=== PATIENT | female | born 1945 | race Caucasian/White ===

== ENCOUNTER 2017-10-08 10:59 | Inpatient (IN) | payer MEDICARE ==
[2017-10-08] MEDS ORDERED: D50W 25 GM/50 ML SYRINGE IV ONE (11:09)
[2017-10-08] MEDS ORDERED: DEXTROSE 10%-WATER 500 ML IV SCH (11:30)
--- NOTE | 2017-10-08 11:49 | RAD REPORT ---
EXAM DESCRIPTION: CT - Head Brain Wo Cont - 10/08/2017 11:42 am CLINICAL HISTORY: Transient alteration of awareness COMPARISON: CT head May 2016 TECHNIQUE: Axial 5 mm thick images of the head were obtained without IV contrast. All CT scans are performed using dose optimization technique as appropriate and may include automated exposure control or mA/KV adjustment according to patient size. FINDINGS: No intracranial hemorrhage, mass, edema or shift of mid-line structures. No acute cortical based infarction. No significant atrophy or chronic ischemic changes noted. No abnormal extra-axial fluid collections. Ventricles are normal. Arterial and physiologic calcifications are present. Mastoid air cells and visualized portions of the paranasal sinuses are clear. No acute bony findings. IMPRESSION: Negative non-contrast CT head examination for acute finding. No significant change from May 2016.
--- NOTE | 2017-10-08 11:50 | RAD REPORT ---
EXAM DESCRIPTION: Bhakti Single View10/08/2017 11:35 am CLINICAL HISTORY: Chest pain COMPARISON: 2016 FINDINGS: The lungs appear clear of acute infiltrate. The heart is normal size IMPRESSION: No acute abnormalities displayed
[2017-10-08 11:58] LABS: Absolute Lymphocytes (CBC) 1.7 K/uL (0.7-4.9); Absolute Monocytes 0.5 K/uL (0.1-1.3); Absolute Neutrophil 3.5 K/uL (1.8-8.0); Basophils % 0.4 % (0-1.3); Hematocrit 35.3 % (36.0-45.0); Lymphocytes % 29.5 % (15.3-44.8); MCH 28.1 pg (27.0-35.0); MPV 8.9 fL (7.6-11.3); Monocytes % 9.2 % (3.3-12.3); RBC Red Blood Cell Count 4.05 M/uL (3.86-4.86)
[2017-10-08 12:15] LABS: Albumin 3.6 g/dL (3.2-5.5); Bilirubin Direct 0.1 mg/dL (0-0.2); Bilirubin Total 0.5 mg/dL (0.3-1.2); Magnesium 1.8 mg/dL (1.8-2.5)
[2017-10-08 12:46] LABS: Arterial Blood Carboxyhemoglob 0.8 % (0-1.5); Blood Gas Oxyhemoglobin 95.1 % (94-97); Blood O2 Saturation 96.9 % (92-98.5)
[2017-10-08 13:15] LABS: Protime INR 1.05
--- NOTE | 2017-10-08 13:28 | EKG ---
Test Date: 2017-10-08 Test Time: 11:09:32 Apprentice Painter Neckties: OLENA MEASUREMENT RESULTS: Intervals: Rate: 65 NM: 278 QRSD: 112 QT: 452 QTc: 470 Leland: P: 61 NM: 278 QRS: 14 T: 56 INTERPRETIVE STATEMENTS: Sinus rhythm with 1st degree AV block Otherwise normal ECG Compared to ECG 05/06/2016 13:27:30 Sinus bradycardia no longer present Electronically Signed On 10-08-17 13:27:20 CDT by Elmer Lora
[2017-10-08 13:36] LABS: Urine Bacteria NONE SEEN /HPF (<20); Urine Culture Reflex Order NOT NEEDED; Urine RBC <5 /HPF (NONE SEEN)
[2017-10-08] MEDS ORDERED: ONDANSETRON 4 MG/2 ML VIAL ONE (14:03)
[2017-10-08] MEDS ORDERED: D5W 1,000 ML IV ONE (14:09)
[2017-10-08] MEDS ORDERED: POTASSIUM 25 MEQ EFFERV TAB ONE (14:09)
[2017-10-08 14:26] LABS: Urine Blood NEGATIVE (NEG); Urine Glucose NEGATIVE (NEG); Urine Protein NEGATIVE (NEG); Urine Specific Gravity 1.015 (1.005-1.030)
--- NOTE | 2017-10-08 14:32 | ER ---
Nurse's Notes [facility] Name: Amy Connor Age: 71 yrs Sex: Female : 1945 Arrival Date: 10/08/2017 Time: 11:02 Bed 3 Private MD: Diagnosis: Hypoglycemia, unspecified;Weakness Presentation: 10/08 11:02 Presenting complaint: EMS states: called for sudden confusion that began at hb 0930. BGL 34, improved to 86 after 1 amp D50. reports she took her insulin and blood sugar pill but did not eat breakfast. Transition of care: patient was not received from another setting of care. Onset of symptoms was October 08, 2017 at 09:30. Initial Sepsis Screen: Does the patient meet any 2 criteria? No. Patient's initial sepsis screen is negative. Does the patient have a suspected source of infection? No. Patient's initial sepsis screen is negative. Care prior to arrival: Medication(s) given: D50, 1 amp, IV initiated. 20 GA, in the right forearm, 18g Left AC. 11:02 Method Of Arrival: EMS: [facility] hb 11:02 Acuity: SIGIFREDO 2 hb Historical: - Allergies: 11:13 ACETAMINOPHEN; hb 11:13 Cefuroxime; hb 11:13 Clindamycin; hb 11:13 Codeine; hb 11:13 Demerol; hb 11:13 hydrocodone bitartrate; hb 11:13 hydrocodone bitartrate (bulk); hb 11:13 Iodine; hb 11:13 Keflex; hb 11:13 Levaquin; hb 11:13 meperidine HCl; hb 11:13 axetil; hb 11:13 naprosen; hb 11:13 Naproxen; hb 11:13 nitro; hb 11:13 Nitrofuran Analogues; hb 11:13 PENICILLINS; hb 11:13 pentazocine lactate; hb 11:13 promethazine HCl; hb 11:13 Sulfa (Sulfonamide Antibiotics); hb 11:13 Talwin; hb 11:13 Vicodin; hb - PMHx: 11:13 Diabetes - IDDM; hb - PSHx: 11:46 Hernia repair; Cholecystectomy; Appendectomy; Back; Knee Replacement - bilateral; hb - Immunization history:: Adult Immunizations up to date. - Social history:: Smoking status: . Screenin:14 Abuse screen: Denies threats or abuse. Denies injuries from another. Nutritional hb screening: No deficits noted. Tuberculosis screening: No symptoms or risk factors identified. Fall Risk Total Flores Fall Scale indicates High Risk Score (45 or more points). Fall prevention measures have been instituted. Side Rails Up X 2 Frequent Obs/Assessments Occuring Family Present and informed to notify staff if the need to leave the bedside As available patient and family educated on Fall Prevention Program and Strategies. Assessment: 11:10 Reassessment: BGL 35, Dr. Frias notified, 1 amp D50 administered as ordered. Dr. Frias hb at bedside. 11:15 General: Appears ill, Behavior is calm, cooperative. Pain: Denies pain. Neuro: Level of hb Consciousness is obeys commands, lethargic, Oriented to person, place, time, situation. Cardiovascular: Heart tones S1 S2 present Capillary refill < 3 seconds Patient's skin is warm and dry. Respiratory: Airway is patent Trachea midline Respiratory effort is even, unlabored, Respiratory pattern is regular, symmetrical, Breath sounds are clear bilaterally. GI: No signs and/or symptoms were reported involving the gastrointestinal system. : No signs and/or symptoms were reported regarding the genitourinary system. EENT: No signs and/or symptoms were reported regarding the EENT system. Derm: No signs and/or symptoms reported regarding the dermatologic system. Skin is pink, warm \T\ dry. Musculoskeletal: No signs and/or symptoms reported regarding the musculoskeletal system. 12:00 Reassessment: Patient appears in no apparent distress at this time. Patient and/or hb family updated on plan of care and expected duration. Pain level reassessed. Patient is alert, oriented x 3, equal unlabored respirations, skin warm/dry/pink. Family at bedside. 13:00 Reassessment: Patient appears in no apparent distress at this time. No changes from hb previously documented assessment. Patient and/or family updated on plan of care and expected duration. Pain level reassessed. Patient is alert, oriented x 3, equal unlabored respirations, skin warm/dry/pink. Family at bedside. 14:00 Reassessment: Patient appears in no apparent distress at this time. No changes from hb previously documented assessment. Patient and/or family updated on plan of care and expected duration. Pain level reassessed. Patient is alert, oriented x 3, equal unlabored respirations, skin warm/dry/pink. Family at bedside. 15:00 Reassessment: Patient appears in no apparent distress at this time. Patient and/or hb family updated on plan of care and expected duration. Pain level reassessed. Patient is alert, oriented x 3, equal unlabored respirations, skin warm/dry/pink. Admission ordered, awaiting room assignment at this time. Family remains at bedside. Vital Signs: 11:05 BP 154 / 71; Pulse 67; Resp 16; Temp 98; Pulse Ox 100% on R/A; hb 12:25 BP 171 / 88; Pulse 67; Resp 18; Pulse Ox 100% on R/A; tw2 14:15 BP 130 / 110; Pulse 96; Resp 17; Pulse Ox 98% on R/A; tw2 NIH Stroke Scale Scores: 15:41 NIHSS Score: 0 gs ED Course: 11:02 Patient arrived in ED. hb 11:02 Side rails up X2. Adult w/ patient. logistics operations director on. Pulse ox on. NIBP on. Warm tw2 blanket given. 11:05 Triage completed. hb 11:07 Marcos Frias MD is Attending Physician. gs 11:11 Maintain EMS IV. Dressing intact. Good blood return noted. Site clean \T\ dry. Gauge \T\ hb site: 20G RIGHT FA. 11:12 Maintain EMS IV. Dressing intact. Good blood return noted. Site clean \T\ dry. Gauge \T\ hb site: 18g LEFT AC. 11:15 Karen Alejo, RN is Primary Nurse. hb 11:30 X-ray completed. Portable x-ray completed in exam room. Patient tolerated procedure jb2 well. 11:33 XRAY Chest (1 view) In Process Unspecified. EDMS 11:42 CT Head Brain wo Cont In Process Unspecified. EDMS 12:26 Arm band placed on. tw2 14:31 Kathryn Henry MD is Hospitalizing Provider. gs 14:31 Gentry Em DO is Hospitalizing Provider. gs 15:45 No provider procedures requiring assistance completed. Patient admitted, IV remains in hb place. Administered Medications: 11:11 Drug: D50W 50 ml Route: IVP; Site: left antecubital; hb 11:35 Follow up: Response: No adverse reaction; Blood sugar is elevated tw2 14:07 Drug: Zofran 4 mg Route: IVP; Site: left antecubital; tw2 14:47 Follow up: Response: No adverse reaction; Nausea is decreased tw2 14:25 Drug: D5-NS 1000 ml Route: IV; Rate: 125 ml/hr; Site: left antecubital; tw2 15:45 Follow up: Response: No adverse reaction; IV Status: Infusion continued upon admission hb 14:47 Drug: Potassium Effervescent Tablet 50 mEq Route: PO; tw2 15:15 Follow up: Response: No adverse reaction hb Point of Care Testing: Blood Glucose: 11:09 Blood Glucose: 35 mg/dL; hb 11:34 Blood Glucose: 155 mg/dL; tw2 13:13 Blood Glucose: 97 mg/dL; tw2 14:18 Blood Glucose: 116 mg/dL; tw2 Ranges: Outcome: 14:32 Decision to Hospitalize by Provider. gs 15:45 Admitted to Med/surg accompanied by tech, family with patient, via stretcher, with hb oxygen, with chart. 15:45 Condition: stable 15:45 Instructed on the need for admit, Demonstrated understanding of instructions. 15:53 Patient left the ED. tw2 NIH Stroke Scale - NIH Stroke Score Date: 10/08/2017 Time: 15:41 Total Score = 0 1a. Level of Consciousness (LOC) - 0(Alert) 1b. Level of Consciousness (LOC) (Year \T\ Age) - 0(Both) 1c. LOC Commands (Open \T\ Closes Eyes/Millroom Supervisor) - 0(Both) 2. Best Gaze (Lateral Gaze Paresis) - 0(Normal) 3. Visual Field Loss - 0(No visual loss) 4. Facial Palsy - 0(Normal) 5a. Left Arm: Motor (10-second hold) - 0(No drift) 5b. Right Arm: Motor (10-second hold) - 0(No drift) 6a. Left Leg: Motor (5-second hold - always test supine) - 0(No drift) 6b. Right Leg: Motor (5-second hold - always test supine) - 0(No drift) 7. Limb Ataxia (finger/nose \T\ heel/lombardi - test with eyes open) - 0(Absent) 8. Sensory Loss (pinprick arms/legs/face) - 0(Normal) 9. Best Language: Aphasia (description/naming/reading) - 0(No aphasia) 10. Dysarthria (speech clarity - read or repeat words) - 0(Normal) 11. Extinction and Inattention (visual/tactile/auditory/spatial/personal) - 0(No abnormality) Initials: gs Signatures: Dispatcher [employer] Avery Solares Heather, RN RN Elena Singh RN RN tw2 Marcos Frias MD MD gs
--- NOTE | 2017-10-08 14:33 | EDPHYS ---
Physician Documentation [facility] Name: Amy Connor Age: 71 yrs Sex: Female : 1945 Arrival Date: 10/08/2017 Time: 11:02 Bed 3 Private MD: ED Physician Marcos Frias HPI: 10/08 15:41 This 71 yrs old Female presents to ER via EMS with complaints of Low Blood gs Sugar. 15:41 The patient or guardian reports hypoglycemia, that was potentially precipitated by gs po intake. Onset: The symptoms/episode began/occurred just prior to arrival. Associated signs and symptoms: Pertinent negatives: constipation, decreased urine output. Current symptoms: In the emergency department the patient's symptoms have improved, moderately. The patient has experienced similar episodes in the past, a few times. Historical: - Allergies: 11:13 ACETAMINOPHEN; hb 11:13 Cefuroxime; hb 11:13 Clindamycin; hb 11:13 Codeine; hb 11:13 Demerol; hb 11:13 hydrocodone bitartrate; hb 11:13 hydrocodone bitartrate (bulk); hb 11:13 Iodine; hb 11:13 Keflex; hb 11:13 Levaquin; hb 11:13 meperidine HCl; hb 11:13 axetil; hb 11:13 naprosen; hb 11:13 Naproxen; hb 11:13 nitro; hb 11:13 Nitrofuran Analogues; hb 11:13 PENICILLINS; hb 11:13 pentazocine lactate; hb 11:13 promethazine HCl; hb 11:13 Sulfa (Sulfonamide Antibiotics); hb 11:13 Talwin; hb 11:13 Vicodin; hb - PMHx: 11:13 Diabetes - IDDM; hb - PSHx: 11:46 Hernia repair; Cholecystectomy; Appendectomy; Back; Knee Replacement - bilateral; hb - Immunization history:: Adult Immunizations up to date. - Social history:: Smoking status: . ROS: 15:41 All other systems are negative. gs Exam: 15:38 ECG was reviewed by the Attending Physician. gs 15:41 Head/Face: Normocephalic, atraumatic. Eyes: Pupils equal round and reactive to light, gs extra-ocular motions intact. Lids and lashes normal. Conjunctiva and sclera are non-icteric and not injected. Cornea within normal limits. Periorbital areas with no swelling, redness, or edema. ENT: Nares patent. No nasal discharge, no septal abnormalities noted. Tympanic membranes are normal and external auditory canals are clear. Oropharynx with no redness, swelling, or masses, exudates, or evidence of obstruction, uvula midline. Mucous membranes moist. Neck: Trachea midline, no thyromegaly or masses palpated, and no cervical lymphadenopathy. Supple, full range of motion without nuchal rigidity, or vertebral point tenderness. No Meningismus. Chest/axilla: Normal chest wall appearance and motion. Nontender with no deformity. No lesions are appreciated. 15:41 Respiratory: Lungs have equal breath sounds bilaterally, clear to auscultation and percussion. No rales, rhonchi or wheezes noted. No increased work of breathing, no retractions or nasal flaring. Abdomen/GI: Soft, non-tender, with normal bowel sounds. No distension or tympany. No guarding or rebound. No evidence of tenderness throughout. Back: No spinal tenderness. No costovertebral tenderness. Full range of motion. Skin: Warm, dry with normal turgor. Normal color with no rashes, no lesions, and no evidence of cellulitis. MS/ Extremity: Pulses equal, no cyanosis. Neurovascular intact. Full, normal range of motion. 15:41 Constitutional: The patient appears alert, awake, uncomfortable. 15:41 Cardiovascular: Rate: normal, Rhythm: regular, Pulses: no pulse deficits are appreciated. 15:41 Neuro: Orientation: to person, place \T\ time. Mentation: slow to respond, Cranial nerves: CN II- XII are normal as tested, Cerebellar function: normal finger to nose testing, Motor: moves all fours, strength is normal, Sensation: no obvious gross deficits. Vital Signs: 11:05 BP 154 / 71; Pulse 67; Resp 16; Temp 98; Pulse Ox 100% on R/A; hb 12:25 BP 171 / 88; Pulse 67; Resp 18; Pulse Ox 100% on R/A; tw2 14:15 BP 130 / 110; Pulse 96; Resp 17; Pulse Ox 98% on R/A; tw2 NIH Stroke Scale Scores: 15:41 NIHSS Score: 0 gs MDM: 11:13 Patient medically screened. gs 15:41 Differential diagnosis: hypoglycemic episode, general weakness, sepsis, renal gs insufficiency. Data reviewed: vital signs, nurses notes. Response to treatment: the patient's symptoms have markedly improved after treatment, and as a result, I will admit patient. 10/08 11:09 Order name: Glucose, Ancillary Testing; Complete Time: 11:13 EDMS 10/08 11:17 Order name: Basic Metabolic Panel; Complete Time: 12: 10/08 11:17 Order name: CPK; Complete Time: 12: 10/08 11:17 Order name: LFT's; Complete Time: 12: 10/08 11:17 Order name: Magnesium; Complete Time: 12: 10/08 11:17 Order name: PT-INR; Complete Time: 14:00 10/08 11:17 Order name: Troponin (emerg Dept Use Only); Complete Time: 12: 10/08 11:17 Order name: ABG; Complete Time: 14:00 10/08 11:17 Order name: AMMONIA; Complete Time: 12: 10/08 11:26 Order name: CBC with Diff; Complete Time: 12:17 10/08 11:35 Order name: Glucose, Ancillary Testing; Complete Time: 12:17 EDMS 10/08 11:59 Order name: Glucose, Ancillary Testing; Complete Time: 12:17 EDNM 10/08 12:44 Order name: Urine Microscopic Only; Complete Time: 14:00 la1 10/08 13:14 Order name: Glucose, Ancillary Testing; Complete Time: 14:00 EDMS 10/08 11:17 Order name: XRAY Chest (1 view); Complete Time: 12: 10/08 11:17 Order name: EKG; Complete Time: 10/08 11:17 Order name: Cardiac monitoring; Complete Time: 10/08 11:17 Order name: EKG - Nurse/Tech; Complete Time: 10/08 11:17 Order name: IV Saline Lock; Complete Time: : 10/08 11:17 Order name: Labs collected and sent; Complete Time: 11:35 10/08 11:17 Order name: O2 Per Protocol; Complete Time: : 10/08 11:17 Order name: O2 Sat Monitoring; Complete Time: 11:17 10/08 11:17 Order name: CT Head Brain wo Cont; Complete Time: 12:17 gs 10/08 11:21 Order name: Diet Ada 1800 Prem; Complete Time: 11:21 bd 10/08 13:33 Order name: Urine Dipstick--Ancillary (enter results); Complete Time: 14:27 bd 10/08 14:16 Order name: Glucose, Ancillary Testing; Complete Time: 14:27 EDMS 10/08 11:17 Order name: Urine Dipstick-Ancillary (obtain specimen); Complete Time: 13:09 10/08 11:18 Order name: Accucheck; Complete Time: 11:35 10/08 11:53 Order name: Labs - recollect needed; Complete Time: 13:09 bd EC:38 Rate is 65 beats/min. Rhythm is regular. [place] interval is prolonged. QRS interval is gs prolonged. T waves are Flattened. Clinical impression: NSR w/ Non-specific ST/T Changes and Abnormal EKG without significant change. Interpreted by me. Administered Medications: 11:11 Drug: D50W 50 ml Route: IVP; Site: left antecubital; hb 11:35 Follow up: Response: No adverse reaction; Blood sugar is elevated tw2 14:07 Drug: Zofran 4 mg Route: IVP; Site: left antecubital; tw2 14:47 Follow up: Response: No adverse reaction; Nausea is decreased tw2 14:25 Drug: D5-NS 1000 ml Route: IV; Rate: 125 ml/hr; Site: left antecubital; tw2 15:45 Follow up: Response: No adverse reaction; IV Status: Infusion continued upon admission hb 14:47 Drug: Potassium Effervescent Tablet 50 mEq Route: PO; tw2 15:15 Follow up: Response: No adverse reaction hb Point of Care Testing: Blood Glucose: 11:09 Blood Glucose: 35 mg/dL; hb 11:34 Blood Glucose: 155 mg/dL; tw2 13:13 Blood Glucose: 97 mg/dL; tw2 14:18 Blood Glucose: 116 mg/dL; tw2 Ranges: Critical Glucose Levels:Adult <50 mg/dl or >400 mg/dl <40 mg/dl or >180 mg/dl Disposition: 10/08/17 14:32 Hospitalization ordered by Gentry Em for Inpatient Admission. Preliminary diagnosis are Hypoglycemia, unspecified, Weakness. - Bed requested for Telemetry/MedSurg (Inpatient). - Status is Inpatient Admission. tw2 - Condition is Stable. - Problem is new. - Symptoms have improved. UTI on Admission? No NIH Stroke Scale - NIH Stroke Score Date: 10/08/2017 Time: 15:41 Total Score = 0 1a. Level of Consciousness (LOC) - 0(Alert) 1b. Level of Consciousness (LOC) (Year \T\ Age) - 0(Both) 1c. LOC Commands (Open \T\ Closes Eyes/Tracer Bullet Section Supervisor) - 0(Both) 2. Best Gaze (Lateral Gaze Paresis) - 0(Normal) 3. Visual Field Loss - 0(No visual loss) 4. Facial Palsy - 0(Normal) 5a. Left Arm: Motor (10-second hold) - 0(No drift) 5b. Right Arm: Motor (10-second hold) - 0(No drift) 6a. Left Leg: Motor (5-second hold - always test supine) - 0(No drift) 6b. Right Leg: Motor (5-second hold - always test supine) - 0(No drift) 7. Limb Ataxia (finger/nose \T\ heel/lombardi - test with eyes open) - 0(Absent) 8. Sensory Loss (pinprick arms/legs/face) - 0(Normal) 9. Best Language: Aphasia (description/naming/reading) - 0(No aphasia) 10. Dysarthria (speech clarity - read or repeat words) - 0(Normal) 11. Extinction and Inattention (visual/tactile/auditory/spatial/personal) - 0(No abnormality) Initials: Signatures: Dispatcher [employer] EDMS Seda Landon Heather, RN RN Elena Singh RN RN tw2 Marcos Frias MD MD Corrections: (The following items were deleted from the chart) 15:30 14:32 Hospitalization Ordered by Gentry Em DO for Inpatient Admission. Preliminary diagnosis is Hypoglycemia, unspecified; Weakness. Bed requested for Telemetry/MedSurg (Inpatient). Status is Inpatient Admission. Condition is Stable. Problem is new. Symptoms have improved. UTI on Admission? No. gs 15:53 15:30 10/08/2017 14:32 Hospitalization Ordered by Gentry Prezas DO for tw2 Inpatient Admission. Preliminary diagnosis is Hypoglycemia, unspecified; Weakness. Bed requested for Telemetry/MedSurg (Inpatient). Status is Inpatient Admission. Condition is Stable. Problem is new. Symptoms have improved. UTI on Admission? No. bd
[2017-10-08] MEDS ORDERED: D5 0.9 NS 1,000 ML IV SCH (16:07)
[2017-10-08] MEDS ORDERED: ONDANSETRON 4 MG/2 ML VIAL IV PRN (16:07)
[2017-10-08] MEDS: INSULIN -REGULAR HUMAN 50 UNIT/0.5 ML ML SQ SCH ×2 (16:14→20:22)
[2017-10-08 17:10] LABS: A1c Component 0.59 mg/dL; Hemoglobin A1c 6.4 % (4-6.0)
--- NOTE | 2017-10-08 17:15 | P.HP ---
Certification for Inpatient Patient admitted to: Observation With expected LOS: <2 Midnights Patient will require the following post-hospital care: None Practitioner: I am a practitioner with admitting privileges, knowledge of patient current condition, hospital course, and medical plan of care. Services: Services provided to patient in accordance with Admission requirements found in Title 42 Section 412.3 of the Code of Federal Regulations Patient History Date of Service: 10/08/17 Primary Care Provider: Dr. Reynoso Reason for admission: Fatigue History of Present Illness: 71-year-old female presented urgency room with fatigue. Patient was noted in having hypoglycemia. She had checked her blood sugar. It was in the 30s. Patient did get D50 with EMS. Blood sugar still decrease. Patient was placed on D 5. Patient reports recent change in her diet. She is on a low carb diet. She takes insulin for diabetes. Patient also reports a history of chronic headaches, hypertension, hyperlipidemia, GERD with hiatal hernia. Patient with history of gastric surgery for weight loss. In the ER the patient was evaluated. Blood sugars improved but still fluctuating. Recent lab shows white count within normal range. Sodium 140, potassium 3.0, BUN of 55, blood sugar 165. Troponin within normal range. Urinalysis unremarkable. Chest x-ray unremarkable. CT of the head was also unremarkable. Due to nature the findings the patient was admitted for observation. When I saw the patient in the ER, she appeared comfortable. Family was at bedside. She still reported some mild fatigue. Patient with history of diabetes, hypertension. She does take basal insulin. As mentioned above. Diet has changed with a low carb diet. Patient with history of gastric surgery for weight loss. Allergies acetaminophen [From Vicodin] Allergy (Mild, Verified 01/15/17 23:25) Hives/Rash clindamycin Allergy (Mild, Verified 01/15/17 23:25) Hives/Rash codeine [Codeine] Allergy (Mild, Verified 01/15/17 23:25) Hives/Rash hydrocodone bitartrate [From Vicodin] Allergy (Mild, Verified 01/15/17 23:25) Hives/Rash iodine Allergy (Mild, Verified 01/15/17 23:25) Hives meperidine HCl [From Demerol] Allergy (Mild, Verified 01/15/17 23:25) Hives/Rash naproxen Allergy (Mild, Verified 01/15/17 23:25) Hives/Rash Penicillins Allergy (Mild, Verified 01/15/17 23:25) Hives/Rash pentazocine lactate [From Talwin] Allergy (Mild, Verified 01/15/17 23:25) Hives/Rash promethazine HCl [From Phenergan] Allergy (Mild, Verified 01/15/17 23:25) Hives/Rash Sulfa (Sulfonamide Antibiotics) [Sulfa(Sulfonamide Antibiotics)] Allergy (Mild, Verified 01/15/17 23:25) Hives/Rash cefuroxime Allergy (Verified 01/15/17 23:25) Hives/Rash cephalexin Allergy (Verified 01/15/17 23:25) Itching/Hives/Rash hydrocodone [From Vicodin] Allergy (Verified 01/15/17 23:25) Unknown levofloxacin [From Levaquin] Allergy (Verified 01/15/17 23:25) Hives/Rash meperidine [From Demerol] Allergy (Verified 01/15/17 23:25) Unknown Nitrofuran Analogues Allergy (Verified 01/15/17 23:25) Unknown nitrofurantoin Allergy (Verified 01/15/17 23:25) Hives/Rash pentazocine [From Talwin] Allergy (Verified 01/15/17 23:25) Unknown axetil Allergy (Uncoded 01/15/17 23:25) Unknown Cefuroxim Allergy (Uncoded 01/15/17 23:25) Unknown hydroc Allergy (Uncoded 01/15/17 23:25) Unknown hydrocodo Allergy (Uncoded 01/15/17 23:25) Unknown mep Allergy (Uncoded 01/15/17 23:25) Unknown naprosen Allergy (Uncoded 01/15/17 23:25) Unknown penta Allergy (Uncoded 01/15/17 23:25) Unknown promethazi Allergy (Uncoded 01/15/17 23:25) Unknown Home medications list reviewed: Yes Home Medications: Acetaminophen 650 mg PO 5XD PRN 01/15/17 Ascorbate Calcium [Vitamin C] 500 mg PO DAILY 01/15/17 Aspirin [Aspir-Low] 81 mg PO DAILY 01/15/17 Atorvastatin Calcium 20 mg PO DAILY 01/15/17 Calcitrol [Rocaltrol*] 0.25 mcg PO DAILY 01/15/17 Cholecalciferol (Vitamin D3) [Vitamin D3] 1,000 unit PO DAILY 01/15/17 Divalproex Sodium 500 mg PO BEDTIME 01/15/17 Hydralazine [Apresoline*] 25 mg PO DAILY 01/15/17 Insulin Glargine,Hum.rec.anlog [Lizz Smith] 34 unit SQ DAILY 01/15/17 Levothyroxine Sodium 75 mcg PO DAILY 01/15/17 Magnesium Oxide [Magnesium] 250 mg PO DAILY 01/15/17 Melatonin 5 mg PO BEDTIME 01/15/17 Multivitamin [Multiple Vitamins] 1 tab PO DAILY 01/15/17 - Past Medical/Surgical History Diabetic: Yes -: Chronic kidney disease -: Diabetes mellitus type 2 -: Hypothyroidism -: Hypertension -: GERD with hiatal hernia -: History gastric surgery -: Hyperlipidemia -: Appendectomy -: Cholecystectomy -: Hysterectomy -: Hernia repair -: Back surgery -: Bilateral knee replacements -: Gastric surgery for weight loss Psychosocial/ Personal History: The patient is . She has 2 children. She does not work. - Family History Father -: Heart disease, Hypertension, Diabetes, Cancer (Squamous cell cancer) Mother -: Heart disease, Hypertension, Diabetes, Cancer (Pancreatic cancer) - Social History Smoking Status: Never smoker Alcohol use: Yes CD- Drugs: No Caffeine use: Yes Place of Residence: Home Review of Systems General: Weakness, Malaise, As per HPI Eyes: Unremarkable ENT: Unremarkable Respiratory: Unremarkable Cardiovascular: Unremarkable Gastrointestinal: Unremarkable Genitourinary: Unremarkable Musculoskeletal: As per HPI Integumentary: As per HPI Neurological: As per HPI Lymphatics: Unremarkable Physical Examination - Vital Signs Temperature: 98 F Blood Pressure: 130/110 Pulse: 96 Respirations: 17 - Physical Exam General: Alert, In no apparent distress, Oriented x3, Cooperative HEENT: Atraumatic, Normocephalic, PERRLA, Other (Dry mucous membranes) Neck: Supple, No Thyromegaly Respiratory: Clear to auscultation bilaterally, Normal air movement Cardiovascular: Normal pulses, Regular rate/rhythm Gastrointestinal: Normal bowel sounds, Soft and benign, Non-distended, No tenderness, No masses, No rebound, No guarding Musculoskeletal: No erythema, No tenderness, No warmth Integumentary: No tenderness/swelling, No erythema, No warmth, No cyanosis Neurological: Normal speech, Normal strength at 5/5 x4 extr, Normal tone, Normal affect Lymphatics: No axilla or inguinal lymphadenopathy - Studies Laboratory Data (last 24 hrs) 10/08/17 12:46: PT 12.4, INR 1.05 10/08/17 11:20: WBC 5.8, Hgb 11.4 L, Hct 35.3 L, Plt Count 155 10/08/17 11:20: Sodium 140, Potassium 3.0 L, BUN 18, Creatinine 0.99, Glucose 165 H, Magnesium 1.8, Total Bilirubin 0.5, AST 25, ALT 15, Alkaline Phosphatase 60 Assessment and Plan - Problems (Diagnosis) (1) Hiatal hernia with GERD Current Visit: Yes Status: Chronic Plan: Will continue with PPI. Recommendation on no further use of nonsteroidal anti- inflammatories. Patient with history of gastric surgery for weight loss. Will teach on nutrition. (2) History of gastric bypass Current Visit: Yes Status: Chronic Plan: Continue as above. (3) Obesity Current Visit: Yes Status: Chronic Plan: Will calculate BMI and address lifestyle modification education. (4) Hypokalemia Current Visit: Yes Status: Acute Plan: Will monitor and replace appropriately. Replacement protocol in place. Will need to consider discontinuing hydrochlorothiazide. (5) Chronic pain Current Visit: Yes Status: Chronic Plan: Will address and continue her pain medication Qualifiers: Chronic pain type: chronic pain syndrome Qualified Code(s): G89.4 - Chronic pain syndrome (6) Diabetes mellitus Onset Date: 01/16/17 Current Visit: No Status: Chronic Plan: Patient with hypoglycemia likely related to recent low carb diet with insulin. Will check A1c. Patient will likely no longer need basal insulin. Will continue with IV fluids to maintain adequate blood sugar level. Will discontinue her basal insulin. Will continue to reassess and monitor. 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 Qualifiers: Hyperlipidemia type: unspecified (8) Hypertension Current Visit: No Status: Chronic Plan: Continue with medication. Will monitor. Will need to consider discontinuing HCTZ. Qualifiers: Hypertension type: essential hypertension (9) Hypothyroidism Current Visit: No Status: Chronic Plan: Will check TSH. Will obtain medication. Qualifiers: Discharge Plan: Home Plan to discharge in: 24 Hours - Advance Directives Does patient have a Living Will: No Does patient have a Durable POA for Healthcare: No - Code Status/Comfort Care Code Status Assessed: Yes Time Spent Managing Pts Care (In Minutes): 55
[2017-10-08 17:55] VITALS: BMI 37.6
[2017-10-08] MEDS: NA CHLORIDE 0.9% 1,000 ML IV SCH (18:06)
[2017-10-08 18:14] LABS: Thyroid Stimulating Hormone 5.15 uIU/mL (0.34-5.60)
[2017-10-09] MEDS: NA CHLORIDE 0.9% 1,000 ML IV SCH (03:55)
[2017-10-09 05:12] LABS: Absolute Lymphocytes (CBC) 2.3 K/uL (0.7-4.9); Absolute Monocytes 0.7 K/uL (0.1-1.3); Absolute Neutrophil 2.9 K/uL (1.8-8.0); Basophils % 0.6 % (0-1.3); Eosinophils % 1.5 % (0-4.4); Hematocrit 31.6 % (36.0-45.0); Lymphocytes % 38.5 % (15.3-44.8); MCH 28.7 pg (27.0-35.0); MCV 85.5 fL (80-100); MPV 8.6 fL (7.6-11.3); Monocytes % 11.4 % (3.3-12.3); RBC Red Blood Cell Count 3.69 M/uL (3.86-4.86)
[2017-10-09 05:18] LABS: Magnesium 1.7 mg/dL (1.8-2.5); Potassium 3.9 mEq/L (3.6-5.0)
[2017-10-09] MEDS ORDERED: PANTOPRAZOLE 40MG TABLET PO SCH (06:30)
[2017-10-09] MEDS: INSULIN -REGULAR HUMAN 50 UNIT/0.5 ML ML SQ SCH ×2 (07:30→11:30)
[2017-10-09] MEDS ORDERED: ENOXAPARIN 40 MG/0.4 ML SQ SCH (09:00)
[2017-10-09] MEDS ORDERED: AMLODIPINE 5 MG TAB PO SCH (09:00)
[2017-10-09] MEDS ORDERED: ACETAMINOPHEN 500 MG TAB PO PRN (09:32)
[2017-10-09 12:11] VITALS: BP 166/76; TEMP 98.3
--- NOTE | 2017-10-09 12:15 | P.DS ---
Admission Date: 10/08/17 Discharge Date: 10/09/17 Primary Care Provider: Dr. Reynoso Disposition: ROUTINE DISCHARGE Discharge Condition: GOOD Reason for Admission: Fatigue - Problems (1) Hiatal hernia with GERD Onset Date: 10/09/17 Current Visit: Yes Status: Chronic (2) History of gastric bypass Current Visit: Yes Status: Chronic (3) Obesity Onset Date: 10/09/17 Current Visit: Yes Status: Chronic Qualifiers: Obesity type: due to excess calories Obesity classification: adult class 2 (BMI 35 - 39.9) Serious obesity comorbidity presence: with serious comorbidity Body mass index: BMI 37.0-37.9 Qualified Code(s): E66.01 - Morbid (severe) obesity due to excess calories; Z68.37 - Body mass index (BMI) 37.0-37.9, adult (4) Hypokalemia Onset Date: 10/09/17 Current Visit: Yes Status: Acute (5) Chronic pain Onset Date: 10/09/17 Current Visit: Yes Status: Chronic Qualifiers: Chronic pain type: chronic pain syndrome Qualified Code(s): G89.4 - Chronic pain syndrome (6) Diabetes mellitus Onset Date: 01/16/17 Current Visit: No Status: Chronic Qualifiers: Diabetes mellitus type: type 2 Diabetes mellitus fpc insulin use: with fpc use Diabetes mellitus complication status: with hypoglycemia Diabetes mellitus complication detail: without coma Qualified Code(s): E11.649 - Type 2 diabetes mellitus with hypoglycemia without coma; Z79.4 - long term (current) use of insulin (7) Hyperlipidemia Onset Date: 10/09/17 Current Visit: Yes Status: Chronic Qualifiers: Hyperlipidemia type: unspecified (8) Hypertension Onset Date: 10/09/17 Current Visit: Yes Status: Chronic Qualifiers: Hypertension type: essential hypertension (9) Hypothyroidism Onset Date: 10/09/17 Current Visit: Yes Status: Chronic Qualifiers: (10) Chronic renal disease Current Visit: Yes Status: Chronic Qualifiers: Chronic kidney disease stage: stage 2 (mild) Qualified Code(s): N18.2 - Chronic kidney disease, stage 2 (mild) Brief History of Present Illness: 71-year-old female presented urgency room with fatigue. Patient was noted in having hypoglycemia. She had checked her blood sugar. It was in the 30s. Patient did get D50 with EMS. Blood sugar still decrease. Patient was placed on D 5. Patient reports recent change in her diet. She is on a low carb diet. She takes insulin for diabetes. Patient also reports a history of chronic headaches, hypertension, hyperlipidemia, GERD with hiatal hernia. Patient with history of gastric surgery for weight loss. In the ER the patient was evaluated. Blood sugars improved but still fluctuating. Recent lab shows white count within normal range. Sodium 140, potassium 3.0, BUN of 55, blood sugar 165. Troponin within normal range. Urinalysis unremarkable. Chest x-ray unremarkable. CT of the head was also unremarkable. Due to nature the findings the patient was admitted for observation. When I saw the patient in the ER, she appeared comfortable. Family was at bedside. She still reported some mild fatigue. Patient with history of diabetes, hypertension. She does take basal insulin. As mentioned above. Diet has changed with a low carb diet. Patient with history of gastric surgery for weight loss. Hospital Course: Patient presented with fatigue and hypoglycemia. Patient was found to be hypoglycemic. Patient had been using insulin therapy at home. Hypoglycemia likely related to [id number], she had been using 34 units subcu daily. During her stay. This was discontinued. She was monitored closely off medication. She was found to have a hemoglobin A1c of 6.4. Patient also with history of gastric surgery for weight loss. At discharge, Recommendation is to discontinue insulin therapy at this time. Patient may be able to control blood sugars with diet alone. Recommendation is to monitor blood sugars at least twice daily. Recommendation is to maintain blood sugars less 140 fasting and less than 200 after meals. If blood sugars remain above 200 consistently she is to contact her PCP for further recommendation. If the patient is restarted on insulin therapy this may need to be adjusted very slowly. Hypoglycemia education will be provided. Patient has hypertension. This remained stable during her stay. She will continue with her medication hydralazine 25 mg 1 pill twice daily. Recommendation is to maintain blood pressures less 150/80. Further adjustment can be done by her PCP. Patient has hyperlipidemia. She will continue with Lipitor 20 mg 1 pill once daily. Patient has hypothyroidism. She will continue with Levoxyl 50 mcg 1 pill daily. Patient with history of chronic renal disease. This remained stable during her stay. She will continue with her medication. Recommendation is to recheck BMP in 2-4 weeks to monitor progress. Further adjustment can be done by nephrology. Recommendation on no further use of nonsteroidal anti- inflammatories. Patient has GERD. Patient will continue with Protonix 40 mg 1 pill once daily. Patient with history of gastric surgery for weight loss. Recommendation on no further use of nonsteroidal anti-inflammatories. Vital Signs/Physical Exam: Temp Pulse Resp BP Pulse Ox 98.3 F 66 18 166/76 H 96 10/09/17 12:00 10/09/17 12:00 10/09/17 12:00 10/09/17 12:00 10/09/17 12:00 General: Alert, In no apparent distress, Oriented x3, Cooperative HEENT: Atraumatic, Mucous membr. moist/pink Neck: Supple Respiratory: Clear to auscultation bilaterally, Normal air movement Cardiovascular: Normal pulses, Regular rate/rhythm Gastrointestinal: Normal bowel sounds, Soft and benign, Non-distended, No tenderness, No masses, No rebound, No guarding Musculoskeletal: No erythema, No tenderness, No warmth Integumentary: No tenderness/swelling, No erythema, No warmth, No cyanosis Neurological: Normal speech, Normal strength at 5/5 x4 extr, Normal tone, Normal affect Laboratory Data at Discharge: WBC 6.0 K/uL (4.3-10.9) 10/09/17 04:24 Hgb 10.6 g/dL (12.0-15.0) L 10/09/17 04:24 Hct 31.6 % (36.0-45.0) L 10/09/17 04:24 Plt Count 165 K/uL (152-406) 10/09/17 04:24 PT 12.4 SECONDS (9.5-12.5) 10/08/17 12:46 INR 1.05 10/08/17 12:46 Sodium 141 mEq/L (135-145) 10/09/17 04:24 Potassium 3.9 mEq/L (3.6-5.0) 10/09/17 04:24 BUN 13 mg/dL (6-20) 10/09/17 04:24 Creatinine 0.83 mg/dL (0.44-1.00) 10/09/17 04:24 Glucose 49 mg/dL (65-120) L* 10/09/17 04:24 Magnesium 1.7 mg/dL (1.8-2.5) L 10/09/17 04:24 Total Bilirubin 0.5 mg/dL (0.3-1.2) 10/08/17 11:20 AST 25 IU/L (10-42) 10/08/17 11:20 ALT 15 IU/L (10-60) 10/08/17 11:20 Alkaline Phosphatase 60 IU/L (42-121) 10/08/17 11:20 Home Medications: RX: Acetaminophen 1,300 mg PO BIDP PRN 01/15/17 RX: Ascorbate Calcium [Vitamin C] 500 mg PO DAILY 01/15/17 RX: Aspirin [Aspir-Low] 81 mg PO DAILY 01/15/17 RX: Atorvastatin Calcium 20 mg PO DAILY 01/15/17 RX: Calcitrol [Rocaltrol*] 0.25 mcg PO SEECOM 01/15/17 RX: Cholecalciferol (Vitamin D3) [Vitamin D3] 1,000 unit PO DAILY 01/15/17 RX: Hydralazine [Apresoline*] 25 mg PO BID 01/15/17 RX: Levothyroxine Sodium 50 mcg PO DAILY 01/15/17 RX: Melatonin 5 mg PO BEDTIME 01/15/17 RX: Multivitamin [Multiple Vitamins] 1 tab PO DAILY 01/15/17 Pantoprazole [Protonix Tab] 40 mg PO DAILY #30 tab 10/09/17 New Medications: Pantoprazole [Protonix Tab] 40 mg PO DAILY #30 tab Patient Discharge Instructions: 1. Patient will need a follow up with her PCP in 1 week to follow up this hospitalization. 2. Patient presented with fatigue and hypoglycemia. This is likely related to [id number]-[id number]. Patient has started a new diabetic diet regimen. Patient also with history of gastric surgery for weight loss. Recommendation is to discontinue insulin therapy at this time. Hemoglobin A1c 6.4. Patient may be able to control blood sugars with diet. Recommendation is to monitor blood sugars at least twice daily. Recommendation is to maintain blood sugars less 140 fasting and less than 200 after meals. If blood sugars remain above 200 consistently she is to contact her PCP for further recommendation. If the patient is restarted on insulin therapy this may need to be adjusted very slowly. Hypoglycemia education will be provided. 3. Patient has hypertension. She will continue with her medication hydralazine 25 mg 1 pill twice daily. Recommendation is to maintain blood pressures less 150/80. Further adjustment can be done by her PCP. 4. Patient has hyperlipidemia. She will continue with Lipitor 20 mg 1 pill once daily. 5. Patient has hypothyroidism. She will continue with Levoxyl 50 mcg 1 pill daily. 6. Patient with history of chronic renal disease. She will continue with her medication. Recommendation is to recheck BMP in 2-4 weeks to monitor progress. Further adjustment can be done by nephrology. Recommendation on no further use of nonsteroidal anti- inflammatories. 7. Patient has GERD. Patient will continue with Protonix 40 mg 1 pill once daily. Patient with history of gastric surgery for weight loss. Recommendation on no further use of nonsteroidal anti-inflammatories. Diet: ADA Activity: Fall precautions Time spent managing pt's care (in minutes): 55
[2017-10-09 14:24] VITALS: O2SAT 94
[2017-10-09] MEDS ORDERED: D50W 25 GM/50 ML SYRINGE IV PRN (15:07)
[2017-10-09] MEDS ORDERED: GLUCAGON 1 MG/VIAL IM PRN (15:07)
== END 2017-10-09 15:37 | disposition home or self-care (01) | DRG 639 ==
LOC: ER 10:59 → ERHOLD 14:44 → 2ND 15:43
PROVIDERS: ADMIT Family Medicine; ATTEND Family Medicine
DX: E11.649 Type 2 diabetes mellitus with hypoglycemia without coma (principal); T38.3X5A Adverse effect of insulin and oral hypoglycemic [antidiabetic] drugs, initial encounter; Z79.4 Long term (current) use of insulin; E66.9 Obesity, unspecified; Z68.37 Body mass index [BMI] 37.0-37.9, adult; E87.6 Hypokalemia; Z98.84 Bariatric surgery status; K21.9 Gastro-esophageal reflux disease without esophagitis; K44.9 Diaphragmatic hernia without obstruction or gangrene; G89.4 Chronic pain syndrome; E78.5 Hyperlipidemia, unspecified; E03.9 Hypothyroidism, unspecified; I12.9 Hypertensive chronic kidney disease with stage 1 through stage 4 chronic kidney disease, or unspecified chronic kidney disease; E11.22 Type 2 diabetes mellitus with diabetic chronic kidney disease; N18.2 Chronic kidney disease, stage 2 (mild)
CPT/HCPCS: 36415; 70450; 71045; 80048; 80076; 81003; 81015; 82140; 82550; 82805; 82962; 83036; 83735; 84439; 84443; 84484; 85025; 85610; 93005; 96365; 96375; 99285; J1650; J2405; J7030

== ENCOUNTER 2018-01-14 09:36 | Day surgery (SDC) | payer MEDICARE ==
[2018-01-14 10:16] VITALS: O2SAT 100
[2018-01-14] MEDS ORDERED: LIDOCAINE 2% MPF 5 ML VIAL ONE (10:35)
[2018-01-14] MEDS ORDERED: BUPIVACAINE 0.25% PF 10 ML VIAL ONE (10:36)
[2018-01-14] MEDS ORDERED: NA CHLORIDE 0.9% 500 ML ONE (10:36)
[2018-01-14] MEDS ORDERED: LIDOCAINE HCL/PF 3.5% OPTH GEL ONE (10:36)
[2018-01-14] MEDS ORDERED: TETRACAINE HCL 0.5% 2ML OPTH ONE (10:36)
[2018-01-14] MEDS: PHENYLEPHRINE 10% OPTH 5ML ONE ×3 (10:50→11:00)
[2018-01-14] MEDS: CYCLOPENTOLATE 1% OPTH 2 ML ONE ×3 (10:50→11:00)
[2018-01-14] MEDS ORDERED: NS 0.9% VIAL 10 ML ONE (11:17)
[2018-01-14] MEDS ORDERED: MOXIFLOXACIN HCL 10 DROPS/ML **OR USE OPTH ONE (11:19)
[2018-01-14] MEDS ORDERED: MIDAZOLAM HCL 2 MG/2 ML INJ ONE (12:12)
[2018-01-14] MEDS ORDERED: FENTANYL CITR 100 MCG/2 ML ONE (12:12)
[2018-01-14] MEDS: EPINEPHRINE/PF 1 MG/ML AMP ONE ×2 (12:25→12:28)
[2018-01-14] MEDS: BALANCED SALT IRRIG PLAIN 500 ML BTL IRR ONE ×2 (12:25→12:28)
[2018-01-14] MEDS: LIDOCAINE 1% MPF 2 ML AMPULE ONE ×2 (12:26→12:28)
[2018-01-14] MEDS: DUOVISC 1 KIT OPTH ONE ×2 (12:27→12:28)
--- NOTE | 2018-01-14 12:51 | P.BOP ---
Preoperative diagnosis: Nuclear sclerotic cataract OD Postoperative diagnosis: Same Primary procedure: Phacoemulsification with IOL OD Estimated blood loss: None Anesthesia: Local (Topical with anesthesia for cataract surgery) Complications: None Implants: ZCB00 +29.0 Transferred to: Other (Day surgery) Condition: Good
[2018-01-14 13:44] VITALS: BP 150/80; TEMP 97.5
--- NOTE | 2018-01-14 23:33 | OP ---
Date of Procedure: 01/14/2018 Surgeon: Carrie Heart MD Anesthesiologist: Fatuma Albert CRNA and Luis White M.D. Preoperative Diagnosis: Nuclear sclerotic cataract right eye. Operation Performed: Phacoemulsification with intraocular lens implant, right eye. Anesthesia: Per cataract surgery. Complications: None. Description Of Procedure: In the operating room, the patient was prepped and draped in the usual sterile fashion for ophthalmic surgery. A lid speculum was placed in the right eye. Two paracentesis sites were made superiorly and inferiorly in the limbal cornea. Viscoat was placed in the anterior chamber and a crescent blade was used to make a corneal groove and tunnel, and a keratome was used to enter the anterior chamber. Provisc was placed in the anterior chamber and a 360 degree capsulotomy was performed with a cystitome. The lens was hydrodissected with BSS and rotated freely. The lens was removed with a stop and chop technique. 4.49 phaco CDE was used to remove the lens. Residual cortex was removed with the irrigation and aspiration. Provisc was placed in the capsular bag. A ZCB00 + 29.0 diopter lens was placed in the capsular bag without complications. Irrigation and aspiration was used to remove residual viscoelastic. The paracentesis sites were hydrated with BSS. The wound and paracentesis sites were inspected and found to be watertight. Vigamox 0.07 cc was placed intracamerally at the end of the procedure. The eye was irrigated with balanced salt solution. The eye was patched with a soft cotton patch and Ceballos metal shield. The patient was returned to day surgery in good condition. Comments: Akten was placed in the eye in day surgery and irrigated out of the eye with BSS in the OR. Preservative free 1% lidocaine was placed in the anterior chamber prior to Viscoat. No Betadine at all was used for the prep but that lead to a prep with alcohol. Discharge Instructions: Ms. Connor is discharged to home in good condition and is to follow up with Dr. Heart in the morning. RIGOBERTO/ADITYA Voice ID: [id number] Report ID: [id number] [facility]ENTERAlma
== END 2018-01-14 13:34 | disposition home or self-care (01) ==
LOC: OR 09:36
PROVIDERS: ATTEND Ophthalmology Retina Specialist
PROC: 08RJ3JZ Replacement of Right Lens with Synthetic Substitute, Percutaneous Approach (ICD-10-PCS; principal; 2018-01-14 11:00)
DX: H25.11 Age-related nuclear cataract, right eye (principal); Z88.5 Allergy status to narcotic agent; Z88.2 Allergy status to sulfonamides; Z88.8 Allergy status to other drugs, medicaments and biological substances; Z91.048 Other nonmedicinal substance allergy status; I12.9 Hypertensive chronic kidney disease with stage 1 through stage 4 chronic kidney disease, or unspecified chronic kidney disease; E11.22 Type 2 diabetes mellitus with diabetic chronic kidney disease; N18.9 Chronic kidney disease, unspecified; Z96.653 Presence of artificial knee joint, bilateral; Z87.891 Personal history of nicotine dependence
CPT/HCPCS: 36415; 66984; 82962; 84132; J0171; J2001; J2250; J3010

== ENCOUNTER 2018-02-18 07:26 | Day surgery (SDC) | payer MEDICARE ==
[2018-02-18] MEDS ORDERED: EPINEPHRINE/PF 1 MG/ML AMP ONE ×2 (08:14→09:13)
[2018-02-18] MEDS ORDERED: BALANCED SALT IRRIG PLAIN 500 ML BTL IRR ONE (08:14)
[2018-02-18] MEDS ORDERED: DUOVISC 1 KIT OPTH ONE (08:14)
[2018-02-18] MEDS ORDERED: NS 0.9% VIAL 10 ML ONE (08:14)
[2018-02-18] MEDS ORDERED: LIDOCAINE 1% MPF 2 ML AMPULE ONE (08:15)
[2018-02-18] MEDS ORDERED: BSS OPTHALMIC SOL 15 ML BOT OPTH ONE (08:15)
[2018-02-18] MEDS ORDERED: MOXIFLOXACIN HCL 10 DROPS/ML **OR USE OPTH ONE (08:15)
[2018-02-18] MEDS ORDERED: NA CHLORIDE 0.9% 500 ML ONE (09:05)
[2018-02-18] MEDS ORDERED: LIDOCAINE 2% MPF 5 ML VIAL ONE (09:06)
[2018-02-18] MEDS ORDERED: PHENYLEPHRINE 10% OPTH 5ML ONE (09:06)
[2018-02-18] MEDS ORDERED: TETRACAINE HCL 0.5% 2ML OPTH ONE (09:06)
[2018-02-18] MEDS ORDERED: CYCLOPENTOLATE 1% OPTH 2 ML ONE (09:06)
[2018-02-18] MEDS ORDERED: BUPIVACAINE 0.25% PF 10 ML VIAL ONE (09:06)
[2018-02-18] MEDS ORDERED: CYCLOPENTOLATE 1% OPTH 2 ML OPTH ONE ×2 (09:35→09:40)
[2018-02-18] MEDS ORDERED: PHENYLEPHRINE 10% OPTH 5ML OPTH ONE ×2 (09:35→09:40)
[2018-02-18] MEDS ORDERED: LIDOCAINE HCL/PF 3.5% OPTH GEL ONE (09:45)
[2018-02-18] MEDS ORDERED: MIDAZOLAM HCL 2 MG/2 ML INJ ONE (10:04)
--- NOTE | 2018-02-18 10:37 | P.BOP ---
Preoperative diagnosis: Nuclear sclerotic cataract OS Postoperative diagnosis: Same Primary procedure: Phacoemulsification with IOL OS Estimated blood loss: None Anesthesia: Local (Topical with anesthesia for cataract surgery) Complications: None Implants: ZCB00 +29.5 Transferred to: Other (Day surgery) Condition: Good
[2018-02-18 10:46] VITALS: BP 158/64; TEMP 97.8; O2SAT 98
--- NOTE | 2018-02-18 22:07 | OP ---
Date of Procedure: 02/18/2018 Surgeon: Carrie Heart MD Anesthesiologist: 1. Trever Amin CRNA. 2. Gordon Dillard M.D. Preoperative Diagnosis: Nuclear sclerotic cataract, OS (left eye). Operation Performed: Phacoemulsification with intraocular lens implant, left eye. Anesthesia: Per cataract surgery. Complications: None. Description Of Procedure: In the operating room the patient was prepped and draped in the usual sterile fashion for ophthalmic surgery. A lid speculum was placed in the left eye. Two paracentesis sites were made superiorly and inferiorly in the limbal cornea. Viscoat was placed in the anterior chamber and a crescent blade was used to make a corneal groove and tunnel, and a keratome was used to enter the anterior chamber. Provisc was placed in the anterior chamber and a 360 degree capsulotomy was performed with a cystitome. The lens was hydrodelineated with BSS and rotated freely. The lens was removed with a stop and chop technique. A 5.94 Phaco CDE was used to remove the lens. Residual cortex was removed with the irrigation and aspiration. Provisc was placed in the capsular bag. A ZCB00 +29.5 diopter lens was placed in the capsular bag without complications. Irrigation and aspiration was used to remove residual viscoelastic. The paracentesis sites were hydrated with BSS. The wound and paracentesis sites were inspected and found to be watertight. Vigamox 0.07 cc was placed intracamerally at the end of the procedure. The eye was irrigated with balanced salt solution. The eye was patched with a soft cotton patch and Ceballos metal shield. The patient was returned to day surgery in good condition. Comments: Akten was placed in the eye in Day Surgery and irrigated out of the eye with BSS in the OR. Preservative-free 1% lidocaine was placed in the anterior chamber prior to Viscoat. No Betadine was used. Discharge Instructions: Ms. Connor is discharged to home in good condition, and she is to follow up with Dr. Heart in the morning. RIGOBERTO/ADITYA Voice ID: [id number] Report ID: [id number] [facility]
== END 2018-02-18 11:03 | disposition home or self-care (01) ==
LOC: PRE 07:26 → OR 11:03
PROVIDERS: ATTEND Ophthalmology Retina Specialist
PROC: 08RK3JZ Replacement of Left Lens with Synthetic Substitute, Percutaneous Approach (ICD-10-PCS; principal; 2018-02-18 09:30)
DX: H25.12 Age-related nuclear cataract, left eye (principal); I10 Essential (primary) hypertension; E11.9 Type 2 diabetes mellitus without complications; E07.9 Disorder of thyroid, unspecified; E66.9 Obesity, unspecified; Z79.82 Long term (current) use of aspirin; Z88.0 Allergy status to penicillin; Z88.2 Allergy status to sulfonamides; Z88.3 Allergy status to other anti-infective agents; Z88.6 Allergy status to analgesic agent; Z88.8 Allergy status to other drugs, medicaments and biological substances; Z86.73 Personal history of transient ischemic attack (TIA), and cerebral infarction without residual deficits; Z87.891 Personal history of nicotine dependence; Z82.49 Family history of ischemic heart disease and other diseases of the circulatory system; Z80.9 Family history of malignant neoplasm, unspecified
CPT/HCPCS: 36415 ×2; 66984; 82947; 82962; 84132; J0171 ×2; J2001; J2250

== ENCOUNTER 2018-04-04 14:54 | Inpatient (IN) | payer MEDICARE ==
[2018-04-04 16:01] LABS: Absolute Lymphocytes (CBC) 1.7 K/uL (0.7-4.9); Absolute Monocytes 0.8 K/uL (0.1-1.3); Basophils % 0.5 % (0-1.3); Eosinophils % 1.7 % (0-4.4); Hematocrit 40.8 % (36.0-45.0); Lymphocytes % 22.3 % (15.3-44.8); MCH 29.8 pg (27.0-35.0); MCV 89.5 fL (80-100); Monocytes % 10.3 % (3.3-12.3); RBC Red Blood Cell Count 4.56 M/uL (3.86-4.86)
[2018-04-04] MEDS ORDERED: PANTOPRAZOLE 40 MG INJ ONE (16:01)
[2018-04-04] MEDS ORDERED: ONDANSETRON 4 MG/2 ML VIAL ONE (16:01)
--- NOTE | 2018-04-04 16:03 | RAD REPORT ---
EXAM DESCRIPTION: CT - Abdomen Pelvis Wo Contrast - 04/04/2018 3:52 pm CLINICAL HISTORY: Abdominal pain, nausea, vomiting and diarrhea, weight loss, prior hernia repair, c holecystectomy and appendectomy. . COMPARISON: CT study January 2017 TECHNIQUE: Axial [address] imaging of the abdomen and pelvis was performed without IV contrast. No IV contrast was given because of allergy, abnormal renal function, patient refusal or physician re quest. No oral contrast given. All CT scans are performed using dose optimization technique as appropriate and may include automated exposure control or mA/KV adjustment according to patient size. FINDINGS: No acute lung base finding. No pericardial thickening or effusion. Small hiatal hernia is present. The liver, spleen and pancreas show no suspicious findings on non-contrast imaging. Gallbladder is ab sent. No biliary tree dilatation. No hydronephrosis or suspicious mass limitations horseshoe kidney a 10 millimeter calyx calcification is present lower pole left kidney not acutely significant. Urinary bladder is fully contracted. No b ladder calculus seen. No significant adrenal finding. Isodense renal masses and pyelonephritis canno t be excluded in the absence of IV contrast. No gastric dilatation or wall thickening. No dilated large or small bowel loops. Hyperdense medicatio n seen at the tip of the cecum. Patient has a few small mesenteric lymph nodes in the central abdomen similar to the comparison. No free air, free fluid or inflammatory stranding. No bulky lymphadenopat hy. No omental thickening. Uterus is absent. In the left adnexa there is a homogeneous fluid attenuat ion mass 6.2 x 4.9 cm in diameter. Overall size is not substantially different. Shape a slightly diff erent from prior imaging. This is probably a chronic benign cystic mass cruciate is altered due to ex trinsic compression. No calcification, soft tissue component or thickened septation. No suspicion for an active process. No suspicious bony findings. IMPRESSION: No obstruction, free air or surgically emergent finding. Nonacute findings are detailed in the body of the report. The 6 centimeter cystic mass in the left adnexa is probably a chronic ovarian or paraovarian cyst. Be nign etiology is strongly favored. This size has not clearly changed. Measurements may very slightly from year to year due 2 pliability of the mass. Full assessment is limited is the absence of IV contrast.
[2018-04-04 16:25] LABS: Albumin 4.4 g/dL (3.4-5.0); Bilirubin Direct 0.2 mg/dL (0-0.2); Bilirubin Total 0.5 mg/dL (0.2-1.0); Potassium 3.6 mmol/L (3.5-5.1); Protein, Total 8.3 g/dL (6.4-8.2)
[2018-04-04] MEDS ORDERED: NA CHLORIDE 0.9% 500 ML ONE (16:25)
[2018-04-04] MEDS ORDERED: NA CHLORIDE 0.9% 250 ML ONE (17:43)
[2018-04-04] MEDS ORDERED: HYDRALAZINE HCL 20 MG/ML VIAL IV PRN (17:44)
[2018-04-04] MEDS ORDERED: ACETAMINOPHEN 650MG/RECT SUPP PR PRN (17:44)
[2018-04-04] MEDS ORDERED: ONDANSETRON 4 MG/2 ML VIAL IV PRN (17:44)
[2018-04-04] MEDS: PANTOPRAZOLE INJ 80 MG in NA CHLORIDE 0.9% 250 ML IV SCH (18:00)
[2018-04-04] MEDS ORDERED: PANTOPRAZOLE INJ 80 MG in NA CHLORIDE 0.9% 250 ML IV SCH (18:00)
[2018-04-04] MEDS: INSULIN -REGULAR HUMAN 50 UNIT/0.5 ML ML SQ SCH (18:00)
[2018-04-04] MEDS ORDERED: NA CHLORIDE 0.9% 1,000 ML IV SCH (18:00)
--- NOTE | 2018-04-04 18:01 | P.HP ---
Certification for Inpatient Patient admitted to: Inpatient With expected LOS: >2 Midnights Patient will require the following post-hospital care: None Practitioner: I am a practitioner with admitting privileges, knowledge of patient current condition, hospital course, and medical plan of care. Services: Services provided to patient in accordance with Admission requirements found in Title 42 Section 412.3 of the Code of Federal Regulations Patient History Date of Service: 04/04/18 Primary Care Provider: Dr. Reynoso; Cardiology-Dr. Rosario; Nephology-Dr. Soni Reason for admission: Coffee-ground emesis History of Present Illness: 72-year-old female presented emergency room with coffee-ground emesis. Patient reported coffee-ground emesis this morning. She had some epigastric pain as well. She reports having nausea and vomiting over the past week. She has had poor oral intake. She does report some melena this morning. Patient reports a history of GERD with hiatal hernia, lap band surgery in the past, hypertension, chronic renal disease, horseshoe kidney, and diabetes. Patient denied any fever, chills, chest pain or shortness of breath. Patient came to the ER for further evaluation. In the ER patient evaluated. Patient slightly hypertensive. Vital signs otherwise stable. Hemoglobin 13.6, hematocrit 40. BUN of 39, creatinine 1.8 with a GFR of 28. Glucose 168. Gastric occult was positive. CT scan shows a small hiatal hernia. There was also a 6 cm cystic left adnexal structure. Patient was stabilize in the emergency room. Her emesis improved. Patient admitted for further evaluation. When I saw the patient the ER, patient was stable. Family at bedside. Nausea improved. Epigastric pain improved. Patient denies taking ibuprofen or Motrin. She does report some difficulty eating since having her lap band procedure. This is done many years ago. She recalls having any EGD and colonoscopy many years ago. The patient is taking aspirin. Allergies clindamycin Allergy (Mild, Verified 02/15/18 10:08) Hives/Rash codeine [Codeine] Allergy (Mild, Verified 02/15/18 10:08) Hives/Rash hydrocodone bitartrate [From Vicodin] Allergy (Mild, Verified 02/15/18 10:08) Hives/Rash iodine Allergy (Mild, Verified 02/15/18 10:08) Hives meperidine HCl [From Demerol] Allergy (Mild, Verified 02/15/18 10:08) Hives/Rash naproxen Allergy (Mild, Verified 02/15/18 10:08) Hives/Rash Penicillins Allergy (Mild, Verified 02/15/18 10:08) Hives/Rash pentazocine lactate [From Talwin] Allergy (Mild, Verified 02/15/18 10:08) Hives/Rash promethazine HCl [From Phenergan] Allergy (Mild, Verified 02/15/18 10:08) Hives/Rash Sulfa (Sulfonamide Antibiotics) [Sulfa(Sulfonamide Antibiotics)] Allergy (Mild, Verified 02/15/18 10:08) Hives/Rash cefuroxime Allergy (Verified 02/15/18 10:08) Hives/Rash cephalexin Allergy (Verified 02/15/18 10:08) Itching/Hives/Rash hydrocodone [From Vicodin] Allergy (Verified 02/15/18 10:08) Unknown levofloxacin [From Levaquin] Allergy (Verified 02/15/18 10:08) Hives/Rash meperidine [From Demerol] Allergy (Verified 02/15/18 10:08) Unknown Nitrofuran Analogues Allergy (Verified 02/15/18 10:08) Unknown nitrofurantoin Allergy (Verified 02/15/18 10:08) Hives/Rash pentazocine [From Talwin] Allergy (Verified 02/15/18 10:08) Unknown axetil Allergy (Uncoded 02/15/18 10:08) Unknown Home medications list reviewed: Yes Home Medications: Acetaminophen 1,300 mg PO BIDP PRN 01/15/17 Ascorbate Calcium [Vitamin C] 500 mg PO DAILY 01/15/17 Aspirin [Aspir-Low] 81 mg PO DAILY 01/15/17 Calcitrol [Rocaltrol*] 0.25 mcg PO SEECOM 01/15/17 Cholecalciferol (Vitamin D3) [Vitamin D3] 5,000 unit PO DAILY 01/15/17 Hydralazine [Apresoline*] 25 mg PO BID 01/15/17 Levothyroxine Sodium 75 mcg PO DAILY 01/15/17 Melatonin 6 mg PO BEDTIME 01/15/17 Multivitamin [Multiple Vitamins] 1 tab PO DAILY 01/15/17 Pantoprazole [Protonix Tab*] 40 mg PO DAILY #30 tab 10/09/17 Furosemide [Lasix*] 40 mg PO DAILY 01/11/18 Insulin Glargine,Hum.rec.anlog [Touchan Max Solostar] 0 unit SQ DAILY 01/11/18 Ubidecarenone/Vit E Acetate [Co Q-10 100 mg Softgel] 2 each PO DAILY 01/11/18 Lisinopril 20 mg PO [id number] 01/14/18 Diphenhydramine HCl [Benadryl Allergy] 50 mg PO BEDTIME 02/15/18 Divalproex Sodium 500 mg PO BEDTIME 02/15/18 Vit A/Vit C/Vit E/Zinc/Copper [Icaps Areds Softgel] 1 each PO BID 02/15/18 Amlodipine [Norvasc*] 10 mg PO DAILY 02/18/18 Metoprolol Succinate [Toprol Xl] 100 mg PO DAILY 02/18/18 - Past Medical/Surgical History Diabetic: Yes -: Chronic kidney disease, stage 3/4, Horseshoe Kidney -: Diabetes mellitus type 2, insulin-dependent -: Hypothyroidism -: Hypertension -: GERD with hiatal hernia -: History gastric surgery -: Hyperlipidemia -: Appendectomy -: Cholecystectomy -: Hysterectomy -: Hernia repair -: Back surgery -: Bilateral knee replacements -: Gastric surgery for weight loss Psychosocial/ Personal History: The patient is . She has 2 children. She does not work. - Family History Father -: Heart disease, Hypertension, Cancer Mother -: Heart disease, Hypertension, Diabetes, Cancer - Social History Smoking Status: Former smoker Alcohol use: Yes CD- Drugs: No Caffeine use: Yes Place of Residence: Home Review of Systems General: As per HPI Eyes: Unremarkable ENT: Unremarkable Respiratory: Unremarkable Cardiovascular: Unremarkable Gastrointestinal: Nausea, Vomiting, Abdominal Pain, Melena, As per HPI Genitourinary: Unremarkable Musculoskeletal: Unremarkable Integumentary: Unremarkable Neurological: Unremarkable Lymphatics: Unremarkable Physical Examination - Physical Exam General: Alert, In no apparent distress, Oriented x3, Cooperative HEENT: Atraumatic, Normocephalic, PERRLA, Mucous membr. moist/pink Neck: Supple, No Thyromegaly Respiratory: Clear to auscultation bilaterally, Normal air movement Cardiovascular: Normal pulses, Regular rate/rhythm Gastrointestinal: Normal bowel sounds, Soft and benign, Non-distended, No masses , No rebound, No guarding, Tenderness (Mild pain to the epigastric region) Musculoskeletal: No erythema, No tenderness, No warmth Integumentary: No tenderness/swelling, No erythema, No warmth, No cyanosis Neurological: Normal speech, Normal strength at 5/5 x4 extr, Normal tone, Normal affect Lymphatics: No axilla or inguinal lymphadenopathy - Studies Laboratory Data (last 24 hrs) 04/04/18 15:30: Creatinine 1.90 H 04/04/18 15:30: WBC 7.6, Hgb 13.6, Hct 40.8, Plt Count 201 04/04/18 15:30: Sodium 143, Potassium 3.6, BUN 39 H, Creatinine 1.80 H, Glucose 168 H, Total Bilirubin 0.5, AST 28, ALT 27, Alkaline Phosphatase 86, Lipase 227 Microbiology Data (last 24 hrs): 04/04/18 15:50 Gastric Aspirate Gastric Occult Blood - Final Assessment and Plan - Plan Impression: Coffee-ground emesis with melena/epigastric abdominal pain suspect related to upper GI bleed with history of GERD and hiatal hernia along with distant gastric surgery for weight loss Anemia, mild 6 cm left cystic adnexal structure likely chronic ovarian cyst Acute on chronic stage IV renal disease with horseshoe kidney Hypertension Diabetes mellitus type 2, insulin dependent Hypothyroidism Hyperlipidemia Plan: Coffee-ground emesis with melena/epigastric abdominal pain suspect upper GI bleed with history of GERD and hiatal hernia along with distant gastric surgery for weight loss: Will monitor the patient closely. Will monitor serial hemoglobin/hematocrit. Patient may require blood transfusion if hemoglobin less than 8.0. Will continue with Protonix IV drip. Will keep the patient NPO. Will consult surgery to assess her condition. Patient will likely require EGD to further evaluate. Patient has distant history of EGD/ colonoscopy and gastric surgery. Will cover with antibiotic therapy. Anemia, mild: Will monitor hemoglobin. Patient may require transfusion if hemoglobin drops significantly. 6 cm left cystic adnexal structure likely chronic ovarian cyst: This will need be further evaluated as an outpatient by gynecology. Acute on chronic stage IV renal disease with horseshoe kidney: Will start IV fluids. Will monitor renal function closely. Will consult Nephrology to further evaluate and assess Hypertension: Will need to obtain home medication. Will provide medication IV as needed. Diabetes mellitus type 2, insulin dependent: Will continue with a sliding scale. Patient takes insulin at home. Hypothyroidism: Will need to obtain and restart home medication Hyperlipidemia: Will need to obtain and restart home medication. Discharge Plan: Home Plan to discharge in: 72 Hours - Advance Directives Does patient have a Living Will: No Does patient have a Durable POA for Healthcare: No - Code Status/Comfort Care Code Status Assessed: Yes (Patient is full code) Time Spent Managing Pts Care (In Minutes): 55
--- NOTE | 2018-04-04 18:02 | EDPHYS ---
Physician Documentation [facility] Emergency Department Name: Amy Connor Age: 72 yrs Sex: Female : 1945 Arrival Date: 04/04/2018 Time: 14:55 Bed 23 Private MD: Theodore Reynoso ED Physician Geovani Rock HPI: 04/04 17:56 This 72 yrs old Female presents to ER via Wheelchair with complaints of rn Dehydration. 17:56 The patient presents to the emergency department with nausea, vomiting, diarrhea. rn Onset: The symptoms/episode began/occurred 2 week(s) ago. The symptoms are aggravated by nothing. The symptoms are alleviated by nothing. Severity of symptoms: At their worst the symptoms were moderate in the emergency department the symptoms are unchanged. The patient has experienced a previous episode. Reports feels dehydrated, weak, nausea/vomiting/diarrhea, reports today started with dark vomit, thinks may be blood. . Historical: - Allergies: 15:22 ACETAMINOPHEN; sv 15:22 axetil; sv 15:22 Cefuroxime; sv 15:22 Clindamycin; sv 15:22 Codeine; sv 15:22 Demerol; sv 15:22 hydrocodone bitartrate; sv 15:22 hydrocodone bitartrate (bulk); sv 15:22 Iodine; sv 15:22 Keflex; sv 15:22 Levaquin; sv 15:22 meperidine HCl; sv 15:22 naprosen; sv 15:22 Naproxen; sv 15:22 nitro; sv 15:22 Nitrofuran Analogues; sv 15:22 PENICILLINS; sv 15:22 pentazocine lactate; sv 15:22 promethazine HCl; sv 15:22 Sulfa (Sulfonamide Antibiotics); sv 15:22 Talwin; sv 15:22 Vicodin; sv - PMHx: 15:22 Diabetes - IDDM; sv - PSHx: 15:22 Hernia repair; Cholecystectomy; Appendectomy; Back; Knee Replacement - bilateral; sv - Immunization history:: Flu vaccine is not up to date. - Social history:: Smoking status: Patient/guardian denies using tobacco. - Ebola Screening: : No symptoms or risks identified at this time. - Family history:: not pertinent. - Hospitalizations: : No recent hospitalization is reported. ROS: 17:56 Constitutional: Negative for fever, chills, and weight loss, Eyes: Negative for injury, rn pain, redness, and discharge, Cardiovascular: Negative for chest pain, palpitations, and edema, Respiratory: Negative for shortness of breath, cough, wheezing, and pleuritic chest pain, Abdomen/GI: + nausea/vomiting/diarrhea, + dark hematemesis MS/Extremity: Negative for injury and deformity, Skin: Negative for injury, rash, and discoloration, Neuro: Negative for headache, numbness, tingling, and seizure. Exam: 17:56 Constitutional: This is a well developed, well nourished patient who is awake, alert, rn and in no acute distress. Head/Face: Normocephalic, atraumatic. ENT: dry MM Cardiovascular: Regular rate and rhythm with a normal S1 and S2. No gallops, murmurs, or rubs. Normal PMI, no JVD. No pulse deficits. Respiratory: Lungs have equal breath sounds bilaterally, clear to auscultation and percussion. No rales, rhonchi or wheezes noted. No increased work of breathing, no retractions or nasal flaring. Abdomen/GI: Soft, non-tender, with normal bowel sounds. No distension or tympany. No guarding or rebound. No evidence of tenderness throughout. Skin: Warm, dry with normal turgor. Normal color with no rashes, no lesions, and no evidence of cellulitis. MS/ Extremity: Pulses equal, no cyanosis. Neurovascular intact. Full, normal range of motion. Equal circumference. Neuro: Awake and alert, GCS 15, oriented to person, place, time, and situation. Cranial nerves II-XII grossly intact. Motor strength 5/5 in all extremities. Sensory grossly intact. Cerebellar exam normal. Vital Signs: 15:22 BP 146 / 96; Pulse 73; Resp 16; Temp 97; Pulse Ox 99% ; Weight 85.28 kg; Height 5 ft. 0 sv in. (152.40 cm); Pain 0/10; 16:26 BP 138 / 76; Pulse 66; Pulse Ox 97% ; rv 17:48 BP 162 / 93; Pulse 69; Resp 17; Pulse Ox 97% on R/A; Pain 0/10; rv 18:43 BP 136 / 72; Pulse 57; Pulse Ox 99% ; Pain 0/10; rv 15:22 Body Mass Index 36.72 (85.28 kg, 152.40 cm) sv MDM: 15:32 Patient medically screened. rn 17:59 Differential diagnosis: Nonspecific abd pain, gastritis, pancreatitis, viral rn gastroenteritis, gastroenteritis. Data reviewed: vital signs, nurses notes, lab test result(s), radiologic studies, CT scan, and as a result, I will discharge patient. Counseling: I had a detailed discussion with the patient and/or guardian regarding: the historical points, exam findings, and any diagnostic results supporting the discharge/admit diagnosis, lab results, radiology results, the need for further work-up and treatment in the hospital. Special discussion: I discussed with the patient/guardian in detail that at this point there is no indication for admission to the hospital. It is understood, however, that if the symptoms persist or worsen the patient needs to return immediately for re-evaluation. 04/04 15:34 Order name: Basic Metabolic Panel; Complete Time: 16:41 04/04 15:34 Order name: CBC with Diff; Complete Time: 16:12 04/04 15:34 Order name: Creatinine for Radiology; Complete Time: 16:41 04/04 15:34 Order name: Hepatic Function; Complete Time: 16:41 04/04 15:34 Order name: Lipase; Complete Time: 16:41 04/04 15:34 Order name: Type And Screen; Complete Time: 16:57 04/04 15:46 Order name: Occult Blood aa5 04/04 16:09 Order name: Gastric Occult Blood; Complete Time: 17:14 [facility] 04/04 16:54 Order name: ABO/RH no charge; Complete Time: 16:57 [facility] 04/04 17:51 Order name: Urinalysis [facility] 04/04 17:51 Order name: Basic Metabolic Panel [facility] 04/04 17:51 Order name: Basic Metabolic Panel [facility] 04/04 17:51 Order name: Basic Metabolic Panel [facility] 04/04 15:34 Order name: CT Abd/Pelvis - Without Cont; Complete Time: 16:12 04/04 17:51 Order name: Basic Metabolic Panel [facility] 04/04 17:51 Order name: CBC with Automated Diff [facility] 04/04 17:52 Order name: CBC with Automated Diff [facility] 04/04 17:52 Order name: CBC with Automated Diff [facility] 04/04 17:52 Order name: CBC with Automated Diff [facility] 04/04 17:52 Order name: Magnesium [facility] 04/04 17:52 Order name: Magnesium [facility] 04/04 17:52 Order name: Magnesium [facility] 04/04 17:52 Order name: Magnesium [facility] 04/04 17:52 Order name: Hematocrit [facility] 04/04 17:52 Order name: Hemoglobin [facility] 04/04 15:34 Order name: IV Saline Lock; Complete Time: 15:37 rn 04/04 15:34 Order name: Labs collected and sent; Complete Time: 15:37 rn 04/04 17:51 Order name: CONS Physician Consult [facility] 04/04 17:51 Order name: CONS Physician Consult [facility] 04/04 17:51 Order name: NPO [facility] 04/04 17:52 Order name: Patient Safety Orders [facility] Administered Medications: 16:16 Drug: ProTONIX 40 mg Route: IVP; Site: right antecubital; rv 17:58 Follow up: Response: No adverse reaction rv 16:16 Drug: Zofran 4 mg Route: IVP; Site: right antecubital; rv 17:58 Follow up: Response: No adverse reaction rv 16:21 Drug: NS 0.9% 500 ml Route: IV; Rate: bolus; Site: right antecubital; rv 17:47 Follow up: IV Status: Completed infusion rv 18:05 Drug: ProTONIX 8 mg/hr Route: IV; Rate: 25 ml/hr; Site: right antecubital; rv 18:44 Follow up: IV Status: Infusion continued upon admission rv Disposition: 04/04/18 18:01 Hospitalization ordered by Gentry mE for Inpatient Admission. Preliminary diagnosis are Dehydration, Upper GI Bleed, Hematemesis. - Bed requested for Telemetry/MedSurg (Inpatient). - Status is Inpatient Admission. rv - Condition is Stable. - Problem is new. - Symptoms have improved. UTI on Admission? No Signatures: Dispatcher [employer] [facility] Chani Baron RN RN sv Nieto, Roman, MD MD rn Fitzgerald, Diane, RN RN df Vicente, Ronaldo, RN RN rv Corrections: (The following items were deleted from the chart) 15:46 15:45 Gastrocult ordered. rn aa5 16:04 15:59 Occult Blood ordered. [facility] 18:53 18:01 Hospitalization Ordered by Gentry Em DO for Inpatient Admission. Preliminary df diagnosis is Dehydration; Upper GI Bleed; Hematemesis. Bed requested for Telemetry/MedSurg (Inpatient). Status is Inpatient Admission. Condition is Stable. Problem is new. Symptoms have improved. UTI on Admission? No. rn 20:07 18:53 04/04/2018 18:01 Hospitalization Ordered by Gentry Em DO for Inpatient rv Admission. Preliminary diagnosis is Dehydration; Upper GI Bleed; Hematemesis. Bed requested for Telemetry/MedSurg (Inpatient). Status is Inpatient Admission. Condition is Stable. Problem is new. Symptoms have improved. UTI on Admission? No. df
--- NOTE | 2018-04-04 18:02 | ER ---
Nurse's Notes [facility] Name: Amy Connor Age: 72 yrs Sex: Female : 1945 Arrival Date: 04/04/2018 Time: 14:55 Bed 23 Private MD: Theodore Reynoso Diagnosis: Dehydration;Upper GI Bleed;Hematemesis Presentation: 04/04 15:20 Presenting complaint: Patient states: n/v/d for 6 days and started vomiting "black sv stuff" last night. Weight loss of 12 pounds. Transition of care: patient was not received from another setting of care. Onset of symptoms was March 29, 2018. Care prior to arrival: None. 15:20 Method Of Arrival: Wheelchair sv 15:20 Acuity: SIGIFREDO 3 sv 15:51 Risk Assessment: Do you want to hurt yourself or someone else? Patient reports no rv desire to harm self or others. Initial Sepsis Screen: Does the patient meet any 2 criteria? No. Patient's initial sepsis screen is negative. Does the patient have a suspected source of infection? No. Patient's initial sepsis screen is negative. Historical: - Allergies: 15:22 ACETAMINOPHEN; sv 15:22 axetil; sv 15:22 Cefuroxime; sv 15:22 Clindamycin; sv 15:22 Codeine; sv 15:22 Demerol; sv 15:22 hydrocodone bitartrate; sv 15:22 hydrocodone bitartrate (bulk); sv 15:22 Iodine; sv 15:22 Keflex; sv 15:22 Levaquin; sv 15:22 meperidine HCl; sv 15:22 naprosen; sv 15:22 Naproxen; sv 15:22 nitro; sv 15:22 Nitrofuran Analogues; sv 15:22 PENICILLINS; sv 15:22 pentazocine lactate; sv 15:22 promethazine HCl; sv 15:22 Sulfa (Sulfonamide Antibiotics); sv 15:22 Talwin; sv 15:22 Vicodin; sv - PMHx: 15:22 Diabetes - IDDM; sv - PSHx: 15:22 Hernia repair; Cholecystectomy; Appendectomy; Back; Knee Replacement - bilateral; sv - Immunization history:: Flu vaccine is not up to date. - Social history:: Smoking status: Patient/guardian denies using tobacco. - Ebola Screening: : No symptoms or risks identified at this time. - Family history:: not pertinent. - Hospitalizations: : No recent hospitalization is reported. Screenin:50 Abuse screen: Denies threats or abuse. Denies injuries from another. Nutritional rv screening: No deficits noted. Tuberculosis screening: No symptoms or risk factors identified. Fall Risk None identified. Assessment: 05:15 General: Appears in no apparent distress. comfortable, Behavior is calm, cooperative. rv 05:15 Pain: Complains of pain in abdomen. Neuro: Level of Consciousness is awake, alert, rv obeys commands, Oriented to person, place, time, situation. Cardiovascular: Capillary refill < 3 seconds. Respiratory: Airway is patent. GI: Abdomen is round. : No signs and/or symptoms were reported regarding the genitourinary system. EENT: No signs and/or symptoms were reported regarding the EENT system. Derm: Skin is intact. 16:26 Reassessment: No changes from previously documented assessment. rv 17:48 Reassessment: Patient appears in no apparent distress at this time. Patient and/or rv family updated on plan of care and expected duration. Pain level reassessed. Patient is alert, oriented x 3, equal unlabored respirations, skin warm/dry/pink. 18:43 Reassessment: Patient appears in no apparent distress at this time. Patient and/or rv family updated on plan of care and expected duration. Pain level reassessed. Patient is alert, oriented x 3, equal unlabored respirations, skin warm/dry/pink. awaiting bed assignment. Vital Signs: 15:22 BP 146 / 96; Pulse 73; Resp 16; Temp 97; Pulse Ox 99% ; Weight 85.28 kg; Height 5 ft. 0 sv in. (152.40 cm); Pain 0/10; 16:26 BP 138 / 76; Pulse 66; Pulse Ox 97% ; rv 17:48 BP 162 / 93; Pulse 69; Resp 17; Pulse Ox 97% on R/A; Pain 0/10; rv 18:43 BP 136 / 72; Pulse 57; Pulse Ox 99% ; Pain 0/10; rv 15:22 Body Mass Index 36.72 (85.28 kg, 152.40 cm) sv ED Course: 14:55 Patient arrived in ED. mr 14:56 Theodore Reynoso DO is Private Physician. mr 15:21 Triage completed. sv 15:22 Arm band placed on. sv 15:30 Inserted saline lock: 20 gauge in right Blood collected. rv 15:30 Initial lab(s) drawn, by me, sent to lab. rv 15:32 Geovani Rock MD is Attending Physician. rn 15:51 CT Abd/Pelvis - Without Cont In Process Unspecified. EDMS 15:51 Patient has correct armband on for positive identification. Bed in low position. Call rv light in reach. Side rails up X 1. Adult w/ patient. Pulse ox on. NIBP on. 16:26 Awaiting lab results, Awaiting radiology results. rv 18:01 Gentry Em DO is Hospitalizing Provider. rn 20:07 No provider procedures requiring assistance completed. Patient admitted, IV remains in rv place. intact. Administered Medications: 16:16 Drug: ProTONIX 40 mg Route: IVP; Site: right antecubital; rv 17:58 Follow up: Response: No adverse reaction rv 16:16 Drug: Zofran 4 mg Route: IVP; Site: right antecubital; rv 17:58 Follow up: Response: No adverse reaction rv 16:21 Drug: NS 0.9% 500 ml Route: IV; Rate: bolus; Site: right antecubital; rv 17:47 Follow up: IV Status: Completed infusion rv 18:05 Drug: ProTONIX 8 mg/hr Route: IV; Rate: 25 ml/hr; Site: right antecubital; rv 18:44 Follow up: IV Status: Infusion continued upon admission rv Outcome: 18:01 Decision to Hospitalize by Provider. rn 20:07 Discharged to home ambulatory. rv 20:07 Condition: good 20:07 Instructed on the need for admit. 20:07 Patient left the ED. rv Signatures: Dispatcher [employer] EDMS Chani Baron RN RN sv RiveraJulieta mr Geovani Rock MD MD rn Vicente, Ronaldo, RN RN rv
[2018-04-04] MEDS: ACETAMINOPHEN 500 MG TAB PO PRN (23:04)
[2018-04-04 23:06] LABS: Hematocrit 34.6 % (36.0-45.0)
[2018-04-04] MEDS: METRONIDAZOLE 500mg IVPB 500 MG/100 ML BAG IV SCH (23:19)
[2018-04-04 23:22] VITALS: BMI 36.6
[2018-04-05] MEDS: METRONIDAZOLE 500mg IVPB 500 MG/100 ML BAG IV SCH ×3 (00:44→16:51)
[2018-04-05] MEDS: INSULIN -REGULAR HUMAN 50 UNIT/0.5 ML ML SQ SCH ×4 (06:00→17:54)
[2018-04-05 06:20] LABS: Magnesium 2.3 mg/dL (1.8-2.4); Potassium 3.7 mmol/L (3.5-5.1)
[2018-04-05 06:31] LABS: Absolute Lymphocytes (CBC) 1.7 K/uL (0.7-4.9); Absolute Monocytes 0.6 K/uL (0.1-1.3); Absolute Neutrophil 2.5 K/uL (1.8-8.0); Basophils % 0.5 % (0-1.3); Eosinophils % 3.2 % (0-4.4); Lymphocytes % 34.4 % (15.3-44.8); MCH 29.9 pg (27.0-35.0); MCV 88.9 fL (80-100); MPV 8.6 fL (7.6-11.3); Monocytes % 11.2 % (3.3-12.3); RBC Red Blood Cell Count 3.72 M/uL (3.86-4.86)
[2018-04-05] MEDS: PANTOPRAZOLE INJ 80 MG in NA CHLORIDE 0.9% 250 ML IV SCH ×2 (06:45→15:42)
[2018-04-05] MEDS: LEVOTHYROXINE SOD 0.075 MG TAB PO SCH (08:00)
[2018-04-05] MEDS: NACHLORIDE 0.45% 1,000 ML IV SCH (08:42)
[2018-04-05] MEDS: CALCITROL 0.25 MCG CAP PO SCH (09:00)
[2018-04-05] MEDS ORDERED: NA CHLORIDE 0.9% 500 ML ONE (09:21)
[2018-04-05 10:40] LABS: Urine Appearance CLOUDY; Urine Blood NEGATIVE (NEG); Urine Color YELLOW; Urine Glucose NEGATIVE (NEG); Urine Protein TRACE (NEG); Urine Specific Gravity 1.025 (1.005-1.030); Urine Urobilinogen 0.2 mg/dL (0.2-1.0); Urine pH 5.5 (5.0-7.0)
[2018-04-05 10:52] LABS: Urine Protein/Creatinine Ratio 0.11 ratio (<0.15)
[2018-04-05] MEDS ORDERED: LIDOCAINE 1% MPF 5 ML VIAL ONE (11:25)
[2018-04-05] MEDS ORDERED: PROPOFOL 200 MG/20 ML VIAL IV ONE (11:25)
[2018-04-05 11:37] LABS: Urine Microscopic Reflex ORDER UMIC
[2018-04-05] MEDS ORDERED: GLYCOPYRROLATE 0.2 MG/ML SYR ONE (11:44)
[2018-04-05 12:11] LABS: Urine Amorphous Sediment 2+ /HPF (NONE SEEN); Urine Bacteria 20-50 /HPF (<20); Urine Culture Reflex Order NOT NEEDED; Urine Mucus 2+ /HPF (NONE SEEN); Urine RBC <5 /HPF (NONE SEEN)
--- NOTE | 2018-04-05 12:12 | P.PN ---
Subjective Date of Service: 04/05/18 Primary Care Provider: Dr. Reynoso; Cardiology-Dr. Rosario; Nephology-Dr. Soni Chief Complaint: Coffee-ground emesis Subjective: Other (Patient doing better. Less nausea today. No significant coffee-ground emesis. Patient NPO for EGD.) Physical Examination - Vital Signs Temperature: 96.9 F Blood Pressure: 125/60 Pulse: 80 Respirations: 18 Pulse Ox (%): 99 - Physical Exam General: Alert, In no apparent distress, Oriented x3, Cooperative HEENT: Atraumatic Neck: Supple Respiratory: Clear to auscultation bilaterally, Normal air movement Cardiovascular: Normal pulses, Regular rate/rhythm Gastrointestinal: Normal bowel sounds, Soft and benign, Non-distended, No masses , No rebound, No guarding, Tenderness (Less pain to the epigastric region) Musculoskeletal: No erythema, No tenderness, No warmth Integumentary: No tenderness/swelling, No erythema, No warmth, No cyanosis Neurological: Normal speech, Normal strength at 5/5 x4 extr, Normal tone, Normal affect - Studies Laboratory Data (last 24 hrs) 04/04/18 15:30: Creatinine 1.90 H 04/04/18 15:30: WBC 7.6, Hgb 13.6, Hct 40.8, Plt Count 201 04/04/18 15:30: Sodium 143, Potassium 3.6, BUN 39 H, Creatinine 1.80 H, Glucose 168 H, Total Bilirubin 0.5, AST 28, ALT 27, Alkaline Phosphatase 86, Lipase 227 Microbiology Data (last 24 hrs): 04/04/18 15:50 Gastric Aspirate Gastric Occult Blood - Final Medications List Reviewed: Yes Assessment & Plan Discharge Plan: Home Plan to discharge in: 24 Hours (to 48 hours) Physician Review Additional Text: Impression: Coffee-ground emesis with melena/epigastric abdominal pain related to upper GI bleed due to gastritis and a bezoar status post EGD with history of GERD and hiatal hernia along with distant gastric surgery for weight loss Anemia, mild, secondary to above 6 cm left cystic adnexal structure likely chronic ovarian cyst 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 No need for transfusion at this time. Case discussed at length with surgery who performed EGD. Gastritis noted with bezoar. This could not be entirely removed. Patient will start clear liquid diet tonight. Will advance to full liquid. Patient will likely not be able to tolerate anything heavier. Will continue with Protonix IV drip. This can be transition to oral medication daily tomorrow. Will monitor and reassess again tomorrow. Possible discharge in the next 1-2 days. Surgery recommends that the patient will likely need to have lap band removed in the future at a higher level care center. Anemia, mild: Will continue to monitor hemoglobin. No need for transfusion at this time. Patient may require transfusion if hemoglobin drops significantly. 6 cm left cystic adnexal structure likely chronic ovarian cyst: This will need be further evaluated as an outpatient by gynecology. 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 IV fluids adjusted. Renal function improved. Will monitor renal function closely. Await further recommendation from nephrology. Hypertension: Will continue with IV medication as needed. Once the patient is able to tolerate oral intake then will transition to oral medication. Diabetes mellitus type 2, insulin dependent: Will continue with a sliding scale. Patient takes insulin at home. Hypothyroidism: Will continue with medication Hyperlipidemia: Will continue with medication Time Spent Managing Pts Care (In Minutes): 55
--- NOTE | 2018-04-05 13:07 | ENDO RPT ---
[address], [address] EGD PROCEDURE REPORT EXAM DATE: 04/05/2018 PATIENT NAME: Amy Connor MR#: [id number] BIRTHDATE: 1945 ATTENDING: Tom Kennedy DR STATUS: inpatient - 7 ALL SOURCE INTELLIGENCE ANALYST: Robinson Wynn [place] Tech INDICATIONS: The patient is a 72 yr old Female here for an EGD due to upper G.I. bleeding PROCEDURE PERFORMED: EGD with biopsy for H. pylori MEDICATIONS: Per Anesthesia. TOPICAL ANESTHETIC: none CONSENT: The patient understands the risks and benefits of the procedure and understands that these risks include, but are not limited to: sedation, allergic reaction, infection, perforation and/or bleeding. Alternative means of evaluation and treatment include, among others: physical exam, x-rays, and/or surgical intervention. The patient elects to proceed with this endoscopic procedure. DESCRIPTION OF PROCEDURE: During intra-op preparation period all mechanical medical equipment was checked for proper function. Hand hygiene and appropriate measures for infection prevention was taken. Procedure, possible complications, and alternatives including but not limited to the possibility of bleeding, perforation, tear, infection, sepsis, need for surgery, need for blood transfusion, and anesthesia related complications were explained to the patient. After the risks, benefits and alternatives of the procedure were thoroughly explained, Informed consent was verified, confirmed and timeout was successfully executed by the treatment team. The patient was placed in the left lateral position. The patient was anesthetized with topical anesthesia. Through the anesthetized oropharyngeal area, the scope was passed without any difficulty. The EG-[id number] ([id number]) endoscope was introduced through the mouth and advanced to the second portion of the duodenum. gastric band causing upper mid stomach stenosis. The gastroscope was then slowly withdrawn and removed. Bile reflux was found in the body and the antrum of the stomach. A biopsy for H. pylori was taken. Moderate gastritis was found in the total stomach. Moderate gastritis was noted most significantly in the stomach proximal to the gastric band, beyond there was bile reflux, small erosions, and diffuse gastitis. There was no active bleeding, adherant clots or visible vessel. A biopsy for H. pylori was taken. Retained food was present in the fundus. Food bezoar located in the proximal stomach ADVERSE EVENTS: There were no complications. IMPRESSIONS: 1. Bile reflux was found in the body and the antrum of the stomach 2. Moderate gastritis was found in the total stomach 3. Retained food was present in the fundus RECOMMENDATIONS: 1. acid suppression therapy 2. anti-reflux regimen 3. await biopsy results 4. avoid NSAIDS 5. follow-up: office 2 week(s) 6. hematocrit 7. follow-up of helicobacter pylori status, treat if indicated REPEAT EXAM: Tom Kennedy DR eSigned: Tom Kennedy DR 04/05/2018 11:39 AM cc: CPT CODES: ICD9 CODES: PATIENT NAME: Amy Connor MR#: [id number]
[2018-04-05 13:12] LABS: Urine Bilirubin POS (NEG)
--- NOTE | 2018-04-05 13:39 | CON ---
Date of Consultation: 04/05/2018 Brief History Of Present Illness: The patient is a 72-year-old female, who presents to the emergency room with coffee-grounds emesis. She states that her nausea, vomiting, and coffee-grounds emesis-type symptoms began approximately 1 week ago, however, they got significantly worse over the course of the day. She had some poor oral intake. She had some melena as well. She had not had a p revious episodes of this. She does have a history of GERD with hiatal hernia. She had a lap band parmar rgery in the past, although she does not remember when, she states that it was in the 1970s, although I am not aware that lap band surgery was even invented at this point, and as such she had somewhat p oor historian regarding her history. She is unable to tell me specifics about the operation only miriam t she has a lap band that cannot be removed. She has no lightheadedness, no dizziness, no shortness of breath, no chest pain, no palpitations on admission. She was just concerned about the amount of b lood in her emesis. I was told that the emergency room had a positive gastroccult test as well. She has had an EGD and colonoscopy. She cannot recall the results of which and she cannot recall the da te of the last endoscopy, simply stating it was several years ago. Past Medical History: Significant for chronic kidney disease, stage 3/4, she has horseshoe kidney; d iabetes type 2; hypothyroidism; hypertension; GERD; hiatal hernia; hyperlipidemia. Past Surgical History: Includes questionable lap band, appendectomy, cholecystectomy, hysterectomy, hernia repair, back surgery, bilateral knee replacements. Social History: She is , has 2 children. Denies smoking or recreational drug use. She quit smoking in the past. She only uses alcohol recreationally. Home Medications: Include acetaminophen, vitamin C, aspirin, Rocaltrol, cholecalciferol, Apresoline, levothyroxine, melatonin, multivitamin, Protonix, Lasix, insulin, CoQ10, lisinopril, Benadryl, dival proex, ICAPS AREDS Softgel, amlodipine, and metoprolol. Allergies: CLINDAMYCIN, CODEINE, VICODIN, IODINE, MEPERIDINE, NAPROSYN, PENICILLIN, TALWIN, PHENERGA N, SULFA, CEFUROXIME, CEPHALEXIN, LEVAQUIN, DEMEROL, NITROFURANTOIN, AXETIL. Review of Systems: A 10-point review of systems other than HPI, she currently denies. Physical Examination: Vital Signs: At the time of my examination, her BMI is approximately 36.7. General: She is awake, alert, and oriented, although she has poor history into her specific medical past, although she answers questions appropriately and does have some insight into her medical histor y just with respect to her gastric surgery or weight loss and her endoscopy. She has poor insight. She can recall the name of the physician though, but simply has no temporal specifics. HEENT: Otherwise, she is normocephalic. Sclerae are icteric. Mucous members are moist. Oropharynx , clear. Neck: Supple. No JVD. Chest: Normal expansion, excursion. Cardiovascular: Regular rate and rhythm. Pulmonary: Clear to auscultation bilaterally. Abdomen: Soft, nontender, nondistended. Obese generally. Extremities: No clubbing, cyanosis, or edema. Skin: Warm and dry. Laboratory Data: White blood count 5.0, hemoglobin is 11.1 down from 13 on admission, hematocrit 33. 0, platelet count is 162. Her sodium 147, potassium 3.7, chloride 113, carbon dioxide 26, BUN 37, cr eatinine 1.1, glucose is 148, calcium 8.4, magnesium 2.3. UA is currently pending. She had a CT abdomen and pelvis performed on 04/04, which was officially read as no obstruction free or surgically emergent finding. Nonacute findings are detailed by the report. A 6 cm cystic mass in the left adnexa is probably chronic ovarian cyst or paraovarian cyst, benign etiology is strongly fa vored. Size are not clearly changed. Measurements may vary slightly from year to year due to the pl iability of the mass. No gastric dilatation or wall thickening. No dilated large or small bowel loo ps. Hypertensive medication seen at the tip of the cecum. The patient has a few small mesenteric ly mph nodes in the central abdomen similar to comparison. Gallbladder is absent. She has a horseshoe kidney with a calyx. Assessment And Plan: This is a 72-year-old female, who comes with signs and symptoms of possible upp er gastrointestinal bleed. 1.IV fluid hydration. 2.PPI drip. 3.I have explained the risks, benefits, and alternatives of upper endoscopy and control of bleeding if necessary including clips versus injection versus thermal coagulation including but not limited to bleeding, infection, damage to surrounding tissues, need of further operation or procedures. The pat ient agrees to proceed as indicated. TRACEE/ADITYA Voice ID: [id number] Report ID: [id number]
--- NOTE | 2018-04-05 16:48 | P.CNS ---
Date of Consult: 04/05/18 Reason for Consult: MICHELLE Primary Care Provider: Dr. Reynoso; Cardiology-Dr. Rosario; Nephology-Dr. Soni Chief Complaint: Coffee-ground emesis Allergies clindamycin Allergy (Mild, Verified 02/15/18 10:08) Hives/Rash codeine [Codeine] Allergy (Mild, Verified 02/15/18 10:08) Hives/Rash hydrocodone bitartrate [From Vicodin] Allergy (Mild, Verified 02/15/18 10:08) Hives/Rash iodine Allergy (Mild, Verified 02/15/18 10:08) Hives meperidine HCl [From Demerol] Allergy (Mild, Verified 02/15/18 10:08) Hives/Rash naproxen Allergy (Mild, Verified 02/15/18 10:08) Hives/Rash Penicillins Allergy (Mild, Verified 02/15/18 10:08) Hives/Rash pentazocine lactate [From Talwin] Allergy (Mild, Verified 02/15/18 10:08) Hives/Rash promethazine HCl [From Phenergan] Allergy (Mild, Verified 02/15/18 10:08) Hives/Rash Sulfa (Sulfonamide Antibiotics) [Sulfa(Sulfonamide Antibiotics)] Allergy (Mild, Verified 02/15/18 10:08) Hives/Rash cefuroxime Allergy (Verified 02/15/18 10:08) Hives/Rash cephalexin Allergy (Verified 02/15/18 10:08) Itching/Hives/Rash hydrocodone [From Vicodin] Allergy (Verified 02/15/18 10:08) Unknown levofloxacin [From Levaquin] Allergy (Verified 02/15/18 10:08) Hives/Rash meperidine [From Demerol] Allergy (Verified 02/15/18 10:08) Unknown Nitrofuran Analogues Allergy (Verified 02/15/18 10:08) Unknown nitrofurantoin Allergy (Verified 02/15/18 10:08) Hives/Rash pentazocine [From Talwin] Allergy (Verified 02/15/18 10:08) Unknown axetil Allergy (Uncoded 02/15/18 10:08) Unknown naprson Allergy (Uncoded 04/04/18 23:58) Itching/Hives/Rash Home Medications: Aspirin [Aspir-Low] 81 mg PO DAILY 01/15/17 Calcitrol [Rocaltrol*] 0.25 mcg PO DAILY 01/15/17 Hydralazine [Apresoline*] 25 mg PO BID 01/15/17 Levothyroxine Sodium 75 mcg PO DAILY 01/15/17 Melatonin 5 mg PO BEDTIME 01/15/17 Furosemide [Lasix*] 40 mg PO DAILY 01/11/18 Insulin Glargine,Hum.rec.anlog [Toujeo Max Solostar] 0 unit SQ DAILY 01/11/18 Ubidecarenone/Vit E Acetate [Co Q-10 100 mg Softgel] 2 each PO DAILY 01/11/18 Lisinopril 20 mg PO [id number] 01/14/18 Diphenhydramine HCl [Benadryl Allergy] 50 mg PO BEDTIME 02/15/18 Divalproex Sodium 500 mg PO BEDTIME 02/15/18 Vit A/Vit C/Vit E/Zinc/Copper [Icaps Areds Softgel] 1 each PO BID 02/15/18 Amlodipine [Norvasc*] 10 mg PO BID 02/18/18 Metoprolol Succinate [Toprol Xl] 100 mg PO DAILY 02/18/18 Acetaminophen [Acetaminophen ER] 2 tab PO BID 04/05/18 Atorvastatin Calcium [Lipitor] 20 mg PO BEDTIME 04/05/18 Magnesium Oxide [Magnesium] 500 mg PO DAILY 04/05/18 - Past Medical/Surgical History Diabetic: Yes -: Chronic kidney disease, stage 3/4, Horseshoe Kidney -: Diabetes mellitus type 2, insulin-dependent -: Hypothyroidism -: Hypertension -: GERD with hiatal hernia -: History gastric surgery -: Hyperlipidemia -: Appendectomy -: Cholecystectomy -: Hysterectomy -: Hernia repair -: Back surgery -: Bilateral knee replacements -: Gastric surgery for weight loss Psychosocial/ Personal History: The patient is . She has 2 children. She does not work. - Family History Father Medical History: Heart disease, Hypertension, Cancer Mother Medical History: Heart disease, Hypertension, Diabetes, Cancer Notes: pancreatic cancer - Social History Smoking Status: Never smoker Alcohol use: Yes CD- Drugs: No Caffeine use: Yes Place of Residence: Home Physical Examination Temp Pulse Resp BP Pulse Ox 96.8 F 73 18 135/62 98 04/05/18 12:40 04/05/18 12:40 04/05/18 12:40 04/05/18 12:40 04/05/18 12:40 General: Oriented x3 HEENT: Atraumatic Neck: Supple Respiratory: Clear to auscultation bilaterally Cardiovascular: No edema - Problems (1) Anemia Onset Date: 04/05/18 Current Visit: Yes Status: Acute (2) Coffee ground emesis Onset Date: 04/05/18 Current Visit: Yes Status: Acute (3) Acute on chronic renal failure Onset Date: 01/16/17 Current Visit: No Status: Acute Qualifiers: Acute renal failure type: unspecified Chronic kidney disease stage: stage 3 (moderate) Qualified Code(s): N17.9 - Acute kidney failure, unspecified; N18.3 - Chronic kidney disease, stage 3 (moderate) (4) Diabetes mellitus Onset Date: 01/16/17 Current Visit: No Status: Chronic Qualifiers: Diabetes mellitus type: type 2 Diabetes mellitus terminal gauger insulin use: with prison use Diabetes mellitus complication status: with hypoglycemia Diabetes mellitus complication detail: without coma Qualified Code(s): E11.649 - Type 2 diabetes mellitus with hypoglycemia without coma; Z79.4 - 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 Littlejohn, hypertension, recurrent UTI. , DM ,HTN and hypothyrodism Pt presented with vomiting for 5 days duration, yesterday became week and noticed coffe ground emesis Assessment and plan CDK Cr 1.9 on dicharged that improved to 1.2 on IVF Abd ctL: no hydro UPC 0.1 Coffee ground emesis S/P EGD today PPI ACute anemia Hb from 13 to 11 likely due to Gi bleeding Dm BS control urine with multiple bacteria but culture was -ve
[2018-04-05] MEDS: DIVALPROEX DR 500MG TAB PO SCH (21:05)
[2018-04-05] MEDS: ACETAMINOPHEN 500 MG TAB PO PRN (21:09)
[2018-04-06] MEDS: NACHLORIDE 0.45% 1,000 ML IV SCH ×2 (00:23→12:22)
[2018-04-06] MEDS: METRONIDAZOLE 500mg IVPB 500 MG/100 ML BAG IV SCH ×3 (00:23→18:42)
[2018-04-06] MEDS: PANTOPRAZOLE INJ 80 MG in NA CHLORIDE 0.9% 250 ML IV SCH ×2 (00:24→10:03)
[2018-04-06 05:02] LABS: Absolute Lymphocytes (CBC) 1.8 K/uL (0.7-4.9); Absolute Monocytes 0.5 K/uL (0.1-1.3); Absolute Neutrophil 2.5 K/uL (1.8-8.0); Basophils % 0.5 % (0-1.3); Eosinophils % 3.4 % (0-4.4); Lymphocytes % 35.6 % (15.3-44.8); MCH 29.8 pg (27.0-35.0); MCV 89.4 fL (80-100); MPV 8.2 fL (7.6-11.3); Monocytes % 10.2 % (3.3-12.3); RBC Red Blood Cell Count 3.57 M/uL (3.86-4.86)
[2018-04-06 05:18] LABS: Magnesium 1.8 mg/dL (1.8-2.4); Potassium 4.3 mmol/L (3.5-5.1)
[2018-04-06] MEDS ORDERED: MAGNESIUM SULFATE 1 gm IVPB 1 GM/100 ML BAG IV ONE (05:38)
[2018-04-06] MEDS: LEVOTHYROXINE SOD 0.075 MG TAB PO SCH (06:10)
[2018-04-06] MEDS: INSULIN -REGULAR HUMAN 50 UNIT/0.5 ML ML SQ SCH ×5 (07:30→21:00)
[2018-04-06] MEDS: CALCITROL 0.25 MCG CAP PO SCH (10:08)
[2018-04-06] MEDS ORDERED: SODIUM CHLORIDE 0.9% 10ML INJ IV PRN (10:09)
--- NOTE | 2018-04-06 10:09 | P.PN ---
Subjective Date of Service: 04/06/18 Primary Care Provider: Dr. Reynoso; Cardiology-Dr. Rosario; Nephology-Dr. Soni Chief Complaint: Coffee-ground emesis Subjective: Improving (Patient tolerating clear liquid diet.) Physical Examination - Vital Signs Temperature: 97.6 F Blood Pressure: 148/66 Pulse: 56 Respirations: 18 Pulse Ox (%): 96 - Physical Exam General: Alert, In no apparent distress, Oriented x3, Cooperative HEENT: Atraumatic Neck: Supple Respiratory: Clear to auscultation bilaterally, Normal air movement Cardiovascular: Normal pulses, Regular rate/rhythm Gastrointestinal: Normal bowel sounds, Soft and benign, Non-distended, No masses , No rebound, No guarding, Tenderness (Less pain to the epigastric region) Musculoskeletal: No erythema, No tenderness, No warmth Integumentary: No tenderness/swelling, No erythema, No warmth, No cyanosis Neurological: Normal speech, Normal strength at 5/5 x4 extr, Normal tone, Normal affect - Studies Medications List Reviewed: Yes Assessment & Plan Discharge Plan: Home Plan to discharge in: 24 Hours Physician Review Additional Text: Impression: Coffee-ground emesis with melena/epigastric abdominal pain related to upper GI bleed due to moderate gastritis and retained food in fundus status post EGD with history of GERD and hiatal hernia along with distant gastric surgery for weight loss Anemia, mild, secondary to above 6 cm left cystic adnexal structure likely chronic ovarian cyst Acute on 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 Will advance diet to full liquid diet then to GI soft. Will change Protonix to b.i.d.. Encourage ambulation. Case discussed at length with surgery. Anticipate discharge tomorrow if tolerating her diet. Surgery recommends that in the future patient will need to have lap band removed. This will need to be done at a higher level center. Hemoglobin stable. Will monitor closely. Anemia, mild: Will continue to monitor hemoglobin. No need for transfusion at this time. Patient may require transfusion if hemoglobin drops significantly. 6 cm left cystic adnexal structure likely chronic ovarian cyst: This will need be further evaluated as an outpatient by gynecology. 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 Will continue with IV fluids. Discussed with Nephrology. Hypertension: Will restart home medication. Will monitor and adjust appropriately. Diabetes mellitus type 2, insulin dependent: Will continue with a sliding scale. Patient takes insulin at home. Will consider restarting home insulin. Hypothyroidism: Will continue with medication Hyperlipidemia: Will continue with medication Time Spent Managing Pts Care (In Minutes): 55
[2018-04-06] MEDS ORDERED: GLUCAGON 1 MG/VIAL IM PRN (10:11)
[2018-04-06] MEDS ORDERED: D50W 25 GM/50 ML SYRINGE IV PRN (10:11)
[2018-04-06] MEDS: ACETAMINOPHEN 500 MG TAB PO PRN ×2 (10:14→15:33)
--- NOTE | 2018-04-06 12:30 | P.PN ---
Subjective Date of Service: 04/06/18 Primary Care Provider: Dr. Reynoso; Cardiology-Dr. Rosario; Nephology-Dr. Soni Chief Complaint: Coffee-ground emesis Subjective: Improving (Patient feels well, no nausea or emesis by her report did have some dark coloration to her stool, but improved from last BM) Physical Examination - Vital Signs Temperature: 97.6 F Blood Pressure: 148/66 Pulse: 56 Respirations: 18 Pulse Ox (%): 96 - Physical Exam General: Alert, In no apparent distress, Cooperative Gastrointestinal: Soft and benign, Non-distended, No ascites, No tenderness, No masses, No rebound, No guarding - Studies Medications List Reviewed: Yes Assessment And Plan - Current Problems (Diagnosis) (1) Anemia Onset Date: 04/05/18 Current Visit: Yes Status: Acute Plan: - Patient has diffuse gastritis with no defined bleeding focus. - continue PPI - may advance diet - serial H+H - will need colonoscopy as outpatient - follow up in my clinic in 1 week Physician Review Additional Text: Impression: Coffee-ground emesis with melena/epigastric abdominal pain related to upper GI bleed due to moderate gastritis and retained food in fundus status post EGD with history of GERD and hiatal hernia along with distant gastric surgery for weight loss Anemia, mild, secondary to above 6 cm left cystic adnexal structure likely chronic ovarian cyst Acute on 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 Will advance diet to full liquid diet then to GI soft. Will change Protonix to b.i.d.. Encourage ambulation. Case discussed at length with surgery. Anticipate discharge tomorrow if tolerating her diet. Surgery recommends that in the future patient will need to have lap band removed. This will need to be done at a higher level center. Hemoglobin stable. Will monitor closely. Anemia, mild: Will continue to monitor hemoglobin. No need for transfusion at this time. Patient may require transfusion if hemoglobin drops significantly. 6 cm left cystic adnexal structure likely chronic ovarian cyst: This will need be further evaluated as an outpatient by gynecology. 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 Will continue with IV fluids. Discussed with Nephrology. Hypertension: Will restart home medication. Will monitor and adjust appropriately. Diabetes mellitus type 2, insulin dependent: Will continue with a sliding scale. Patient takes insulin at home. Will consider restarting home insulin. Hypothyroidism: Will continue with medication Hyperlipidemia: Will continue with medication
--- NOTE | 2018-04-06 17:52 | PN ---
Date of Progress Note: 04/06/2018 History: The patient was admitted with acute kidney injury secondary to prerenal dehydration. The p atient on hydration, recovered very well. Kidney function normalized. Physical Examination: Vital Signs: When I saw the patient blood pressure of 162/79, pulse of 88. Afebrile. Chest: Clear to auscultation. Heart: S1, S2. Regular. Abdomen: Soft, nontender. Extremities: Varicose vein, bilateral trace edema. Neuro: Alert and oriented x3. Nonfocal. Laboratory Data: WBC 4.9, H and H 10.6/32.0, platelets 146. Sodium 142, potassium 4.3, bicarb 27, B UN 22, creatinine 0.9 calcium 8.3, magnesium 1.8. Current Medications: The patient on its include: 1.Tylenol. 2.Calcitriol. 3.Hydralazine 25 t.i.d. 4.Metronidazole. 5.Levothyroxine. 6.Pantoprazole. Assessment And Plan: 1.Acute kidney injury secondary to prerenal secondary to gastrointestinal loss, recovered, resolved. 2.Hypertension, uncontrolled. We will discontinue IV fluid. We will follow up blood pressure off I V fluids. Continue hydralazine. 3.Hypomagnesemia. We will supplement. 4.Gastroenteritis. Continue current antibiotic. We will follow up with the primary. CLAUDIA Voice ID: [id number] Report ID: [id number]
[2018-04-06] MEDS ORDERED: INSULIN GLARGINE 100 UNITS/ML SQ SCH (21:00)
[2018-04-06] MEDS ORDERED: ATORVASTATIN 20 MG TAB PO SCH (21:00)
[2018-04-06] MEDS: HYDRALAZINE HCL 25 MG TABLET PO SCH (21:08)
[2018-04-06] MEDS: DIVALPROEX DR 500MG TAB PO SCH (21:09)
[2018-04-06] MEDS: PANTOPRAZOLE 40 MG INJ IVP SCH (21:10)
[2018-04-07] MEDS: METRONIDAZOLE 500mg IVPB 500 MG/100 ML BAG IV SCH ×2 (00:09→10:26)
[2018-04-07 04:32] LABS: Absolute Lymphocytes (CBC) 1.7 K/uL (0.7-4.9); Absolute Monocytes 0.5 K/uL (0.1-1.3); Absolute Neutrophil 2.2 K/uL (1.8-8.0); Basophils % 0.7 % (0-1.3); Eosinophils % 3.3 % (0-4.4); Hematocrit 31.5 % (36.0-45.0); Lymphocytes % 36.3 % (15.3-44.8); MCH 29.4 pg (27.0-35.0); MCV 87.9 fL (80-100); MPV 8.4 fL (7.6-11.3); Monocytes % 10.7 % (3.3-12.3); RBC Red Blood Cell Count 3.58 M/uL (3.86-4.86)
[2018-04-07 04:45] LABS: Magnesium 1.8 mg/dL (1.8-2.4); Potassium 3.6 mmol/L (3.5-5.1)
[2018-04-07] MEDS ORDERED: MAGNESIUM SULFATE 1 gm IVPB 1 GM/100 ML BAG IV ONE (04:48)
[2018-04-07] MEDS: ACETAMINOPHEN 500 MG TAB PO PRN ×2 (05:39→15:03)
[2018-04-07] MEDS: LEVOTHYROXINE SOD 0.075 MG TAB PO SCH (05:40)
[2018-04-07] MEDS: INSULIN -REGULAR HUMAN 50 UNIT/0.5 ML ML SQ SCH ×2 (07:30→11:30)
[2018-04-07] MEDS ORDERED: METOPROLOL XL 100 MG TAB PO SCH (09:00)
[2018-04-07] MEDS ORDERED: AMLODIPINE 10 MG TAB PO SCH (09:00)
--- NOTE | 2018-04-07 10:13 | P.PN ---
Subjective Date of Service: 04/07/18 Primary Care Provider: Dr. Reynoso; Cardiology-Dr. Rosario; Nephology-Dr. Soni Chief Complaint: Coffee-ground emesis Subjective: Improving (Patient tolerating diet. No significant abdominal pain or nausea. Patient reported no dysuria.) Physical Examination - Vital Signs Temperature: 98.1 F Blood Pressure: 177/77 Pulse: 66 Respirations: 18 Pulse Ox (%): 99 - Physical Exam General: Alert, In no apparent distress, Oriented x3, Cooperative HEENT: Atraumatic Neck: Supple Respiratory: Clear to auscultation bilaterally, Normal air movement Cardiovascular: Normal pulses, Regular rate/rhythm Gastrointestinal: Normal bowel sounds, Soft and benign, Non-distended, No tenderness, No masses, No rebound, No guarding Musculoskeletal: No erythema, No tenderness, No warmth Integumentary: No erythema, No warmth, No cyanosis Neurological: Normal speech, Normal strength at 5/5 x4 extr, Normal tone, Normal affect - Studies Medications List Reviewed: Yes Assessment & Plan Discharge Plan: Home Plan to discharge in: 24 Hours Physician Review Additional Text: Impression: Coffee-ground emesis with melena/epigastric abdominal pain related to upper GI bleed due to moderate gastritis and retained food in fundus status post EGD with history of GERD and hiatal hernia along with distant gastric surgery for weight loss Anemia, mild, secondary to above 6 cm left cystic adnexal structure likely chronic ovarian cyst Acute on chronic stage IV renal disease with horseshoe kidney Hypertension Diabetes mellitus type 2, insulin dependent Hypothyroidism Hyperlipidemia Asymptomatic bacteriuria Acute on chronic renal disease, stage 2 Plan: Coffee-ground emesis with melena/epigastric abdominal pain related to upper GI bleed due to moderate gastritis and retained food in fundus status post EGD with history of GERD and hiatal hernia along with distant gastric surgery for weight loss: Patient continues to improve. Will advance diet to GI soft. Case discussed with surgery. If the patient tolerates her diet today will consider discharge. Patient will need to continue with Protonix b.i.d. Surgery recommends that in the future patient will need to have lap band removed. This will need to be done at a higher level center. Hemoglobin stable. Will monitor closely. Anemia, mild: Will continue to monitor hemoglobin. No need for transfusion at this time. Patient may require transfusion if hemoglobin drops significantly. 6 cm left cystic adnexal structure likely chronic ovarian cyst: This will need be further evaluated as an outpatient by gynecology. 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 Will continue with IV fluids. Discussed with Nephrology. Hypertension: Will continue to adjust blood pressure medication. Will restart lisinopril. Will monitor and adjust appropriately. Diabetes mellitus type 2, insulin dependent: Will continue with a sliding scale. Patient takes insulin at home. Will consider restarting home insulin. Hypothyroidism: Will continue with medication Hyperlipidemia: Will continue with medication Asymptomatic bacteriuria: Urine culture positive for Streptococcus. Patient has multiple allergies. Patient asymptomatic. Will discuss with urology. White count within normal range. Will recheck urinalysis. Doubt patient needs to be treated at this time. This can be monitored closely as an outpatient. Acute on chronic renal disease, stage II: Renal function now within normal range. Nephrology consulted. Will discuss case further with nephrology. Possible discharge later today. Time Spent Managing Pts Care (In Minutes): 55
[2018-04-07] MEDS ORDERED: LISINOPRIL 20 MG TAB PO SCH (10:14)
[2018-04-07] MEDS: PANTOPRAZOLE 40 MG INJ IVP SCH (10:23)
[2018-04-07] MEDS: CALCITROL 0.25 MCG CAP PO SCH (10:24)
[2018-04-07] MEDS: HYDRALAZINE HCL 25 MG TABLET PO SCH (10:24)
[2018-04-07 10:51] VITALS: O2SAT 99
[2018-04-07 12:22] VITALS: BP 142/79; TEMP 98
[2018-04-07 14:15] LABS: Urine Appearance CLEAR; Urine Bilirubin NEGATIVE (NEG); Urine Blood NEGATIVE (NEG); Urine Color YELLOW; Urine Glucose TRACE (NEG); Urine Protein NEGATIVE (NEG); Urine Specific Gravity <=1.005 (1.005-1.030); Urine Urobilinogen 0.2 mg/dL (0.2-1.0); Urine pH 6.5 (5.0-7.0)
[2018-04-07 14:40] LABS: Urine Bacteria NONE SEEN /HPF (<20); Urine RBC NONE SEEN /HPF (NONE SEEN)
[2018-04-07 14:42] LABS: Urine Culture Reflex Order NOT NEEDED
--- NOTE | 2018-04-07 14:55 | P.DS ---
Admission Date: 04/04/18 Discharge Date: 04/07/18 Primary Care Provider: Dr. Reynoso; Cardiology-Dr. Rosario; Nephology-Dr. Soni Disposition: ROUTINE DISCHARGE Discharge Condition: GOOD Reason for Admission: Coffee-ground emesis Consultations: Surgery-Dr. Kennedy Nephrology-Dr. Vogt Procedures: EGD: Bile reflux identified, gastritis, retained food in the fundus. CT scan: COMPARISON: CT study January 2017 TECHNIQUE: Axial [address] imaging of the abdomen and pelvis was performed without IV contrast. No IV contrast was given because of allergy, abnormal renal function, patient refusal or physician request. No oral contrast given. All CT scans are performed using dose optimization technique as appropriate and may include automated exposure control or mA/KV adjustment according to patient size. FINDINGS: No acute lung base finding. No pericardial thickening or effusion. Small hiatal hernia is present. The liver, spleen and pancreas show no suspicious findings on non-contrast imaging. Gallbladder is absent. No biliary tree dilatation. No hydronephrosis or suspicious mass limitations horseshoe kidney a 10 millimeter calyx calcification is present lower pole left kidney not acutely significant. Urinary bladder is fully contracted. No bladder calculus seen. No significant adrenal finding. Isodense renal masses and pyelonephritis cannot be excluded in the absence of IV contrast. No gastric dilatation or wall thickening. No dilated large or small bowel loops. Hyperdense medication seen at the tip of the cecum. Patient has a few small mesenteric lymph nodes in the central abdomen similar to the comparison. No free air, free fluid or inflammatory stranding. No bulky lymphadenopathy. No omental thickening. Uterus is absent. In the left adnexa there is a homogeneous fluid attenuation mass 6.2 x 4.9 cm in diameter. Overall size is not substantially different. Shape a slightly different from prior imaging. This is probably a chronic benign cystic mass cruciate is altered due to extrinsic compression. No calcification, soft tissue component or thickened septation. No suspicion for an active process. No suspicious bony findings. IMPRESSION: No obstruction, free air or surgically emergent finding. Nonacute findings are detailed in the body of the report. The 6 centimeter cystic mass in the left adnexa is probably a chronic ovarian or paraovarian cyst. Benign etiology is strongly favored. This size has not clearly changed. Measurements may very slightly from year to year due 2 pliability of the mass. Medical Problem List: Coffee-ground emesis with melena/epigastric abdominal pain related to upper GI bleed due to moderate gastritis, hiatal hernia and retained food in fundus status post EGD with history of GERD and hiatal hernia along with distant gastric surgery for weight loss Anemia, mild, secondary to above 6 cm left cystic adnexal structure likely chronic ovarian cyst Acute on chronic stage 2 renal disease with horseshoe kidney Hypertension Diabetes mellitus type 2, insulin dependent Hypothyroidism Hyperlipidemia Asymptomatic bacteriuria Brief History of Present Illness: 72-year-old female presented emergency room with coffee-ground emesis. Patient reported coffee-ground emesis this morning. She had some epigastric pain as well. She reports having nausea and vomiting over the past week. She has had poor oral intake. She does report some melena this morning. Patient reports a history of GERD with hiatal hernia, lap band surgery in the past, hypertension, chronic renal disease, horseshoe kidney, and diabetes. Patient denied any fever, chills, chest pain or shortness of breath. Patient came to the ER for further evaluation. In the ER patient evaluated. Patient slightly hypertensive. Vital signs otherwise stable. Hemoglobin 13.6, hematocrit 40. BUN of 39, creatinine 1.8 with a GFR of 28. Glucose 168. Gastric occult was positive. CT scan shows a small hiatal hernia. There was also a 6 cm cystic left adnexal structure. Patient was stabilize in the emergency room. Her emesis improved. Patient admitted for further evaluation. When I saw the patient the ER, patient was stable. Family at bedside. Nausea improved. Epigastric pain improved. Patient denies taking ibuprofen or Motrin. She does report some difficulty eating since having her lap band procedure. This is done many years ago. She recalls having any EGD and colonoscopy many years ago. The patient is taking aspirin. Hospital Course: Patient presented with coffee-ground emesis with melena and epigastric abdominal pain. Upper GI bleed was suspected. Patient admitted for further evaluation and treatment. Patient seen and evaluated by surgery. EGD performed. EGD showed moderate gastritis, hiatal hernia and retained food in fundus. Patient with history of GERD and hiatal hernia with distant gastric surgery for weight loss. Hemoglobin remained stable. Patient was transition to oral medication. Diet advanced. At discharge she is tolerating her diet. Recommendation is to continue with Protonix 40 mg 1 pill once daily. Patient will need to continue with a GI soft diet. Surgery recommends that the patient have her lap band removed in the future. This will need to be done at a higher level center. Recommendation is for the patient follow up with surgery to follow-up biopsy report. Patient found to have anemia. This remained stable during her stay. No need for transfusion at this time. Recommendation to recheck CBC in 1 week to monitor progress. CT scan revealed 6 cm left cystic adnexal structure likely chronic ovarian cyst. Recommendation is for the patient to follow up with gynecology as an outpatient to further monitor and address. Patient will likely require pelvic ultrasound as an outpatient further address. Patient presented with acute on chronic stage IV renal disease. Patient with history of horseshoe kidney. Patient received IV fluids. Patient will continue with her medication. Calcitrol 0.25 mcg daily. Further adjustment can be done by nephrology. Renal function improved and now within normal range. Patient seen by nephrology. No further intervention was required. Recommendation to follow up with nephrology in outpatient to further monitor. Recommendation to recheck lab-BMP in 1 week to monitor. Patient has hypertension. Patient will continue with her medications-Norvasc 10 mg daily, hydralazine 25 mg 1 pill 3 times a day, lisinopril 20 mg 1 pill daily, and metoprolol XL 100 mg daily. Recommendation is to maintain blood pressures less 150/80. Further adjustment can be done by her PCP. Patient has diabetes mellitus type 2, insulin dependent. Patient will continue with her insulin regimen. Recommendation is to maintain blood sugars less 140 fasting and less than 200 after meals. Further adjustment can be done by her PCP. Patient has hypothyroidism. Patient will continue with her medication-Levoxyl 75 mcg daily. Patient has hyperlipidemia. Patient will continue with her medication-Lipitor 20 mg daily. Patient had asymptomatic bacteriuria. Urine culture was positive for Streptococcus. Repeat urinalysis unremarkable. This was done by a cath urine. Original urine was done by a clean-catch. Patient without any symptoms. Pro calcitonin unremarkable. White count unremarkable. No need for antibiotic therapy this time. Patient will continue with UTI prevention. Vital Signs/Physical Exam: Temp Pulse Resp BP Pulse Ox 98 F 96 H 18 142/79 H 96 04/07/18 12:00 04/07/18 12:00 04/07/18 12:00 04/07/18 12:00 04/07/18 12:00 General: Alert, In no apparent distress, Oriented x3, Cooperative HEENT: Atraumatic Neck: Supple Respiratory: Clear to auscultation bilaterally, Normal air movement Cardiovascular: Normal pulses, Regular rate/rhythm Gastrointestinal: Normal bowel sounds, Soft and benign, Non-distended, No tenderness, No masses, No rebound, No guarding Musculoskeletal: No erythema, No tenderness, No warmth Integumentary: No tenderness/swelling, No erythema, No warmth, No cyanosis Neurological: Normal speech, Normal strength at 5/5 x4 extr, Normal tone Lymphatics: No axilla or inguinal lymphadenopathy Laboratory Data at Discharge: WBC 4.6 K/uL (4.3-10.9) 04/07/18 04:15 Hgb 10.5 g/dL (12.0-15.0) L 04/07/18 04:15 Hct 31.5 % (36.0-45.0) L 04/07/18 04:15 Plt Count 167 K/uL (152-406) 04/07/18 04:15 Sodium 142 mmol/L (136-145) 04/07/18 04:15 Potassium 3.6 mmol/L (3.5-5.1) 04/07/18 04:15 BUN 9 mg/dL (7-18) 04/07/18 04:15 Creatinine 0.70 mg/dL (0.55-1.3) 04/07/18 04:15 Glucose 171 mg/dL (74-106) H 04/07/18 04:15 Magnesium 1.8 mg/dL (1.8-2.4) 04/07/18 04:15 Total Bilirubin 0.5 mg/dL (0.2-1.0) 04/04/18 15:30 AST 28 U/L (15-37) 04/04/18 15:30 ALT 27 U/L (12-78) 04/04/18 15:30 Alkaline Phosphatase 86 U/L (45-117) 04/04/18 15:30 Lipase 227 U/L (73-393) 04/04/18 15:30 Home Medications: Aspirin [Aspir-Low] 81 mg PO DAILY 01/15/17 Calcitrol [Rocaltrol*] 0.25 mcg PO DAILY 01/15/17 Hydralazine [Apresoline*] 25 mg PO TID 01/15/17 Levothyroxine Sodium 75 mcg PO DAILY 01/15/17 Melatonin 5 mg PO BEDTIME 01/15/17 Insulin Glargine,Hum.rec.anlog [Touchan Max Solostar] 0 unit SQ DAILY 01/11/18 Ubidecarenone/Vit E Acetate [Co Q-10 100 mg Softgel] 2 each PO DAILY 01/11/18 Lisinopril 20 mg PO [id number] 01/14/18 Diphenhydramine HCl [Benadryl Allergy] 50 mg PO BEDTIME 02/15/18 Divalproex Sodium 500 mg PO BEDTIME 02/15/18 Vit A/Vit C/Vit E/Zinc/Copper [Icaps Areds Softgel] 2 each PO BID 02/15/18 Amlodipine [Norvasc*] 10 mg PO DAILY 02/18/18 Metoprolol Succinate [Toprol Xl] 100 mg PO DAILY 02/18/18 Acetaminophen [Acetaminophen ER] 2 tab PO BID 04/05/18 Atorvastatin Calcium [Lipitor*] 20 mg PO BEDTIME 04/05/18 Magnesium Oxide [Magnesium] 500 mg PO DAILY 04/05/18 Cholecalciferol (Vitamin D3) [Vitamin D3] 125 mcg PO DAILY 04/06/18 Pantoprazole [Protonix Tab] 40 mg PO DAILY #30 tab 04/07/18 New Medications: Pantoprazole [Protonix Tab] 40 mg PO DAILY #30 tab Patient Discharge Instructions: 1. Patient will need a follow up with her PCP in 1 week to follow up this hospitalization. 2. Patient presented with coffee- ground emesis with melena and epigastric abdominal pain. Upper GI bleed was suspected. Patient admitted for further evaluation and treatment. Patient seen and evaluated by surgery. EGD performed. EGD showed moderate gastritis, hiatal hernia and retained food in fundus. Patient with history of GERD and hiatal hernia with distant gastric surgery for weight loss. Hemoglobin remained stable. Patient was transition to oral medication. Diet advanced. At discharge she is tolerating her diet. Recommendation is to continue with Protonix 40 mg 1 pill once daily. Patient will need to continue with a GI soft diet. Surgery recommends that the patient have her lap band removed in the future. This will need to be done at a higher level center. Patient will need to follow up with surgery in 1 week to follow up biopsy report. 3. Patient found to have anemia. This remained stable during her stay. No need for transfusion at this time. Patient may continue with a multi vitamin daily. Recommendation to recheck CBC in 1 week to monitor progress. 4. CT scan revealed 6 cm left cystic adnexal structure likely chronic ovarian cyst. Recommendation is for the patient to follow up with gynecology as an outpatient to further monitor and address. Patient will likely require pelvic ultrasound as an outpatient further address. 5. Patient presented with acute on chronic stage IV renal disease. Patient with history of horseshoe kidney. Patient received IV fluids. Renal function now within normal range. Patient will continue with her medication. Calcitrol 0.25 mcg daily. Further adjustment can be done by nephrology. Patient seen by nephrology. No further intervention was required. Recommendation to follow up with nephrology in outpatient to further monitor. Recommendation to recheck lab-BMP in 1 week to monitor. 6. Patient has hypertension. Patient will continue with her medications-Norvasc 10 mg daily, hydralazine 25 mg 1 pill 3 times a day, lisinopril 20 mg 1 pill daily, and metoprolol XL 100 mg daily. Recommendation is to maintain blood pressures less 150/80. Further adjustment can be done by her PCP. 7. Patient has diabetes mellitus type 2, insulin dependent. Patient will continue with her insulin regimen. Recommendation is to maintain blood sugars less 140 fasting and less than 200 after meals. Further adjustment can be done by her PCP. 8. Patient has hypothyroidism. Patient will continue with her medication -Levoxyl 75 mcg daily. 9. Patient has hyperlipidemia. Patient will continue with her medication-Lipitor 20 mg daily. 10. Patient had asymptomatic bacteriuria. Patient without any symptoms. Pro calcitonin unremarkable. White count unremarkable. No need for antibiotic therapy this time. Patient will continue with UTI prevention. Diet: GI soft Activity: Fall precautions Time spent managing pt's care (in minutes): 55
--- NOTE | 2018-04-07 20:32 | PN ---
Date of Progress Note: 04/07/2018 Subjective: Patient doing well. No nausea. No vomiting. Diarrhea has been stopped. No abdominal pain. Physical Examination: Vital Signs: When I saw the patient, blood pressure of 142/79, pulse of 96, afebrile. Chest: Clear to auscultation. Heart: S1, S2 regular. Abdomen: Soft, nontender. Extremity: No edema. Has varicose change bilateral. Laboratory Data: Repeated urinalysis is clear. H and H 10.5/31.5. Sodium 142, potassium 3.6, bicar b 25, BUN 9, creatinine 0.7, calcium 8.3, magnesium 1.8. Medications: Current medications the patient on include: 1.Flagyl. 2.Tylenol. 3.Amlodipine 10 mg. 4.Calcitriol. 5.Hydralazine. 6.Lisinopril. 7.Levothyroxine. 8.Pantoprazole. Assessment And Plan: 1.Acute kidney injury secondary to prerenal, recovered, resolved. 2.Hypertension, controlled, optimal. Continue current medication. 3.Secondary hyperparathyroid. Continue calcitriol. 4.Local urea. Repeated UA was negative. No need for any UTI treatment. 5.Gastroenteritis. Continue Flagyl. Patient cleared from the renal standpoint for discharge beryl gibbs MA/ADITYA Voice ID: [id number] Report ID: [id number]
== END 2018-04-07 17:48 | disposition home or self-care (01) | DRG 378 ==
LOC: ER 14:54 → ERHOLD 17:44 → 4TH 19:48
PROVIDERS: ADMIT Family Medicine; ATTEND Family Medicine
PROC: 0DB78ZX Excision of Stomach, Pylorus, Via Natural or Artificial Opening Endoscopic, Diagnostic (ICD-10-PCS; 2018-04-05)
PROC: 0DB68ZX Excision of Stomach, Via Natural or Artificial Opening Endoscopic, Diagnostic (ICD-10-PCS; principal; 2018-04-05 11:15)
DX: K29.61 Other gastritis with bleeding (principal); N18.4 Chronic kidney disease, stage 4 (severe); K44.9 Diaphragmatic hernia without obstruction or gangrene; N83.292 Other ovarian cyst, left side; I12.9 Hypertensive chronic kidney disease with stage 1 through stage 4 chronic kidney disease, or unspecified chronic kidney disease; E11.22 Type 2 diabetes mellitus with diabetic chronic kidney disease; Z79.4 Long term (current) use of insulin; Q63.1 Lobulated, fused and horseshoe kidney; E03.9 Hypothyroidism, unspecified; E78.5 Hyperlipidemia, unspecified; R82.71 Bacteriuria; K21.9 Gastro-esophageal reflux disease without esophagitis; Z98.84 Bariatric surgery status; Z88.6 Allergy status to analgesic agent; Z88.1 Allergy status to other antibiotic agents; Z88.5 Allergy status to narcotic agent; Z88.0 Allergy status to penicillin; Z88.8 Allergy status to other drugs, medicaments and biological substances; E11.649 Type 2 diabetes mellitus with hypoglycemia without coma; D64.9 Anemia, unspecified; E86.0 Dehydration; E83.42 Hypomagnesemia; Z87.891 Personal history of nicotine dependence; T18.2XXA Foreign body in stomach, initial encounter; X58.XXXA Exposure to other specified factors, initial encounter; Y93.89 Activity, other specified; Y92.019 Unspecified place in single-family (private) house as the place of occurrence of the external cause
CPT/HCPCS: 36415; 74176; 80048; 80076; 81001; 81003; 81015; 82271; 82570; 82962; 83690; 83735; 83986; 84145; 84156; 85014; 85018; 85025; 86850; 86900; 86901; 87077; 87086; 87088; 87186; 88305; 88312; 96361; 96365; 96375; 97163; 99284; C9113; J0360; J2405; J2704; J3475; J7030

== ENCOUNTER 2019-01-30 06:10 | Day surgery (SDC) | payer MEDICARE ==
[2019-01-27 14:16] LABS: Absolute Lymphocytes (CBC) 2.6 K/uL (0.7-4.9); Basophils % 0.6 % (0-1.3); Hematocrit 34.4 % (36.0-45.0); Lymphocytes % 30.8 % (15.3-44.8); RBC Red Blood Cell Count 3.89 M/uL (3.86-4.86)
[2019-01-27 14:22] LABS: Urine Appearance CLEAR; Urine Bilirubin NEGATIVE (NEG); Urine Blood NEGATIVE (NEG); Urine Color YELLOW; Urine Glucose NEGATIVE (NEG); Urine Microscopic Reflex NO UMIC; Urine Protein NEGATIVE (NEG); Urine Specific Gravity 1.015 (1.005-1.030); Urine Urobilinogen 0.2 mg/dL (0.2-1.0); Urine pH 5.5 (5.0-7.0)
[2019-01-27 14:24] LABS: Protime INR 0.97
--- OUTSIDE RECORDS SUMMARY | 2019-01-30 06:17 | XMS REPORT ---
:1945 Author Organization eClinicalWorks Care Team Providers Name Role Phone Theodore Reynoso Provider Role Unavailable Allergies, Adverse Reactions, Alerts Substance Reaction Event Type MORPHINE Info Not Available Drug Allergy Macrobid Info Not Available Drug Allergy Keflex Info Not Available Drug Allergy Iodine Info Not Available Drug Allergy Ceftin Info Not Available Drug Allergy Phenothiazines Info Not Available Non Drug Allergy qUINOLONE ab Info Not Available Non Drug Allergy AXETIL Info Not Available Non Drug Allergy Problems Problem Type Condition Code Onset Dates Condition Status Problem Allergic rhinitis J30.9 Active Problem Secondary hyperparathyroidism N25.81 Active Problem Hyperlipidemia E78.5 Active Problem Gastric bleed K92.2 Active Problem Essential (primary) hypertension I10 Active Problem Drug-induced 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.0 Active coma Problem Age-related cataract, 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, bilateral Problem 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 Problem Blood loss anemia D50.0 Active Problem Osteoarthritis M19.90 Active Problem 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 Problem 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 Active substance or known physiological condition Problem Urine incontinence R32 Active Problem Chronic kidney disease, stage 4 N18.4 Active (severe) Problem Macular degeneration H35.30 Active Problem Leg cramps R25.2 Active Problem Chest pain in adult R07.9 Active Problem Chronic pain G89.29 Active Problem Chronic kidney disease N18.9 Active Assessment 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 Problem Fibromyalgia M79.7 Active Problem Hypothyroidism E03.9 Active Problem Migraine G43.909 Active Problem Anxiety F41.9 Active Medications Medication Code Code Instructions Start End Status Dosage System Date Date Calcitriol [facility] 34257770135 0.25 MCG Orally Active 1 capsule Once a day Aspir-81 [facility] 77293597808 81 MG Orally Active 1 tablet Once a day Voltaren [facility] 79821948522 1 % Transdermal Active not defined Multivitamin [facility] 85661-61770 Active not defined Toujeo SoloStar [facility] 21064704004 300 UNIT/ML Active 15 units Subcutaneous Daily HydrALAZINE HCl [facility] 32584272821 25 MG Active TAKE 1 TABLET BY MOUTH 3 TIMES DAILY Vitamin D3 [facility] 08797807243 1000 UNIT Active 1 capsule Orally Once a day Synthroid [facility] 68394109105 75 MCG Inactive TAKE 1 TABLET BY MOUTH EVERY DAY Protonix [facility] 96224623878 40 MG Orally Active 1 tablet Once a day Metoprolol [facility] 15934168545 100 MG Active TAKE 1 Succinate ER TABLET BY MOUTH ONCE A DAY NovoLIN 70/30 [facility] 02444610504 () 100 Active as FlexPen UNIT/ML directed Subcutaneous BID by Sliding Scale (BG-120)x0.1=Do se Pantoprazole [facility] 92291791342 40 MG Active TAKE 1 Sodium TABLET BY MOUTH EVERY DAY Lipitor [facility] 81533163683 20 MG Active TAKE 1 TABLET BY MOUTH ONCE A DAY AT BEDTIME Melatonin [facility] 85602012069 5 MG Orally Active 1 tablet Once a day at bedtime as needed with food Magnesium Oxide [facility] 67748419320 250 MG Orally Active 1 tablet Once a day as needed Accu-Chek [facility] 68800283815 - Active USE Softclix DIRECTED Lancets NovoLIN 70/30 [facility] [address]-66 (7030) 100 Active as FlexPen UNIT/ML directed Subcutaneous BID by Sliding Scale (BG-120)x0.1=Do se Atorvastatin [facility] 20671882855 20 MG Orally Active 1 tablet Calcium Once a day Amlodipine [facility] 29033156141 10 MG Active TAKE 1 Besylate TABLET BY MOUTH ONCE A DAY Furosemide [facility] 41796059777 40 MG Active TAKE 1 TABLET BY MOUTH EVERY MORNING Results No Known Results Summary Purpose eClinicalWorks Submission
--- OUTSIDE RECORDS SUMMARY | 2019-01-30 06:17 | XMS REPORT ---
:1945 [facility] Address [address] [place] [address] Dr. Branch [address] [place] [address] Care Team Providers Name Role Phone Unavailable Unavailable Unavailable Problems This patient has no known problems. Allergies, Adverse Reactions, Alerts This patient has no known allergies or adverse reactions. Medications This patient has no known medications.
--- OUTSIDE RECORDS SUMMARY | 2019-01-30 06:17 | XMS REPORT ---
[...] Type Condition Code Onset Dates Condition Status Assessment Other prison (current) drug Z79.899 Active therapy Assessment Hypothyroidism E03.9 Active Assessment Chronic kidney disease N18.9 Active Assessment Essential (primary) hypertension I10 Active Problem Hypothyroidism E03.9 Active Assessment 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 Problem Anxiety F41.9 Active Problem Allergic rhinitis J30.9 Active Problem Secondary hyperparathyroidism N25.81 Active Problem Hyperlipidemia E78.5 Active Problem Gastric bleed K92.2 Active Problem Drug-induced 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.0 Active coma Problem Essential (primary) hypertension I10 Active Problem Age-related cataract, 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, bilateral Problem Blood loss anemia D50.0 Active Problem 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 Problem Osteoarthritis M19.90 Active Problem Controlled type [...] Active Problem Chronic kidney disease N18.9 Active Problem Fibromyalgia M79.7 Active Problem Migraine G43.909 Active Medications Medication Code Code Instructions Start End Status Dosage System Date Date Amlodipine ND 47314728946 10 MG Active TAKE 1 Besylate TABLET BY MOUTH ONCE A DAY Togrant IrwinoStar ND 45221943606 300 UNIT/ML Active 34 Units Subcutaneous Daily Melatonin ND 17280767547 5 MG Orally Active 1 tablet at Once a day bedtime as needed with food Protonix [facility] 40829297273 40 MG Orally Active 1 tablet Once a day Calcitriol [facility] 58748366490 0.25 MCG Orally Active 1 capsule Once a day Synthroid [facility] 59747534599 75 MCG Active TAKE 1 TABLET BY MOUTH EVERY DAY Voltaren [facility] 77513763785 1 % Transdermal Active not defined Magnesium Oxide [facility] 61338179137 250 MG Orally Active 1 tablet as Once a day needed Vitamin D3 [facility] 62677814700 1000 UNIT Active 1 capsule Orally Once a day Furosemide [facility] 31697012761 40 MG Active TAKE 1 TABLET BY MOUTH EVERY MORNING Lipitor [facility] 19042261467 20 MG Active TAKE 1 TABLET BY MOUTH ONCE A DAY AT BEDTIME Aspir-81 [facility] 66245932995 81 MG Orally Active 1 tablet Once a day HydrALAZINE HCl [facility] 89628836207 25 MG Orally Active 1 tablet Three times a with food day Accu-Chek [facility] 78063855868 - Active USE Softclix Lancets DIRECTED Pantoprazole [facility] 49214152186 40 MG Active TAKE 1 Sodium TABLET BY MOUTH EVERY DAY Atorvastatin [facility] 51701423780 20 MG Orally Active 1 tablet Calcium Once a day Multivitamin [facility] 33223-87595 Active not defined Metoprolol [facility] 22851714083 100 MG Active TAKE 1 Succinate ER TABLET BY MOUTH ONCE A DAY Results Name Result Date Reference Range Unit Abnormality Flag T4 Free ----T4 Free 1.01 20180606 0.76-1.46 TSH Thyroid Stimulating Hormone ----Thyroid Stimulating 12.000 64736013 0.360-3.740 [iU]/L H Hormone Basic Metabolic Panel ----Calcium Level 9.2 54511681 8.5-10.1 mg/dL ----Glomerular Filtration 47 55893519 =/>90 mL L Rate ----Creatinine 1.13 20180606 0.55-1.3 mg/dL ----BUN Blood Urea Nitrogen 18 20180606 7-18 mg/dL ----Glucose Level 176 71713026 74-106 mg/dL H ----Sodium Level 141 13372793 136-145 mmol/L ----Potassium 4.9 14330326 3.5-5.1 mmol/L ----Chloride Level 105 20180606 98-107 mmol/L ----Bicarbonate 31 20180606 21-32 mmol/L Hemoglobin A1C ----Hemoglobin A1c 8.7 20180606 4.2-6.3 % H Summary Purpose eClinicalWorks Submission
--- OUTSIDE RECORDS SUMMARY | 2019-01-30 06:17 | XMS REPORT ---
[...] N18.9 Active Problem Fibromyalgia M79.7 Active Problem Hypothyroidism E03.9 Active Problem Migraine G43.909 Active Problem Anxiety F41.9 Active Medications Medication Code Code Instructions Start End Status Dosage System Date Date Accu-Chek [facility] 64622577870 - Active USE Softclix Lancets DIRECTED Pantoprazole ND 56841101875 40 MG Active TAKE 1 Sodium TABLET BY MOUTH EVERY DAY Calcitriol ND 21205154335 0.25 MCG Orally Active 1 capsule Once a day Touchan SoloStar ND 67190555255 300 UNIT/ML Active 10 Units Subcutaneous Daily Protonix ND 98212291350 40 MG Orally Active 1 tablet Once a day Aspir-81 [facility] 79041909060 81 MG Orally Active 1 tablet Once a day Metoprolol [facility] 83492427026 100 MG Active TAKE 1 Succinate ER TABLET BY MOUTH ONCE A DAY Multivitamin [facility] 16897-13348 Active not defined Voltaren [facility] 21238620745 1 % Transdermal Active not defined Magnesium Oxide [facility] 55807711720 250 MG Orally Active 1 tablet as Once a day needed Melatonin [facility] 30983670522 5 MG Orally Active 1 tablet at Once a day bedtime as needed with food Amlodipine [facility] 34326601048 10 MG Active TAKE 1 Besylate TABLET BY MOUTH ONCE A DAY Furosemide [facility] 31336318771 40 MG Active TAKE 1 TABLET BY MOUTH EVERY MORNING Synthroid [facility] 91224962108 75 MCG Active TAKE 1 TABLET BY MOUTH EVERY DAY Atorvastatin [facility] 86450555301 20 MG Orally Active 1 tablet Calcium Once a day HydrALAZINE HCl [facility] 19942122383 25 MG Active TAKE 1 TABLET BY MOUTH 3 TIMES DAILY Lipitor [facility] 98986640678 20 MG Active TAKE 1 TABLET BY MOUTH ONCE A DAY AT BEDTIME Vitamin D3 [facility] 89711980678 1000 UNIT Active 1 capsule Orally Once a day Results No Known Results Summary Purpose eClinicalWorks Submission
--- OUTSIDE RECORDS SUMMARY | 2019-01-30 06:17 | XMS REPORT ---
:1945 Author Organization eClinicalWorks Care Team Providers Name Role Phone Theodore Reynoso Provider Role Unavailable Allergies No Known Allergies Problems Problem Type Condition Code Onset Dates [...] Start End Status Dosage System Date Date Magnesium Oxide [facility] 67153817782 250 MG Orally Active 1 tablet as Once a day needed Calcitriol [facility] 03070959964 0.25 MCG Orally Active 1 capsule Once a day Multivitamin [facility] 15286-31272 Active not defined NovoLIN 70/[address] [facility] 65364510596 (70-30) 100 Jul 18, Active as directed FlexPen UNIT/ML 2018 Subcutaneous BID by Sliding Scale (BG-120)x0.1=Do se Lipitor [facility] 34446411050 20 MG Active TAKE 1 TABLET BY MOUTH ONCE A DAY AT BEDTIME Melatonin [facility] 74925659701 5 MG Orally Active 1 tablet at Once a day bedtime as needed with food Furosemide [facility] 57723725670 40 MG Active TAKE 1 TABLET BY MOUTH EVERY MORNING Amlodipine NDC 99467295660 10 MG Active TAKE 1 Besylate TABLET BY MOUTH ONCE A DAY Toujeo SoloStar [facility] 52775745026 300 UNIT/ML Active 15 units Subcutaneous Daily Metoprolol [facility] 81747483509 100 MG Active TAKE 1 Succinate ER TABLET BY MOUTH ONCE A DAY Pantoprazole [facility] 95303648239 40 MG Active TAKE 1 Sodium TABLET BY MOUTH EVERY DAY HydrALAZINE HCl [facility] 70341861015 25 MG Active TAKE 1 TABLET BY MOUTH 3 TIMES DAILY Vitamin D3 [facility] 81894767664 1000 UNIT Active 1 capsule Orally Once a day Aspir-[address] [facility] 97740071950 81 MG Orally Active 1 tablet Once a day Protonix [facility] 07100361288 40 MG Orally Active 1 tablet Once a day Humulin 70/[address] [facility] 70817436682 (70-30) 100 Jul 18, Active as directed UNIT/ML 2019 Subcutaneous Twice daily Atorvastatin [facility] 82088764038 20 MG Orally Active 1 tablet Calcium Once a day Voltaren [facility] 84864415099 1 % Transdermal Active not defined Accu-Chek [facility] 48592172585 - Active USE Softclix Lancets DIRECTED Results No Known Results Summary Purpose eClinicalWorks Submission
--- OUTSIDE RECORDS SUMMARY | 2019-01-30 06:18 | XMS REPORT ---
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 Problem Hyperlipidemia E78.5 Active Problem 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 Problem Secondary hyperparathyroidism N25.81 Active Problem Gastric bleed K92.2 Active Problem Blood loss anemia D50.0 Active Problem Leg cramps R25.2 Active Problem Essential (primary) hypertension I10 Active Problem Macular degeneration, unspecified H35.30 Active laterality, unspecified type Problem Age-related cataract, 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, bilateral Problem Urine incontinence R32 Active Problem Osteoarthritis M19.90 Active Problem Drug-induced 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.0 Active coma Problem 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 F51.09 Active substance or known physiological condition Problem Macular degeneration H35.30 Active Problem Fibromyalgia M79.7 Active Problem Chest pain in adult R07.9 Active Problem Chronic kidney disease, stage 4 N18.4 Active (severe) Problem Chronic kidney disease N18.9 Active Problem Hypothyroidism E03.9 Active Problem Migraine G43.909 Active Problem Chronic pain G89.29 Active Medications No Known Medications Results No Known Results Summary Purpose [employer] Submission
--- OUTSIDE RECORDS SUMMARY | 2019-01-30 06:18 | XMS REPORT | Summary of Care ---
:1945 Author Organization [facility] Address [address] [place] [address] Care Team Providers Name Role Phone Theodore Reynoso Primary Care Provider Reason for Visit Reason Comments Refill Request Encounter Details Date Type Department Care Team Description 01/06/[address] [facility] Endocrinology- Madhu Angel MD Refill Request [address] Professional Office [address] Claros [phone] [address] [place] [address] Allergies Active Allergy Reactions Severity Noted Date Comments Cefuroxime Axetil Unknown - See comments 06/18/2018 Cephalexin Unknown - See comments 06/18/2018 Clindamycin Unknown - See comments 06/18/2018 Codeine Unknown - See comments 06/18/2018 Iodine Itching, Nausea and/or Medium 06/18/2018 Vomiting Levofloxacin Unknown - See comments 06/18/2018 Naproxen Unknown - See comments 06/18/2018 Nitrofurantoin Unknown - See comments 06/18/2018 Penicillin Unknown - See comments 06/18/2018 Phenergan Dm Unknown - See comments 06/18/2018 Sulfamethazine Unknown - See comments 06/18/2018 Talwin Compound Unknown - See comments 06/18/2018 Hydrocodone-Acetaminophen Unknown - See comments 06/18/2018 documented as of this encounter (statuses as of 01/06/2019) Medications Medication Sig Dispensed Refills Start Date End Date Status divalproex 500 mg EC TAKE 1 TABLET 2 08/09/2017 Active tablet BY MOUTH AT BEDTIME atorvastatin 20 mg Take 20 mg by 0 Active tablet mouth at bedtime. amLODIPine 10 mg Take 10 mg by 0 Active tablet mouth daily. hydralAZINE 25 mg Take 25 mg by 0 Active tablet mouth every 6 (six) hours. calcitriol 0.25 mcg Take 0.25 mcg 0 Active capsule by mouth daily. glucagon (GLUCAGON inject 1 mg 2 Each 1 07/30/2018 Active EMERGENCY KIT, under the HUMAN,) 1 mg skin as injectionIndications needed (Low : Type 2 diabetes sugar and mellitus with renal unconscious). manifestations not at goal, Hypoglycemia insulin glargine inject 15 1.5 mL 6 09/24/2018 Active U-300 conc (TOUJEO Units under SOLOSTAR U-300 the skin INSULIN) 300 unit/mL daily. 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 mellitus with renal manifestations not at goal insulin lispro inject 12 3 Syringe 1 07/30/2018 01/06/2019 Discontinued (HUMALOG KWIKPEN Units under INSULIN) 100 unit/mL the skin 3 pen (three) times injectorIndications: daily before Type 2 diabetes meals. 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 documented as of this encounter Last Filed Vital Signs Not on filedocumented in this encounter Plan of Treatment Date Type Specialty Care Team Description 03/04/2019 Office Visit Endocrinology Diabetes & AngelMadhu MD Metabolism [address] [place] [address] [phone] Health Maintenance Due Date Last Done Comments HEPATITIS C (HCV) SCREEN 1945 CREATININE (SERUM) 1956 EYE EXAM 1956 LDL-C 1956 URINE MICROALBUMIN 1956 FOOT EXAM 1964 DTaP,Tdap,and Td Vaccines (1 - Tdap) 1965 MAMMOGRAM 1986 COLONOSCOPY 1996 Zoster Recombinant Vaccine (SHINGRIX) (1 1996 of 2) LUNG CANCER SCREEN: Recommended for age 0510/25/2001 55-80 with 30 + pack year history Medicare Wellness Visit 10/26/2011 Osteoporosis Screening 10/26/2011 PNEUMOCOCCAL VACCINES 65+ (1 of 2 - PCV13) 10/26/2011 INFLUENZA VACCINE 02/02/2019 HgA1C 05/01/2019 10/29/2018, 07/30/2018 documented as of this encounter Results Not on filedocumented in this encounter Visit Diagnoses Diagnosis 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
--- OUTSIDE RECORDS SUMMARY | 2019-01-30 06:18 | XMS REPORT ---
[...] Code Onset Dates Condition Status Assessment Other intermediate (current) drug Z79.899 Active therapy Assessment Hypothyroidism [...] Start End Status Dosage System Date Date Lizz IrwinShamar [facility] [address]-06 300 UNIT/ML Active 15 units Subcutaneous Daily Magnesium Oxide [facility] 01171241241 250 MG Orally Active 1 tablet Once a day as needed Aspir-81 [facility] 94814314765 81 MG Orally Active 1 tablet Once a day Lipitor [facility] 45219223763 20 MG Active TAKE 1 TABLET BY MOUTH ONCE A DAY AT BEDTIME Voltaren [facility] 23655806994 1 % Transdermal Active not defined Pantoprazole [facility] 82568738829 40 MG Active TAKE 1 Sodium TABLET BY MOUTH EVERY DAY Metoprolol [facility] 57968127885 100 MG Active TAKE 1 Succinate ER TABLET BY MOUTH ONCE A DAY Humalog KwikPen [facility] [address]-34 100 UNIT/ML Active 6 Units Subcutaneous TID Protonix [facility] 59826371695 40 MG Orally Active 1 tablet Once a day Furosemide [facility] 90443582174 40 MG Active TAKE 1 TABLET BY MOUTH EVERY MORNING Amlodipine [facility] 21978544117 10 MG Active TAKE 1 Besylate TABLET BY MOUTH ONCE A DAY Multivitamin [facility] [address] Active not defined HydrALAZINE HCl [facility] 86738462279 25 MG Active TAKE 1 TABLET BY MOUTH 3 TIMES DAILY Humulin 70/30 [facility] 68875368107 (70-30) 100 Jul 18, Active as UNIT/ML 2019 directed Subcutaneous Twice daily Atorvastatin [facility] 10987000521 20 MG Orally Active 1 tablet Calcium Once a day Accu-Chek [facility] 92263340275 - Active USE Softclix DIRECTED Lancets Melatonin [facility] 72815010757 5 MG Orally Active 1 tablet Once a day at bedtime as needed with food Vitamin D3 [facility] 59681780842 1000 UNIT Active 1 capsule Orally Once a day Calcitriol [facility] 23844240349 0.25 MCG Orally Active 1 capsule Once a day Results Name Result Date Reference Range Unit Abnormality Flag T4 Free ----T4 Free 1.04 20180905 0.76-1.46 TSH Thyroid Stimulating Hormone ----Thyroid Stimulating 9.070 20180905 0.360-3.740 [iU]/L H Hormone HEMOGLOBIN A1C ----A1C 7.4 20180906 Basic Metabolic Panel ----Creatinine 1.22 20180905 0.55-1.3 mg/dL ----BUN Blood Urea Nitrogen 25 20180905 7-18 mg/dL H ----Calcium Level 9.2 20180905 8.5-10.1 mg/dL ----Glomerular Filtration 43 32616280 =/>90 mL L Rate ----Bicarbonate 31 20180905 21-32 mmol/L ----Glucose Level 91 20180905 74-106 mg/dL ----Potassium 4.3 20180905 3.5-5.1 mmol/L ----Chloride Level 106 20180905 98-107 mmol/L ----Sodium Level 142 20180905 136-145 mmol/L Summary Purpose eClinicalWorks Submission
[2019-01-30] MEDS ORDERED: NA CHLORIDE 0.9% 1,000 ML ONE (06:49)
[2019-01-30] MEDS ORDERED: SCOPOLAMINE HYDROBROMIDE PATCH TD ONE (06:49)
[2019-01-30] MEDS ORDERED: PROPOFOL 200 MG/20 ML VIAL IV ONE (06:53)
[2019-01-30] MEDS ORDERED: ROCURONIUM 50 MG/5 ML VIAL IV ONE (06:54)
[2019-01-30] MEDS ORDERED: GLYCOPYRROLATE 0.2 MG/ML SYR ONE ×2 (06:55→08:37)
[2019-01-30] MEDS ORDERED: FENTANYL CITR 250 MCG/5 ML ONE (06:56)
[2019-01-30] MEDS ORDERED: LIDOCAINE 2% MPF 5 ML VIAL ONE (06:56)
[2019-01-30] MEDS ORDERED: ONDANSETRON 4 MG/2 ML VIAL ONE ×2 (06:57→12:11)
[2019-01-30] MEDS ORDERED: NEOSTIGMINE 1 MG/ML -10 ML VIAL ONE (06:58)
[2019-01-30 07:49] LABS: Potassium 3.8 mmol/L (3.5-5.1)
[2019-01-30] MEDS ORDERED: EPHEDRINE SULF 50 MG/ML VIAL ONE (08:27)
[2019-01-30] MEDS ORDERED: NS 0.9% VIAL 20 ML ONE (08:35)
[2019-01-30] MEDS ORDERED: Phenylephrine HCl 10 MG/ML 1 ML VIAL ONE (08:35)
[2019-01-30] MEDS ORDERED: INSULIN -REGULAR HUMAN 50 UNIT/0.5 ML ML ONE ×2 (09:51→11:28)
[2019-01-30 15:04] VITALS: BP 141/82; TEMP 98; O2SAT 96
--- NOTE | 2019-01-31 01:59 | OP ---
Date of Procedure: 01/30/2019 Surgeon: Viky Betancourt MD Preoperative Diagnoses: Left adnexal mass, pelvic pain. Postoperative Diagnoses: Left adnexal mass, pelvic pain. Procedures Performed: Diagnostic laparoscopy, lysis of sigmoid adhesions and omental adhesions, and bilateral salpingo-oophorectomy with pelvic washings. Anesthesia: General endotracheal. Specimens: Left ovary and tube, right ovary and tube, pelvic washings. Complications: None. Drains: None. Condition: Stable. Findings: There was a complex left adnexal mass, most likely ovarian. The tubes appeared to have ad hesions to the anterior abdominal wall, same on both sides. The sigmoid was attached to the right tu be and ovary, to the anterior abdominal wall, and to the vaginal cuff, also to the area of proximal p art of the ovary more distal and medial to the natural attachment of the sigmoid to the lateral wall. After all the adhesions were taken down, good dissection was performed to isolate the IPs, and all ov melissa and tubal tissue were carefully dissected and removed. Greater than 50% of the case was lysis of adhesions. Description Of Procedure: After informed consent was verified, patient was taken back to OR, placed in a supine fashion on the operating table. After general anesthesia was given, she was placed in a dorsal lithotomy position. No antibiotics were given. Pelvic exam was performed and then later on a bdomen, vulva, vagina, and perineum were prepped and draped in a sterile fashion. Alcala was placed t o drain the bladder and a sponge stick was placed in the vagina. An infraumbilical incision was made with a scalpel using the open laparoscopy technique in a similar fashion going along her prior tubal scar. Once this was opened up, fascia was incised in a vertical fashion and tag sutures of 0 Vicryl were placed on both sides. The peritoneum entered bluntly, S-ret ractors placed, Harsha introduced without any problems. Upper abdominal surface with adhesions of th e omentum to the anterior abdominal wall most likely from a gastric band surgery. In the left upper quadrant, no other problems. Patient was placed in Trendelenburg position. She is status post appen dectomy. No appendix was seen. Adhesions to the anterior abdominal wall were seen. So, 5 mm suprap ubic and left lower quadrant ports were placed under direct vision and a 5 mm right lateral incision was also made and a 5 trocar placed. Then, pelvic washings were performed. Then, the adhesions were taken down from the sigmoid colon to the anterior abdominal wall systematically by making windows an d cutting it down mostly sharp dissection with scissors and sometimes with curved tip LigaSure 5 mm. The tube on the right side was attached to the colon as well as the ovary. These were by sharp dissection. Then, after undertaking the entire tube and ovary from anterior abdominal wall and lateral wall, the infundibulopelvic ligament was isolated by opening up the broad ligament peritoneu m on the side; and then once this was isolated medially, the peritoneum was incised as well and the I P was isolated, and this was cauterized and cut with the LigaSure and the specimens were detached and placed in the cul-de-sac. On the right side, similar dissection was performed taking down the tube from the anterior abdominal wall to which it was attached to and then taking the ovarian adhesions at the level of the vaginal cuff. First, the sigmoid had to be taken down here at the epiploicae were adhered here; and once these were taken down, then the dissection was performed to take the adhesions from the tube and ovary to the lower aspect of the lateral wall and to the cuff. Once these were ta golden down sharply, then the tubal adhesions were taken down from the anterior abdominal wall sharply a s well. Then, once I came down to the mesosalpinx and lateral broad ligament, this was opened up all the way parallel the IP ligament; and once a medial incision was made after identifying the medial l eaf of the peritoneum here, this was opened up shortly and then dissection was carried distally to se parate the ovary from other adhesions to the lateral wall and proximally the dissection was carried t o isolate the IP and it was cauterized and cut, and the specimen was detached and placed in the pelvi c cavity. Then, the 5 camera was taken and 10 bag was placed through the umbilicus and all the speci men was placed in this. Then, all the trocars were removed under direct vision after thorough irriga tion and suction of the pelvic cavity were performed. No evidence of any omental masses or peritonea l masses anywhere in the abdominal cavity. The gas was desufflated. Umbilical incision was extended to about 3 cm going inferiorly in the midline with the help of curved Hudson carefully not injuring th e bowel. Then, the specimen was detached by gently suctioning it out without any spillage out of the bag with the laparoscopic cholecystectomy needle. After some fluid was deflated, the bag with the s pecimen intact without any spillage was removed. This was handed out for permanent pathology. Glove s were changed. Then, fascia was closed with a continuous running 0 Vicryl suture and all skin incis ions were closed with the help of subcuticular sutures. Patient tolerated the procedure well. She w as recovered from anesthesia after instrument, needle, and sponge counts x3 were correct at the end o f the case. She will follow up with me in 1 week. Patient refused taking Paullina or any other substit ution for pain medications. She wants to just try Tylenol and ibuprofen as needed. She has stage 3 kidney disease, so she was not given any NSAIDs here in the hospital. She also refused to take trama dol, so she is being sent home just with Tylenol and she can call me p.r.n. One week followup appoin tment in the office. SHARYN/ADITYA Voice ID: [id number] Report ID: [id number]
== END 2019-01-30 14:10 | disposition home or self-care (01) ==
LOC: OR 06:10
PROVIDERS: ATTEND Obstetrics & Gynecology
PROC: 0UT74ZZ Resection of Bilateral Fallopian Tubes, Percutaneous Endoscopic Approach (ICD-10-PCS; 2019-01-30)
PROC: 0DNU4ZZ Release Omentum, Percutaneous Endoscopic Approach (ICD-10-PCS; 2019-01-30)
PROC: 0UT24ZZ Resection of Bilateral Ovaries, Percutaneous Endoscopic Approach (ICD-10-PCS; principal; 2019-01-30 07:30)
DX: D27.1 Benign neoplasm of left ovary (principal); D27.0 Benign neoplasm of right ovary; K66.0 Peritoneal adhesions (postprocedural) (postinfection); N83.8 Other noninflammatory disorders of ovary, fallopian tube and broad ligament; N94.89 Other specified conditions associated with female genital organs and menstrual cycle; E03.9 Hypothyroidism, unspecified; E78.00 Pure hypercholesterolemia, unspecified; I12.9 Hypertensive chronic kidney disease with stage 1 through stage 4 chronic kidney disease, or unspecified chronic kidney disease; E11.22 Type 2 diabetes mellitus with diabetic chronic kidney disease; N18.3 Chronic kidney disease, stage 3 (moderate); F41.9 Anxiety disorder, unspecified; F32.9 Major depressive disorder, single episode, unspecified; M79.7 Fibromyalgia; H35.30 Unspecified macular degeneration; Z90.710 Acquired absence of both cervix and uterus; Z90.49 Acquired absence of other specified parts of digestive tract; Z88.0 Allergy status to penicillin; Z88.1 Allergy status to other antibiotic agents; Z88.3 Allergy status to other anti-infective agents; Z88.6 Allergy status to analgesic agent; Z88.8 Allergy status to other drugs, medicaments and biological substances
CPT/HCPCS: 85025; 80048; 36415 ×2; 86900; 88108; 86850; 85610; 86901; 82962 ×3; 88305 ×2; 85730; 81003; 58661; 49329; J2704; J2710; J2370; J3010; J7030; J2405 ×2

== ENCOUNTER 2019-02-22 16:13 | Emergency (ER) | payer MEDICARE ==
--- OUTSIDE RECORDS SUMMARY | 2019-02-22 16:15 | XMS REPORT ---
:1945 Author Organization [facility] Address [address] [place] [address] Dr. Branch [address] [place] [id number] Care Team Providers Name Role Phone Unavailable Unavailable Unavailable Problems This patient has no known problems. Allergies, Adverse Reactions, Alerts This patient has no known allergies or adverse reactions. Medications This patient has no known medications.
--- OUTSIDE RECORDS SUMMARY | 2019-02-22 16:16 | XMS REPORT ---
[...] Condition Code Onset Dates Condition Status Assessment Sore throat J02.9 Active Problem Anxiety F41.9 Active Problem Allergic rhinitis [...] Active Problem Chronic pain G89.29 Active Medications Medication Code Code Instructions Start End Status Dosage System Date Date Zithromax Z-Darryl [facility] 64596310506 250 MG Orally Feb 17, Feb Active 2 tablets Once a day 2018 21, on the 2018 first day, then 1 tablet daily for 4 days Vitamin D3 [facility] 56685162914 1000 UNIT Active 1 capsule Orally Once a day Calcitriol [facility] 20115014325 0.25 MCG Orally Active 1 capsule Once a day Lipitor [facility] 67265610028 20 MG Active TAKE 1 TABLET BY MOUTH ONCE A DAY AT BEDTIME Touorxyo AlidaoStar [facility] 56350148775 300 UNIT/ML Active 15 units Subcutaneous Daily Magnesium Oxide [facility] 82464586471 250 MG Orally Active 1 tablet as Once a day needed Metoprolol [facility] 22051305778 100 MG Active TAKE 1 Succinate ER TABLET BY MOUTH ONCE A DAY Aspir-81 [facility] 74707797714 81 MG Orally Active 1 tablet Once a day Voltaren [facility] 40863732656 1 % Transdermal Active not defined Furosemide [facility] 46408520998 40 MG Active TAKE 1 TABLET BY MOUTH EVERY MORNING Multivitamin [facility] [address] Active not defined Amlodipine [facility] 74064442867 10 MG Active TAKE 1 Besylate TABLET BY MOUTH ONCE A DAY Humalog KwikPen [facility] 33605545210 100 UNIT/ML Active 6 Units Subcutaneous TID Pantoprazole [facility] 80280305975 40 MG Active TAKE 1 Sodium TABLET BY MOUTH EVERY DAY Accu-Chek [facility] 99997512288 - Active USE Softclix Lancets DIRECTED HydrALAZINE HCl [facility] 70973879268 25 MG Active TAKE 1 TABLET BY MOUTH 3 TIMES DAILY Melatonin [facility] 63091881123 5 MG Orally Active 1 tablet at Once a day bedtime as needed with food Atorvastatin [facility] 33792882422 20 MG Orally Active 1 tablet Calcium Once a day Protonix [facility] 02555150213 40 MG Orally Active 1 tablet Once a day Results No Known Results Summary Purpose eClinicalWorks Submission
[2019-02-22] MEDS ORDERED: FENTANYL CITR 100 MCG/2 ML ONE ×4 (16:33→22:18)
[2019-02-22 18:18] LABS: Absolute Lymphocytes (CBC) 1.6 K/uL (0.7-4.9); Basophils % 0.7 % (0-1.3); Hematocrit 34.9 % (36.0-45.0); Lymphocytes % 16.9 % (15.3-44.8); MPV 8.3 fL (7.6-11.3); Protime INR 0.96; RBC Red Blood Cell Count 3.96 M/uL (3.86-4.86)
[2019-02-22 18:31] LABS: Albumin 4.2 g/dL (3.4-5.0); Bilirubin Direct 0.1 mg/dL (0-0.2); Bilirubin Total 0.3 mg/dL (0.2-1.0); Protein, Total 7.4 g/dL (6.4-8.2)
--- NOTE | 2019-02-22 18:54 | RAD REPORT ---
EXAM DESCRIPTION: RAD - Chest Single View - 02/22/2019 6:12 pm CLINICAL HISTORY: femur fracture Chest pain. COMPARISON: Chest Single View dated 10/08/2017; Chest Single View dated 05/06/2016; CHEST SINGLE VIEW d ated 12/31/2011; CHEST SINGLE VIEW dated 09/13/2010 FINDINGS: Portable technique limits examination quality. The lungs are grossly clear. The heart is normal in size. Mildly tortuous thoracic aorta appear IMPRESSION: No acute intrathoracic process suspected.
--- NOTE | 2019-02-22 19:01 | RAD REPORT ---
EXAM DESCRIPTION: RAD - Femur Left - 02/22/2019 6:12 pm CLINICAL HISTORY: PAIN COMPARISON: No comparisons FINDINGS: Oblique fracture is seen of the distal femur shaft with moderate angulation. No dislocatio n.
--- NOTE | 2019-02-22 19:02 | ER ---
Nurse's Notes [facility] Name: Amy Connor Age: 73 yrs Sex: Female : 1945 Arrival Date: 02/22/2019 Time: 16:18 Bed 7 Private MD: Diagnosis: Displaced spiral fracture of shaft of left femur Presentation: 02/22 16:26 Presenting complaint: EMS states: EMS states patient fell and her left leg took the ae4 brunt of the impact on the ground. Transition of care: patient was not received from another setting of care. Onset of symptoms was February 22, 2019. Risk Assessment: Do you want to hurt yourself or someone else? Patient reports no desire to harm self or others. Initial Sepsis Screen: Does the patient meet any 2 criteria? No. Patient's initial sepsis screen is negative. Does the patient have a suspected source of infection? No. Patient's initial sepsis screen is negative. Care prior to arrival: IV initiated. 20 GA, in the right antecubital area. 16:26 Acuity: SIGIFREDO 3 ae4 16:26 Method Of Arrival: EMS: [facility] ae4 16:50 Mechanism of Injury: Fall. Trauma event details: [place] [address] Triage Assessment: 16:19 General: Appears distressed, uncomfortable, obese, Behavior is cooperative, anxious, ae4 crying. Pain: Complains of pain in medial aspect of left thigh, medial aspect of left knee, left quadriceps and left knee Pain currently is 10 out of 10 on a pain scale. EENT: No signs and/or symptoms were reported regarding the EENT system. Neuro: Level of Consciousness is awake, alert, obeys commands, Oriented to person, place, time, situation, Appropriate for age. Cardiovascular: skin warm and diaphoretic. Respiratory: Airway is patent Respiratory effort is even, unlabored, Respiratory pattern is regular, symmetrical. GI: Abdomen is obese. : No signs and/or symptoms were reported regarding the genitourinary system. Derm: Skin is pink. Musculoskeletal: Swelling present in left quadriceps and left knee. Trauma Activation: Physician: ED Physician; Name: Dr. Nayak; Notified At: ; Arrived At: Physician: General Surgeon; Name: ; Notified At: ; Arrived At: Physician: Radiology; Name: Geovanna; Notified At: ; Arrived At: Physician: Respiratory; Name: ; Notified At: ; Arrived At: Physician: Lab; Name: ; Notified At: ; Arrived At: Historical: - Allergies: 16:48 axetil; ae4 16:48 Cefuroxime; ae4 16:48 Clindamycin; ae4 16:48 Codeine; ae4 16:48 Demerol; ae4 16:48 hydrocodone bitartrate; ae4 16:48 hydrocodone bitartrate (bulk); ae4 16:48 Iodine; ae4 16:48 Keflex; ae4 16:48 Levaquin; ae4 16:48 meperidine HCl; ae4 16:48 naprosen; ae4 16:48 Naproxen; ae4 16:48 nitro; ae4 16:48 Nitrofuran Analogues; ae4 16:48 PENICILLINS; ae4 16:48 pentazocine lactate; ae4 16:48 promethazine HCl; ae4 16:48 Sulfa (Sulfonamide Antibiotics); ae4 16:48 Talwin; ae4 16:48 Vicodin; ae4 - Home Meds: 16:48 pantoprazole 20 mg oral TbEC 1 tab once daily [Active]; atorvastatin 40 mg oral tab 1 ae4 tab once daily [Active]; amlodipine 10 mg tab 1 tab once daily [Active]; metoprolol succinate 100 mg oral Tb24 1 tab once daily [Active]; furosemide 40 mg Oral tab 1 tab 2 times per day [Active]; lisinopril 20 mg Oral tab 1 tab once daily [Active]; divalproex 500 mg oral Tb24 1 tab once daily [Active]; hydralazine 25 mg Oral tab 1 tab 4 times per day [Active]; calcitriol 0.25 mcg oral cap 1 cap [Active]; Insulin Glargine Sub-Q [Active]; - PMHx: 16:48 Diabetes - IDDM; Hypertension; Hyperlipidemia; ae4 - PSHx: 16:48 Hysterectomy; Knee surgery; ae4 - Immunization history: Last tetanus immunization: - up to date. - Social history:: Smoking status: Patient/guardian denies using tobacco. - Ebola Screening: : Patient denies travel to an Ebola-affected area in the 21 days before illness onset. Screenin:50 Abuse screen: Denies threats or abuse. Nutritional screening: No deficits noted. ae4 Tuberculosis screening: No symptoms or risk factors identified. Fall Risk Fall in past 12 months (25 points). No secondary diagnosis (0 pts). IV access (20 points). Ambulatory Aid- None/Bed Rest/Nurse Assist (0 pts). Gait- Normal/Bed Rest/Wheelchair (0 pts) Mental Status- Oriented to own ability (0 pts). Primary Survey: 16:28 NO uncontrolled hemorrhage observed. A: The patient is alert. Airway: patent. ae4 Breathing/Chest: Respiratory pattern: regular, Respiratory effort: spontaneous. Circulation: Cardiac rhythm: sinus rhythm. Disability Alert. Exposure/Environment: There is no evidence of uncontrolled external bleeding. 17:15 Reassessment Breathing/Chest Respiratory pattern Regular Respiratory effort Spontaneous.ae4 Assessment: 16:51 Reassessment: See full triage assessment. ae4 17:15 Reassessment: Radiology at bedside obtaining imaging. ae4 17:30 Reassessment: Radiology Technicians remain at bedside, patient requesting pain ae4 medication. Movement aggravates pain. 19:12 Reassessment: output 1000 mls yellow urine. ae4 19:15 Reassessment: Patient appears in no apparent distress at this time. No changes from previously documented assessment. Patient and/or family updated on plan of care and expected duration. Pain level reassessed. Pt C/O pain and cramps notified Provided with orders made and carried out. 20:39 Reassessment: report called to Surekha MARR for [facility] 10C 1042. ak1 20:40 Reassessment: Patient appears in no apparent distress at this time. No changes from previously documented assessment. Patient and/or family updated on plan of care and expected duration. Pain level reassessed. Patient is alert, oriented x 3, equal unlabored respirations, skin warm/dry/pink. 21:40 Reassessment: Patient appears in no apparent distress at this time. No changes from previously documented assessment. Patient and/or family updated on plan of care and expected duration. Pain level reassessed. Patient is alert, oriented x 3, equal unlabored respirations, skin warm/dry/pink. Notified of wait time for EMS Transport. 22:41 Reassessment: Patient appears in no apparent distress at this time. No changes from previously documented assessment. Patient and/or family updated on plan of care and expected duration. Pain level reassessed. Patient is alert, oriented x 3, equal unlabored respirations, skin warm/dry/pink. Report Given to [facility]. Vital Signs: 16:19 BP 157 / 57; Pulse 54; Resp 20; Temp 97.4; Pulse Ox 100% on R/A; Weight 102.06 kg; ae4 Height 5 ft. (152.40 cm); Pain 10/10; 17:22 BP 133 / 83; Pulse 56; Resp 19; Pulse Ox 99% on R/A; ae4 18:10 BP 149 / 72; Pulse 60; Resp 17; Pulse Ox 99% on R/A; ae4 19:30 BP 175 / 78; Pulse 59; Resp 18; Pulse Ox 100% on R/A; wh 20:30 BP 148 / 78; Pulse 57; Resp 18; Pulse Ox 100% on R/A; wh 21:30 BP 151 / 71; Pulse 58; Resp 18; Pulse Ox 100% on R/A; wh 22:30 BP 158 / 73; Pulse 69; Resp 18; Pulse Ox 100% on R/A; wh 16:19 Body Mass Index 43.94 (102.06 kg, 152.40 cm) ae4 Aman Coma Score: 16:49 Eye Response: spontaneous(4). Verbal Response: oriented(5). Motor Response: obeys ae4 commands(6). Total: 15. Trauma Score (Adult): 16:49 Eye Response: spontaneous(1); Verbal Response: oriented(1); Motor Response: obeys ae4 commands(2); Systolic BP: > 89 mm Hg(4); Respiratory Rate: 10 to 29 per min(4); Aman Score: 15; Trauma Score: 12 ED Course: 16:18 Patient arrived in ED. ae4 16:19 Arm band placed on right wrist. ae4 16:22 Emerson Ruiz NP is PHCP. pm1 16:22 Allison Joel MD is Attending Physician. pm1 16:28 Triage completed. ae4 16:31 Roni Burton, TEJINDER is Primary Nurse. ae4 16:48 Bed in low position. Call light in reach. Side rails up X2. Adult w/ patient. Cardiac ae4 monitor on. Pulse ox on. NIBP on. Warm blanket given. 16:48 Maintain EMS IV. Dressing intact. Site clean \T\ dry. Gauge \T\ site: 20 G right AC. ae 4 16:50 Patient maintains SpO2 saturation greater than 95% on room air. ae4 17:15 Thermoregulation: warm blanket given to patient. ae4 18:11 X-ray completed. Portable x-ray completed in exam room. tm4 18:13 Femur Left XRAY In Process Unspecified. EDMS 18:14 Chest Single View XRAY In Process Unspecified. EDMS 18:35 Alcala cath inserted, using sterile technique, 16 Fr., by me, balloon inflated, urine ae4 specimen collected. 19:09 Urine collected: clean catch specimen, clear, ele colored. jb1 22:42 No provider procedures requiring assistance completed. Patient transferred, IV remains wh in place. Administered Medications: 15:35 Drug: fentaNYL (PF) 25 mcg {Note: vo received at 1530.} Route: IVP; Site: right ae4 antecubital; 19:29 Follow up: Response: Pain is decreased ae4 17:15 Drug: fentaNYL (PF) 25 mcg {Note: VO received 1500.} Route: IVP; Site: right ae4 antecubital; 19:28 Follow up: Response: Pain is decreased ae4 18:00 Drug: fentaNYL (PF) 25 mcg {Note: VO received at 1759.} Route: IVP; Site: right ae4 antecubital; 19:28 Follow up: Response: Pain is decreased ae4 19:23 CANCELLED (Physician Discretion): fentaNYL (PF) 50 mcg IVP once; RASS on ADMIN: ae4 Combtv4, Very Agttd3, Agttd2, Rstlss1, AlertClm0, Drwsy-1, Lt Sdtn-2, Mod Sdtn-3, Dp Sdtn-4, UnArsble-5 19:23 CANCELLED (Physician Discretion): fentaNYL (PF) 50 mcg IVP once; RASS on ADMIN: ae4 Combtv4, Very Agttd3, Agttd2, Rstlss1, AlertClm0, Drwsy-1, Lt Sdtn-2, Mod Sdtn-3, Dp Sdtn-4, UnArsble-5 19:23 CANCELLED (Physician Discretion): fentaNYL (PF) 50 mcg IVP once; RASS on ADMIN: ae4 Combtv4, Very Agttd3, Agttd2, Rstlss1, AlertClm0, Drwsy-1, Lt Sdtn-2, Mod Sdtn-3, Dp Sdtn-4, UnArsble-5 19:37 Drug: Zofran 4 mg Route: IVP; Site: right antecubital; 20:43 Follow up: Response: No adverse reaction; Nausea is decreased 19:37 Drug: fentaNYL (PF) 25 mcg {Note: RASS 0.} Route: IVP; Site: right antecubital; 20:44 Follow up: Response: No adverse reaction; RASS: Alert and Calm (0) 21:05 Drug: fentaNYL (PF) 25 mcg {Note: RASS 0.} Route: IVP; Site: right antecubital; 22:26 Follow up: Response: No adverse reaction; Pain is decreased; RASS: Alert and Calm (0) 22:30 Drug: fentaNYL (PF) 25 mcg Route: IVP; Site: right antecubital; 22:43 Follow up: Response: No adverse reaction; RASS: Alert and Calm (0) Point of Care Testing: Blood Glucose: 21:09 Blood Glucose: 225 mg/dL; em1 Ranges: Output: 22:42 Urine: 400ml; Total: 400ml. Outcome: 16:50 Patient's length of stay was not longer than 2 hours. ae4 19:00 ER care complete, transfer ordered by MD. pm1 22:42 Transferred by ground EMS to [facility], Transfer form completed. X-rays sent w/ patient. 22:42 Condition: good 22:42 Instructed on the need for transfer. 22:44 Patient left the ED. Signatures: Dispatcher [employer] EDMS Venkat Hopkins jb1 Geovanna Henley tm4 Adan Grady em1 Ele Barnett RN RN ak1 Emerson Ruiz, IVAN COTTON CANDY MAKER pm1 Kathleen Vasquez Roni Burton RN RN ae4 Corrections: (The following items were deleted from the chart) 19:22 15:35 fentaNYL (PF) 50 mcg IVP in right antecubital ae4 ae4 19:22 17:06 Response: Pain is decreased ae4 ae4 19:22 17:15 fentaNYL (PF) 50 mcg IVP in right antecubital ae4 ae4 : 18:00 fentaNYL (PF) 50 mcg IVP in right antecubital ae4 ae4 : 18:10 Response: Pain is decreased ae4 ae4 19: 18:35 Response: Pain is decreased ae4 ae4 22:12 21:09 BP 151 / 71; Pulse 60bpm; Resp 20bpm; Pulse Ox 100% RA; em1 22:12 21:00 BP 151 / 71; Pulse 58bpm; Resp 18bpm; Pulse Ox 100% RA; [facility]
--- NOTE | 2019-02-22 19:02 | EDPHYS ---
Physician Documentation [facility] Name: Amy Connor Age: 73 yrs Sex: Female : 1945 Arrival Date: 02/22/2019 Time: 16:18 Bed 7 Private MD: ED Physician Allison Joel HPI: 02/22 17:05 This 73 yrs old Female presents to ER via EMS with complaints of Fall Injury pm1 - Left leg pain. 17:05 Details of fall: The patient fell from an upright position, while walking. Onset: The pm1 symptoms/episode began/occurred just prior to arrival. Associated injuries: The patient sustained left thigh. Severity of symptoms: in the emergency department the symptoms are unchanged. The patient has not experienced similar symptoms in the past. The patient has been recently seen by a physician: Two weeks ago had ovarian mass removed by Dr. Betancourt. Patient was walking out the door and tripped on the tip of her left shoe landing on her left side. Hit left leg on the concrete. Denies head injury, neck pain, headache. No LOC. Historical: - Allergies: 16:48 axetil; ae4 16:48 Cefuroxime; ae4 16:48 Clindamycin; ae4 16:48 Codeine; ae4 16:48 Demerol; ae4 16:48 hydrocodone bitartrate; ae4 16:48 hydrocodone bitartrate (bulk); ae4 16:48 Iodine; ae4 16:48 Keflex; ae4 16:48 Levaquin; ae4 16:48 meperidine HCl; ae4 16:48 naprosen; ae4 16:48 Naproxen; ae4 16:48 nitro; ae4 16:48 Nitrofuran Analogues; ae4 16:48 PENICILLINS; ae4 16:48 pentazocine lactate; ae4 16:48 promethazine HCl; ae4 16:48 Sulfa (Sulfonamide Antibiotics); ae4 16:48 Talwin; ae4 16:48 Vicodin; ae4 - Home Meds: 16:48 pantoprazole 20 mg oral TbEC 1 tab once daily [Active]; atorvastatin 40 mg oral tab 1 ae4 tab once daily [Active]; amlodipine 10 mg tab 1 tab once daily [Active]; metoprolol succinate 100 mg oral Tb24 1 tab once daily [Active]; furosemide 40 mg Oral tab 1 tab 2 times per day [Active]; lisinopril 20 mg Oral tab 1 tab once daily [Active]; divalproex 500 mg oral Tb24 1 tab once daily [Active]; hydralazine 25 mg Oral tab 1 tab 4 times per day [Active]; calcitriol 0.25 mcg oral cap 1 cap [Active]; Insulin Glargine Sub-Q [Active]; - PMHx: 16:48 Diabetes - IDDM; Hypertension; Hyperlipidemia; ae4 - PSHx: 16:48 Hysterectomy; Knee surgery; ae4 - Immunization history: Last tetanus immunization: - up to date. - Social history:: Smoking status: Patient/guardian denies using tobacco. - Ebola Screening: : Patient denies travel to an Ebola-affected area in the 21 days before illness onset. ROS: 17:05 Constitutional: Negative for fever, chills, and weight loss, Eyes: Negative for injury, pm1 pain, redness, and discharge, ENT: Negative for injury, pain, and discharge, Neck: Negative for injury, pain, and swelling, Cardiovascular: Negative for chest pain, palpitations, and edema, Respiratory: Negative for shortness of breath, cough, wheezing, and pleuritic chest pain, Abdomen/GI: Negative for abdominal pain, nausea, vomiting, diarrhea, and constipation, Back: Negative for injury and pain. 17:05 Skin: Negative for injury, rash, and discoloration, Neuro: Negative for headache, weakness, numbness, tingling, and seizure. 17:05 MS/extremity: Positive for pain, of the left quadriceps. Exam: 17:05 Constitutional: This is a well developed, well nourished patient who is awake, alert, pm1 and in no acute distress. Head/Face: Normocephalic, atraumatic. Neck: Trachea midline, no thyromegaly or masses palpated, and no cervical lymphadenopathy. Supple, full range of motion without nuchal rigidity, or vertebral point tenderness. No Meningismus. Chest/axilla: Normal chest wall appearance and motion. Nontender with no deformity. No lesions are appreciated. Cardiovascular: Regular rate and rhythm with a normal S1 and S2. No gallops, murmurs, or rubs. Normal PMI, no JVD. No pulse deficits. Respiratory: Lungs have equal breath sounds bilaterally, clear to auscultation and percussion. No rales, rhonchi or wheezes noted. No increased work of breathing, no retractions or nasal flaring. Abdomen/GI: Soft, non-tender, with normal bowel sounds. No distension or tympany. No guarding or rebound. No evidence of tenderness throughout. Back: No spinal tenderness. No costovertebral tenderness. Full range of motion. Skin: Warm, dry with normal turgor. Normal color with no rashes, no lesions, and no evidence of cellulitis. 17:05 Musculoskeletal/extremity: Extremities: grossly normal except: noted in the distal aspect of left upper leg: deformity, Pulses: are normal with no appreciated deficits, noted to be 2+ in the left dorsalis pedis artery, the left foot Sensation intact. 17:05 Neuro: Orientation: is normal, Motor: moves all fours, Sensation: is normal, no obvious gross deficits. Vital Signs: 16:19 BP 157 / 57; Pulse 54; Resp 20; Temp 97.4; Pulse Ox 100% on R/A; Weight 102.06 kg; ae4 Height 5 ft. (152.40 cm); Pain 10/10; 17:22 BP 133 / 83; Pulse 56; Resp 19; Pulse Ox 99% on R/A; ae4 18:10 BP 149 / 72; Pulse 60; Resp 17; Pulse Ox 99% on R/A; ae4 19:30 BP 175 / 78; Pulse 59; Resp 18; Pulse Ox 100% on R/A; wh 20:30 BP 148 / 78; Pulse 57; Resp 18; Pulse Ox 100% on R/A; wh 21:30 BP 151 / 71; Pulse 58; Resp 18; Pulse Ox 100% on R/A; wh 22:30 BP 158 / 73; Pulse 69; Resp 18; Pulse Ox 100% on R/A; wh 16:19 Body Mass Index 43.94 (102.06 kg, 152.40 cm) ae4 [place] Coma Score: 16:49 Eye Response: spontaneous(4). Verbal Response: oriented(5). Motor Response: obeys ae4 commands(6). Total: 15. Trauma Score (Adult): 16:49 Eye Response: spontaneous(1); Verbal Response: oriented(1); Motor Response: obeys ae4 commands(2); Systolic BP: > 89 mm Hg(4); Respiratory Rate: 10 to 29 per min(4); [place] Score: 15; Trauma Score: 12 Procedures: 18:00 Splinting: Splint applied to left leg using traction splint. applied by myself. nurse. pm1 Examined by me, post splint application: neurovascular intact, 2+ distal pulses palpable, brisk capillary refill noted, Patient tolerated well. MDM: 16:28 Patient medically screened. pm1 18:57 Data reviewed: vital signs. Data interpreted: Pulse oximetry: on room air is 99 %. pm1 Interpretation: normal. Counseling: I had a detailed discussion with the patient and/or guardian regarding: the need to transfer to another facility. 18:57 Physician consultation: Zach Aguilar MD after a discussion of the case, a pm1 recommendation for transfer for higher level of care is made, John consulted with Dr. Cunningham who will accept the patient at [facility]. 19:47 Physician consultation:. pm1 02/22 17:19 Order name: CBC with Diff; Complete Time: 18:36 pm1 02/22 17:19 Order name: PT-INR; Complete Time: 18:36 pm1 02/22 17:19 Order name: BMP; Complete Time: 18:36 pm1 02/22 17:19 Order name: Hepatic Function; Complete Time: 18:36 pm1 02/22 19:24 Order name: Urine Dipstick--Ancillary (enter results); Complete Time: 19:44 ar5 02/22 22:32 Order name: Glucose, Ancillary Testing EDMS 02/22 16:28 Order name: Femur Left XRAY; Complete Time: 19:09 pm02/22 17:23 Order name: Chest Single View XRAY; Complete Time: 19:09 pm1 02/22 16:28 Order name: IV Saline Lock; Complete Time: 16:39 pm1 02/22 17:23 Order name: Traction Splint-Apply; Complete Time: 18:09 pm1 02/22 17:24 Order name: EKG; Complete Time: 17:25 pm1 02/22 17:24 Order name: EKG - Nurse/Tech; Complete Time: 18:45 pm1 02/22 18:25 Order name: [place]; Complete Time: 18:35 ae4 Administered Medications: 15:35 Drug: fentaNYL (PF) 25 mcg {Note: vo received at 1530.} Route: IVP; Site: right ae4 antecubital; 19:29 Follow up: Response: Pain is decreased ae4 17:15 Drug: fentaNYL (PF) 25 mcg {Note: VO received 1500.} Route: IVP; Site: right ae4 antecubital; 19:28 Follow up: Response: Pain is decreased ae4 18:00 Drug: fentaNYL (PF) 25 mcg {Note: VO received at 1759.} Route: IVP; Site: right ae4 antecubital; 19:28 Follow up: Response: Pain is decreased ae4 19:23 CANCELLED (Physician Discretion): fentaNYL (PF) 50 mcg IVP once; RASS on ADMIN: ae4 Combtv4, Very Agttd3, Agttd2, Rstlss1, AlertClm0, Drwsy-1, Lt Sdtn-2, Mod Sdtn-3, Dp Sdtn-4, UnArsble-5 19:23 CANCELLED (Physician Discretion): fentaNYL (PF) 50 mcg IVP once; RASS on ADMIN: ae4 Combtv4, Very Agttd3, Agttd2, Rstlss1, AlertClm0, Drwsy-1, Lt Sdtn-2, Mod Sdtn-3, Dp Sdtn-4, UnArsble-5 19:23 CANCELLED (Physician Discretion): fentaNYL (PF) 50 mcg IVP once; RASS on ADMIN: ae4 Combtv4, Very Agttd3, Agttd2, Rstlss1, AlertClm0, Drwsy-1, Lt Sdtn-2, Mod Sdtn-3, Dp Sdtn-4, UnArsble-5 19:37 Drug: Zofran 4 mg Route: IVP; Site: right antecubital; wh 20:43 Follow up: Response: No adverse reaction; Nausea is decreased wh 19:37 Drug: fentaNYL (PF) 25 mcg {Note: RASS 0.} Route: IVP; Site: right antecubital; wh 20:44 Follow up: Response: No adverse reaction; RASS: Alert and Calm (0) wh 21:05 Drug: fentaNYL (PF) 25 mcg {Note: RASS 0.} Route: IVP; Site: right antecubital; 22:26 Follow up: Response: No adverse reaction; Pain is decreased; RASS: Alert and Calm (0) 22:30 Drug: fentaNYL (PF) 25 mcg Route: IVP; Site: right antecubital; 22:43 Follow up: Response: No adverse reaction; RASS: Alert and Calm (0) Point of Care Testing: Blood Glucose: 21:09 Blood Glucose: 225 mg/dL; em1 Ranges: Critical Glucose Levels:Adult <50 mg/dl or >400 mg/dl <40 mg/dl or >180 mg/dl Disposition: 02/23 07:14 Co-signature as Attending Physician, Allison Joel MD. ma2 Disposition: 02/22/19 19:00 Transfer ordered to [facility]. Diagnosis is Displaced spiral fracture of shaft of left femur. - Reason for transfer: Higher level of care. - Accepting physician is Cunningham. - Condition is Stable. - Problem is new. - Symptoms have improved. Signatures: Dispatcher [employer] EDMS Emerson Ruiz, COMPRESSOR STATIONS SUPERINTENDENT COMPRESSOR STATIONS SUPERINTENDENT pm1 Kathleen Vasquez Allison Joel MD MD ma2 Roni Burton RN RN ae4 Corrections: (The following items were deleted from the chart) 02/22 18:13 16:29 Knee Left 3 View+RAD.RAD.BRZ ordered. EDMS EDMS 19:23 16:28 fentaNYL (PF) 50 mcg IVP once; RASS on ADMIN: Combtv4, Very Agttd3, Agttd2, ae4 Rstlss1, AlertClm0, Drwsy-1, Lt Sdtn-2, Mod Sdtn-3, Dp Sdtn-4, UnArsble-5 ordered. pm1 19:23 16:37 fentaNYL (PF) 50 mcg IVP once; RASS on ADMIN: Combtv4, Very Agttd3, Agttd2, ae4 Rstlss1, AlertClm0, Drwsy-1, Lt Sdtn-2, Mod Sdtn-3, Dp Sdtn-4, UnArsble-5 given. ae4 19:23 17:22 fentaNYL (PF) 50 mcg IVP once; RASS on ADMIN: Combtv4, Very Agttd3, Agttd2, ae4 Rstlss1, AlertClm0, Drwsy-1, Lt Sdtn-2, Mod Sdtn-3, Dp Sdtn-4, UnArsble-5 ordered. ae4 17:22 fentaNYL (PF) 50 mcg IVP once; RASS on ADMIN: Combtv4, Very Agttd3, Agttd2, ae4 Rstlss1, AlertClm0, Drwsy-1, Lt Sdtn-2, Mod Sdtn-3, Dp Sdtn-4, UnArsble-5 given. ae4 : 18:09 fentaNYL (PF) 50 mcg IVP once; RASS on ADMIN: Combtv4, Very Agttd3, Agttd2, ae4 Rstlss1, AlertClm0, Drwsy-1, Lt Sdtn-2, Mod Sdtn-3, Dp Sdtn-4, UnArsble-5 ordered. ae4 18:10 fentaNYL (PF) 50 mcg IVP once; RASS on ADMIN: Combtv4, Very Agttd3, Agttd2, ae4 Rstlss1, AlertClm0, Drwsy-1, Lt Sdtn-2, Mod Sdtn-3, Dp Sdtn-4, UnArsble-5 given. ae4 19:22 fentaNYL (PF) 50 mcg IVP once; RASS on ADMIN: Combtv4, Very Agttd3, Agttd2, ae4 Rstlss1, AlertClm0, Drwsy-1, Lt Sdtn-2, Mod Sdtn-3, Dp Sdtn-4, UnArsble-5 ordered. ae4 19:22 fentaNYL (PF) 50 mcg IVP once; RASS on ADMIN: Combtv4, Very Agttd3, Agttd2, ae4 Rstlss1, AlertClm0, Drwsy-1, Lt Sdtn-2, Mod Sdtn-3, Dp Sdtn-4, UnArsble-5 ordered. ae4 19:22 fentaNYL (PF) 50 mcg IVP once; RASS on ADMIN: Combtv4, Very Agttd3, Agttd2, ae4 Rstlss1, AlertClm0, Drwsy-1, Lt Sdtn-2, Mod Sdtn-3, Dp Sdtn-4, UnArsble-5 ordered. ae4 22:44 19:00 02/22/2019 19:00 Transfer ordered to [facility]. Diagnosis is Displaced wh spiral fracture of shaft of left femur. Reason for transfer: Higher level of care. Accepting physician is Cunningham. Condition is Stable. Problem is new. Symptoms have improved. pm1
[2019-02-22] MEDS ORDERED: ONDANSETRON 4 MG/2 ML VIAL ONE (19:34)
[2019-02-22 19:38] LABS: Urine Blood NEGATIVE (NEG); Urine Glucose NEGATIVE (NEG); Urine Protein NEGATIVE (NEG); Urine Specific Gravity 1.015 (1.005-1.030)
[2019-02-22 22:50] VITALS: TEMP 97.4
[2019-02-22 23:16] VITALS: BP 102/80; O2SAT 98
--- NOTE | 2019-02-23 13:19 | EKG ---
Test Date: 2019-02-22 Test Time: 18:44:16 Junior Network Administrator: KENYATTA MEASUREMENT RESULTS: Intervals: Rate: 51 DE: 250 QRSD: 94 QT: 448 QTc: 412 [place]: P: 64 DE: 250 QRS: 42 T: 45 INTERPRETIVE STATEMENTS: Sinus bradycardia with 1st degree AV block with premature atrial complexes Otherwise normal ECG Compared to ECG 10/08/2017 11:09:32 Atrial premature complex(es) now present Sinus rhythm no longer present Electronically Signed On 02-23-19 13:18:34 CDT by Justin Rosario
== END 2019-02-22 22:44 | disposition short-term general hospital (02) ==
LOC: ER 16:13
PROC: 2W3MX1Z Immobilization of Left Lower Extremity using Splint (ICD-10-PCS; principal; 2019-02-22)
DX: S72.342A Displaced spiral fracture of shaft of left femur, initial encounter for closed fracture (principal); W01.0XXA Fall on same level from slipping, tripping and stumbling without subsequent striking against object, initial encounter; Y93.9 Activity, unspecified; Y92.9 Unspecified place or not applicable; E11.9 Type 2 diabetes mellitus without complications; I10 Essential (primary) hypertension; E78.5 Hyperlipidemia, unspecified; Z88.2 Allergy status to sulfonamides; Z88.6 Allergy status to analgesic agent; Z88.1 Allergy status to other antibiotic agents; Z91.09 Other allergy status, other than to drugs and biological substances
CPT/HCPCS: 93005; 85025; 80048; 36415; 85610; 82962; 80076; 81003; 71045; 73552; 51702; 96375; 96374; 99285; 29505; J3010 ×4; J2405

== ENCOUNTER 2019-03-13 12:01 | Inpatient (IN) | payer MEDICARE ==
[2019-03-13 13:28] LABS: Absolute Lymphocytes (CBC) 1.5 K/uL (0.7-4.9); Basophils % 0.6 % (0-1.3); Hematocrit 26.7 % (36.0-45.0); Lymphocytes % 24.7 % (15.3-44.8); MPV 7.8 fL (7.6-11.3); RBC Red Blood Cell Count 2.98 M/uL (3.86-4.86)
[2019-03-13 13:43] LABS: Albumin 3.6 g/dL (3.4-5.0); Bilirubin Direct 0.2 mg/dL (0-0.2); Bilirubin Total 0.5 mg/dL (0.2-1.0); Potassium 3.8 mmol/L (3.5-5.1); Protein, Total 6.9 g/dL (6.4-8.2)
[2019-03-13 14:06] LABS: Protime INR 1.08
[2019-03-13] MEDS ORDERED: NA CHLORIDE 0.9% 1,000 ML ONE (16:13)
[2019-03-13] MEDS ORDERED: PANTOPRAZOLE 40 MG INJ ONE (16:13)
--- NOTE | 2019-03-13 16:53 | RAD REPORT ---
EXAM DESCRIPTION: CT - Abdomen Pelvis Wo Contrast - 03/13/2019 4:31 pm CLINICAL HISTORY: ABD PAIN Coffee-ground emesis COMPARISON: Abdomen Pelvis Wo Contrast dated 04/04/2018 . TECHNIQUE: Axial [address] imaging of the abdomen and pelvis was performed without IV contrast. No IV contrast was given because of allergy, abnormal renal function, patient refusal or physician re quest. No oral contrast All CT scans are performed using dose optimization technique as appropriate and may include automated exposure control or mA/KV adjustment according to patient size. FINDINGS: No suspicious findings in the lung bases. The liver, spleen and pancreas show no suspicious findings on non-contrast imaging. Gallbladder is ab sent. No biliary tree dilatation. Small accessory splenic nodule present. No hydronephrosis or suspicious renal mass. Patient has normal variant horseshoe kidney configuration . A 5 millimeter calcification is seen lower pole left kidney. No significant adrenal finding. Isoden se renal masses and pyelonephritis cannot be excluded in the absence of IV contrast. The urinary blad monica is without significant finding. Uterus is absent. Ovaries are absent or atrophic. No gastric dilatation. Patient has undergone some form of gastric banding procedure. There is a hyper dense ring around the proximal body of the stomach. Of the stomach proximal to the band is distended but not dilated by fluid and a small amount of liquid. Distal to the band the stomach is mostly decom pressed. No gastric outlet obstruction. No small bowel dilatation. No appendicitis findings. An appen justo is not identified and may have been removed at the time of hysterectomy. Sigmoid diverticulosis w ithout diverticulitis. No free air, free fluid or inflammatory stranding. No hernia, mass or bulky ly mphadenopathy. A few small mesenteric lymph nodes are seen in the central abdomen. No suspicious bony findings. A dilated vein is present in the subcutaneous fatty tissues of the right abdomen. This is approximate ly 7 cm lateral and 2 centimeter superior to the umbilicus. This was not seen previously. There are s everal medication injection areas in the subcutaneous fatty tissues of the lower abdomen. IMPRESSION: Noncontrast CT abdomen and pelvis imaging shows no acute findings. Patient has a gastric band around the proximal body of the stomach. The stomach proximal to the band is distended by food but not dilated. No wall thickening or mass identifiable. Small mesenteric lymph nodes in the central abdomen. Dilated vein in the right mid abdomen subcutaneous fatty tissues lateral and superior to the umbilicu s. Full assessment is limited is the absence of IV contrast.
[2019-03-13] MEDS: PANTOPRAZOLE INJ 80 MG in NA CHLORIDE 0.9% 250 ML IV SCH (17:00)
--- NOTE | 2019-03-13 17:14 | ER ---
Nurse's Notes [facility] Name: Amy Connor Age: 73 yrs Sex: Female : 1945 Arrival Date: 03/13/2019 Time: 12:02 Bed 25 Private MD: Theodore Reynoso; Tom Mcknight Diagnosis: Gastrointestinal hemorrhage, unspecified Presentation: 03/13 12:26 Presenting complaint: Patient states: i have abdominal pain for a week now, vomiting of mg2 coffee ground emesis since last night. it could be because of the lap band/scar tissue i have which is almost closing up. i also had a fall 1.5 weeks ago and sustained fracture on my left femur and surgery was done already. Transition of care: patient was not received from another setting of care. Onset of symptoms was March 2019. Risk Assessment: Do you want to hurt yourself or someone else? Patient reports no desire to harm self or others. Initial Sepsis Screen: Does the patient meet any 2 criteria? No. Patient's initial sepsis screen is negative. Does the patient have a suspected source of infection? No. Patient's initial sepsis screen is negative. Care prior to arrival: None. 12:26 Method Of Arrival: Wheelchair mg2 12:26 Acuity: SIGIFREDO 3 mg2 Historical: - Allergies: 12:34 Cefuroxime; mg2 12:34 Clindamycin; mg2 12:34 PENICILLINS; mg2 12:34 axetil; mg2 12:34 Codeine; mg2 12:34 Demerol; mg2 12:34 hydrocodone bitartrate; mg2 12:34 hydrocodone bitartrate (bulk); mg2 12:34 Iodine; mg2 12:34 Keflex; mg2 12:34 Levaquin; mg2 12:34 meperidine HCl; mg2 12:34 naprosen; mg2 12:34 Naproxen; mg2 12:34 Nitrofuran Analogues; mg2 12:34 pentazocine lactate; mg2 12:34 promethazine HCl; mg2 12:34 Sulfa (Sulfonamide Antibiotics); mg2 12:34 Talwin; mg2 12:34 Vicodin; mg2 12:34 nitro; mg2 - Home Meds: 14:53 amlodipine 10 mg tab 1 tab once daily [Active]; atorvastatin 40 mg Oral tab 1 tab once mg2 daily [Active]; calcitriol 0.25 mcg Oral cap 1 cap [Active]; divalproex 500 mg Oral Tb24 1 tab once daily [Active]; furosemide 40 mg Oral tab 1 tab 2 times per day [Active]; hydralazine 25 mg Oral tab 1 tab 4 times per day [Active]; Insulin Glargine Sub-Q [Active]; lisinopril 20 mg Oral tab 1 tab once daily [Active]; metoprolol succinate 100 mg Oral Tb24 1 tab once daily [Active]; pantoprazole 20 mg Oral TbEC 1 tab once daily [Active]; - PMHx: 12:34 Diabetes - IDDM; Hyperlipidemia; Hypertension; first degree AV block; Hypothyroidism; mg2 CKD; history of nicotine dependence; - PSHx: 12:34 gastric banding; Cholecystectomy; Appendectomy; Hysterectomy; Hernia repair; Knee mg2 surgery; femur and back sx; - Immunization history:: Flu vaccine is not up to date. - Social history:: Smoking status: Patient/guardian denies using tobacco, Patient/guardian denies using alcohol, street drugs, IV drugs. - Ebola Screening: : No symptoms or risks identified at this time. Screenin:18 Abuse screen: Denies threats or abuse. Denies injuries from another. Nutritional mg2 screening: No deficits noted. Tuberculosis screening: No symptoms or risk factors identified. Fall Risk Fall in past 12 months (25 points). IV access (20 points). Ambulatory Aid- None/Bed Rest/Nurse Assist (0 pts). Gait- Impaired (20 pts.). Assessment: 13:16 General: Appears in no apparent distress. comfortable, Behavior is calm, cooperative. mg2 Pain: Complains of pain in abdomen Pain does not radiate. Pain currently is 8 out of 10 on a pain scale. Quality of pain is described as aching, Pain began suddenly, Is intermittent. Neuro: Level of Consciousness is awake, alert, obeys commands, Oriented to person, place, time, situation. Cardiovascular: Capillary refill < 3 seconds Patient's skin is warm and dry. Respiratory: Airway is patent Respiratory effort is even, labored, Respiratory pattern is regular, symmetrical. GI: Bowel sounds present X 4 quads. Abd is soft and non tender. GI: Reports lower abdominal pain, upper abdominal pain, nausea, vomiting. : No signs and/or symptoms were reported regarding the genitourinary system. EENT: No signs and/or symptoms were reported regarding the EENT system. Derm: Skin is intact, is healthy with good turgor, Skin is pink, warm \T\ dry. normal. Musculoskeletal: Reports left femur fracture 1.5 weeks ago and surgery was done, knee immobilizer on. 16:30 Reassessment: patient sent to ct scan via stretcher. mg2 18:26 Reassessment: hospitalist came and advised for admission. patient agreed. mg2 18:27 Reassessment: dr mcknight also came to see the patient. mg2 19:40 Reassessment: Patient and/or family updated on plan of care and expected duration. Pain lc1 level reassessed. Patient is alert, oriented x 3, equal unlabored respirations, skin warm/dry/pink. Patient states feeling better. Vital Signs: 12:29 BP 118 / 48; Pulse 99; Resp 18; Temp 98.6; Pulse Ox 99% on R/A; Weight 85.73 kg; Height mg2 5 ft. 1 in. (154.94 cm); Pain 10/10; 13:19 BP 137 / 57; Pulse 76; Resp 18; Pulse Ox 95% on R/A; mg2 14:30 BP 133 / 63; Pulse 74; Resp 18; Pulse Ox 100% on R/A; mg2 16:15 BP 129 / 65; Pulse 72; Resp 18; Pulse Ox 100% on R/A; mg2 18:26 BP 164 / 75; Pulse 102; Resp 18; Pulse Ox 100% on R/A; mg2 19:26 BP 163 / 73; Pulse 80; Resp 16; Pulse Ox 98% on R/A; lc1 12:29 Body Mass Index 35.71 (85.73 kg, 154.94 cm) mg2 ED Course: 12:02 Patient arrived in ED. as 12:02 Theodore Reynoso DO is Private Physician. as 12:02 Tom Mcknight MD is Private Physician. as 12:17 Tico Okeefe RN is Primary Nurse. mg2 12:29 Triage completed. mg2 12:35 Arm band placed on. mg2 12:45 Missed attempt(s): 24 gauge in left antecubital area. Bleeding controlled, band aid jp3 applied, catheter tip intact. 12:55 Initial lab(s) drawn, by ok, sent to lab. Inserted saline lock: 24 gauge in right jp3 antecubital area, using aseptic technique. Blood collected. 13:16 Placed in gown. Bed in low position. Call light in reach. Side rails up X 1. Side rails jp3 up X2. Warm blanket given. Verbal reassurance given. Pulse ox on. NIBP on. 13:16 Patient maintains SpO2 saturation greater than 95% on room air. jp3 13:37 Marcos Frias MD is Attending Physician. gs 13:54 T\T\S collected, blood band applied to patient. jp3 13:58 Type And Screen Sent. jp3 14:51 No provider procedures requiring assistance completed. mg2 16:31 CT Abd/Pelvis - Without Contrast In Process Unspecified. EDMS 17:03 IV discontinued, intact, bleeding controlled, No redness/swelling at site. Pressure mg2 dressing applied. 17:03 Inserted saline lock: 22 gauge in left forearm, using aseptic technique. mg2 17:11 Chito Oreilly is Hospitalizing Provider. gs 18:27 NGT: inserted 16 Fr. via right nare. verified placement of air over stomach, verified mg2 return of gastric contents, to intermittent suction. Returned gastric contents. Guaiac positive. Patient tolerated well. Administered Medications: 17:03 Drug: ProTONIX 40 mg Route: IVP; Site: left forearm; mg2 18:05 Follow up: Response: No adverse reaction mg2 17:03 Drug: ProTONIX 8 mg/hr Route: IV; Rate: 25 ml/hr; Site: left forearm; mg2 19:39 Follow up: Response: No adverse reaction; IV Status: Infusion continued lc1 17:03 Drug: NS 0.9% 1000 ml Route: IV; Rate: 150 ml/hr; Site: left forearm; mg2 19:39 Follow up: Response: No adverse reaction; IV Status: Infusion continued lc1 Outcome: 17:13 Decision to Hospitalize by Provider. gs 19:04 Condition: stable lc1 19:04 Instructed on the need for admit. 19:40 Admitted to Med/surg accompanied by [facility], via stretcher, room 215, with chart, Report lc1 called to Shelley 20:02 Patient left the ED. lc1 Signatures: Dispatcher [employer] EDNC Karuna Grady Lisa lc1 Marcos Frias MD MD Tico Okeefe RN RN [facility] Jack Mendez jp3 Corrections: (The following items were deleted from the chart) 18:27 18:26 Pulse 102bpm; Resp 18bpm; Pulse Ox 100% RA; mg2 mg2
--- NOTE | 2019-03-13 17:14 | EDPHYS ---
Physician Documentation [facility] Name: Amy Connor Age: 73 yrs Sex: Female : 1945 Arrival Date: 03/13/2019 Time: 12:02 Bed 25 Private MD: Theodore Reynoso; Tom Kennedy ED Physician Marcos Frias HPI: 03/13 17:27 This 73 yrs old Female presents to ER via Wheelchair with complaints of gs Abdominal Problem. 17:27 The patient presents to the emergency department vomiting blood, a moderate amount, gs coffee grounds in nature, with multiple such episodes. Onset: The symptoms/episode began/occurred this morning. Abdominal pain: described as crampy. Modifying factors: The symptoms are alleviated by nothing, the symptoms are aggravated by nothing. Associated signs and symptoms: Pertinent negatives: constipation, shortness of breath, syncope, near-syncope. Severity of symptoms: At their worst the symptoms were severe in the emergency department the symptoms are unchanged. The patient has experienced similar episodes in the past, a few times. The patient has not recently seen a physician. Historical: - Allergies: 12:34 Cefuroxime; mg2 12:34 Clindamycin; mg2 12:34 PENICILLINS; mg2 12:34 axetil; mg2 12:34 Codeine; mg2 12:34 Demerol; mg2 12:34 hydrocodone bitartrate; mg2 12:34 hydrocodone bitartrate (bulk); mg2 12:34 Iodine; mg2 12:34 Keflex; mg2 12:34 Levaquin; mg2 12:34 meperidine HCl; mg2 12:34 naprosen; mg2 12:34 Naproxen; mg2 12:34 Nitrofuran Analogues; mg2 12:34 pentazocine lactate; mg2 12:34 promethazine HCl; mg2 12:34 Sulfa (Sulfonamide Antibiotics); mg2 12:34 Talwin; mg2 12:34 Vicodin; mg2 12:34 nitro; mg2 - Home Meds: 14:53 amlodipine 10 mg tab 1 tab once daily [Active]; atorvastatin 40 mg Oral tab 1 tab once mg2 daily [Active]; calcitriol 0.25 mcg Oral cap 1 cap [Active]; divalproex 500 mg Oral Tb24 1 tab once daily [Active]; furosemide 40 mg Oral tab 1 tab 2 times per day [Active]; hydralazine 25 mg Oral tab 1 tab 4 times per day [Active]; Insulin Glargine Sub-Q [Active]; lisinopril 20 mg Oral tab 1 tab once daily [Active]; metoprolol succinate 100 mg Oral Tb24 1 tab once daily [Active]; pantoprazole 20 mg Oral TbEC 1 tab once daily [Active]; - PMHx: 12:34 Diabetes - IDDM; Hyperlipidemia; Hypertension; first degree AV block; Hypothyroidism; mg2 CKD; history of nicotine dependence; - PSHx: 12:34 gastric banding; Cholecystectomy; Appendectomy; Hysterectomy; Hernia repair; Knee mg2 surgery; femur and back sx; - Immunization history:: Flu vaccine is not up to date. - Social history:: Smoking status: Patient/guardian denies using tobacco, Patient/guardian denies using alcohol, street drugs, IV drugs. - Ebola Screening: : No symptoms or risks identified at this time. ROS: 17:27 All other systems are negative. gs Exam: 17:27 Head/Face: Normocephalic, atraumatic. Eyes: Pupils equal round and reactive to light, gs extra-ocular motions intact. Lids and lashes normal. Conjunctiva and sclera are non-icteric and not injected. Cornea within normal limits. Periorbital areas with no swelling, redness, or edema. ENT: Nares patent. No nasal discharge, no septal abnormalities noted. Tympanic membranes are normal and external auditory canals are clear. Oropharynx with no redness, swelling, or masses, exudates, or evidence of obstruction, uvula midline. Mucous membranes moist. Neck: Trachea midline, no thyromegaly or masses palpated, and no cervical lymphadenopathy. Supple, full range of motion without nuchal rigidity, or vertebral point tenderness. No Meningismus. Chest/axilla: Normal chest wall appearance and motion. Nontender with no deformity. No lesions are appreciated. Cardiovascular: Regular rate and rhythm with a normal S1 and S2. No gallops, murmurs, or rubs. Normal PMI, no JVD. No pulse deficits. Respiratory: Lungs have equal breath sounds bilaterally, clear to auscultation and percussion. No rales, rhonchi or wheezes noted. No increased work of breathing, no retractions or nasal flaring. Back: No spinal tenderness. No costovertebral tenderness. Full range of motion. 17:27 Constitutional: The patient appears alert, awake, in obvious distress, severely distressed. 17:27 Abdomen/GI: Palpation: mild abdominal tenderness, in all quadrants, rebound tenderness, is not appreciated. 17:40 Skin: Warm, dry with normal turgor. Normal color with no rashes, no lesions, and no gs evidence of cellulitis. MS/ Extremity: Pulses equal, no cyanosis. Neurovascular intact. Full, normal range of motion. Neuro: Awake and alert, GCS 15, oriented to person, place, time, and situation. Cranial nerves II-XII grossly intact. Motor strength 5/5 in all extremities. Sensory grossly intact. Cerebellar exam normal. Normal gait. Vital Signs: 12:29 BP 118 / 48; Pulse 99; Resp 18; Temp 98.6; Pulse Ox 99% on R/A; Weight 85.73 kg; Height mg2 5 ft. 1 in. (154.94 cm); Pain 10/10; 13:19 BP 137 / 57; Pulse 76; Resp 18; Pulse Ox 95% on R/A; mg2 14:30 BP 133 / 63; Pulse 74; Resp 18; Pulse Ox 100% on R/A; mg2 16:15 BP 129 / 65; Pulse 72; Resp 18; Pulse Ox 100% on R/A; mg2 18:26 BP 164 / 75; Pulse 102; Resp 18; Pulse Ox 100% on R/A; mg2 19:26 BP 163 / 73; Pulse 80; Resp 16; Pulse Ox 98% on R/A; lc1 12:29 Body Mass Index 35.71 (85.73 kg, 154.94 cm) mg2 MDM: 15:27 Patient medically screened. gs 17:40 Differential diagnosis: gastritis, pud, gerd, complication lap band. Data reviewed: vital signs, nurses notes, old medical records, lab test result(s), radiologic studies. Counseling: I had a detailed discussion with the patient and/or guardian regarding: the historical points, exam findings, and any diagnostic results supporting the discharge/admit diagnosis, the need for outpatient follow up. Response to treatment: the patient's symptoms have markedly improved after treatment. Physician consultation: Tom Kennedy MD and will see patient in ED. 03/13 12:35 Order name: Basic Metabolic Panel; Complete Time: 15:15 mg2 03/13 12:35 Order name: CBC with Diff; Complete Time: 13:37 [facility] 03/13 12:35 Order name: Creatinine for Radiology; Complete Time: 15:15 [facility] 03/13 12:35 Order name: Hepatic Function; Complete Time: 15:15 [facility] 03/13 12:35 Order name: Lipase; Complete Time: 15:15 [facility] 03/13 13:38 Order name: PT-INR; Complete Time: 15:15 03/13 13:38 Order name: Type And Screen; Complete Time: 15:55 03/13 13:39 Order name: Ptt, Activated; Complete Time: 17:10 03/13 15:54 Order name: Gastric Occult Blood; Complete Time: 16:35 [facility] 03/13 16:09 Order name: CT Abd/Pelvis - Without Contrast; Complete Time: 17:10 03/13 17:56 Order name: Hemoglobin [facility] 03/13 17:56 Order name: Hemoglobin [facility] 03/13 17:56 Order name: Hemoglobin [facility] 03/13 17:56 Order name: Hemoglobin [facility] 03/13 12:35 Order name: IV Saline Lock; Complete Time: 13:08 [facility] 03/13 12:35 Order name: Labs collected and sent; Complete Time: 13:08 [facility] 03/13 15:54 Order name: Gastrocult; Complete Time: 16:00 03/13 17:01 Order name: CONS Physician Consult [facility] 03/13 17:46 Order name: NG Tube; Complete Time: 18:26 03/13 17:56 Order name: EN ENDOSCOPY REQUEST [facility] Administered Medications: 17:03 Drug: ProTONIX 40 mg Route: IVP; Site: left forearm; mg2 18:05 Follow up: Response: No adverse reaction mg2 17:03 Drug: ProTONIX 8 mg/hr Route: IV; Rate: 25 ml/hr; Site: left forearm; mg2 19:39 Follow up: Response: No adverse reaction; IV Status: Infusion continued lc1 17:03 Drug: NS 0.9% 1000 ml Route: IV; Rate: 150 ml/hr; Site: left forearm; mg2 19:39 Follow up: Response: No adverse reaction; IV Status: Infusion continued lc1 Disposition: 03/13/19 17:13 Hospitalization ordered by Chito Oreilly for Inpatient Admission. Preliminary diagnosis is Gastrointestinal hemorrhage, unspecified. - Bed requested for Telemetry/MedSurg (Inpatient). - Status is Inpatient Admission. lc1 - Condition is Stable. - Problem is new. - Symptoms have improved. UTI on Admission? No Critical care time excluding procedures: 17:40 Critical care time: Bedside Care: 10 minutes, Consultation: 10 minutes, Family gs Intervention: 10 minutes. Total time: 30 minutes Signatures: Dispatcher [employer] EDMS DipeshNadiaSedaLesly Dixon RN RN BebetoTasneema [facility] Marcos Frias MD MD gs Gardose, Michele, RN RN mg2 Corrections: (The following items were deleted from the chart) 18:50 17:13 Hospitalization Ordered by Chito Oreilly for Inpatient Admission. Preliminary diagnosis is Gastrointestinal hemorrhage, unspecified. Bed requested for Telemetry/MedSurg (Inpatient). Status is Inpatient Admission. Condition is Stable. Problem is new. Symptoms have improved. UTI on Admission? No. gs 20:02 18:50 03/13/2019 17:13 Hospitalization Ordered by Chito Oreilly for Inpatient lc1 Admission. Preliminary diagnosis is Gastrointestinal hemorrhage, unspecified. Bed requested for Telemetry/MedSurg (Inpatient). Status is Inpatient Admission. Condition is Stable. Problem is new. Symptoms have improved. UTI on Admission? No. taisha
--- NOTE | 2019-03-13 17:41 | P.HP ---
Certification for Inpatient Patient admitted to: Inpatient With expected LOS: >2 Midnights Practitioner: I am a practitioner with admitting privileges, knowledge of patient current condition, hospital course, and medical plan of care. Services: Services provided to patient in accordance with Admission requirements found in Title 42 Section 412.3 of the Code of Federal Regulations Patient History Date of Service: 03/13/19 Reason for admission: Coffee-ground emesis History of Present Illness: 73-year-old with a history gastric band surgery, prior his upper GI bleed in 2018 presented to the emergency department with a complaint of nausea and coffee -ground emesis for onset today. Patient reports she fell and sustained left femoral fracture, underwent ORIF about 2 weeks ago. She was placed on Lovenox therapy for DVT prophylaxis. Last Lovenox injection was this morning. She was here for similar symptoms in April 2018. An endoscopy was performed by Dr. Kennedy which reported gastritis, bile acid reflux and retained food. She still had coffee-ground emesis in the ED. Hemoglobin is 9. CT abdomen and pelvis demonstrated no acute findings. Patient is admitted for further management of upper GI bleed. Allergies clindamycin Allergy (Mild, Verified 01/27/19 13:44) Hives/Rash codeine [Codeine] Allergy (Mild, Verified 01/27/19 13:44) Hives/Rash hydrocodone bitartrate [From Vicodin] Allergy (Mild, Verified 01/27/19 13:44) Hives/Rash iodine Allergy (Mild, Verified 01/27/19 13:44) Hives meperidine HCl [From Demerol] Allergy (Mild, Verified 01/27/19 13:44) Hives/Rash naproxen Allergy (Mild, Verified 01/27/19 13:44) Hives/Rash Penicillins Allergy (Mild, Verified 01/27/19 13:44) Hives/Rash pentazocine lactate [From Talwin] Allergy (Mild, Verified 01/27/19 13:44) Hives/Rash promethazine HCl [From Phenergan] Allergy (Mild, Verified 01/27/19 13:44) Hives/Rash Sulfa (Sulfonamide Antibiotics) [Sulfa(Sulfonamide Antibiotics)] Allergy (Mild, Verified 01/27/19 13:44) Hives/Rash cefuroxime Allergy (Verified 01/27/19 13:44) Hives/Rash cephalexin Allergy (Verified 01/27/19 13:44) Itching/Hives/Rash hydrocodone [From Vicodin] Allergy (Verified 01/27/19 13:44) Unknown levofloxacin [From Levaquin] Allergy (Verified 01/27/19 13:44) Hives/Rash meperidine [From Demerol] Allergy (Verified 01/27/19 13:44) Unknown Nitrofuran Analogues Allergy (Verified 01/27/19 13:44) Unknown nitrofurantoin Allergy (Verified 01/27/19 13:44) Hives/Rash pentazocine [From Talwin] Allergy (Verified 01/27/19 13:44) Unknown axetil Allergy (Uncoded 01/27/19 13:44) Unknown naprson Allergy (Uncoded 01/27/19 13:44) Itching/Hives/Rash Home Medications: Aspirin [Aspir-Low] 81 mg PO DAILY 01/15/17 Calcitrol [Rocaltrol*] 0.25 mcg PO DAILY 01/15/17 Hydralazine [Apresoline*] 25 mg PO BID 01/15/17 Levothyroxine Sodium 75 mcg PO DAILY 01/15/17 Melatonin 5 mg PO BEDTIME 01/15/17 Insulin Glargine,Hum.rec.anlog [Lizz Echevarriaar] 18 unit SQ DAILY 01/11/18 Ubidecarenone/Vit E Acetate [Co Q-10 100 mg Softgel] 2 each PO DAILY 01/11/18 Lisinopril 20 mg PO [id number] 01/14/18 Diphenhydramine HCl [Benadryl Allergy] 50 mg PO BEDTIME 02/15/18 Divalproex Sodium 500 mg PO BEDTIME 02/15/18 Vit A/Vit C/Vit E/Zinc/Copper [Icaps Areds Softgel] 2 each PO BID 02/15/18 Amlodipine [Norvasc*] 10 mg PO [id number] 02/18/18 Metoprolol Succinate [Toprol Xl] 100 mg PO [id number] 02/18/18 Acetaminophen [Acetaminophen ER] 2 tab PO BID 04/05/18 Atorvastatin Calcium [Lipitor*] 20 mg PO BEDTIME 04/05/18 Magnesium Oxide [Magnesium] 500 mg PO DAILY 04/05/18 Cholecalciferol (Vitamin D3) [Vitamin D3] 125 mcg PO DAILY 04/06/18 Multivitamin [Daily Multiple Vitamin] 1 each PO DAILY #90 tablet 04/07/18 Pantoprazole [Protonix Tab] 40 mg PO DAILY #30 tab 04/07/18 Furosemide [Lasix] 40 mg PO DAILY 01/27/19 Potassium Gluconate [Potassium] 99 mg PO DAILY 01/27/19 Vit C/E/Zn/Coppr/Lutein/Zeaxan [Preservision Areds 2 Softgel] 1 each PO DAILY - Past Medical/Surgical History Diabetic: Yes -: Chronic kidney disease, stage 3/4, [place] [facility] -: Diabetes mellitus type 2, insulin-dependent -: Hypothyroidism -: Hypertension -: GERD with hiatal hernia -: History gastric surgery -: Hyperlipidemia -: Appendectomy -: Cholecystectomy -: Hysterectomy -: Hernia repair -: Back surgery -: Bilateral knee replacements -: Gastric surgery for weight loss Psychosocial/ Personal History: The patient is . She has 2 children. She does not work. - Family History Father -: Heart disease, Hypertension, Cancer Mother -: Heart disease, Hypertension, Diabetes, Cancer Notes: pancreatic cancer - Social History Alcohol use: Yes CD- Drugs: No Caffeine use: Yes Review of Systems Other: General: No fever, no malaise, no unintentional weight loss. Eyes: No eye discharge, Respiratory: No cough, no shortness of breath. CVS: No chest pain, no palpitation, no lightheadedness. GI: No constipation, no diarrhea. Genitourinary: No dysuria, no urinary frequency, no incontinence, no hematuria. Musculoskeletal: No joint swelling. Neurology: No headache, no asymmetric, weakness, no problem with swallowing. Except as documented, all other systems reviewed and negative. Physical Examination - Physical Exam General: Alert, In no apparent distress, Oriented x3 HEENT: Normocephalic, Mucous membr. moist/pink Neck: Supple, JVD not distended Respiratory: Clear to auscultation bilaterally, Normal air movement Cardiovascular: No edema, Normal pulses, Regular rate/rhythm, Normal S1 S2, No murmurs Capillary refill: <2 Seconds Gastrointestinal: Normal bowel sounds, Soft and benign, Non-distended, Tenderness (Epigastrium) Musculoskeletal: No swelling, Other (Left lower extremity in a splint) Integumentary: No rashes Neurological: Normal strength at 5/5 x4 extr, Cranial nerves 3-12 intact Lymphatics: Other (No lymphedema) - Studies Laboratory Data (last 24 hrs) 03/13/19 12:55: APTT 31.9 03/13/19 12:55: PT 12.7 H, INR 1.08 03/13/19 12:55: Creatinine 1.10 03/13/19 12:55: WBC 6.2, Hgb 9.2 L, Hct 26.7 L, Plt Count 348 03/13/19 12:55: Sodium 142, Potassium 3.8, BUN 14, Creatinine 1.13, Glucose 124 H, Total Bilirubin 0.5, AST 26, ALT 24, Alkaline Phosphatase 129 H, Lipase 160 Microbiology Data (last 24 hrs): 03/13/19 15:55 Gastric Aspirate Gastric Occult Blood - Final Assessment and Plan - Problems (Diagnosis) (1) Upper GI bleed Current Visit: Yes Status: Acute (2) Anemia Onset Date: 04/05/18 Current Visit: No Status: Acute (3) History of femur fracture Current Visit: Yes Status: Acute (4) Chronic renal disease Onset Date: 04/05/18 Current Visit: No Status: Chronic Qualifiers: Chronic kidney disease stage: stage 2 (mild) Qualified Code(s): N18.2 - Chronic kidney disease, stage 2 (mild) (5) Diabetes mellitus Onset Date: 01/16/17 Current Visit: No Status: Chronic Qualifiers: Diabetes mellitus type: type 2 Diabetes mellitus terminal gauger insulin use: with senior care use Diabetes mellitus complication status: with hypoglycemia Diabetes mellitus complication detail: without coma Qualified Code(s): E11.649 - Type 2 diabetes mellitus with hypoglycemia without coma; 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 Marcia ROSS tube to suction for decompression Keep NPO Anti-emetics He was evaluated for endoscopy tomorrow. Monitor H&H Transfuse p.r.n. for hemoglobin less than 7 Hold Lovenox anticoagulation Avoid aspirin and NSAIDs Insulin sliding scale for glucose management. Serum creatinine is at baseline. PT and OT after endoscopy - Advance Directives Does patient have a Living Will: No Does patient have a Durable POA for Healthcare: No
[2019-03-13] MEDS ORDERED: NA CHLORIDE 0.9% 250 ML IV SCH (19:55)
[2019-03-13] MEDS: INSULIN -REGULAR HUMAN 50 UNIT/0.5 ML ML SQ SCH (19:55)
[2019-03-13] MEDS: NA CHLORIDE 0.9% 1,000 ML IV SCH (19:55)
[2019-03-13] MEDS ORDERED: ONDANSETRON 4 MG/2 ML VIAL IV PRN (19:55)
[2019-03-13 20:35] LABS: Hematocrit 27.9 % (36.0-45.0)
[2019-03-13 20:36] LABS: Protime INR 1.07
--- NOTE | 2019-03-13 22:59 | CON ---
Date of Consultation: 03/13/2019 Brief History Of Present Illness: Patient is a pleasant 73-year-old female known to me from previous hospitalization approximately a year ago where I performed an EGD for GI bleeding, and she was diagn osed as having a gastric bezoar food bolus at that time and a constriction of her stomach secondary t o a gastric band placed years prior. She now presents from [facility] with an approximately 2- to 3-day history of profuse nausea, vomiting, inability to tolerate p.o. She was concerned about thi s as she had a femoral fracture repair 2 weeks ago and is retained on blood thinners at this time. S he states she was concerned that there might be something related to this. However, she continued to have nausea, vomiting, and no other symptoms related to the lower extremity. She states that she naqvi s had multiple episodes of nausea and vomiting, and some of it appeared coffee-ground in appearance c onsistent with possible bleeding. She also had some vigorous bowel movements and abdominal pain asso ciated with this, but the abdominal pain has since resolved other than the soreness from the retching , she states. Past Medical History: Significant for diabetes, hyperlipidemia, hypertension, 1st-degree AV block, h ypothyroidism, CKD, nicotine dependence. Past Surgical History: As stated, again gastric banding, cholecystectomy, appendectomy, hysterectomy , hernia repair, knee surgery, femoral and back surgery, femoral fracture repair recently, and EGD. Allergies: HER ALLERGIES TO MEDICATIONS INCLUDE CEFUROXIME, CLINDAMYCIN, PENICILLIN, AXETIL, CODEINE , DEMEROL, HYDROCODONE, IODINE, KEFLEX, LEVAQUIN, MEROPENEM, NAPROSYN, NAPROXEN, NITROFURAN ANALOGUES , PENTAZOCINE, LACTATE, PHENERGAN, SULFA, TALWIN, VICODIN, NORCO. Home Medications: Amlodipine, atorvastatin, calcitriol, divalproex, Lasix, hydralazine, insulin, lis inopril, metoprolol, pantoprazole. Social History: She denies smoking, alcohol, recreational drug use. She lives in [facility] at this time. Review of Systems: A 10-point review of systems other than HPI, denies. Physical Examination: General: At the time of my examination, she is awake, alert, oriented. Psychiatric: She is appropriate, conversive. HEENT: She is normocephalic. Her sclerae are anicteric. Mucous membranes are moist. Oropharynx cl ear. Neck: Supple. No JVD. Chest: Normal expansion and excursion. Cardiovascular: Regular rate and rhythm. Pulmonary: Clear to auscultation bilaterally. Abdomen: Soft, nontender, nondistended. Extremities: No clubbing, cyanosis, or edema. Skin: Warm and dry. Laboratory Data: Reveals a white blood cell count of 6.2, hemoglobin is 9.2, hematocrit 26.7, platel et count is 348. Her neutrophils are 59%. PT 12.7, INR 1.0, PTT 31.9. Sodium 142, potassium 3.8, c hloride 104, carbon dioxide 29, BUN 14, creatinine 1.1, glucose 124. Total bilirubin 0.5, direct com ponent 0.2; AST 26; ALT 24; alkaline phosphatase 129. Lipase 160. Imaging: She had a CT scan for the abdomen and pelvis which is officially read as no gastric dilatat ion. Patient has undergone some form of gastric banding procedure. There is a hyperdense ring aroun d the proximal body of the stomach. The stomach proximal to the band is distended but not dilated by fluid and a small amount of liquid distal to the band. The stomach is mostly decompressed. No winiferd mohit outlet obstruction. No small bowel dilatation. No appendicitis findings. The appendix is not w ell identified, may have been removed. Sigmoid diverticulosis without diverticulitis. No free air, free fluid, or inflammatory stranding. No hernias, mass, or bulky lymphadenopathy. A few small mese nteric lymph nodes are seen in the central abdomen. Dilated vein is present in the subcutaneous fatt y tissue of the right abdomen, 7 cm lateral and 2 cm superior to the umbilicus. There are several me dication injection areas in the subcutaneous fatty tissue of the lower abdomen. Official impression: Noncontrast CT abdomen and pelvis shows no acute findings. Patient has a gastric band around the p roximal body of the stomach. The stomach proximal to the band is distended by food but not dilated. Small mesenteric lymph nodes are present. Dilated vein in the mid abdomen subcutaneous fatty tissue , lateral and superior to the umbilicus. Assessment And Plan: This is a 73-year-old female who comes in with persistent nausea, vomiting, pos sible hematemesis. She has a possible diagnosis of hematemesis and a positive Gastroccult here in th e ER. 1.IV fluid hydration. 2.NG tube decompression. 3.Serial abdominal exams. 4.Serial hemoglobin checks. 5.I recommend type and screen. 6.I have recommended EGD tomorrow. I have explained the risks, benefits, and alternatives of the EG D including but not limited to bleeding, infection, damage to surrounding tissues, perforation of the intestine/esophagus/stomach. In addition, she could have an aspiration episode as well. Patient ag beatrice to proceed as indicated. TRACEE/ADITYA Voice ID: [id number] Report ID: [id number]
[2019-03-14 00:39] VITALS: BMI 35.6
[2019-03-14] MEDS ORDERED: PANTOPRAZOLE 40 MG INJ ONE (01:04)
[2019-03-14] MEDS: PANTOPRAZOLE INJ 80 MG in NA CHLORIDE 0.9% 250 ML IV SCH ×2 (01:06→10:49)
[2019-03-14] MEDS: NA CHLORIDE 0.9% 1,000 ML IV SCH ×4 (01:06→22:03)
[2019-03-14] MEDS: INSULIN -REGULAR HUMAN 50 UNIT/0.5 ML ML SQ SCH ×3 (01:55→21:00)
[2019-03-14 02:12] LABS: Hematocrit 25.5 % (36.0-45.0)
[2019-03-14 05:18] LABS: Absolute Lymphocytes (CBC) 1.5 K/uL (0.7-4.9); Basophils % 0.7 % (0-1.3); Hematocrit 25.3 % (36.0-45.0); Lymphocytes % 33.9 % (15.3-44.8); MPV 7.7 fL (7.6-11.3); RBC Red Blood Cell Count 2.79 M/uL (3.86-4.86)
[2019-03-14 05:31] LABS: Potassium 3.8 mmol/L (3.5-5.1)
[2019-03-14] MEDS ORDERED: PROPOFOL 200 MG/20 ML VIAL IV ONE (08:13)
[2019-03-14] MEDS ORDERED: LIDOCAINE 1% MPF 5 ML VIAL ONE (08:13)
[2019-03-14 08:47] LABS: Hematocrit 25.8 % (36.0-45.0)
[2019-03-14] MEDS ORDERED: NA CHLORIDE 0.9% 0 ML ONE (08:49)
[2019-03-14] MEDS ORDERED: EPINEPHRINE/PF 1 MG/ML AMP ONE (08:49)
[2019-03-14] MEDS: CARBOXYMETHYLCELLULOSE SODIUM EACH EYE SCH ×2 (09:00→21:00)
[2019-03-14] MEDS: LEVOTHYROXINE SOD 0.1 MG TAB PO SCH (09:00)
[2019-03-14] MEDS: CALCITROL 0.25 MCG CAP PO SCH (09:00)
[2019-03-14] MEDS ORDERED: HYDRALAZINE HCL 25 MG TABLET PO SCH ×2 (09:00→21:00)
--- NOTE | 2019-03-14 09:22 | ENDO RPT ---
[address], [address] EGD PROCEDURE REPORT EXAM DATE: 03/14/2019 PATIENT NAME: Amy Connor MR#: [id number] BIRTHDATE: 1945 ATTENDING: Tom Kennedy DR STATUS: inpatient - [facility] INTELLECTUAL PROPERTY LEGAL ASSISTANT: Rosa Brush RN and Robinson Wynn [facility] INDICATIONS: The patient is a 73 yr old Female here for an EGD due to upper G.I. bleeding, dysphagia, dyspepsia, epigastric pain, nausea and vomiting, and persistent vomiting PROCEDURE PERFORMED: EGD with biopsy for H. pylori MEDICATIONS: Per Anesthesia. TOPICAL ANESTHETIC: none CONSENT: The patient understands the risks and benefits of the procedure and understands that these risks include, but are not limited to: sedation, allergic reaction, infection, perforation and/or bleeding. Alternative means of evaluation and treatment include, among others: physical exam, x-rays, and/or surgical intervention. The patient elects to proceed with this endoscopic procedure. DESCRIPTION OF PROCEDURE: During intra-op preparation period all mechanical medical equipment was checked for proper function. Hand hygiene and appropriate measures for infection prevention was taken. Procedure, possible complications, and alternatives including but not limited to the possibility of bleeding, perforation, tear, infection, sepsis, need for surgery, need for blood transfusion, and anesthesia related complications were explained to the patient. After the risks, benefits and alternatives of the procedure were thoroughly explained, Informed consent was verified, confirmed and timeout was successfully executed by the treatment team. The patient was placed in the left lateral position. The patient was anesthetized with topical anesthesia. Through the anesthetized oropharyngeal area, the scope was passed without any difficulty. The EG-[id number] ([id number]) endoscope was introduced through the mouth and advanced to the second portion of the duodenum. Retroflexed views revealed no abnormalities. The gastroscope was then slowly withdrawn and removed. Bile reflux was found at the pylorus. Monopolar cautery was performed. A biopsy for H. pylori was taken. LA Class A esophagitis was found in the lower esophagus. With standard forceps, a biopsy was obtained and sent to pathology. LA Class A esophagitis was found in the upper esophagus. Retained food was present in the fundus. Food retained proximal to Gastric Band @ upper 1/3 of stomach. Band has constriction which was difficult to traverse, I was unable to push the food bolus through the band, however I broke up the majority of the bolus to smaller amount, and this should be able to pass in time. A biopsy for H. pylori was taken. Mild gastritis was found in the total stomach. A biopsy for H. pylori was taken. ADVERSE EVENTS: There were no complications. IMPRESSIONS: 1. Bile reflux was found at the pylorus 2. LA Class A esophagitis was found in the lower esophagus 3. LA Class A esophagitis was found in the upper esophagus 4. Retained food was present in the fundus 5. Mild gastritis was found in the total stomach RECOMMENDATIONS: 1. acid suppression therapy 2. anti-reflux regimen 3. await biopsy results 4. follow-up: office 2 week(s) 5. avoid NSAIDS 6. follow-up of helicobacter pylori status, treat if indicated 7. hematocrit REPEAT EXAM: for EGD. Band needs to be removed Tom Kennedy DR eSigned: Tom Kennedy DR 03/14/2019 9:22 AM cc: CPT CODES: ICD9 CODES: PATIENT NAME: Amy Connor MR#: [id number]
[2019-03-14] MEDS ORDERED: INSULIN -REGULAR HUMAN 50 UNIT/0.5 ML ML SQ SCH (12:00)
--- NOTE | 2019-03-14 14:09 | P.PN ---
Subjective Date of Service: 03/14/19 Chief Complaint: Coffee-ground emesis Subjective: Doing well Patient denies any nausea or vomiting since hospitalization. EGD was performed today. Bile acid reflux, esophagitis and gastritis noted. EGD also reports gastric band constricting the fundus and causing retained food. Hemoglobin dropped to 8 and remained stable at 8. Physical Examination - Vital Signs Temperature: 98.2 F Blood Pressure: 116/51 Pulse: 67 Respirations: 18 Pulse Ox (%): 99 - Physical Exam General: Alert, In no apparent distress, Oriented x3 HEENT: Mucous membr. moist/pink Neck: Supple, JVD not distended Respiratory: Clear to auscultation bilaterally, Normal air movement Cardiovascular: No edema, Normal pulses, Regular rate/rhythm, Normal S1 S2 Capillary refill: <2 Seconds Gastrointestinal: Normal bowel sounds, Soft and benign, Non-distended, No tenderness Musculoskeletal: No swelling Integumentary: No rashes - Studies Laboratory Data (last 24 hrs) 03/13/19 12:55: APTT 31.9 03/13/19 12:55: PT 12.7 H, INR 1.08 Microbiology Data (last 24 hrs): 03/13/19 15:55 Gastric Aspirate Gastric Occult Blood - Final Assessment And Plan - Current Problems (Diagnosis) (1) Upper GI bleed Current Visit: Yes Status: Acute (2) History of femur fracture Current Visit: Yes Status: Acute (3) Chronic renal disease Onset Date: 04/05/18 Current Visit: No Status: Chronic Qualifiers: Chronic kidney disease stage: stage 2 (mild) Qualified Code(s): N18.2 - Chronic kidney disease, stage 2 (mild) (4) Diabetes mellitus Onset Date: 01/16/17 Current Visit: No Status: Chronic Qualifiers: Diabetes mellitus type: type 2 Diabetes mellitus nursing home insulin use: with nursing home use Diabetes mellitus complication status: with hypoglycemia Diabetes mellitus complication detail: without coma Qualified Code(s): E11.649 - Type 2 diabetes mellitus with hypoglycemia without coma; Z79.4 - detention (current) use of insulin (5) History of gastric bypass Current Visit: No Status: Chronic (6) Acute blood loss anemia Current Visit: Yes Status: Acute - Plan Esophagitis, gastritis and bile acid reflux noted during the EGD. Retained gastric food Change Protonix drip to IV Protonix b.i.d. Only liquid diet recommended by surgery. Continued to monitor H&H Transfuse p.r.n. for hemoglobin less than 7 Hold Lovenox anticoagulation Avoid aspirin and NSAIDs Insulin sliding scale for glucose management. PT and OT.
[2019-03-14 14:26] LABS: Hematocrit 25.1 % (36.0-45.0)
[2019-03-14] MEDS ORDERED: OXYCODONE HCL PO PRN (15:03)
[2019-03-14] MEDS ORDERED: ACETAMINOPHEN 500 MG TAB PO PRN (15:40)
[2019-03-14 20:13] LABS: Hematocrit 26.5 % (36.0-45.0)
[2019-03-14] MEDS: DIVALPROEX DR 500MG TAB PO SCH (22:02)
[2019-03-14] MEDS: ATORVASTATIN 20 MG TAB PO SCH (22:02)
[2019-03-14] MEDS: PANTOPRAZOLE 40 MG INJ IVP SCH (22:03)
[2019-03-15] MEDS: NA CHLORIDE 0.9% 1,000 ML IV SCH ×5 (01:55→21:55)
[2019-03-15] MEDS: OXYCODONE HCL 5 MG TAB PO PRN (06:03)
[2019-03-15] MEDS: LEVOTHYROXINE SOD 0.1 MG TAB PO SCH (06:04)
[2019-03-15] MEDS: AMLODIPINE 10 MG TAB PO SCH (06:04)
[2019-03-15] MEDS: INSULIN -REGULAR HUMAN 50 UNIT/0.5 ML ML SQ SCH ×4 (07:30→21:00)
[2019-03-15] MEDS: CARBOXYMETHYLCELLULOSE SODIUM EACH EYE SCH ×2 (09:00→21:00)
[2019-03-15] MEDS: SODIUM CHLORIDE 0.9% 10ML INJ IV PRN (09:01)
[2019-03-15] MEDS: CALCITROL 0.25 MCG CAP PO SCH (09:01)
[2019-03-15] MEDS: PANTOPRAZOLE 40 MG INJ IVP SCH ×2 (09:01→21:24)
--- NOTE | 2019-03-15 10:30 | P.PN ---
Subjective Date of Service: 03/15/19 Chief Complaint: Coffee-ground emesis Patient reports occasional regurgitation following clear liquid diet. Hemoglobin has been stable at 8. She denies any abdominal pain. Physical Examination - Vital Signs Temperature: 97.7 F Blood Pressure: 197/74 Pulse: 72 Respirations: 19 Pulse Ox (%): 96 - Physical Exam General: Alert, In no apparent distress, Oriented x3 HEENT: Mucous membr. moist/pink Neck: Supple Respiratory: Clear to auscultation bilaterally, Normal air movement Cardiovascular: No edema, Regular rate/rhythm Gastrointestinal: Normal bowel sounds, Soft and benign, Non-distended, No tenderness Integumentary: No rashes Assessment And Plan - Current Problems (Diagnosis) (1) Upper GI bleed Current Visit: Yes Status: Acute (2) Acute blood loss anemia Current Visit: Yes Status: Acute (3) History of femur fracture Current Visit: Yes Status: Acute (4) Chronic renal disease Onset Date: 04/05/18 Current Visit: No Status: Chronic Qualifiers: Chronic kidney disease stage: stage 2 (mild) Qualified Code(s): N18.2 - Chronic kidney disease, stage 2 (mild) (5) Diabetes mellitus Onset Date: 01/16/17 Current Visit: No Status: Chronic Qualifiers: Diabetes mellitus type: type 2 Diabetes mellitus shelter insulin use: with manager long term care use Diabetes mellitus complication status: with hypoglycemia Diabetes mellitus complication detail: without coma Qualified Code(s): E11.649 - Type 2 diabetes mellitus with hypoglycemia without coma; Z79.4 - intermission coordinator (current) use of insulin (6) History of gastric bypass Current Visit: No Status: Chronic - Plan Esophagitis, gastritis and bile acid reflux noted during the EGD. Also retained gastric food noted Change Protonix to 40 mg oral b.i.d. Only liquid diet recommended by surgery. Recommend small frequent feedings. Continued to monitor H&H Transfuse p.r.n. for hemoglobin less than 7 Hold Lovenox anticoagulation Avoid aspirin and NSAIDs SCD for DVT prophylaxis. Insulin sliding scale for glucose management. PT and OT.
--- NOTE | 2019-03-15 11:21 | P.PN ---
Subjective Date of Service: 03/15/19 Chief Complaint: Coffee-ground emesis Subjective: Improving (patient has no pain, only had one episode of emesis last evening) Physical Examination - Vital Signs Temperature: 97.7 F Blood Pressure: 197/74 Pulse: 72 Respirations: 19 Pulse Ox (%): 96 - Physical Exam General: Alert, In no apparent distress, Oriented x3, Cooperative Gastrointestinal: Soft and benign, Non-distended, No tenderness, No masses, No rebound, No guarding Assessment And Plan - Current Problems (Diagnosis) (1) Epigastric abdominal pain Onset Date: 04/05/18 Current Visit: No Status: Acute
[2019-03-15] MEDS: ATORVASTATIN 20 MG TAB PO SCH (21:20)
[2019-03-15] MEDS: DIVALPROEX DR 500MG TAB PO SCH (21:20)
[2019-03-16] MEDS: NA CHLORIDE 0.9% 1,000 ML IV SCH ×3 (03:17→23:36)
[2019-03-16] MEDS: AMLODIPINE 10 MG TAB PO SCH (05:48)
[2019-03-16] MEDS: LEVOTHYROXINE SOD 0.1 MG TAB PO SCH (05:48)
[2019-03-16 06:14] LABS: Absolute Lymphocytes (CBC) 1.5 K/uL (0.7-4.9); Basophils % 0.7 % (0-1.3); Hematocrit 25.4 % (36.0-45.0); Lymphocytes % 40.4 % (15.3-44.8); MPV 8.1 fL (7.6-11.3)
[2019-03-16 06:22] LABS: Albumin 2.7 g/dL (3.4-5.0); Bilirubin Total 0.4 mg/dL (0.2-1.0); Magnesium 1.7 mg/dL (1.8-2.4); Phosphorus 2.7 mg/dL (2.5-4.9); Potassium 4.4 mmol/L (3.5-5.1); Protein, Total 5.4 g/dL (6.4-8.2)
[2019-03-16] MEDS: INSULIN -REGULAR HUMAN 50 UNIT/0.5 ML ML SQ SCH ×4 (07:30→21:00)
--- NOTE | 2019-03-16 08:49 | P.PN ---
Subjective Date of Service: 03/16/19 Chief Complaint: Coffee-ground emesis Patient has been vomiting occasionally but overall tolerating liquid diet if she drinks slowly. Hemoglobin has been stable at 8. She denies any abdominal pain. Physical Examination - Vital Signs Temperature: 98.9 F Blood Pressure: 156/72 Pulse: 74 Respirations: 15 Pulse Ox (%): 94 - Physical Exam General: Alert, In no apparent distress, Oriented x3 HEENT: Mucous membr. moist/pink Neck: Supple, JVD not distended Respiratory: Clear to auscultation bilaterally, Normal air movement Cardiovascular: No edema, Regular rate/rhythm, Normal S1 S2 Gastrointestinal: Normal bowel sounds, Soft and benign, Non-distended, No tenderness Musculoskeletal: No swelling Integumentary: No rashes Assessment And Plan - Current Problems (Diagnosis) (1) Upper GI bleed Current Visit: Yes Status: Acute (2) Acute blood loss anemia Current Visit: Yes Status: Acute (3) History of femur fracture Current Visit: Yes Status: Acute (4) Chronic renal disease Onset Date: 04/05/18 Current Visit: No Status: Chronic Qualifiers: Chronic kidney disease stage: stage 2 (mild) Qualified Code(s): N18.2 - Chronic kidney disease, stage 2 (mild) (5) Diabetes mellitus Onset Date: 01/16/17 Current Visit: Yes Status: Chronic Qualifiers: Diabetes mellitus type: type 2 Diabetes mellitus alf insulin use: with cardiovascular physician assistant use Diabetes mellitus complication status: with hypoglycemia Diabetes mellitus complication detail: without coma Qualified Code(s): E11.649 - Type 2 diabetes mellitus with hypoglycemia without coma; Z79.4 - manager bilingual (current) use of insulin (6) History of gastric bypass Current Visit: No Status: Chronic - Plan Esophagitis, gastritis, bile acid reflux and retained food in the stomach noted during the EGD. Protonix to 40 mg oral b.i.d. Only liquid diet recommended by surgery. Recommend small frequent feedings. Continued to monitor H&H Transfuse p.r.n. for hemoglobin less than 7 Continue to hold Lovenox anticoagulation Avoid aspirin and NSAIDs SCD for DVT prophylaxis. Insulin sliding scale for glucose management. PT and OT. She need home health for PT set and home hospital bed arranged.
[2019-03-16] MEDS: CARBOXYMETHYLCELLULOSE SODIUM EACH EYE SCH ×2 (09:00→21:00)
[2019-03-16] MEDS: CALCITROL 0.25 MCG CAP PO SCH (09:40)
[2019-03-16] MEDS: PANTOPRAZOLE 40 MG INJ IVP SCH ×2 (09:41→20:40)
--- NOTE | 2019-03-16 10:13 | P.PN ---
Subjective Date of Service: 03/16/19 Chief Complaint: Coffee-ground emesis Subjective: Improving (Patient has only spit up, no emesis, tolerating clears well. Good bowel function with large BM) Physical Examination - Vital Signs Temperature: 98.9 F Blood Pressure: 156/72 Pulse: 74 Respirations: 15 Pulse Ox (%): 94 - Physical Exam General: Alert, In no apparent distress, Cooperative Respiratory: Clear to auscultation bilaterally Gastrointestinal: Soft and benign, Non-distended, No ascites, No tenderness, No masses, No rebound, No guarding Assessment And Plan - Current Problems (Diagnosis) (1) Epigastric abdominal pain Onset Date: 04/05/18 Current Visit: No Status: Acute Plan: - Patient should continue full liquid diet with boost or ensure until gastric band removed - follow up in my clinic in 1-2 weeks PRN - continue medical management
[2019-03-16] MEDS: DIVALPROEX DR 500MG TAB PO SCH (20:41)
[2019-03-16] MEDS: ATORVASTATIN 20 MG TAB PO SCH (20:41)
[2019-03-16] MEDS: SODIUM CHLORIDE 0.9% 10ML INJ IV PRN (20:47)
[2019-03-16 22:00] VITALS: O2SAT 100
[2019-03-17] MEDS: OXYCODONE HCL 5 MG TAB PO PRN (00:39)
[2019-03-17] MEDS: NA CHLORIDE 0.9% 1,000 ML IV SCH (03:55)
[2019-03-17 04:48] LABS: Absolute Lymphocytes (CBC) 1.8 K/uL (0.7-4.9); Basophils % 0.7 % (0-1.3); Hematocrit 25.8 % (36.0-45.0); Lymphocytes % 43.1 % (15.3-44.8); MPV 8.3 fL (7.6-11.3)
[2019-03-17 05:02] LABS: Albumin 2.8 g/dL (3.4-5.0); Bilirubin Total 0.4 mg/dL (0.2-1.0); Magnesium 1.5 mg/dL (1.8-2.4); Phosphorus 2.4 mg/dL (2.5-4.9); Potassium 3.9 mmol/L (3.5-5.1); Protein, Total 5.4 g/dL (6.4-8.2)
[2019-03-17] MEDS: LEVOTHYROXINE SOD 0.1 MG TAB PO SCH (05:43)
[2019-03-17] MEDS: AMLODIPINE 10 MG TAB PO SCH (05:43)
[2019-03-17] MEDS: INSULIN -REGULAR HUMAN 50 UNIT/0.5 ML ML SQ SCH ×2 (07:30→11:30)
[2019-03-17] MEDS: CARBOXYMETHYLCELLULOSE SODIUM EACH EYE SCH (09:00)
[2019-03-17] MEDS: PANTOPRAZOLE 40 MG INJ IVP SCH (09:00)
[2019-03-17] MEDS: CALCITROL 0.25 MCG CAP PO SCH (09:00)
--- NOTE | 2019-03-17 11:31 | P.PN ---
Subjective Date of Service: 03/17/19 Primary Care Provider: Dr. Reynoso Chief Complaint: Coffee-ground emesis Subjective: Improving Physical Examination - Vital Signs Temperature: 97.7 F Blood Pressure: 153/67 Pulse: 70 Respirations: 18 Pulse Ox (%): 100 - Physical Exam General: Alert, In no apparent distress, Oriented x3, Cooperative HEENT: Atraumatic Neck: Supple Respiratory: Clear to auscultation bilaterally Cardiovascular: Normal pulses, Regular rate/rhythm Gastrointestinal: Normal bowel sounds, Soft and benign, Non-distended Musculoskeletal: No erythema, No tenderness, No warmth Integumentary: No tenderness/swelling, No erythema, No warmth, No cyanosis Neurological: Normal speech, Normal strength at 5/5 x4 extr, Normal tone, Normal affect - Studies Medications List Reviewed: Yes Assessment & Plan Discharge Plan: Home Plan to discharge in: 24 Hours Physician Review Additional Text: Impression: Acute anemia with upper GI bleed status post EGD Chronic renal disease stage II Diabetes mellitus type 2, insulin dependent History of gastric bypass Hypertension Hypothyroidism Plan: Acute anemia with upper GI bleed status post EGD showing esophagitis, gastritis : EGD showed bile reflux, LA class A esophagitis in the lower esophagus, LA class A esophagitis in the upper esophagus, retained food in the stomach and mild gastritis. Spoke with surgery. Lovenox has been discontinued. Patient recently had open reduction internal fixation of the left hip. No need for anti coagulation therapy at this time. Continue PPI. Will advance diet to full liquid. Will make sure patient is able to tolerate at least 4 cans of Ensure daily. Once tolerating liquid diet then will plan for discharge. Patient with history of gastric bypass. Patient will require surgery in the future to further address. This will be done at a higher level care center. Home health to arrange for hospital bed, home health and physical therapy. Anticipate discharge as early as today or tomorrow once home health is arranged with hospital bed/and tolerating diet. Chronic renal disease stage II: Overall stable. Will continue to monitor closely. Diabetes mellitus type 2, insulin dependent: Patient on insulin therapy. Overall stable peer will continue to adjust. History of gastric bypass: Continue as above. Hypertension: Continue with medication. Will monitor and adjust appropriately. Hypothyroidism: Continue with medication. Time Spent Managing Pts Care (In Minutes): 55
--- NOTE | 2019-03-17 15:09 | P.PN ---
Subjective Date of Service: 03/17/19 Primary Care Provider: Dr. Reynoso Chief Complaint: Coffee-ground emesis Subjective: Improving (tolerting liquids well) Physical Examination - Vital Signs Temperature: 97 F Blood Pressure: 134/74 Pulse: 84 Respirations: 18 Pulse Ox (%): 100 - Physical Exam General: Alert, In no apparent distress, Cooperative HEENT: Mucous membr. moist/pink Gastrointestinal: Soft and benign, Non-distended, No ascites, No tenderness, No masses, No rebound, No guarding - Studies Medications List Reviewed: Yes Assessment And Plan - Current Problems (Diagnosis) (1) Epigastric abdominal pain Onset Date: 04/05/18 Current Visit: No Status: Acute Plan: - Patient should continue full liquid diet with boost or ensure until gastric band removed - follow up in my clinic in 1-2 weeks PRN - continue medical management Physician Review Additional Text: Impression: Acute anemia with upper GI bleed status post EGD Chronic renal disease stage II Diabetes mellitus type 2, insulin dependent History of gastric bypass Hypertension Hypothyroidism Plan: Acute anemia with upper GI bleed status post EGD showing esophagitis, gastritis : EGD showed bile reflux, LA class A esophagitis in the lower esophagus, LA class A esophagitis in the upper esophagus, retained food in the stomach and mild gastritis. Spoke with surgery. Lovenox has been discontinued. Patient recently had open reduction internal fixation of the left hip. No need for anti coagulation therapy at this time. Continue PPI. Will advance diet to full liquid. Will make sure patient is able to tolerate at least 4 cans of Ensure daily. Once tolerating liquid diet then will plan for discharge. Patient with history of gastric bypass. Patient will require surgery in the future to further address. This will be done at a higher level care center. Home health to arrange for hospital bed, home health and physical therapy. Anticipate discharge as early as today or tomorrow once home health is arranged with hospital bed/and tolerating diet. Chronic renal disease stage II: Overall stable. Will continue to monitor closely. Diabetes mellitus type 2, insulin dependent: Patient on insulin therapy. Overall stable peer will continue to adjust. History of gastric bypass: Continue as above. Hypertension: Continue with medication. Will monitor and adjust appropriately. Hypothyroidism: Continue with medication.
--- NOTE | 2019-03-17 16:11 | P.DS ---
Admission Date: 03/13/19 Discharge Date: 03/17/19 Primary Care Provider: Dr. Reynoso Disposition: [facility] CARE Discharge Condition: GOOD Reason for Admission: Coffee-ground emesis Consultations: Surgery-Dr. Kennedy Procedures: CT scan: FINDINGS: No suspicious findings in the lung bases. The liver, spleen and pancreas show no suspicious findings on non-contrast imaging. Gallbladder is absent. No biliary tree dilatation. Small accessory splenic nodule present. No hydronephrosis or suspicious renal mass. Patient has normal variant horseshoe kidney configuration. A 5 millimeter calcification is seen lower pole left kidney. No significant adrenal finding. Isodense renal masses and pyelonephritis cannot be excluded in the absence of IV contrast. The urinary bladder is without significant finding. Uterus is absent. Ovaries are absent or atrophic. No gastric dilatation. Patient has undergone some form of gastric banding procedure. There is a hyperdense ring around the proximal body of the stomach. Of the stomach proximal to the band is distended but not dilated by fluid and a small amount of liquid. Distal to the band the stomach is mostly decompressed. No gastric outlet obstruction. No small bowel dilatation. No appendicitis findings. An appendix is not identified and may have been removed at the time of hysterectomy. Sigmoid diverticulosis without diverticulitis. No free air, free fluid or inflammatory stranding. No hernia, mass or bulky lymphadenopathy. A few small mesenteric lymph nodes are seen in the central abdomen. No suspicious bony findings. A dilated vein is present in the subcutaneous fatty tissues of the right abdomen. This is approximately 7 cm lateral and 2 centimeter superior to the umbilicus. This was not seen previously. There are several medication injection areas in the subcutaneous fatty tissues of the lower abdomen. IMPRESSION: Noncontrast CT abdomen and pelvis imaging shows no acute findings. Patient has a gastric band around the proximal body of the stomach. The stomach proximal to the band is distended by food but not dilated. No wall thickening or mass identifiable. Small mesenteric lymph nodes in the central abdomen. Dilated vein in the right mid abdomen subcutaneous fatty tissues lateral and superior to the umbilicus. Full assessment is limited is the absence of IV contrast. EGD: Performed by: Dr. Kennedy Findings: EGD showed bile reflux, LA class A esophagitis in the lower esophagus, LA class A esophagitis in the upper esophagus, retained food in the stomach and mild gastritis. Medical problem list: Acute anemia with upper GI bleed status post EGD showing esophagitis, gastritis and duodenitis Chronic renal disease stage II Diabetes mellitus type 2, insulin dependent History of gastric band Hypertension Hypothyroidism Chronic pain Recent open reduction internal fixation left hip Seizure disorder Brief History of Present Illness: 73-year-old female with history of gastric band surgery and prior upper GI bleeding in 2018. Patient presented with nausea, coffee-ground emesis. Patient had recent history of left femoral fracture, underwent open reduction internal fixation about 2 weeks ago. She was sent to rehab for physical therapy. Since then she has been on Lovenox DVT prophylaxis. Patient presented to the ER with a hemoglobin of 9. CT scan of the abdomen unremarkable. Patient was admitted for suspected upper GI bleed. Hospital Course: Patient presented with coffee-ground emesis. Patient recently on Lovenox for DVT prophylaxis after hip repair. Patient also complicated with history of upper GI bleed and with history of gastric band surgery. Patient was seen and evaluated. Surgery was consulted for further evaluation. EGD was recommended. EGD was performed. EGD showed bile reflux, LA class A esophagitis in the lower esophagus, LA class A esophagitis in the upper esophagus, retained food in the stomach and mild gastritis. Pathology showed gastritis, duodenitis and esophagitis. H pylori negative. Patient was placed on Protonix. Her diet was advanced. Patient did not require any transfusion. At discharge no more nausea or coffee-ground emesis. At discharge hemoglobin remained stable at 8.5. Patient tolerating her current diet. At discharge she will continue with Protonix 40 mg 1 pill twice daily and a full liquid diet. Lovenox has been discontinued. Patient will continue with iron 325 mg 1 pill twice daily. Recommend to recheck lab-CBC in 1-2 weeks to monitor her progress. Patient will need to continue with at least 4 cans of Ensure daily to maintain her nutrition along with her full liquid diet. Surgery recommends that she follow up with her surgeon for possible surgical intervention to address her gastric band. Recommend no further use of nonsteroidal anti-inflammatories. Recommend follow up with her PCP and surgery within 1-2 weeks. Patient with chronic renal disease, stage 2. At discharge she will continue with calcitriol 0.25 mcg daily. Recommend to recheck lab-BMP in 1-2 weeks to monitor progress. Future medications will need to be renally dosed. Recommend follow up with nephrology as an outpatient to further monitor. Patient with diabetes mellitus type 2, insulin-dependent. At discharge she will continue with Lantus 15 units subcu daily. Patient will also continue with her sliding scale. Recommend to maintain blood sugars less 140 fasting and less than 200 after meals. Further adjustment can be further addressed by her PCP. Patient with hyperlipidemia. At discharge she will continue with Lipitor 20 mg daily. Patient with hypothyroidism. At discharge she will continue with levothyroxine 100 mcg daily. Patient with history of seizure disorder. At discharge she will continue with Depakote 500 mg at bedtime. Patient with history of hypertension. At discharge she will continue with Norvasc 10 mg daily and hydralazine 25 mg 1 pill twice daily. Recommend to monitor blood pressures daily. Recommend follow up with her PCP to further monitor and address. Patient with recent open reduction internal fixation of the left femoral fracture. Patient will return home with home health and physical therapy. Recommend to discontinue Lovenox at this time. Fall precautions in place. Vital Signs/Physical Exam: Temp Pulse Resp BP Pulse Ox 97 F 84 18 134/74 100 03/17/19 15:09 03/17/19 15:09 03/17/19 15:09 03/17/19 15:09 03/17/19 15:09 General: Alert, In no apparent distress, Oriented x3, Cooperative HEENT: Atraumatic Neck: Supple Respiratory: Clear to auscultation bilaterally, Normal air movement Cardiovascular: Normal pulses, Regular rate/rhythm Gastrointestinal: Normal bowel sounds, Soft and benign, Non-distended, No tenderness, No masses, No rebound, No guarding Musculoskeletal: No erythema, No tenderness, No warmth Integumentary: No tenderness/swelling, No erythema, No warmth, No cyanosis Neurological: Normal speech, Normal strength at 5/5 x4 extr, Normal tone, Normal affect Laboratory Data at Discharge: WBC 4.1 K/uL (4.3-10.9) L 03/17/19 04:14 Hgb 8.5 g/dL (12.0-15.0) L 03/17/19 04:14 Hct 25.8 % (36.0-45.0) L 03/17/19 04:14 Plt Count 219 K/uL (152-406) 03/17/19 04:14 PT 12.6 SECONDS (9.5-12.5) H 03/13/19 20:21 INR 1.07 03/13/19 20:21 APTT 31.9 SECONDS (24.3-36.9) 03/13/19 12:55 Sodium 142 mmol/L (136-145) 03/17/19 04:14 Potassium 3.9 mmol/L (3.5-5.1) 03/17/19 04:14 BUN 3 mg/dL (7-18) L 03/17/19 04:14 Creatinine 0.77 mg/dL (0.55-1.3) 03/17/19 04:14 Glucose 127 mg/dL (74-106) H 03/17/19 04:14 Phosphorus 2.4 mg/dL (2.5-4.9) L 03/17/19 04:14 Magnesium 1.5 mg/dL (1.8-2.4) L 03/17/19 04:14 Total Bilirubin 0.4 mg/dL (0.2-1.0) 03/17/19 04:14 AST 15 U/L (15-37) 03/17/19 04:14 ALT 14 U/L (12-78) 03/17/19 04:14 Alkaline Phosphatase 114 U/L (45-117) 03/17/19 04:14 Lipase 152 U/L (73-393) 03/17/19 04:14 Home Medications: Calcitrol [Rocaltrol*] 0.25 mcg PO DAILY 01/15/17 Hydralazine [Apresoline*] 25 mg PO BID 01/15/17 Divalproex Sodium 500 mg PO BEDTIME 02/15/18 Amlodipine [Norvasc*] 10 mg PO [id number] 02/18/18 Acetaminophen [Acetaminophen ER] 2 tab PO Q4H PRN 04/05/18 Atorvastatin Calcium [Lipitor*] 20 mg PO BEDTIME 04/05/18 Carboxymethylcellulose Sodium [Lubricant Eye Drop] 1 drop EACH EYE BID 03/14/19 Diphenhydramine [Benadryl*] 1 tab PO Q6H PRN 03/14/19 Docusate [Colace Cap*] 1 tab PO BID PRN 03/14/19 Insulin Glargine,Hum.rec.anlog [Lantus Solostar] 15 units SQ DAILY 03/14/19 Insulin Lispro [Humalog Kwikpen U-100] 100 units SQ SEECOM 03/14/19 Lactulose 30 ml PO DAILY PRN 03/14/19 Levothyroxine [Synthroid*] 1 tab PO DAILY 03/14/19 Oxycodone HCl 1 cap PO Q6H PRN 03/14/19 Sennosides 1 tab PO Q12H PRN 03/14/19 Vit C/E/Zn/Coppr/Lutein/Zeaxan [Preservision Areds 2 Softgel] 1 cap PO BID 03/14 Ensure Enlive 237 ml PO QID #120 can 03/17/19 Ferrous Sulfate 325 mg PO BID #60 tablet 03/17/19 Pantoprazole Sodium [Protonix] 40 mg PO BID #60 tablet. 03/17/19 New Medications: Ensure Enlive 237 ml PO QID #120 can Ferrous Sulfate 325 mg PO BID #60 tablet Pantoprazole Sodium [Protonix] 40 mg PO BID #60 tablet. Patient Discharge Instructions: 1. Recommend follow up with her PCP in 1 week. 2. Patient presented with coffee-ground emesis. Patient recently on Lovenox for DVT prophylaxis after hip repair. Patient also complicated with history of upper GI bleed and with history of gastric band surgery. Patient was seen and evaluated. Surgery was consulted for further evaluation. EGD was recommended. EGD was performed. EGD showed bile reflux, LA class A esophagitis in the lower esophagus, LA class A esophagitis in the upper esophagus, retained food in the stomach and mild gastritis. Pathology showed gastritis, duodenitis and esophagitis. H pylori negative. Patient was placed on Protonix. Her diet was advanced. Patient did not require any transfusion. At discharge no more nausea or coffee-ground emesis. At discharge hemoglobin remained stable at 8.5. Patient tolerating her current diet. At discharge she will continue with Protonix 40 mg 1 pill twice daily and a full liquid diet. Lovenox has been discontinued. Patient will continue with iron 325 mg 1 pill twice daily. Recommend to recheck lab-CBC in 1-2 weeks to monitor her progress. Patient will need to continue with at least 4 cans of Ensure daily to maintain her nutrition along with her full liquid diet. Surgery recommends that she follow up with her surgeon for possible surgical intervention to address her gastric band. Recommend no further use of nonsteroidal anti-inflammatories. Recommend follow up with her PCP and surgery within 1-2 weeks. 3. Patient with chronic renal disease. At discharge she will continue with calcitriol 0.25 mcg daily. Recommend to recheck lab-BMP in 1-2 weeks to monitor progress. Future medications will need to be renally dosed. Recommend follow up with nephrology as an outpatient to further monitor. 4. Patient with diabetes mellitus type 2 , insulin-dependent. At discharge she will continue with Lantus 15 units subcu daily. Patient will also continue with her sliding scale. Recommend to maintain blood sugars less 140 fasting and less than 200 after meals. Further adjustment can be further addressed by her PCP. 5. Patient with hyperlipidemia. At discharge she will continue with Lipitor 20 mg daily. 6. Patient with hypothyroidism. At discharge she will continue with levothyroxine 100 mcg daily. 7. Patient with history of seizure disorder. At discharge she will continue with Depakote 500 mg at bedtime. 8. Patient with history of hypertension. At discharge she will continue with Norvasc 10 mg daily and hydralazine 25 mg 1 pill twice daily. Recommend to monitor blood pressures daily. Recommend follow up with her PCP to further monitor and address. 9. Patient with recent open reduction internal fixation of the left femoral fracture. Patient will return home with home health and physical therapy. Recommend to discontinue Lovenox at this time. Fall precautions in place. Diet: full liquid diet Time spent managing pt's care (in minutes): 55
[2019-03-17] MEDS ORDERED: ENSURE ENLIVE 237 ML CAN PO SCH (17:00)
[2019-03-17 18:29] VITALS: BP 158/70; TEMP 97.5
== END 2019-03-17 17:23 | disposition home health service (06) | DRG 391 ==
LOC: ER 12:01 → ERHOLD 17:53 → 2ND 19:43
PROVIDERS: ADMIT Internal Medicine; ATTEND Internal Medicine
PROC: 0DB68ZX Excision of Stomach, Via Natural or Artificial Opening Endoscopic, Diagnostic (ICD-10-PCS; principal; 2019-03-14 09:15)
DX: K20.9 Esophagitis, unspecified (principal); K29.71 Gastritis, unspecified, with bleeding; K29.81 Duodenitis with bleeding; I12.9 Hypertensive chronic kidney disease with stage 1 through stage 4 chronic kidney disease, or unspecified chronic kidney disease; E11.22 Type 2 diabetes mellitus with diabetic chronic kidney disease; N18.2 Chronic kidney disease, stage 2 (mild); E03.9 Hypothyroidism, unspecified; G89.29 Other chronic pain; G40.909 Epilepsy, unspecified, not intractable, without status epilepticus; D64.9 Anemia, unspecified; Z98.84 Bariatric surgery status; E78.5 Hyperlipidemia, unspecified
CPT/HCPCS: 36415; 74176; 80048; 80053; 80076; 82271; 82962; 83690; 83735; 83986; 84100; 85014; 85018; 85025; 85610; 85730; 86850; 86900; 86901; 88305; 88312; 96365; 96366; 97110; 97116; 97161; 97530; 99285; C9113; J0171; J2405; J2704; J7030

== ENCOUNTER 2020-12-10 23:49 | Observation (INO) | payer OTHER ==
--- OUTSIDE RECORDS SUMMARY | 2020-12-10 23:53 | XMS REPORT | Continuity of Care Document ---
:1945 Author Organization [facility] t Address [address] [place] [address] Care Team Providers Name Role Phone Shine Reddy Attending Clinician Marisa DUMONT, A Attending Clinician Problems Condition Condition Condition Status Onset Resolution Last Treating Co mments Source Name Details Category Date Date Treatment Clinician Date Dystonia Problem Active 2020-12-04 Mem oria (disorder) 11-08 01:32:52 l Dystonia 00:00: Ross n (disorder) 00 Active 11/08/2016 Problem 12/04/2020 [facility] Essential Problem Active 2020-12-04 Me moria hypertensi 11-08 01:32:52 l on 00:00: Indra (disorder) Essential 00 hypertensi on (disorder) Active 11/08/2016 Problem 12/04/2020 [facility] Headache Problem Active 2020-12-04 Mem oria (finding) 11-08 01:32:52 l Headache 00:00: Ross n (finding) 00 Active 11/08/2016 Problem 12/04/2020 [facility] Hyperlipid Problem Active 2020-12-04 M emoria emia 11-08 01:32:52 l (disorder) 00:00: Ross n Hyperlipid 00 emia (disorder) Active 11/08/2016 Problem 12/04/2020 [facility] Hyperparat Problem Active 2020-12-04 M emoria hyroidism 11-08 01:32:52 l (disorder) 00:00: Ross n Hyperparat 00 hyroidism (disorder) Active 11/08/2016 Problem 12/04/2020 [facility] Type II Problem Active 2020-12-04 [place] aissatou diabetes 11-08 01:32:52 l mellitus Type II 00:00: Liliam nn without diabetes 00 complicati mellitus on without (disorder) complicati on (disorder) Active 11/08/2016 Problem 12/04/2020 [facility] Hypothyroi Problem Active 2020-12-04 M emoria dism 01:32:52 l (disorder) Ross n Hypothyroi dism (disorder) Active Problem 12/04/2020 [facility] Migraine Problem Active 2020-12-04 Mem oria (disorder) 01:32:52 l Migraine Ross n (disorder) Active Problem 12/04/2020 [facility] Amnesia Problem Active 2020-12-04 [place] aissatou (finding) 01:32:52 l Amnesia Indra (finding) Active Problem 12/04/2020 [facility] Depressive Problem Active 2020-12-04 M emoria disorder 01:32:52 l (disorder) Ross n Depressive disorder (disorder) Active Problem 12/04/2020 [facility] Peripheral Problem Active 2020-12-04 M emoria nerve 01:32:52 l disease Indra (disorder) Peripheral nerve disease (disorder) Active Problem 12/04/2020 [facility] Allergies, Adverse Reactions, Alerts Allergy Allergy Status Severity Reaction(s) Onset Inactive Treating Comm ents Source Name Type Date Date Clinician penicill penicill Active Severe Memori a ins ins l [place] naproxen naproxen Active Severe Memori a l [place] cephalex cephalex Active Severe Memori a in in [facility] [place] sulfamet sulfamet Active Severe Memori a hoxazole hoxazole l [place] Talwin Talwin Active Severe Memoria l [place] Phenerga Phenerga Active Severe Memori a n n l [place] Vicodin Vicodin Active Severe Memoria l [place] Cefuroxi Cefuroxi Active Severe Memori a me me l Axetil Axetil [place] Nitrofur Nitrofur Active Severe Memori a antoin antoin l Monohydr Monohydr Ross n ate/Macr ate/Macr ocrystal ocrystal s s iodine iodine Active Severe Memoria l Indra Codeine Codeine Active Severe Memoria Sulfate Sulfate l [place] Aricept Aricept Active Memoria l [place] MORPHINE Adverse Active Info Not [facility] Macrobid Adverse Active Info Not [facility] Reaction Available [facility] Keflex Adverse Active Info Not [facility] Reaction Available [facility] Iodine Adverse Active Info Not [facility] Reaction Available [facility] Ceftin Adverse Active Info Not [facility] Reaction Available [facility] Phenothi Adverse Active Info Not [facility] azines Reaction Available [facility] qUINOLON Adverse Active Info Not [facility] E ab Reaction Available [facility] AXETIL Adverse Active Info Not [facility] Reaction Available [facility] Social History Smoking Status Start Date Stop Date Source Social History 2020-12-01 16:50:33 2020-12-01 16:50:33 [facility] Medications Ordered Filled Start Stop Current Ordering Indication Dosage Frequency Signature Comments Components Source Medication Medication Date Date Medication? 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, Height, 97.727, kg, 10/22/20 15:03:00 CDT, Weight venlafaxine No 150 mg = 1 Memoria 150 mg oral 1-22 cap, PO, l capsule, 00:46: Daily, X Liliam nn extended 30 day, # release 30 cap, 3 Refill(s), Pharmacy: [id number], 152.4, cm, 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, Height, 97.273, kg, 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, Weight venlafaxine No 150 mg = 1 Memoria 150 mg oral 1-21 tab, PO, l tablet, 20:38: Daily, X Ross n extended 30 day, # release 30 tab, 3 Refill(s), Pharmacy: [id number], 152.4, cm, 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, Height, 97.273, kg, 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, Weight venlafaxine Yes = 1 cap, Me moria 75 mg oral 7-21 PO, Daily, l capsule, 19:48: # 30 cap, Herm sintia extended 00 3 release Refill(s), Pharmacy: [facility] #[id number], 152.4, cm, 12/23/19 14:32:00 CDT, Height, 91.818, kg, 12/23/19 14:32:00 CDT, Weight gabapentin Yes = 1 cap, Mem oria 300 MG Oral 3-20 PO, BID, # l Capsule 18:43: 60 cap, 7 Liliam nn 00 Refill(s), Pharmacy: [id number] venlafaxine Yes = 1 cap, Me moria 75 mg oral 3-20 PO, Daily, l capsule, 18:43: # 30 cap, Herm sintia extended 00 3 release Refill(s), Pharmacy: [id number] venlafaxine 2018-06 Yes = 1 cap, Me moria 75 mg oral 1-22 PO, Daily, l capsule, 19:48: # 30 cap, Herm sintia extended 06 3 release Refill(s), Pharmacy: [facility] #[id number] gabapentin 2018-06 No 300 mg = 1 M emoria 300 MG Oral 1-22 cap, PO, l Capsule 19:47: Bedtime, # Herm sintia 58 30 cap, 3 Refill(s), [facility]acy: [id number] Humalog Humalog Yes Panda [address] [facility] Lizz Zamudio Yes Panda 15 units [facility] Vital Signs Vital Name Observation Time Observation Value Comments Source Systolic (mm Hg) 2020-12-01 16:49:00 [place] rial Indra Diastolic (mm Hg) 2020-12-01 16:49:00 Mem orial [place] Heart Rate 2020-12-01 16:49:00 [facility] Respitory Rate 2020-12-01 16:49:00 Memori al [place] Height 2020-12-01 16:49:00 152.4 cm [facility] Weight 2020-12-01 16:49:00 [facility] [place] BMI Calculated 2020-12-01 16:49:00 [facility] [place] Systolic (mm Hg) 2020-10-22 20:03:00 [place] rial Indra Diastolic (mm Hg) 2020-10-22 20:03:00 Mem orial [place] Heart Rate 2020-10-22 20:03:00 [facility] Respitory Rate 2020-10-22 20:03:00 [facility] [place] Weight 2020-10-22 20:03:00 [facility] [place] Systolic (mm Hg) 2020-09-22 18:49:00 [place] rial Indra Diastolic (mm Hg) 2020-09-22 18:49:00 Mem orial [place] Heart Rate 2020-09-22 18:49:00 [facility] [place] Respitory Rate 2020-09-22 18:49:00 Memori al Indra Weight 2020-09-22 18:49:00 [facility] [place] Systolic (mm Hg) 2020-06-24 20:15:00 [place] Diastolic (mm Hg) 2020-06-24 20:15:00 Mem orial Indra Heart Rate 2020-06-24 20:15:00 [facility] [place] Height 2020-06-24 20:15:00 152.4 cm [facility] Weight 2020-06-24 20:15:00 [facility] BMI Calculated 2020-06-24 20:15:00 Mem[facility] al Ind[facility] Systolic (mm Hg) 2019-12-23 19:32:00 [place] Diastolic (mm Hg) 2019-12-23 19:32:00 Mem orial Indra Heart Rate 2019-12-23 19:32:00 [facility] [place] Respitory Rate 2019-12-23 19:32:00 [facility] [place] Temperature Oral (F) 2019-12-23 19:32:00 96.9 F [facility] Height 2019-12-23 19:32:00 152.4 cm [facility] [place] Weight 2019-12-23 19:32:00 [facility] [place] BMI Calculated 2019-12-23 19:32:00 [facility] [place] Systolic (mm Hg) 2019-08-22 18:36:00 [place] Diastolic (mm Hg) 2019-08-22 18:36:00 Mem orial Indra Heart Rate 2019-08-22 18:36:00 [facility] [place] Respitory Rate 2019-08-22 18:36:00 Memori al Ind[facility] Height 2019-08-22 18:36:00 152.4 cm [facility] [place] Weight 2019-08-22 18:36:00 [facility] BMI Calculated 2019-08-22 18:36:00 Mem[facility] Systolic (mm Hg) 2019-04-25 19:39:00 [place] Indra Diastolic (mm Hg) 2019-04-25 19:39:00 Mem orial [place] Heart Rate 2019-04-25 19:39:00 [facility] [place] Respitory Rate 2019-04-25 19:39:00 Memori al Indra Procedures This patient has no known procedures. Encounters Start End Encounter Admission Attending Care Care Encounter Source Date/Time Date/Time Type Type Clinicians Facility Department ID 2020-12-09 2020-12-09 Outpatient [facility] [id number] [facility] 00:00:00 00:00:00 Jenni Anthony ent Clinics 2020-12-01 2020-12-01 Outpatient RIAN Reddy [id number] 11:15:00 23:59:59 Horacio 14 Shine 2020-12-01 2020-12-01 Outpatient Krell, MHMISCHER MHMISCHER [id number] 23:15:00 23:15:00 Horacio 12 Shine 2020-11-03 2020-11-03 Outpatient Maureen, MHMISCHER MHMISCHER [id number] 10:00:00 23:59:59 Horacio 11 Shine 2020-11-03 2020-11-03 Outpatient Maureen, VIRGENMISCHER MHMISCHER [id number] 10:00:00 10:00:00 Horacio 13 Shine 2020-10-22 2020-10-22 Outpatient Maureen, MHMISCHER MHMISCHER [id number] 15:00:00 23:59:59 Horacio 10 Shine 2020-10-22 2020-10-22 Outpatient [facility] [id number] [facility] 2020-10-05 2020-10-05 Outpatient [facility] [id number] [facility] 2020-09-22 2020-09-22 Outpatient Maureen, MHMISCHER MHMISCHER [id number] 13:45:00 23:59:59 Horacio 08 Shine 2020-09-01 2020-09-01 Outpatient [facility] [id number] [facility] 2020-08-25 2020-08-25 Outpatient [facility] [id number] [facility] 2020-08-25 2020-08-25 Outpatient [facility] [id number] [facility] 2020-07-05 2020-07-05 Telephone CunninghamOLGA [id number] 00:00:00 00:00:00 [facility] [id number] [place] [id number] [place] [id number] Primary & 198 Specialty Care 2020-07-05 2020-07-05 Outpatient [facility] [id number] [facility] 2020-06-24 2020-06-24 [id number] 13:45:00 23:59:59 Horacio 07 Shine 2020-05-14 2020-05-14 Outpatient [facility] [id number] [facility] 2020-05-12 2020-05-12 Outpatient [facility] [id number] [facility] 2020-05-11 2020-05-11 Outpatient [facility] [id number] [facility] 2020-04-16 2020-04-16 Outpatient [facility] [id number] [facility] 2020-04-02 2020-04-02 Outpatient [facility] [id number] [facility] 2020-01-15 2020-01-15 [facility] [id number] [facility] 16:05:00 16:05:00 t [place] OTR s - [facility] l Medicine Outpati ent Clinics 2019-12-25 2019-12-25 [facility] [id number] [facility] 13:00:00 13:00:00 t [place] OTR s - [facility] Family Medicine l Medicine Outpati ent Clinics 2019-12-25 2019-12-25 [facility] [id number] [facility] 13:00:00 13:00:00 t [place] OTR s - Drive [facility] Medicine l Medicine Outpati ent Clinics 2019-12-23 2019-12-23 Outpatient RIAN Reddy [facility] [id number] 14:15:00 23:59:59 Horacio 06 Shine 2019-12-23 2019-12-23 Outpatient RIAN Reddy [facility] [id number] 14:15:00 14:15:00 Horacio Riojas 2019-10-15 2019-10-15 [facility] [id number] [facility] 09:49:00 09:49:00 t [facility] Medicine Outpati ent Clinics 2019-10-14 2019-10-14 [facility] [id number] 08:00:00 08:00:00 t [place] OTR s - [facility] Medicine Outpati ent Clinics 2019-10-13 2019-10-13 [facility] [id number] [facility] 08:38:00 08:38:00 t [place] OTR s - [facility] l Medicine Outpati ent Clinics 2019-09-30 2019-09-30 [facility] [id number] 10:12:00 10:12:00 [facility] Medicine Outpati ent Clinics 2019-09-29 2019-09-29 [facility] [id number] [address] 09:40:00 09:40:00 t [place] OTR s - [facility] Medicine Outpati ent Clinics 2019-09-26 2019-09-26 [facility] [id number] [facility] 13:00:00 13:00:00 [facility] Medicine Outpati ent Clinics 2019-09-26 2019-09-26 [facility] [id number] 10:03:00 10:03:00 t [place] OTR s - [facility] Medicine Outpati ent Clinics 2019-09-23 2019-09-23 [facility] [id number] 11:15:00 11:15:00 t [place] OTR s - [facility] Medicine Outpati ent Clinics 2019-09-12 2019-09-12 [facility] [id number] [facility] 15:20:00 15:20:00 t [place] OTR s - [facility] Medicine Outpati ent Clinics 2019-08-22 2019-08-22 Outpatient RIAN Reddy [facility] [id number] 13:00:00 23:59:59 Horacio 04 Shine 2019-07-14 2019-07-14 [facility] [id number] [facility] 15:39:00 15:39:00 t [place] - [facility] Medicine Outpati ent Clinics 2019-07-07 2019-07-07 [facility] [id number] [facility] [facility] 08:21:00 08:21:00 t [place] - [facility] Medicine Outpati ent Clinics 2019-06-27 2019-06-27 [facility] [id number] [facility] 08:21:00 08:21:00 t [place] OTR s - [facility] Medicine Outpati ent Clinics 2019-06-24 2019-06-24 [facility] [id number] [facility] 10:15:00 10:15:00 t [place] OTR s [employer] Medicine Outpati ent Clinics 2019-06-16 2019-06-16 [facility] [id number] [facility] 13:10:00 13:10:00 t [place] OTR s - [facility] Medicine Outpati ent Clinics 2019-04-25 2019-04-25 Outpatient Maureen [facility] [id number] 13:00:00 23:59:59 Horacio 03 Shine 2019-03-11 2019-03-11 [facility] [id number] [facility] 15:35:00 15:35:00 t Jag Ar[facility] Medicine Outpati [facility] Clinics 2019-03-11 2019-03-11 [facility] [id number] [facility] 09:38:00 09:38:00 t Mona purnima [facility] Medicine Outpati ent Clinics 2019-03-10 2019-03-10 [facility] [id number] [facility] 13:35:00 13:35:00 t [facility] l Outpati ent Clinics 2019-03-03 2019-03-03 [facility] [id number] [facility] [facility] 16:50:00 16:50:00 t [facility] [address] [facility] Medicine Outpati ent Clinics 2019-02-27 2019-02-27 [facility] [id number] 13:16:00 13:16:00 t Jag purnima [facility] Medicine Outpati ent Clinics 2019-02-17 2019-02-17 [facility] [id number] 16:40:00 16:40:00 t Jag [facility] Medicine Outpati ent Clinics 2018-12-30 2018-12-30 [facility] [id number] [facility] 10:27:00 10:27:[address] [place] s - Drive [facility] Medicine Outpati ent Clinics 2018-11-21 2018-11-22 Outpatient MHMISCHER MHMISCHER [id number] 08:30:50 23:59:59 00 2018-10-02 2018-10-02 Outpatient [facility]en [id number] 14:15:00 14:15:00 Horacio Riojas 2018-09-05 2018-09-05 [facility] [id number] [facility] 11:20:00 11:20:00 t Jag Arteaga [facility] Medicine Outpati ent Clinics 2018-07-18 2018-07-18 [facility] [id number] [facility] 18:30:00 18:30:00 dre Arteaga [facility] Medicine Outpati ent Clinics 2018-07-16 2018-07-16 [facility] [id number] 16:40:00 16:40:00 t Jag Arteaga [facility] Medicine Outpati ent Clinics 2018-06-17 2018-06-17 [facility] [id number] [facility] 12:24:00 12:24:00 t Jag Arteaga [facility] Medicine Outpati ent Clinics 2018-06-06 2018-06-06 [facility] [id number] [facility] 11:40:00 11:40:00 t Jag Arteaga [facility] Medicine Outpati ent Clinics Results This patient has no known results.
[2020-12-11 01:07] LABS: Protime INR 1.02
[2020-12-11 01:22] LABS: Absolute Lymphocytes (CBC) 1.6 K/uL (0.7-4.9); Basophils % 0.7 % (0-1.3); Hematocrit 39.9 % (36.0-45.0); Lymphocytes % 20.9 % (15.3-44.8); MPV 8.4 fL (7.6-11.3); RBC Red Blood Cell Count 4.57 M/uL (3.86-4.86)
[2020-12-11 01:26] LABS: Urine Blood Negative (Negative); Urine Glucose Negative (Negative); Urine Protein 2+ (Negative); Urine pH 8.5 (5.0-7.0)
[2020-12-11 01:38] LABS: Potassium 3.7 mmol/L (3.5-5.1)
[2020-12-11 01:46] LABS: Urine Bacteria <20 /HPF (<20); Urine RBC <5 /HPF (NONE SEEN)
--- NOTE | 2020-12-11 04:15 | EDPHYS ---
Physician Documentation [facility] Name: Amy Connor Age: 75 yrs Sex: Female : 1945 Arrival Date: 12/11/2020 Time: 00:23 Bed 2 Private MD: ED Physician Eliazar Campoverde HPI: 12/11 01:00 This 75 yrs old Female presents to ER via EMS with complaints of Weakness. [facility] 01:00 The patient presents to the emergency department with weakness of the right side of the mh7 face, that is mild. Onset: The symptoms/episode began/occurred yesterday, at 19:00. Context: occurred at home, occurred while the patient was unknown. Associated signs and symptoms: Pertinent positives: altered mental status, nausea, weakness, Pertinent negatives: chills, dizziness, fever, headache, nausea, neck stiffness, paresthesias, seizure, syncope, near-syncope, blurred vision, double vision, visual field changes, loss of vision. Severity of symptoms: At their worst the symptoms were moderate last night, in the emergency department the symptoms have improved markedly. Patient's baseline: Neuro: alert and fully oriented, Motor: no deficits, Ambulation: walks with assist only, uses cane, uses walker, Speech: normal. Current symptoms: right facial weakness. Historical: - Allergies: 00:39 axetil; ak2 00:39 Cefuroxime; ak2 00:39 Clindamycin; ak2 00:39 Codeine; ak2 00:39 Demerol; ak2 00:39 hydrocodone bitartrate; ak2 00:39 hydrocodone bitartrate (bulk); ak2 00:39 Iodine; ak2 00:39 Keflex; ak2 00:39 Levaquin; ak2 00:39 meperidine HCl; ak2 00:39 naprosen; ak2 00:39 Naproxen; ak2 00:39 nitro; ak2 00:39 Nitrofuran Analogues; ak2 00:39 PENICILLINS; ak2 00:39 pentazocine lactate; ak2 00:39 promethazine HCl; ak2 00:39 Sulfa (Sulfonamide Antibiotics); ak2 00:39 Talwin; ak2 00:39 Vicodin; ak2 - Home Meds: 00:39 amlodipine 10 mg tab 1 tab once daily [Active]; atorvastatin 40 mg Oral tab 1 tab once ak2 daily [Active]; calcitriol 0.25 mcg Oral cap 1 cap [Active]; divalproex 500 mg Oral Tb24 1 tab once daily [Active]; furosemide 40 mg Oral tab 1 tab 2 times per day [Active]; hydralazine 25 mg Oral tab 1 tab 4 times per day [Active]; Insulin Glargine Sub-Q [Active]; lisinopril 20 mg Oral tab 1 tab once daily [Active]; metoprolol succinate 100 mg Oral Tb24 1 tab once daily [Active]; pantoprazole 20 mg Oral TbEC 1 tab once daily [Active]; - PMHx: 00:39 CKD; Diabetes - IDDM; first degree AV block; history of nicotine dependence; ak2 Hyperlipidemia; Hypertension; Hypothyroidism; - Immunization history:: Adult Immunizations up to date. - Social history:: Smoking status: unknown. ROS: 01:00 Constitutional: Negative for fever, chills, and weight loss, Eyes: Negative for injury, mh7 pain, redness, and discharge, ENT: Negative for injury, pain, and discharge, Neck: Negative for injury, pain, and swelling, Cardiovascular: Negative for chest pain, palpitations, and edema, Respiratory: Negative for shortness of breath, cough, wheezing, and pleuritic chest pain, Abdomen/GI: Negative for abdominal pain, nausea, vomiting, diarrhea, and constipation, Back: Negative for injury and pain, : Negative for injury, bleeding, discharge, and swelling, MS/Extremity: Negative for injury and deformity, Skin: Negative for injury, rash, and discoloration, Psych: Negative for depression, anxiety, suicide ideation, homicidal ideation, and hallucinations, Allergy/Immunology: Negative for hives, rash, and allergies, Endocrine: Negative for neck swelling, polydipsia, polyuria, polyphagia, and marked weight changes, Hematologic/Lymphatic: Negative for swollen nodes, abnormal bleeding, and unusual bruising. Exam: 01:00 Constitutional: This is a well developed, well nourished patient who is awake, alert, mh7 and in no acute distress. Head/Face: Normocephalic, atraumatic. Eyes: Pupils equal round and reactive to light, extra-ocular motions intact. Lids and lashes normal. Conjunctiva and sclera are non-icteric and not injected. Cornea within normal limits. Periorbital areas with no swelling, redness, or edema. ENT: Nares patent. No nasal discharge, no septal abnormalities noted. Tympanic membranes are normal and external auditory canals are clear. Oropharynx with no redness, swelling, or masses, exudates, or evidence of obstruction, uvula midline. Mucous membranes moist. Neck: Trachea midline, no thyromegaly or masses palpated, and no cervical lymphadenopathy. Supple, full range of motion without nuchal rigidity, or vertebral point tenderness. No Meningismus. Chest/axilla: Normal chest wall appearance and motion. Nontender with no deformity. No lesions are appreciated. Cardiovascular: Regular rate and rhythm with a normal S1 and S2. No gallops, murmurs, or rubs. Normal PMI, no JVD. No pulse deficits. Respiratory: Lungs have equal breath sounds bilaterally, clear to auscultation and percussion. No rales, rhonchi or wheezes noted. No increased work of breathing, no retractions or nasal flaring. Abdomen/GI: Soft, non-tender, with normal bowel sounds. No distension or tympany. No guarding or rebound. No evidence of tenderness throughout. Back: No spinal tenderness. No costovertebral tenderness. Full range of motion. Skin: Warm, dry with normal turgor. Normal color with no rashes, no lesions, and no evidence of cellulitis. MS/ Extremity: Pulses equal, no cyanosis. Neurovascular intact. Full, normal range of motion. 01:00 Psych: Awake, alert, with orientation to person, place and time. Behavior, mood, and affect are within normal limits. 01:00 Neuro: Orientation: is normal, Mentation: is normal, Memory: is normal, Cranial nerves: facial droop noted on right, Cerebellar function: is grossly normal, Motor: is normal, Sensation: is normal, Gait: not tested. seizure activity, is not displayed by the patient, Abnormal movements: there are no abnormal movements. Vital Signs: 00:35 BP 182 / 81; Pulse 66; Resp 20; Temp 98.6; Pulse Ox 99% on R/A; Weight 96.16 kg; Height ak2 5 ft. 1 in. (154.94 cm); 01:27 BP 171 / 75; Pulse 68; Resp 20; Pulse Ox 100% on R/A; ak2 03:06 BP 164 / 85; Pulse 82; Resp 20; Pulse Ox 100% on R/A; ak2 06:08 BP 149 / 76; Pulse 82; Resp 20; Pulse Ox 98% on R/A; ak2 00:35 Body Mass Index 40.06 (96.16 kg, 154.94 cm) ak2 NIH Stroke Scale Scores: 01:00 NIHSS Score: 1 7 MDM: 04:11 Data reviewed: vital signs, nurses notes, lab test result(s), cardiac enzymes, CBC, [facility] electrolytes, EKG, radiologic studies, CT scan, plain films. Data interpreted: Pulse oximetry: on room air is 100 %. Interpretation: normal. Counseling: I had a detailed discussion with the patient and/or guardian regarding: the historical points, exam findings, and any diagnostic results supporting the discharge/admit diagnosis, the presence of at least one elevated blood pressure reading (>120/80) during this emergency department visit, lab results, radiology results, the need for further work-up and treatment in the hospital. Response to treatment: the patient's symptoms have markedly improved after treatment. 04:14 Patient medically screened. [facility] 04:14 ED course: NAD, VSS, very mild right facial droop at mouth. Patient present outside [facility] treatment window for thrombolytic therapy. Also low NIH score.. 12/11 00:23 Order name: Glucose, Ancillary Testing; Complete Time: 00:49 EDMS 12/11 00:23 Order name: Glucose, Ancillary Testing EDSD 12/11 00:28 Order name: Basic Metabolic Panel; Complete Time: :59 em 12/11 00:28 Order name: CBC with Diff; Complete Time: :59 em 12/11 00:28 Order name: Protime (+inr); Complete Time: 01:23 em 12/11 00:28 Order name: Ptt, Activated; Complete Time: : em 12/11 00:28 Order name: CT Stroke Brain w/o Contrast em 12/11 00:28 Order name: Stroke CXR 1 View em 12/11 01:12 Order name: Troponin (emerg Dept Use Only); Complete Time: :59 rr5 12/11 01:12 Order name: Urine Microscopic Only; Complete Time: :59 rr5 12/11 01:24 Order name: Glucose, Ancillary Testing; Complete Time: 01:59 EDMS 12/11 01:26 Order name: Urine Dipstick-Ancillary; Complete Time: 01:59 EDSD 12/11 06:02 Order name: SARS-COV-2 RT PCR EDSD 12/11 00:28 Order name: EKG; Complete Time: 00:29 em 12/11 00:28 Order name: Accucheck; Complete Time: 01: em 12/11 00:28 Order name: Cardiac monitoring; Complete Time: : em 12/11 00:28 Order name: EKG - Nurse/Tech; Complete Time: : em 12/11 00:28 Order name: IV Saline Lock; Complete Time: : em 12/11 00:28 Order name: Labs collected and sent; Complete Time: : em 12/11 00:28 Order name: NPO; Complete Time: : em 12/11 00:28 Order name: O2 Per Protocol; Complete Time: : em 12/11 00:28 Order name: O2 Sat Monitoring; Complete Time: : em 12/11 01:12 Order name: Urine Dipstick-Ancillary (obtain specimen); Complete Time: 02:55 [facility] 12/11 02:01 Order name: CT Head Angio [facility] 12/11 02:01 Order name: CT Neck Angio [facility] Administered Medications: 04:53 Drug: Aspirin Chewable Tablet 324 mg Route: PO; ak2 04:53 Drug: foLIC Acid 1 mg Route: PO; ak2 Disposition Summary: 12/11/20 04:14 Hospitalization Ordered Hospitalization Status: Inpatient Admission [facility] Provider: Wu Rock [facility] Location: Telemetry/MedSur (Inpatient) [facility] Condition: Stable [facility] Problem: new [facility] Symptoms: have improved [facility] Bed/Room Type: Standard [facility] Room Assignment: 209(12/11/20 06:14) Diagnosis - Cerebral Vascular Accident [facility] Forms: - Medication Reconciliation Form [facility] - SBAR form [facility] NIH Stroke Scale - NIH Stroke Score Date: 12/11/2020 Time: 01:00 Total Score = 1 1a. Level of Consciousness (LOC) - 0(Alert) 1b. Level of Consciousness (LOC) (Month \T\ Age) - 0(Both) 1c. LOC Commands (Open \T\ Closes Eyes/[place]) - 0(Both) 2. Best Gaze (Lateral Gaze Paresis) - 0(Normal) 3. Visual Field Loss - 0(No visual loss) 4. Facial Palsy - 1(Minor Paralysis) 5a. Left Arm: Motor (10-second hold) - 0(No drift) 5b. Right Arm: Motor (10-second hold) - 0(No drift) 6a. Left Leg: Motor (5-second hold - always test supine) - 0(No drift) 6b. Right Leg: Motor (5-second hold - always test supine) - 0(No drift) 7. Limb Ataxia (finger/nose \T\ heel/lombardi - test with eyes open) - 0(Absent) 8. Sensory Loss (pinprick arms/legs/face) - 0(Normal) 9. Best Language: Aphasia (description/naming/reading) - 0(No aphasia) 10. Dysarthria (speech clarity - read or repeat words) - 0(Normal) 11. Extinction and Inattention (visual/tactile/auditory/spatial/personal) - 0(No abnormality) Initials: [facility] Signatures: Dispatcher [employer] EDMS Kody Chavez, RN RN em Tony Freeman, TISSUE SPECIALIST-C TISSUE SPECIALIST-Cla1 Poonam Rodriguez RN RN cg Roque, Raymond, RN RN rr5 Eliazar Campoverde MD MD [facility] Sidney Acosta Corrections: (The following items were deleted from the chart) 05:07 04:54 CORONAVIRUS+MR.JD.BRZ ordered. EDSD EDMS 06:14 04:14 [facility]
--- NOTE | 2020-12-11 04:15 | ER ---
Nurse's Notes [facility] Name: Amy Connor Age: 75 yrs Sex: Female : 1945 Arrival Date: 12/11/2020 Time: 00:23 Bed 2 Private MD: Diagnosis: Cerebral Vascular Accident Presentation: 12/11 00:35 Chief complaint: Patient states: weakness after taking extra dose of insulin. poc ak2 b. Coronavirus screen: Client denies travel out of the [place] in the last 14 days. At this time, the client does not indicate any symptoms associated with coronavirus-19. Ebola Screen: Patient negative for fever greater than or equal to 101.5 degrees Fahrenheit, and additional compatible Ebola Virus Disease symptoms Patient denies exposure to infectious person. Patient denies travel to an Ebola-affected area in the 21 days before illness onset. No symptoms or risks identified at this time. Initial Sepsis Screen: Does the patient meet any 2 criteria? No. Patient's initial sepsis screen is negative. Initial Sepsis Screen: Does the patient have a suspected source of infection? No. Patient's initial sepsis screen is negative. Risk Assessment: Do you want to hurt yourself or someone else? Patient reports no desire to harm self or others. Onset of symptoms was December 11, 2020. 00:35 Method Of Arrival: EMS: [facility] ak2 00:35 Acuity: SIGIFREDO 3 ak2 01:06 Chief complaint:. ak2 Triage Assessment: 00:39 General: Appears in no apparent distress. Behavior is calm, cooperative. Pain: Denies ak2 pain. Neuro: R sided facial droop, no other neuro deficits. code stroke initiated. . Cardiovascular: No deficits noted. Respiratory: No deficits noted. 00:48 Neuro: ak2 Historical: - Allergies: 00:39 axetil; ak2 00:39 Cefuroxime; ak2 00:39 Clindamycin; ak2 00:39 Codeine; ak2 00:39 Demerol; ak2 00:39 hydrocodone bitartrate; ak2 00:39 hydrocodone bitartrate (bulk); ak2 00:39 Iodine; ak2 00:39 Keflex; ak2 00:39 Levaquin; ak2 00:39 meperidine HCl; ak2 00:39 naprosen; ak2 00:39 Naproxen; ak2 00:39 nitro; ak2 00:39 Nitrofuran Analogues; ak2 00:39 PENICILLINS; ak2 00:39 pentazocine lactate; ak2 00:39 promethazine HCl; ak2 00:39 Sulfa (Sulfonamide Antibiotics); ak2 00:39 Talwin; ak2 00:39 Vicodin; ak2 - Home Meds: 00:39 amlodipine 10 mg tab 1 tab once daily [Active]; atorvastatin 40 mg Oral tab 1 tab once ak2 daily [Active]; calcitriol 0.25 mcg Oral cap 1 cap [Active]; divalproex 500 mg Oral Tb24 1 tab once daily [Active]; furosemide 40 mg Oral tab 1 tab 2 times per day [Active]; hydralazine 25 mg Oral tab 1 tab 4 times per day [Active]; Insulin Glargine Sub-Q [Active]; lisinopril 20 mg Oral tab 1 tab once daily [Active]; metoprolol succinate 100 mg Oral Tb24 1 tab once daily [Active]; pantoprazole 20 mg Oral TbEC 1 tab once daily [Active]; - PMHx: 00:39 CKD; Diabetes - IDDM; first degree AV block; history of nicotine dependence; ak2 Hyperlipidemia; Hypertension; Hypothyroidism; - Immunization history:: Adult Immunizations up to date. - Social history:: Smoking status: unknown. Screenin:41 Abuse screen: Denies threats or abuse. Denies injuries from another. Nutritional ak2 screening: No deficits noted. Tuberculosis screening: No symptoms or risk factors identified. Fall Risk None identified. Assessment: 00:41 General: Appears in no apparent distress. Pain: Denies pain. ak2 01:21 General: poc b. ak2 01:27 Reassessment: Patient and/or family updated on plan of care and expected duration. Pain ak2 level reassessed. 02:30 Reassessment: Patient and/or family updated on plan of care and expected duration. Pain ak2 level reassessed. 03:06 Reassessment: Patient and/or family updated on plan of care and expected duration. Pain ak2 level reassessed. General: Appears in no apparent distress. 04:47 General: swallow screen passed. ak2 06:08 Reassessment: Patient and/or family updated on plan of care and expected duration. Pain ak2 level reassessed. 06:20 General: report called to rn. ak2 Vital Signs: 00:35 BP 182 / 81; Pulse 66; Resp 20; Temp 98.6; Pulse Ox 99% on R/A; Weight 96.16 kg; Height ak2 5 ft. 1 in. (154.94 cm); 01:27 BP 171 / 75; Pulse 68; Resp 20; Pulse Ox 100% on R/A; ak2 03:06 BP 164 / 85; Pulse 82; Resp 20; Pulse Ox 100% on R/A; ak2 06:08 BP 149 / 76; Pulse 82; Resp 20; Pulse Ox 98% on R/A; ak2 00:35 Body Mass Index 40.06 (96.16 kg, 154.94 cm) ak2 NIH Stroke Scale Scores: 01:00 NIHSS Score: 1 [facility] ED Course: 00:23 Patient arrived in ED. em 00:35 CT Stroke Brain w/o Contrast In Process Unspecified. EDMS 00:35 Sidney Acosta is Primary Nurse. ak2 00:39 Triage completed. ak2 00:39 Arm band placed on right wrist. ak2 00:41 Patient has correct armband on for positive identification. ak2 00:41 No provider procedures requiring assistance completed. Inserted saline lock: 20 gauge ak2 in right antecubital area, using aseptic technique. 00:58 Eliazar Campoverde MD is Attending Physician. 7 01:23 Stroke CXR 1 View In Process Unspecified. EDMS 02:54 CT Head Angio In Process Unspecified. EDMS 02:54 CT Neck Angio In Process Unspecified. EDMS 04:13 Wu Rock MD is Hospitalizing Provider. 7 Administered Medications: 04:53 Drug: Aspirin Chewable Tablet 324 mg Route: PO; ak2 04:53 Drug: foLIC Acid 1 mg Route: PO; ak2 Outcome: 04:14 Decision to Hospitalize by Provider. 7 06:21 Admitted to ak2 06:21 Admitted to Tele 06:21 Condition: good 06:35 Patient left the ED. rr5 NIH Stroke Scale - NIH Stroke Score Date: 12/11/2020 Time: 01:00 Total Score = 1 1a. Level of Consciousness (LOC) - 0(Alert) 1b. Level of Consciousness (LOC) (Month \T\ Age) - 0(Both) 1c. LOC Commands (Open \T\ Closes Eyes/[place]) - 0(Both) 2. Best Gaze (Lateral Gaze Paresis) - 0(Normal) 3. Visual Field Loss - 0(No visual loss) 4. Facial Palsy - 1(Minor Paralysis) 5a. Left Arm: Motor (10-second hold) - 0(No drift) 5b. Right Arm: Motor (10-second hold) - 0(No drift) 6a. Left Leg: Motor (5-second hold - always test supine) - 0(No drift) 6b. Right Leg: Motor (5-second hold - always test supine) - 0(No drift) 7. Limb Ataxia (finger/nose \T\ heel/lombardi - test with eyes open) - 0(Absent) 8. Sensory Loss (pinprick arms/legs/face) - 0(Normal) 9. Best Language: Aphasia (description/naming/reading) - 0(No aphasia) 10. Dysarthria (speech clarity - read or repeat words) - 0(Normal) 11. Extinction and Inattention (visual/tactile/auditory/spatial/personal) - 0(No abnormality) Initials: 7 Signatures: Dispatcher [employer] EDKody Briceno RN RN em Roque, Raymond, RN RN rr5 Eliazar Campoverde MD MD 7 Sidney Acosta Corrections: (The following items were deleted from the chart) 00:48 00:39 Neuro: R sided facial droop, no other neuro deficits . ak2 ak2 01:06 00:35 Chief complaint: Patient states: weakness after taking extra dose of ak2 insulin. poc b ak2
--- NOTE | 2020-12-11 05:04 | P.HP ---
Certification for Inpatient Patient admitted to: Observation With expected LOS: <2 Midnights Patient will require the following post-hospital care: None Practitioner: I am a practitioner with admitting privileges, knowledge of patient current condition, hospital course, and medical plan of care. Services: Services provided to patient in accordance with Admission requirements found in Title 42 Section 412.3 of the Code of Federal Regulations <Tony Freeman - Last Filed: 12/11/20 04:59> Patient History Date of Service: 12/11/20 Primary Care Provider: Dr. Henry, -neurology Reason for admission: TIA History of Present Illness: 75 year old female with history of diabetes mellitus type 2, hypertension, hypothyroidism, seizure disorder, GERD presents emergency department for weakness, right-sided facial droop. reports that he was in the kitchen with her around 1930 last night when she had an episode of nausea followed by dry heaving, at that time patient appeared to be normal/face was symmetrical, patient then went and laid down in bed and when he went to check on her he found her speech to be slurred and she is having right-sided facial droop. Patient was brought to the emergency department and evaluated, code stroke was called, CT head brain without contrast was negative for any acute findings, labs were unremarkable aside from mildly elevated blood sugar [address] angio head and neck which were negative for any acute findings. Patient's deficits resolved during her emergency department stay, currently NIH is 0. Patient has had problems with short-term memory over the course of the last 1 year is being evaluated by her neurologist for this. Patient is scheduled for MRI on for further evaluation. ED provider wishes to admit patient under observation for suspected TIA. - Past Medical/Surgical History Diabetic: Yes -: Chronic kidney disease, stage 3, [place] [facility] -: Diabetes mellitus type 2, insulin-dependent -: Hypothyroidism -: Hypertension -: GERD with hiatal hernia -: History gastric surgery -: Hyperlipidemia -: History of GI bleed -: Appendectomy -: Cholecystectomy -: Hysterectomy -: Hernia repair -: Back surgery -: Bilateral knee replacements -: Gastric surgery for weight loss Psychosocial/ Personal History: The patient is . She has 2 children. She does not work. - Family History Father -: Heart disease, Hypertension, Cancer Mother -: Heart disease, Hypertension, Diabetes, Cancer Notes: pancreatic cancer - Social History Smoking Status: Former smoker Alcohol use: No CD- Drugs: No Caffeine use: Yes Place of Residence: Home <JosiasTony cortez - Last Filed: 12/11/20 04:59> Date of Service: 12/11/20 <Wu Rock - Last Filed: 12/11/20 14:18> Allergies clindamycin Allergy (Mild, Verified 03/14/19 02:07) Hives/Rash codeine [Codeine] Allergy (Mild, Verified 03/14/19 02:07) Hives/Rash hydrocodone bitartrate [From Vicodin] Allergy (Mild, Verified 03/14/19 02:07) Hives/Rash iodine Allergy (Mild, Verified 03/14/19 02:07) Hives meperidine HCl [From Demerol] Allergy (Mild, Verified 03/14/19 02:07) Hives/Rash naproxen Allergy (Mild, Verified 03/14/19 02:07) Hives/Rash Penicillins Allergy (Mild, Verified 03/14/19 02:07) Hives/Rash pentazocine lactate [From Talwin] Allergy (Mild, Verified 03/14/19 02:07) Hives/Rash promethazine HCl [From Phenergan] Allergy (Mild, Verified 03/14/19 02:07) Hives/Rash Sulfa (Sulfonamide Antibiotics) [Sulfa(Sulfonamide Antibiotics)] Allergy (Mild, Verified 03/14/19 02:07) Hives/Rash cefuroxime Allergy (Verified 03/14/19 02:07) Hives/Rash cephalexin Allergy (Verified 03/14/19 02:07) Itching/Hives/Rash hydrocodone [From Vicodin] Allergy (Verified 03/14/19 02:07) Unknown Iodine and Iodide Containing Produc Allergy (Verified 03/14/19 14:26) Anaphylaxis levofloxacin [From Levaquin] Allergy (Verified 03/14/19 02:07) Hives/Rash meperidine [From Demerol] Allergy (Verified 03/14/19 02:07) Unknown Nitrofuran Analogues Allergy (Verified 03/14/19 02:07) Unknown nitrofurantoin Allergy (Verified 03/14/19 02:07) Hives/Rash pentazocine [From Talwin] Allergy (Verified 03/14/19 02:07) Unknown axetil Allergy (Uncoded 01/27/19 13:44) Unknown naprson Allergy (Uncoded 01/27/19 13:44) Itching/Hives/Rash Home Medications: Calcitrol [Rocaltrol*] 0.25 mcg PO DAILY 01/15/17 Hydralazine [Apresoline*] 25 mg PO BID 01/15/17 Divalproex Sodium 500 mg PO BEDTIME 02/15/18 Amlodipine [Norvasc*] 10 mg PO [id number] 02/18/18 Acetaminophen [Acetaminophen ER] 2 tab PO Q4H PRN 04/05/18 Atorvastatin Calcium [Lipitor*] 20 mg PO BEDTIME 04/05/18 Carboxymethylcellulose Sodium [Lubricant Eye Drop] 1 drop EACH EYE BID 03/14/19 Diphenhydramine [Benadryl*] 1 tab PO Q6H PRN 03/14/19 Docusate [Colace Cap*] 1 tab PO BID PRN 03/14/19 Insulin Glargine,Hum.rec.anlog [Lantus Solostar] 15 units SQ DAILY 03/14/19 Insulin Lispro [Humalog Kwikpen U-100] 100 units SQ SEECOM 03/14/19 Lactulose 30 ml PO DAILY PRN 03/14/19 Levothyroxine [Synthroid*] 1 tab PO DAILY 03/14/19 Oxycodone HCl 1 cap PO Q6H PRN 03/14/19 Sennosides 1 tab PO Q12H PRN 03/14/19 Vit C/E/Zn/Coppr/Lutein/Zeaxan [Preservision Areds 2 Softgel] 1 cap PO BID 03/14/19 Ensure Enlive 237 ml PO QID #120 can 03/17/19 Ferrous Sulfate 325 mg PO BID #60 tablet 03/17/19 Pantoprazole Sodium [Protonix] 40 mg PO BID #60 tablet. 03/17/19 Review of Systems 10-point ROS is otherwise unremarkable General: Weakness <Tony Freeman - Last Filed: 12/11/20 04:59> Physical Examination - Physical Exam General: Alert, In no apparent distress, Oriented x3 HEENT: Atraumatic, PERRLA, Mucous membr. moist/pink, EOMI, Sclerae nonicteric Neck: Supple, 2+ carotid pulse no bruit, No LAD, Without JVD or thyroid abnormality Respiratory: Clear to auscultation bilaterally, Normal air movement Cardiovascular: Regular rate/rhythm, Normal S1 S2 Gastrointestinal: Normal bowel sounds, No tenderness Musculoskeletal: No tenderness Integumentary: No rashes Neurological: Normal speech, Normal strength at 5/5 x4 extr, Normal tone, Sensation intact, Normal affect - Studies Laboratory Data (last 24 hrs) 12/11/20 01:15: Sodium 141, Potassium 3.7, BUN 16, Creatinine 0.97, Glucose 172 H 12/11/20 00:37: PT 11.7, INR 1.02, APTT 28.3 12/11/20 00:37: WBC 7.90, Hgb 13.0, Hct 39.9, Plt Count 202 <Tony Freeman - Last Filed: 12/11/20 04:59> - Studies Laboratory Data (last 24 hrs) 12/11/20 01:15: Sodium 141, Potassium 3.7, BUN 16, Creatinine 0.97, Glucose 172 H 12/11/20 00:37: PT 11.7, INR 1.02, APTT 28.3 12/11/20 00:37: WBC 7.90, Hgb 13.0, Hct 39.9, Plt Count 202 <Wu Rock - Last Filed: 12/11/20 14:18> Assessment and Plan - Plan Assessment Right-sided facial weakness-resolved suspect TIA Seizure disorder Hypertension Hyperlipidemia Hypothyroidism GERD CKD 3 Plan Right-sided facial weakness-resolved suspect TIA: CT head brain without contras t, CT head/neck with contrast angio negative for any acute findings. NIH currently 0. Patient reports possible TIA in the past, patient also reports that she felt like she may have had a seizure. Will continue with aspirin, statin, folic acid. Neurology consult in place. Patient will likely need MRI, is scheduled for one on . Will need to discuss case with neurology to determine if patient will require inpatient MRI. DVT prophylaxis Lovenox 40 mg subcutaneous once daily. Seizure disorder: Will need to review home medications, continue as appropri ate. Patient reports that she has not had a seizure in many years. Hypertension: Obtain and continue home medications Hyperlipidemia: Obtain a continue home medications, lipid panel with lab. Hypothyroidism: Obtain and continue medication, thyroid panel lab. GERD: Continue Protonix CKD 3: Stable. Discharge Plan: Home Plan to discharge in: 24 Hours - Advance Directives Does patient have a Living Will: No Does patient have a Durable POA for Healthcare: Yes - Code Status/Comfort Care Code Status Assessed: Yes (Full code) Critical Care: No Time Spent Managing Pts Care (In Minutes): 55 <Tony Freeman - Last Filed: 12/11/20 04:59> - Plan Plan of care reviewed as noted above. Symptoms resolved. Suspect TIA vs seizure with postictal phase unclear etiology of nausea/dry-heaving, possible reaction to cipro or pyridium Spoke with PCP - urine culture grew mixed normal urogential georgina restart home meds once confirmed/obtained Dr. Reddy to see patient neuro exam with focal deficit this morning <Wu Rock - Last Filed: 12/11/20 14:18>
[2020-12-11] MEDS ORDERED: ASPIRIN 81 MG CHEWABLE TABLET ONE (05:11)
[2020-12-11] MEDS ORDERED: FOLIC ACID 1 MG TABLET ONE (05:11)
[2020-12-11] MEDS: NA CHLORIDE 0.9% 1,000 ML IV SCH ×2 (06:18→09:11)
[2020-12-11] MEDS ORDERED: ONDANSETRON 4 MG/2 ML VIAL IV PRN (06:18)
[2020-12-11] MEDS ORDERED: SODIUM CHLORIDE 0.9% 10ML INJ IV PRN (06:18)
[2020-12-11 06:47] VITALS: O2SAT 98
[2020-12-11 07:58] LABS: Urine Appearance CLEAR (Clear); Urine Bilirubin NEGATIVE (Negative); Urine Blood NEGATIVE (Negative); Urine Color ORANGE (Yellow); Urine Glucose TRACE (Negative); Urine Protein 1+ (Negative); Urine Specific Gravity 1.025 (1.005-1.030); Urine Urobilinogen 0.2 mg/dL (0.2-1.0)
[2020-12-11 08:07] LABS: Urine Microscopic Reflex ORDER UMIC
[2020-12-11] MEDS: PANTOPRAZOLE 40 MG INJ IVP SCH (09:00)
[2020-12-11 09:04] LABS: Urine Bacteria <20 /HPF (<20); Urine RBC <5 /HPF (NONE SEEN)
[2020-12-11] MEDS: INSULIN -REGULAR HUMAN 50 UNIT/0.5 ML ML SQ SCH ×4 (09:11→20:48)
[2020-12-11] MEDS: ENOXAPARIN 40 MG/0.4 ML SQ SCH (09:12)
[2020-12-11] MEDS: FOLIC ACID 1 MG TABLET PO SCH (09:12)
[2020-12-11] MEDS: ASPIRIN EC 81 MG TAB PO SCH (09:12)
--- NOTE | 2020-12-11 09:34 | RAD REPORT ---
EXAM DESCRIPTION: RAD - Chest Single View - 12/11/2020 1:23 am CLINICAL HISTORY: CHEST PAIN COMPARISON: Two view chest October 2019 TECHNIQUE: AP portable chest image was obtained 12/11/2020 1:23 am . FINDINGS: Lung volumes are much lower than the comparison study. No peripheral mass consolidation. S light accentuation of the interstitial pattern in vasculature can be accounted for by the differences in lung volumes. Heart size within normal limits for low lung volume portable study. No measurable p leural effusion and no pneumothorax. No acute bony abnormality seen. No acute aortic findings suspect ed. IMPRESSION: No acute cardiopulmonary process.
[2020-12-11 13:37] VITALS: BMI 40.0
[2020-12-11] MEDS ORDERED: HYDRALAZINE HCL 25 MG TABLET PO ONE (16:57)
[2020-12-11] MEDS: ACETAMINOPHEN 500 MG TAB PO PRN (20:47)
[2020-12-11] MEDS: ATORVASTATIN 40 MG TAB PO SCH (20:48)
[2020-12-11] MEDS: GABAPENTIN 300 MG CAP PO SCH (20:48)
--- NOTE | 2020-12-11 22:41 | RAD REPORT ---
EXAM DESCRIPTION: CT - Ct Stroke Brain Wo Cont - 12/11/2020 6:40 am ADDENDUM #1 Urgent finding reported to IVAN Freeman at 12/11/2020 12: 41 AM CDT Electronically signed by: Aly Hickman 12/11/2020 6:55 AM CDT End of Addendum EXAM DESCRIPTION: CT of the head without contrast CLINICAL HISTORY: Aphasia;Weakness COMPARISON: 10/08/2017 TECHNIQUE: Axial CT of the head obtained from the skull apex to the skull base without contrast. Thi s exam was performed according to our departmental dose-optimization program, which includes automate d exposure control, adjustment of the mA and/or kV according to patient size and/or use of iterative reconstruction technique. FINDINGS: No acute intracranial hemorrhage identified. Small interhemispheric lipomas are stable. No mass effect, shift of the midline, abnormal extra-axial fluid collection or CT evidence of acute i schemic change identified. The ventricular system and sulcal spaces are age appropriate. Scattered areas of hypodensity throughout the supratentorial white matter are nonspecific and may be related to chronic small vessel ischemic change. The visualized paranasal sinuses and mastoid air cells are well aerated. No skull fracture identifi ed. Visualized orbits and globes are unremarkable. Atherosclerotic calcification of the intracranial internal carotid arteries. IMPRESSION: 1. No acute intracranial abnormality by CT criteria. Electronically signed by: Aly Hickman 12/11/2020 12:44 AM CDT Due to temporary technical issues with the PACS/Fluency reporting system, reports are being signed by the in house radiologists without review as a courtesy to insure prompt reporting. The interpreting radiologist is fully responsible for the content of the report.
--- NOTE | 2020-12-11 22:43 | RAD REPORT ---
EXAM DESCRIPTION: CT - Neck Angio - 12/11/2020 6:36 am CLINICAL HISTORY: 75 years, Female, WEAKNESS COMPARISON: Recent CT scan of the head without contrast. TECHNIQUE: Multiple transaxial tomograms from the aortic arch through the brain were performed after administration of a 100 cc of Omnipaque 350 at a rate of 5 cc/s for complete opacification of the ca rotid arteries and intracranial vessels. Subsequent 2-D and 3-D multiplanar reformats, volume rendering technique and maximum intensity projec tion images were generated and reviewed. Stenosis measurements were performed according to NASCET cri teria. This exam was performed according to our departmental dose-optimization protocol, which includes auto mated exposure control, adjustment of the mA and/or kV according to patient size and/or use of iterat katharina reconstruction technique. FINDINGS: Ascending aorta: Visualized portions of the aortic arch demonstrating no significant abn ormalities. There are codominant vertebral arteries which demonstrate normal opacification. Right carotid artery: Normal opacification is demonstrated within the right common carotid artery a nd at the carotid bifurcation. The right carotid bulb demonstrate to be within normal limits. There i s no evidence for significant plaque formation and/or stenosis. The proximal, mid and distal portions of the right internal carotid artery demonstrate to be within normal limits. There is no evidence fo r significant stenosis and/or occlusion. Left carotid artery: Normal opacification is demonstrated within the left common carotid artery an d at the carotid bifurcation. The left carotid bulb demonstrate to be within normal limits. There is no evidence for significant plaque formation and/or stenosis. The proximal, mid and distal portions o f the left internal carotid artery demonstrate to be within normal limits. There is no evidence for s ignificant stenosis and/or occlusion. Intracranial circulation: Intracranial portions of the internal carotid arteries the cavernous sinus portions demonstrates no focal areas of significant stenosis. There is normal opacification within th e anterior circulation without evidence of intracranial aneurysm. The anterior cerebral arteries, m iddle cerebral arteries and its branches demonstrate normal opacification with no evidence for signif icant stenosis aneurysm and/or occlusion. There is normal venous drainage with no evidence for sinus vein thrombosis. Vertebrobasilar system: The posterior circulation demonstrate codominant bilateral vertebral arteries with no evidence for significant stenosis and/or evidence for significant dissection. The vertebroba silar system and [employer] demonstrate to be normal with no evidence for aneurysm and/or occlusion. Grossly the brain parenchyma demonstrate normal [place]-white matter differentiation with no evidence fo r mass effect and/or midline shift. Again there is minimal very minimal periventricular matter change s. The skull base and intracranial structures demonstrate to be within normal limits. Lung apex: No gross abnormalities are noted within the apices. IMPRESSION: No evidence for significant stenosis and/or occlusion of the cervical internal carotid a nd vertebral arteries. Unremarkable CTA of the [place] with no evidence for significant stenosis and/or occlusion o f the intracranial vessels. Electronically signed by: Venkat Melissa MD 12/11/2020 3:42 AM CDT Due to temporary technical issues with the PACS/Fluency reporting system, reports are being signed by the in house radiologists without review as a courtesy to insure prompt reporting. The interpreting radiologist is fully responsible for the content of the report.
[2020-12-12 05:46] LABS: Absolute Lymphocytes (CBC) 1.1 K/uL (0.7-4.9); Basophils % 0.7 % (0-1.3); Hematocrit 37.9 % (36.0-45.0); Lymphocytes % 19.5 % (15.3-44.8); MPV 8.3 fL (7.6-11.3); RBC Red Blood Cell Count 4.29 M/uL (3.86-4.86)
[2020-12-12 06:09] LABS: Albumin 3.5 g/dL (3.4-5.0); Bilirubin Total 0.6 mg/dL (0.2-1.0); Potassium 4.2 mmol/L (3.5-5.1); Protein, Total 6.7 g/dL (6.4-8.2); Thyroid Stimulating Hormone 1.62 uIU/mL (0.360-3.740)
[2020-12-12] MEDS: INSULIN -REGULAR HUMAN 50 UNIT/0.5 ML ML SQ SCH ×4 (07:30→20:49)
[2020-12-12] MEDS ORDERED: DONEPEZIL HCL 5 MG TAB PO SCH (09:00)
[2020-12-12] MEDS: HYDRALAZINE HCL 25 MG TABLET PO SCH (11:11)
[2020-12-12] MEDS: LEVOTHYROXINE SOD 0.125 MG TAB PO SCH (11:11)
[2020-12-12] MEDS: ENOXAPARIN 40 MG/0.4 ML SQ SCH (11:12)
[2020-12-12] MEDS: VENLAFAXINE HCL XR 75 MG CAP PO SCH (11:12)
[2020-12-12] MEDS: ASPIRIN EC 81 MG TAB PO SCH (11:12)
[2020-12-12] MEDS: GABAPENTIN 300 MG CAP PO SCH ×2 (11:12→20:48)
[2020-12-12] MEDS: FOLIC ACID 1 MG TABLET PO SCH (11:12)
[2020-12-12] MEDS: METOPROLOL XL 100 MG TAB PO SCH (11:13)
[2020-12-12] MEDS: PANTOPRAZOLE 40 MG INJ IVP SCH (13:18)
--- NOTE | 2020-12-12 14:07 | P.PN ---
Subjective Date of Service: 12/12/20 Primary Care Provider: Dr. Henry, -neurology Chief Complaint: TIA Subjective: Improving (feels mostly back to baseline, no new symptoms/complaints) Review of Systems 10-point ROS is otherwise unremarkable Physical Examination - Vital Signs Temperature: 97.9 F Blood Pressure: 149/71 Pulse: 79 Respirations: 18 Pulse Ox (%): 95 Assessment & Plan Physician Review Additional Text: Physical Exam Gen: NAD, AAOx3 HEENT: normal conjunctiva, sclera anicteric, EOMI CV: regular rate/rhythm, no murmur, no edema Pulm: clear to auscultation bilaterally, nonlabored respirations on RA Abd: soft, nontender, nondistended MSK: no joint swelling/erythema Neuro: normal affect, normal speech, CN II-XII grossly intact. normal/symmetric strength in bilateral extremities upper/lower Problem List Right-sided facial weakness-resolved suspect TIA Seizure disorder Hypertension Hyperlipidemia Hypothyroidism GERD CKD 3 -symptoms completely resolved, suspect TIA vs seizure with post-ictal period -continue aspirin, statin, folic acid -neurology consulted, to see patient today -not on seizure medication, unclear if had seizure, awaiting neurology input, no seizure like activity since admission -continue home medications as appropriate -did well with PT -continue dvt prophylaxis -no UTI symptoms, spoke with PCP, urine culture with mixed normal urogenital georgina -no antibiotics at this time Code: full Dispo: anticipate dc home in next ~24hrs, awaiting neurology consult Time Spent Managing Pts Care (In Minutes): 45
[2020-12-12] MEDS: GALANTAMINE 4 MG TAB PO SCH (17:00)
--- NOTE | 2020-12-12 19:44 | CON ---
Date of Consultation: 12/12/2020 Reason: TIA and possible seizure. History: A 75-year-old lady well known to myself, we see her for quite some time for neuropathy and then more recently she has had some memory problem. She had a recent EEG in the office that was unre markable. She had a brain MRI pending for this week. She had just recently been started on galantam ine, Razadyne 8 mg extended. She was in her usual state of health until 10th when while making dinne r, she felt nauseated, she went to the bathroom, she had to throw up, told her miriam t she did not feel well, laid down, took a nap. He finished making dinner and he went to wake her up , he found she was difficult to arouse, had facial weakness on the right and associated dysarthria/ap hasia that is a little unclear is clear. She could understand what he was saying, but she was not speaking properly. EMS was summoned. She was brought to the emergency department and while in the ER the symptom improved/resolved. CT scan of the brain was unremarkable. CT angiogram of he ad and neck unremarkable as well. She is back to her baseline currently. Consultation was requested . Past Medical History: Diabetes, hypertension, hypothyroidism, reflux, neuropathy, macular degenerati on. Medications: She is on galantamine extended 8 mg. She had a recent urinary tract infection so she h ad been on Cipro, insulin, amlodipine, metoprolol, hydralazine, Lasix, atorvastatin, Effexor, gabapen tin, insulin, and Synthroid. Currently aspirins been added and Lipitor is 40. Allergies: ALLERGIES ARE EXTENSIVE; CLINDAMYCIN, CODEINE, HYDROCODONE, IODINE, DEMEROL, PENICILLIN, , PHENERGAN, HYDROCODONE, LEVAQUIN. Social History: . Normally independent of basic activities of daily living. Family History: Her brother has Alzheimer's. Review of Systems: General: Good health. Eyes: Macular degeneration. Ears, Nose, Throat: Anarthria/aphasia, now resolved. No dysphagia. Cardiovascular: Hypertension. Pulmonary: Negative. GI: Nausea, resolved. : Recent UTI symptoms. Musculoskeletal: Arthralgias, arthritis. Neurologic: As noted. Psychiatric: Depression/anxiety. Endocrine: Diabetes. Hematologic: Negative. Physical Examination: Vital Signs: 97.9, 79, 18, 149/71. General: She is a pleasant, heavyset lady lying in bed, in no distress. Awake, alert, oriented. Heart: Sinus rhythm. No carotid bruits. Lungs: Clear. HEENT: Eyes, pupils reactive. Ocular motion full. Visual haq full. Facial strength and sensati on normal. Tongue protrudes evenly. Soft palate elevates symmetrically bilaterally. Extremity: Strength full. Sensation intact. Reflexes trace. Toes are downgoing. Cerebellar: Exam demonstrates no ataxia. Pertinent Laboratory Data: Chest x-ray was normal. CT scans as noted. White count 5.8, hemoglobin 12.4, platelets 215. PT, PTT normal. Electrolytes; glucose 293, otherwise normal. TSH 1.6. LDL 82 . Impression: 1.Transient ischemic attack. 2.Memory loss. Plan: We will stop the Aricept and restart the Razadyne. EEG has been ordered. We will check a bra in MRI, stroke protocol and continue aspirin and statin. Thank you for the consult. We will continue to follow with you. SAM/ADITYA Voice ID: [id number] Report ID: [id number]
[2020-12-12] MEDS: ATORVASTATIN 40 MG TAB PO SCH (20:47)
[2020-12-12] MEDS: ACETAMINOPHEN 500 MG TAB PO PRN (20:48)
[2020-12-13 04:13] LABS: Absolute Lymphocytes (CBC) 1.7 K/uL (0.7-4.9); Basophils % 0.6 % (0-1.3); Hematocrit 36.3 % (36.0-45.0); Lymphocytes % 20.4 % (15.3-44.8); MPV 8.3 fL (7.6-11.3); RBC Red Blood Cell Count 4.13 M/uL (3.86-4.86)
[2020-12-13 04:30] LABS: Albumin 3.4 g/dL (3.4-5.0); Bilirubin Total 0.5 mg/dL (0.2-1.0); Magnesium 1.9 mg/dL (1.8-2.4); Potassium 4.2 mmol/L (3.5-5.1); Protein, Total 6.4 g/dL (6.4-8.2)
[2020-12-13] MEDS: INSULIN -REGULAR HUMAN 50 UNIT/0.5 ML ML SQ SCH ×2 (07:30→11:30)
--- NOTE | 2020-12-13 10:07 | RAD REPORT ---
EXAM DESCRIPTION: MRI - Brain W/Wo Cont - 12/13/2020 8:44 am CLINICAL HISTORY: TIA Headache, drowsiness, alteration of awareness COMPARISON: MRA Head Wo Cont dated 12/13/2020; Neck Angio dated 12/11/2020; Head angio dated 12/11/2020 TECHNIQUE: Multi-sequence, multiplanar MR imaging of the brain was performed with contrast. FINDINGS: No intracranial hemorrhage, hydrocephalus, or extra-axial fluid collection. Mild T2 and [place] AIR hyperintensity is seen in the periventricular and deep white matter. No intracranial mass. DWI is negative for acute CVA. The midline structures are normally formed. Mastoid air cells and paranasal sinuses are clear. Post-contrast images show no abnormal enhancement to suggest tumor or infection. IMPRESSION: Negative for acute CVA or other acute intracranial abnormality. No pathologic post-contrast enhancement suspected.
--- NOTE | 2020-12-13 10:27 | RAD REPORT ---
EXAM DESCRIPTION: MRI - MRA Head Wo Cont - 12/13/2020 8:17 am CLINICAL HISTORY: tia CVA COMPARISON: Head angio dated 12/11/2020; MRA Neck W/Wo Cont dated 12/13/2020; Neck Angio dated 12/12/19 21 FINDINGS: 3D noncontrast [id number] MR angiography of the [place] was performed. No aneurysm, flow-limiting stenosis or vascular malformation is seen. Forward flow seen in codominant vertebral arteries. The visualized dural venous sinuses appear patent. IMPRESSION: No significant flow abnormality of the [place] is identified.
--- NOTE | 2020-12-13 10:31 | RAD REPORT ---
EXAM DESCRIPTION: MRI - MRA Neck W/Wo Cont - 12/13/2020 8:17 am CLINICAL HISTORY: TIA Headache, drowsiness, CVA symptomology COMPARISON: Neck Angio dated 12/11/2020 FINDINGS: Contrast enhance 2D [id number] MR angiography of the neck vessels was performed. A left aortic arch is noted with normal great vessel origin branching pattern. Both subclavian arteri es and common carotid arteries are patent. No significant internal carotid artery stenosis identified. Antegrade flow seen in both vertebral art eries. IMPRESSION: No significant flow abnormality of the neck vessels is seen.
[2020-12-13] MEDS: ASPIRIN EC 81 MG TAB PO SCH (10:52)
[2020-12-13] MEDS: LEVOTHYROXINE SOD 0.125 MG TAB PO SCH (10:52)
[2020-12-13] MEDS: GALANTAMINE 4 MG TAB PO SCH (10:52)
[2020-12-13] MEDS: FOLIC ACID 1 MG TABLET PO SCH (10:53)
[2020-12-13] MEDS: VENLAFAXINE HCL XR 75 MG CAP PO SCH (10:53)
[2020-12-13] MEDS: HYDRALAZINE HCL 25 MG TABLET PO SCH (10:53)
[2020-12-13] MEDS: ENOXAPARIN 40 MG/0.4 ML SQ SCH (10:54)
[2020-12-13] MEDS: METOPROLOL XL 100 MG TAB PO SCH (10:54)
[2020-12-13] MEDS: GABAPENTIN 300 MG CAP PO SCH (10:55)
[2020-12-13] MEDS: PANTOPRAZOLE 40 MG INJ IVP SCH (10:55)
[2020-12-13] MEDS: ACETAMINOPHEN 500 MG TAB PO PRN (10:55)
[2020-12-13 12:24] VITALS: BP 125/62; TEMP 97.8
--- NOTE | 2020-12-13 16:12 | EKG ---
Test Date: 2020-12-10 Test Time: 23:54:51 Director Of Medical Review: RR MEASUREMENT RESULTS: Intervals: Rate: 66 VA: 174 QRSD: 92 QT: 424 QTc: 444 [place]: P: 74 VA: 174 QRS: 39 T: 54 INTERPRETIVE STATEMENTS: Normal sinus rhythm Normal ECG Compared to ECG 02/22/2019 18:44:16 Sinus bradycardia no longer present Atrial premature complex(es) no longer present First degree AV block no longer present Electronically Signed On 12-13-20 16:05:27 CDT by Justin Rosario
--- NOTE | 2020-12-15 20:19 | P.DS ---
Admission Date: 12/11/20 Discharge Date: 12/13/20 Primary Care Provider: Dr.Krell Sebastian-neurology Disposition: ROUTINE DISCHARGE Discharge Condition: GOOD Reason for Admission: TIA Consultations: Neurology - Dr. Reddy Procedures: CXR (12/11): No acute cardiopulmonary process. CT Brain (12/11): No acute intracranial hemorrhage identified. Small interhemispheric lipomas are stable. No mass effect, shift of the midline, abnormal extra-axial fluid collection or CT evidence of acute ischemic change identified. The ventricular system and sulcal spaces are age appropriate. Scattered areas of hypodensity throughout the supratentorial white matter are nonspecific and may be related to chronic small vessel ischemic change. The visualized paranasal sinuses and mastoid air cells are well aerated. No skull fracture identified. Visualized orbits and globes are unremarkable. Atherosclerotic calcification of the intracranial internal carotid arteries. IMPRESSION: 1. No acute intracranial abnormality by CT criteria. CTA Head (12/11): CTA Neck (12/11): FINDINGS: Ascending aorta: Visualized portions of the aortic arch demonstrating no significant abnormalities. There are codominant vertebral arteries which demonstrate normal opacification. Right carotid artery: Normal opacification is demonstrated within the right common carotid artery and at the carotid bifurcation. The right carotid bulb demonstrate to be within normal limits. There is no evidence for significant plaque formation and/or stenosis. The proximal, mid and distal portions of the right internal carotid artery demonstrate to be within normal limits. There is no evidence for significant stenosis and/or occlusion. Left carotid artery: Normal opacification is demonstrated within the left common carotid artery and at the carotid bifurcation. The left carotid bulb demonstrate to be within normal limits. There is no evidence for significant plaque formation and/or stenosis. The proximal, mid and distal portions of the left internal carotid artery demonstrate to be within normal limits. There is no evidence for significant stenosis and/or occlusion. Intracranial circulation: Intracranial portions of the internal carotid arteries the cavernous sinus portions demonstrates no focal areas of significant stenosis. There is normal opacification within the anterior circulation without evidence of intracranial aneurysm. The anterior cerebral arteries, middle cerebral arteries and its branches demonstrate normal opacification with no evidence for significant stenosis aneurysm and/or occlusion. There is normal venous drainage with no evidence for sinus vein thrombosis. Vertebrobasilar system: The posterior circulation demonstrate codominant bilateral vertebral arteries with no evidence for significant stenosis and/or evidence for significant dissection. The vertebrobasilar system and CORRECTIONAL MAINTENANCE TECHNICIAN demonstrate to be normal with no evidence for aneurysm and/or occlusion. Grossly the brain parenchyma demonstrate normal [place]-white matter differentiation with no evidence for mass effect and/or midline shift. Again there is minimal very minimal periventricular matter changes. The skull base and intracranial structures demonstrate to be within normal limits. Lung apex: No gross abnormalities are noted within the apices. IMPRESSION: No evidence for significant stenosis and/or occlusion of the cervical internal carotid and vertebral arteries. Unremarkable CTA of the [place] with no evidence for significant stenosis and/or occlusion of the intracranial vessels. MRI Brain (12/13): FINDINGS: No intracranial hemorrhage, hydrocephalus, or extra-axial fluid collection. Mild T2 and FLAIR hyperintensity is seen in the periventricular and deep white matter. No intracranial mass. DWI is negative for acute CVA. The midline structures are normally formed. Mastoid air cells and paranasal sinuses are clear. Post-contrast images show no abnormal enhancement to suggest tumor or infection. IMPRESSION: Negative for acute CVA or other acute intracranial abnormality. No pathologic post-contrast enhancement suspected. MRA Brain (12/13): No aneurysm, flow-limiting stenosis or vascular malformation is seen. Forward flow seen in codominant vertebral arteries. The visualized dural venous sinuses appear patent. IMPRESSION: No significant flow abnormality of the [place] is identified. MRA Neck (12/13): FINDINGS: Contrast enhance 2D [id number] MR angiography of the neck vessels was performed. A left aortic arch is noted with normal great vessel origin branching pattern. Both subclavian arteries and common carotid arteries are patent. No significant internal carotid artery stenosis identified. Antegrade flow seen in both vertebral arteries. IMPRESSION: No significant flow abnormality of the neck vessels is seen. Problem List Right-sided facial weakness-resolved; TIA Seizure disorder Hypertension Hyperlipidemia Hypothyroidism GERD CKD 3 Brief History of Present Illness: 75 year old female with history of diabetes mellitus type 2, hypertension, hypothyroidism, seizure disorder, GERD presents emergency department for weakness, right-sided facial droop. reports that he was in the kitchen with her around 1930 last night when she had an episode of nausea followed by dry heaving, at that time patient appeared to be normal/face was symmetrical, patient then went and laid down in bed and when he went to check on her he found her speech to be slurred and she is having right-sided facial droop. Patient was brought to the emergency department and evaluated, code stroke was called, CT head brain without contrast was negative for any acute findings, labs were unremarkable aside from mildly elevated blood sugar [address] angio head and neck which were negative for any acute findings. Patient's deficits resolved during her emergency department stay, currently NIH is 0. Patient has had problems with short-term memory over the course of the last 1 year is being evaluated by her neurologist for this. Patient is scheduled for MRI on for further evaluation. ED provider wishes to admit patient under observation for suspected TIA. Hospital Course: CT and CTA head were negative. Neurology consulted and recommended obtaining MRI/MRA. Patient remained asymptomatic throughout the hospitalization. MRI/MRA were negative. Patient was discharged home to follow up with her Neurologist. Patient did report receiving antibiotics for suspected UTI. Her PCP was contacted and urine culture was normal urogenital georgina. Patient denied any active UTI symptoms, and her antibiotics were not continued during her hospitalization. Vital Signs/Physical Exam: Physical Exam Gen: NAD, AAOx3 HEENT: normal conjunctiva, sclera anicteric, EOMI CV: regular rate/rhythm, no murmur, no edema Pulm: clear to auscultation bilaterally, nonlabored respirations on RA Abd: soft, nontender, nondistended MSK: no joint swelling/erythema Neuro: normal affect, normal speech, CN II-XII grossly intact. normal/symmetric strength in bilateral extremities upper/lower Temp Pulse Resp BP Pulse Ox 97.8 F 57 18 125/62 98 12/13/20 12:00 12/13/20 12:00 12/13/20 12:00 12/13/20 12:00 12/13/20 12:00 Laboratory Data at Discharge: WBC 8.40 K/uL (4.3-10.9) D 12/13/20 03:46 Hgb 12.6 g/dL (12.0-15.0) 12/13/20 03:46 Hct 36.3 % (36.0-45.0) 12/13/20 03:46 Plt Count 195 K/uL (152-406) 12/13/20 03:46 PT 11.7 SECONDS (9.5-12.5) 12/11/20 00:37 INR 1.02 12/11/20 00:37 APTT 28.3 SECONDS (24.3-36.9) 12/11/20 00:37 Sodium 135 mmol/L (136-145) L 12/13/20 03:46 Potassium 4.2 mmol/L (3.5-5.1) 12/13/20 03:46 BUN 21 mg/dL (7-18) H 12/13/20 03:46 Creatinine 0.98 mg/dL (0.55-1.3) 12/13/20 03:46 Glucose 149 mg/dL (74-106) H 12/13/20 03:46 Magnesium 1.9 mg/dL (1.8-2.4) 12/13/20 03:46 Total Bilirubin 0.5 mg/dL (0.2-1.0) 12/13/20 03:46 AST 18 U/L (15-37) 12/13/20 03:46 ALT 18 U/L (12-78) 12/13/20 03:46 Alkaline Phosphatase 104 U/L (45-117) 12/13/20 03:46 Triglycerides 120 mg/dL (<150) 12/12/20 05:10 Cholesterol 157 mg/dL (<200) 12/12/20 05:10 HDL Cholesterol 51 mg/dL (40-60) 12/12/20 05:10 Cholesterol/HDL Ratio 3.08 12/12/20 05:10 Home Medications: Insulin Lispro [Humalog Kwikpen U-100] 6 units SQ TID 03/14/19 Levothyroxine [Synthroid*] 125 mcg PO DAILY 03/14/19 Amlodipine Besylate 1 tab PO DAILY 12/11/20 Atorvastatin Calcium 1 tab PO DAILY 12/11/20 Furosemide 1 tab PO DAILY 12/11/20 Gabapentin 1 tab PO BID 12/11/20 Galantamine HBr [Galantamine ER] 1 cap PO DAILY 12/11/20 Hydralazine [Apresoline*] 1 tab PO DAILY 12/11/20 Insulin Glargine,Hum.rec.anlog [Toujeo Solostar] 15 units SQ DAILY 12/11/20 Metoprolol Succinate 1 tab PO DAILY 12/11/20 Venlafaxine HCl [Venlafaxine HCl ER] 1 cap PO DAILY 12/11/20 Aspirin [Aspirin EC 81 MG] 81 mg PO DAILY 30 Days #30 tablet. 12/13/20 Folic Acid 1 mg PO DAILY 30 Days #30 tablet 12/13/20 New Medications: Aspirin [Aspirin EC 81 MG] 81 mg PO DAILY 30 Days #30 tablet. Folic Acid 1 mg PO DAILY 30 Days #30 tablet Physician Discharge Instructions: You likely had a TIA. Your MRI was negative - you did not have a stroke or other acute process seen. Dr. Reddy was consulted, recommended stopping your aricept. You are discharged home to follow up with Dr. Reddy. Call his office to schedule appointment. He will go over your EEG at that time. Diet: ADA Activity: Ad rhonda Followup: Horacio Reddy MD [ACTIVE - CAN ADMIT] - Unknown,U [Primary Care Provider] - Time spent managing pt's care (in minutes): 45
--- NOTE | 2020-12-16 08:43 | EEG ---
CHART: [id number] TEST ID#: [id number] DATE OF STUDY: 12/13/2020 THE EEG WAS RECORDED PORTABLE IN THE PATIENT'S ROOM ON A 17 CHANNEL MACHINE. ELECTRODES WERE APPLIED IN THE USUAL MANNER USING THE INTERNATIONAL 10-20 SYSTEM. THE WAKING BACKGROUND RHYTHM IN THIS RECORD CONSISTS OF FAIRLY WELL DEVELOPED AND FAIRLY WELL ORGANIZED WAVES OF UP TO 10 HZ., MAXIMAL IN THE POSTERIOR HEAD REGIONS WHICH ATTENUATE NORMALLY WITH EYE OPENING. IN DROWSINESS THE BACKGRIOUND DROPST O 9 HZ. THERE ARE NO FOCAL OR LATERALIZING FEATURES. NO EPILEPTIFORM ACTIVITY APPEARS. SLEEP DID NOT OCCUR. HYPERVENTILATION WAS NOT PERFORMED. PHOTIC STIMULATION PRODUCED GOOD DRIVING BILATERALLY. IMPRESSION: NORMAL EEG FOR THE AGE OF THE PATIENT IN WAKE AND DROWISNESS.
== END 2020-12-13 14:52 | disposition home or self-care (01) ==
LOC: ER 23:49 → ERHOLD 12-11 04:45 → 2ND 12-11 06:15
PROVIDERS: ADMIT Hospitalist; ATTEND Hospitalist
DX: G45.9 Transient cerebral ischemic attack, unspecified (principal); I12.9 Hypertensive chronic kidney disease with stage 1 through stage 4 chronic kidney disease, or unspecified chronic kidney disease; N18.30 Chronic kidney disease, stage 3 unspecified; G40.909 Epilepsy, unspecified, not intractable, without status epilepticus; E78.5 Hyperlipidemia, unspecified; E03.9 Hypothyroidism, unspecified; Z20.822 Contact with and (suspected) exposure to COVID-19; K21.9 Gastro-esophageal reflux disease without esophagitis; E11.22 Type 2 diabetes mellitus with diabetic chronic kidney disease; Z79.4 Long term (current) use of insulin; E11.40 Type 2 diabetes mellitus with diabetic neuropathy, unspecified; H35.30 Unspecified macular degeneration; Z96.653 Presence of artificial knee joint, bilateral; Z98.84 Bariatric surgery status
CPT/HCPCS: 95816; 93005; 85025 ×3; 80048; 36415 ×2; 83735 ×2; 85610; 80061; 82947 ×12; 85730; 84443; 84484; 84439; 80053 ×2; 70496; 70498; 70450; 71045; 70553; 70544; 70549; 97116 ×2; 97161; 97530; 99285; U0003; Q9967; A9577; C9113 ×3; J1650 ×3; G0378 ×5; J7030; J2405; 81003; 81015

== ENCOUNTER 2021-12-15 15:17 | Emergency (ER) | payer OTHER ==
[2021-12-15 16:30] LABS: Absolute Lymphocytes (CBC) 0.7 K/uL (0.7-4.9); Hematocrit 39.8 % (36.0-45.0); Lymphocytes % 21.9 % (15.3-44.8); MCV 87.5 fL (80-100); MPV 7.7 fL (7.6-11.3); RBC Red Blood Cell Count 4.54 M/uL (3.86-4.86)
[2021-12-15 16:50] LABS: Albumin 3.9 g/dL (3.4-5.0); Bilirubin Total 0.4 mg/dL (0.2-1.0); Potassium 3.6 mmol/L (3.5-5.1); Protein, Total 7.8 g/dL (6.4-8.2); Troponin High Sensitivity 23.7 pg/mL (<58.9)
--- NOTE | 2021-12-15 16:55 | RAD REPORT ---
EXAM DESCRIPTION: RAD - Chest Single View - 12/15/2021 4:48 pm CLINICAL HISTORY: CHEST PAIN Chest pain. COMPARISON: Chest Single View dated 12/11/2020; Chest Pa And Lat (2 Views) dated 10/14/2019; Chest Sin gle View dated 02/22/2019; Chest Single View dated 10/08/2017 FINDINGS: Portable technique limits examination quality. Mild interstitial pulmonary edema. The heart is normal in size. No displaced fractures. IMPRESSION: Mild CHF.
[2021-12-15] MEDS ORDERED: INSULIN -REGULAR HUMAN 50 UNIT/0.5 ML ML ONE (17:16)
--- NOTE | 2021-12-15 17:44 | RAD REPORT ---
EXAM DESCRIPTION: CT - Abdomen Pelvis Wo Contrast - 12/15/2021 5:29 pm CLINICAL HISTORY: Abdominal pain. acute abd pain COMPARISON: Abdomen Pelvis Wo Contrast dated 03/13/2019 TECHNIQUE: CT imaging of the abdomen and pelvis was performed without contrast. Solid organ, bowel a nd vascular assessment is limited due to lack of IV and oral contrast. All CT scans are performed using dose optimization technique as appropriate and may include automated exposure control or mA/KV adjustment according to patient size. FINDINGS: The lower lung haq are clear.Gastric band is noted. The liver, spleen, pancreas, adrenal glands are within normal limits for a limited non-contrast exami nation.Mild mesenteric edema appears chronic and similar to prior study. Horseshoe kidney is noted. No bowel obstruction, free air, free fluid or abscess. Mild sigmoid diverticulosis is present without diverticulitis. Nonvisualized appendix. Tiny air bubble seen in the urinary bladder. Moderate lower lumbar degenerative changes. IMPRESSION: No acute intra-abdominal or pelvic findings. Chronic mild mesenteric edema appearing unchanged since comparative study. Horseshoe kidney. Mild sigmoid diverticulosis without diverticulitis. A limited non-contrast examination was performed as detailed.
--- NOTE | 2021-12-15 18:40 | EDPHYS ---
Physician Documentation [facility] Name: Amy Connor Age: 76 yrs Sex: Female : 1945 Arrival Date: 12/15/2021 Time: 15:18 Bed 7 Private MD: [facility] ED Physician Jeovany Oakes HPI: 12/15 16:03 This 76 yrs old Female presents to ER via Wheelchair with complaints of Cough, Bloody jr11 Stools. 16:03 The patient or guardian reports cough, that is intermittent, mostly dry , flu symptoms, jr11 myalgias. Onset: The symptoms/episode began/occurred yesterday. Severity of symptoms: At their worst the symptoms were moderate, in the emergency department the symptoms are actually worse. Modifying factors: The symptoms are alleviated by nothing, the symptoms are aggravated by nothing. Associated signs and symptoms: Pertinent positives: nausea. Patient is a 76-year-old female with history of prior GI bleeds, history of lap banding, here with left lower quadrant abdominal pain, no modifying factors and also 3 episodes of bloody stools, bright red blood per rectum.. Historical: - Allergies: 15:54 axetil; iw 15:54 Cefuroxime; iw 15:54 Clindamycin; iw 15:54 Codeine; iw 15:54 Demerol; iw 15:54 hydrocodone bitartrate; iw 15:54 hydrocodone bitartrate (bulk); iw 15:54 Iodine; iw 15:54 Keflex; iw 15:54 Levaquin; iw 15:54 meperidine HCl; iw 15:54 naprosen; iw 15:54 Naproxen; iw 15:54 nitro; iw 15:54 Nitrofuran Analogues; iw 15:54 PENICILLINS; iw 15:54 pentazocine lactate; iw 15:54 promethazine HCl; iw 15:54 Sulfa (Sulfonamide Antibiotics); iw 15:54 Talwin; iw 15:54 Vicodin; iw - PMHx: 15:54 Diabetes - IDDM; Hyperlipidemia; history of nicotine dependence; Hypertension; iw Hypothyroidism; first degree AV block; CKD; - Immunization history:: Adult Immunizations up to date. - Social history:: Smoking status: Patient denies any tobacco usage or history of. ROS: 16:03 All other systems are negative. jr11 Exam: 16:03 Constitutional: This is a well developed, well nourished patient who is awake, alert, jr11 and in no acute distress. Head/Face: Normocephalic, atraumatic. Eyes: Extra-ocular motions intact. Lids and lashes normal. Conjunctiva and sclera are non-icteric and not injected. Cornea within normal limits. Periorbital areas with no swelling, redness, or edema. ENT: Nares patent. No nasal discharge, no septal abnormalities noted. Oropharynx with no redness, swelling, or masses, exudates, or evidence of obstruction, uvula midline. Mucous membranes moist. Neck: Trachea midline, no thyromegaly or masses palpated, and no cervical lymphadenopathy. Supple, full range of motion without nuchal rigidity, or vertebral point tenderness. No Meningismus. Chest/axilla: Normal chest wall appearance and motion. Nontender with no deformity. No lesions are appreciated. Cardiovascular: Regular rate and rhythm with a normal S1 and S2. No gallops, murmurs, or rubs. Normal PMI, no JVD. No pulse deficits. Respiratory: Lungs have equal breath sounds bilaterally, clear to auscultation and percussion. No rales, rhonchi or wheezes noted. No increased work of breathing, no retractions or nasal flaring. Abdomen/GI: LLQ pain, no peritonitis Skin: Warm, dry with normal turgor. Normal color with no rashes, no lesions, and no evidence of cellulitis. MS/ Extremity: Pulses equal, no cyanosis. Neurovascular intact. Full, normal range of motion. Neuro: Awake and alert, GCS 15, oriented to person, place, time, and situation. No gross motor or sensory deficits. Vital Signs: 15:52 BP 183 / 97; Pulse 89; Resp 16 S; Temp 97.3; Pulse Ox 99% on R/A; iw 18:07 BP 176 / 89; Pulse 87; Resp 17; Pulse Ox 98% on R/A; naqvi MDM: 15:56 Patient medically screened. jr11 16:03 Differential Diagnosis: Upper Respiratory Infection Other lower GI bleed. Data jr11 reviewed: vital signs, nurses notes. 18:38 ED course: Pt +covid, gluc now 300s, comfortable managing at home. stool test negative. jr11 Pt known HF. Pt given mAB. Analisa return precautions given.. 12/15 15:59 Order name: CBC with Diff; Complete Time: 16:49 [facility] 12/15 15:59 Order name: CMP; Complete Time: 16:55 [facility] 12/15 15:59 Order name: Lipase; Complete Time: 16:55 [facility] 12/15 15:59 Order name: BNP; Complete Time: 16:55 [facility] 12/15 15:59 Order name: Troponin High Sensitivity; Complete Time: 16:55 [facility] 12/15 15:59 Order name: IV Saline Lock; Complete Time: 16:20 jr 12/15 15:59 Order name: Chest Single View XRAY; Complete Time: 16:57 [facility] 12/15 16:00 Order name: COVID-19 SARS RT PCR (Document "Date of Onset" if Symptomatic); Complete [facility] Time: 18:04 12/15 17:16 Order name: Abdomen ; Complete Time: 17:48 [facility] 12/15 18:47 Order name: Glucose, Ancillary Testing [facility] 12/15 15:59 Order name: Labs collected and sent; Complete Time: 16:20 [facility] 12/15 18:26 Order name: Glucose Level; Complete Time: 18:36 [facility] Administered Medications: 17:15 Drug: Insulin Regular Human 10 units {Co-Signature: ll1 (Sang Mason RN).} Route: IVP; naqvi Site: right antecubital; 17:18 Follow up: Response: No adverse reaction naqvi 18:31 Drug: Bebtelovimab 175 mg Route: IV; Rate: ml; Site: right antecubital; naqvi Disposition Summary: 12/15/21 18:40 Discharge Ordered Location: Home jr11 Condition: Fair jr11 Diagnosis - COVID 19 infection jr11 - Weakness jr11 Followup: jr11 - With: Private Physician - When: 2 - 3 days - Reason: Re-evaluation by your physician Discharge Instructions: - Discharge Summary Sheet jr11 - Weakness jr11 - COVID-19 jr11 - COVID-19 Frequently Asked Questions jr11 - 10 Things You Can Do to Manage Your COVID-19 Symptoms at Home - [facility] Forms: - Medication Reconciliation Form jr11 - Thank You Letter jr11 - Antibiotic Education jr11 - Prescription Opioid Use 11 Signatures: Dispatcher [employer] Bree Santamaria RN RN iw Au-Karen Pavon RN RN Jeovany Beltran MD MD jr11 Sang Mason RN ll1 Corrections: (The following items were deleted from the chart) 17:16 16:06 Abdomen Pelvis W Con+CT.RAD.BRZ ordered. EDMS EDMS
--- NOTE | 2021-12-15 18:40 | ER ---
Nurse's Notes [facility] Name: Amy Connor Age: 76 yrs Sex: Female : 1945 Arrival Date: 12/15/2021 Time: 15:18 Bed 7 Private MD: Panda Henry Diagnosis: COVID 19 infection;Weakness Presentation: 12/15 15:52 Chief complaint: Patient states: three episodes of bloody stool today. Coronavirus iw screen: At this time, the client does not indicate any symptoms associated with coronavirus-19. Ebola Screen: Patient negative for fever greater than or equal to 101.5 degrees Fahrenheit, and additional compatible Ebola Virus Disease symptoms Patient denies exposure to infectious person. Patient denies travel to an Ebola-affected area in the 21 days before illness onset. No symptoms or risks identified at this time. Initial Sepsis Screen: Does the patient meet any 2 criteria? No. Patient's initial sepsis screen is negative. Does the patient have a suspected source of infection? No. Patient's initial sepsis screen is negative. Risk Assessment: Do you want to hurt yourself or someone else? Patient reports no desire to harm self or others. Onset of symptoms was December 15, 2021. 15:52 Method Of Arrival: Wheelchair iw 15:52 Acuity: SIGIFREDO 3 iw 15:53 Chief complaint: Patient states: also has a cough and SOB. iw Triage Assessment: 15:59 General: Appears in no apparent distress. Behavior is calm, cooperative. naqvi Historical: - Allergies: 15:54 axetil; iw 15:54 Cefuroxime; iw 15:54 Clindamycin; iw 15:54 Codeine; iw 15:54 Demerol; iw 15:54 hydrocodone bitartrate; iw 15:54 hydrocodone bitartrate (bulk); iw 15:54 Iodine; iw 15:54 Keflex; iw 15:54 Levaquin; iw 15:54 meperidine HCl; iw 15:54 naprosen; iw 15:54 Naproxen; iw 15:54 nitro; iw 15:54 Nitrofuran Analogues; iw 15:54 PENICILLINS; iw 15:54 pentazocine lactate; iw 15:54 promethazine HCl; iw 15:54 Sulfa (Sulfonamide Antibiotics); iw 15:54 Talwin; iw 15:54 Vicodin; iw - PMHx: 15:54 Diabetes - IDDM; Hyperlipidemia; history of nicotine dependence; Hypertension; iw Hypothyroidism; first degree AV block; CKD; - Immunization history:: Adult Immunizations up to date. - Social history:: Smoking status: Patient denies any tobacco usage or history of. Screenin:57 Abuse screen: Denies threats or abuse. Denies injuries from another. Nutritional naqvi screening: No deficits noted. Tuberculosis screening: No symptoms or risk factors identified. Fall Risk None identified. Assessment: 15:57 Pain: Denies pain. Respiratory: Reports cough that is. GI: Abdomen is non-distended, naqvi Reports bloody stool. 18:37 Reassessment: pt gave verbal consent for bebtelovimab. lot [id number] expires . naqvi Vital Signs: 15:52 BP 183 / 97; Pulse 89; Resp 16 S; Temp 97.3; Pulse Ox 99% on R/A; iw 18:07 BP 176 / 89; Pulse 87; Resp 17; Pulse Ox 98% on R/A; naqvi ED Course: 15:18 Patient arrived in ED. am2 15:18 Panda Henry DO is Private Physician. am2 15:32 Jeovany Oakes MD is Attending Physician. jr11 15:53 Triage completed. iw 15:55 Arm band placed on. iw 15:57 Karen Sheehan, RN is Primary Nurse. naqvi 15:57 Patient has correct armband on for positive identification. Bed in low position. naqvi 15:57 No provider procedures requiring assistance completed. naqvi 16:50 Chest Single View XRAY In Process Unspecified. EDMS 17:30 Abdomen In Process Unspecified. EDMS Administered Medications: 17:15 Drug: Insulin Regular Human 10 units {Co-Signature: ll1 (Sagn Mason RN).} Route: IVP; naqvi Site: right antecubital; 17:18 Follow up: Response: No adverse reaction naqvi 18:31 Drug: Bebtelovimab 175 mg Route: IV; Rate: ml; Site: right antecubital; naqvi Medication: 15:57 VIS not applicable for this client. naqvi Outcome: 18:40 Discharge ordered by . jr11 19:38 Patient left the ED. ld1 Signatures: Dispatcher [employer] Bree Santamaria, RN RN iw Garcia, Yany am2 Fabiola Martinez RN RN ld1 Amarisr, Karen RN Jeovany Ramos MD MD jr11 Sang Mason RN ll1 Corrections: (The following items were deleted from the chart) 15:54 15:52 Pulse Ox 99% RA; Temp 97.3F; iw charlie
[2021-12-15] MEDS ORDERED: BEBTELOVIMAB 175 MG/2 ML VIAL IV ONE (18:41)
[2021-12-15 19:42] VITALS: TEMP 97.3
[2021-12-15 19:44] VITALS: BP 176/89; O2SAT 98
== END 2021-12-15 19:38 | disposition home or self-care (01) ==
LOC: ER 15:17
DX: U07.1 COVID-19 (principal); R53.1 Weakness; E11.22 Type 2 diabetes mellitus with diabetic chronic kidney disease; I12.9 Hypertensive chronic kidney disease with stage 1 through stage 4 chronic kidney disease, or unspecified chronic kidney disease; N18.9 Chronic kidney disease, unspecified; Z88.0 Allergy status to penicillin; Z88.1 Allergy status to other antibiotic agents; Z88.2 Allergy status to sulfonamides; Z88.5 Allergy status to narcotic agent; Z88.8 Allergy status to other drugs, medicaments and biological substances; Z91.048 Other nonmedicinal substance allergy status
CPT/HCPCS: 85025; 36415; 82947; 84484; 83690; 80053; 83880; 74176; 71045; 99283; U0003; J1815

== ENCOUNTER 2022-03-03 23:41 | Emergency (ER) | payer OTHER ==
--- OUTSIDE RECORDS SUMMARY | 2022-03-03 23:47 | XMS REPORT | Continuity of Care Document ---
:1945 Author Organization [facility] t Address [address] [place] [address] Care Team Providers Name Role Phone GEMINI LUCERO Primary Care Physician Unavailable Panda Henry Attending Clinician Unavailable Gautam Cunningham MD Attending Clinician GAUTAM CUNNINGHAM Attending Clinician Unavailable Doctor Unassigned, Cu[place] Attending Clinician Unavailable ELIANA ANGEL Attending Clinician Unavailable Luis Cole DO Attending Clinician Eliana Angel MD Attending Clinician GAUTAM CUNNINGHAM Admitting Clinician Unavailable Payers Payer Name Policy Type Policy Number Effective Date Expiration Date S ource Problems Condition Condition Condition Status Onset Resolution Last Treating Co mments Source Name Details Category Date Date Treatment Clinician Date Fall Fall Disease Active 2019 [facility] 9- ity of 00:00: [place] 00 [facility] Femur Femur Disease Active 2019 [facility] fracture fracture 9- ity of 00:00: [place] 00 [facility] 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:00: [place]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 with renal 00 Me dical manifestat manifestat Br anch ions not ions not at goal at goal Primary Primary Disease Active Univers hypothyroi hypothyroi 1-15 it y of dism dism 00:00: [place] [id number] Medical Branch Essential Essential Disease Active 2019-0 Uni vers hypertensi hypertensi 1-15 it y of on on 00:00: [place] 00 [facility] Primary Primary Disease Active 2019-0 [facility] hypothyroi hypothyroi 1-15 it y of dism dism 00:00: [place] 00 [facility] Allergies, Adverse Reactions, Alerts Allergy Allergy Status Severity Reaction(s) Onset Inactive Treating Comm ents Source Name Type Date Date Clinician MEPERIDI DRUG Active N/V 2019-0 Univers NE HCL INGREDI 02-23 ity of 00:00: [place] 00 [facility] MUSHROOM DRUG Active Anaphylaxis 2019-0 Uni vers INGREDI 02-23 ity of 00:00: [place] 00 [facility] Meperidi Propensi Active Nausea 2019-0 Univer s ne Hcl ty to and/or 02-23 ity of adverse Vomiting 00:00: [place] reaction 00 Medical s Branch SHELLFIS DRUG Active Anaphylaxis 2019-0 Uni vers H INGREDI 02-23 ity of DERIVED 00:00: [place] 00 Medical [facility] Mushroom Propensi Active Anaphylaxis 2019-0 U nivers ty to 02-23 ity of adverse 00:00: [place] reaction 00 Medical s Branch Shellfis Propensi Active Anaphylaxis 2019-0 U nivers h ty to 02-23 ity of Derived adverse 00:00: [place] reaction 00 Medical s Branch Penicill Propensi Active Hives 2019-0 Univer s in ty to 1-15 ity of adverse 00:00: [place] reaction 00 Medical s Branch Phenerga Propensi Active Nausea 2019-0 Univer s n Dm ty to and/or 1-15 ity of adverse Vomiting 00:00: [place] reaction 00 Medical s Branch Sulfamet Propensi Active Nausea 2019-0 Univer s hazine ty to and/or 1-15 ity of adverse Vomiting 00:00: [place] reaction 00 Medical s Branch Talwin Propensi Active Hives 2019-0 Univers Compound ty to 1-15 ity of adverse 00:00: [place] reaction 00 Medical s Branch Hydrocod Propensi Active Hallucinatio 2019-0 Univers one-Acet ty to ns 1-15 ity of aminophe adverse 00:00: [place] n reaction 00 Medical s Branch Cefuroxi Propensi Active Nausea 2019-0 Univer s me ty to and/or 1-15 ity of Axetil adverse Vomiting 00:00: [place] reaction 00 Medical s Branch Cephalex Propensi Active Hives 2019-0 Univer s in ty to 1-15 ity of adverse 00:00: [place] reaction 00 Medical s Branch Penicill Propensi Active Hives 2019-0 Univer s in ty to 1-15 ity of adverse 00:00: [place] reaction 00 Medical s Branch IODINE DRUG Active High Anaphylaxis 2019-0 Unive rs INGREDI 1-15 ity of 00:00: [place] 00 Medical Branch LEVOFLOX DRUG Active High Anaphylaxis 2019-0 Uni vers ACIN INGREDI 1-15 ity of 00:00: [place] 00 [facility] CEFUROXI DRUG Active N/V 2019-0 Univers ME INGREDI 1-15 ity of AXETIL 00:00: [place] 00 Medical [facility] CEPHALEX DRUG Active Hives 2019-0 Univers IN INGREDI 1-15 ity of 00:00: [place] 00 [facility] Branch CLINDAMY DRUG Active Hives 2019-0 Univers CHACHO INGREDI 1-15 ity of 00:00: [place] 00 [facility] CODEINE DRUG Active Hives 2019-0 Univers INGREDI 1-15 ity of 00:00: [place] 00 Medical Branch NAPROXEN DRUG Active N/V 2019-0 Univers INGREDI 1-15 ity of 00:00: [place] 00 Medical [facility] NITROFUR DRUG Active Hives 2019-0 Univers ANTOIN INGREDI 1-15 ity of 00:00: [place] 00 Medical Branch PENICILL DRUG Active Hives 2019-0 Univers IN INGREDI 1-15 ity of 00:00: [place] 00 Medical Branch PHENERGA DRUG Active N/V 2019-0 Univers N DM 1-15 ity of 00:00: [place] 00 Medical [facility] SULFAMET DRUG Active Hives 2019-0 Univers HAZINE INGREDI 1-15 ity of 00:00: [place] 00 Medical Branch TALWIN DRUG Active Hives 2019-0 Univers COMPOUND 1-15 ity of 00:00: [place] 00 Medical [facility] HYDROCOD DRUG Active Hallucinates 2019-0 Un ghada ONE-ACET 1-15 ity of AMINOPHE 00:00: [place] N 00 Medical Branch Clindamy Propensi Active Hives 2019-0 Univer s chacho ty to 1-15 ity of adverse 00:00: [place] reaction 00 Medical s Branch Codeine Propensi Active Hives 2019-0 fentanyl Unive rs ty to 1-15 and ity of adverse 00:00: morphine [place] reaction 00 are well Medica l s tolerated Branch Iodine Propensi Active Anaphylaxis Both Uni vers ty to 1-15 external ity of adverse 00:00: and ivp. [place] reaction Medical s Branch Levoflox Propensi Active Anaphylaxis U nivers acin ty to 1-15 ity of adverse 00:00: [place] reaction 00 Medical s Branch Naproxen Propensi Active Nausea Univer s ty to and/or 1-15 ity of adverse Vomiting 00:00: [place] reaction Medical s Branch Nitrofur Propensi Active Hives Univer s antoin ty to 1-15 ity of adverse 00:00: [place] reaction 00 Medical s Branch MORPHINE Adverse Active Info Not Commo n Reaction Available [facility] Macrobid Adverse Active Info Not Commo n Reaction Available [facility] Keflex Adverse Active Info Not Common Reaction Available [facility] Iodine Adverse Active Info Not Common Reaction Available [facility] Ceftin Adverse Active Info Not Common Reaction Available [facility] Phenothi Adverse Active Info Not Commo n azines Reaction Available [facility] qUINOLON Adverse Active Info Not Commo n E ab Reaction Available [facility] AXETIL Adverse Active Info Not Common Reaction Available [facility] Social History Social Habit Start Date Stop Date Quantity Comments Source Sex Assigned At [facility] Medical Branch Exposure to Not sure [facility] SARS-CoV-2 (event) Medica l Branch Tobacco use and 2019-02-24 2019-02-24 Never used [facility] exposure 00:00:00 00:00:00 Medical Branch Smoking Status Start Date Stop Date Source Former smoker 2019-02-24 00:00:00 2019-02-24 00:00:00 [facility] Medications Ordered Filled Start Stop Current Ordering Indication Dosage Frequency Signature Comments Components Source Medication Medication Date Date Medication? Clinician (SIG) Name Name docusate Yes [id number] 100mg Take 1 [facility] 100 mg 9 [id number] capsule by ity o f capsule 00:00: mouth [place] 00 daily. Medical Branch sennosides Yes [id number] 8.6mg Take 1 Univers 8.6 mg 9-26 [id number] tablet by ity of tablet 00:00: mouth [place] 00 daily. [facility] 2019-0 Yes [id number] 100mg Take 1 Univers 100 mg 9-26 [id number] capsule by ity o f capsule 00:00: mouth [place] 00 daily. [facility] 2019-0 Yes [id number] 8.6mg Take 1 Univers 8.6 mg 9-26 [id number] tablet by ity of tablet 00:00: mouth [place] 00 daily. [facility] 2018-0 Yes [id number] 100mg Take 1 Univers 100 mg 9-26 [id number] capsule by ity o f capsule 00:00: mouth [place] 00 daily. [facility] 2018-0 Yes [id number] 8.6mg Take 1 Univers 8.6 mg 9-26 [id number] tablet by ity of tablet 00:00: mouth [place] 00 daily. [facility] 2018-0 Yes [id number] 100mg Take 1 Univers 100 mg 9-26 [id number] capsule by ity o f capsule 00:00: mouth [place] 00 daily. [facility] 2018-0 Yes [id number] 8.6mg Take 1 Univers 8.6 mg 9-26 [id number] tablet by ity of tablet 00:00: mouth [place] 00 daily. [facility] 2018-0 Yes [id number] 100mg Take 1 Univers 100 mg 9-26 [id number] capsule by ity o f capsule 00:00: mouth [place] 00 daily. [facility] 2019-0 Yes [id number] 8.6mg Take 1 Univers 8.6 mg 9-26 [id number] tablet by ity of tablet 00:00: mouth [place] 00 daily. [facility] 2018-0 Yes [id number] 100mg Take 1 Univers 100 mg 9-26 [id number] capsule by ity o f capsule 00:00: mouth [place] 00 daily. [facility] 2019-0 Yes [id number] 8.6mg Take 1 Univers 8.6 mg 9-26 [id number] tablet by ity of tablet 00:00: mouth [place] 00 daily. [facility] 2019-0 Yes [id number] 100mg Take 1 Univers 100 mg 9-26 [id number] capsule by ity o f capsule 00:00: mouth [place] 00 daily. [facility] 2019-0 Yes [id number] 8.6mg Take 1 Univers 8.6 mg 9-26 [id number] tablet by ity of tablet 00:00: mouth [place] 00 daily. [facility] 2018-0 Yes [id number] 100mg Take 1 Univers 100 mg 9-26 [id number] capsule by ity o f capsule 00:00: mouth [place] 00 daily. [facility] 2019-0 Yes [id number] 8.6mg Take 1 Univers 8.6 mg 9-26 [id number] tablet by ity of tablet 00:00: mouth [place] 00 daily. [facility] 2018-0 Yes [id number] 100mg Take 1 Univers 100 mg 9-26 [id number] capsule by ity o f capsule 00:00: mouth [place] 00 daily. [facility] 2018-0 Yes [id number] 8.6mg Take 1 Univers 8.6 mg 9-26 [id number] tablet by ity of tablet 00:00: mouth [place] 00 daily. [facility] 2018-0 Yes [id number] 100mg Take 1 Univers 100 mg 9-26 [id number] capsule by ity o f capsule 00:00: mouth [place] 00 daily. [facility] 2018-0 Yes [id number] 8.6mg Take 1 Univers 8.6 mg 9-26 [id number] tablet by ity of tablet 00:00: mouth [place] 00 daily. [facility] 2018-0 Yes [id number] 100mg Take 1 Univers 100 mg 9-26 [id number] capsule by ity o f capsule 00:00: mouth [place] 00 daily. [facility] 2018-0 Yes [id number] 8.6mg Take 1 Univers 8.6 mg 9-26 [id number] tablet by ity of tablet 00:00: mouth [place] 00 daily. [facility] 2019-0 Yes [id number] 100mg Take 1 Univers 100 mg 9-26 [id number] capsule by ity o f capsule 00:00: mouth [place] 00 daily. [facility] 2018-0 Yes [id number] 8.6mg Take 1 Univers 8.6 mg 9-26 [id number] tablet by ity of tablet 00:00: mouth [place] 00 daily. [facility] 2018-0 Yes [id number] 100mg Take 1 Univers 100 mg 9-26 [id number] capsule by ity o f capsule 00:00: mouth [place] 00 daily. Medical Branch sennosides 2019-0 Yes [id number] 8.6mg Take 1 Univers 8.6 mg 9-26 [id number] tablet by ity of tablet 00:00: mouth [place] 00 daily. Medical Branch docusate 2019-0 Yes [id number] 100mg Take 1 Univers 100 mg 9-26 [id number] capsule by ity o f capsule 00:00: mouth [place] 00 daily. Medical Branch sennosides 2018- Yes [id number] 8.6mg Take 1 Univers 8.6 mg 9-26 [id number] tablet by ity of tablet 00:00: mouth [place] 00 daily. Medical Branch docusate Yes [id number] 100mg Take 1 Univers 100 mg 9-26 [id number] capsule by ity o f capsule 00:00: mouth [place] 00 daily. Medical Branch sennosides 2018- Yes [id number] 8.6mg Take 1 Univers 8.6 mg 9-26 [id number] tablet by ity of tablet 00:00: mouth [place] 00 daily. Medical Branch docusate Yes [id number] 100mg Take 1 Univers 100 mg 9-26 [id number] capsule by ity o f capsule 00:00: mouth [place] 00 daily. Medical Branch sennosides Yes [id number] 8.6mg Take 1 Univers 8.6 mg 9-26 [id number] tablet by ity of tablet 00:00: mouth [place] 00 daily. Medical Branch atorvastati Yes 20mg Take 20 mg Univers n 20 mg 9-25 by mouth ity of tablet 23:13: at [place] [address] bedtime. Medical Branch amLODIPine 2018- Yes 10mg Take 10 mg U nivers 10 mg 9-25 by mouth ity of tablet 23:13: daily. [place] [address] Medical Branch hydralAZINE 2018-0 Yes 25mg Take 25 mg Univers 25 mg 9-25 by mouth ity of tablet 23:13: every 6 [place] [address] (six) Medical hours. Branch calcitriol 2019-0 Yes .25ug Take 0.25 U nivers 0.25 mcg 9-25 mcg by ity of capsule 23:13: mouth [place] [address] daily. Medical Branch atorvastati Yes 20mg Take 20 mg Univers n 20 mg 9-25 by mouth ity of tablet 23:13: at [place] [address] bedtime. Medical Branch amLODIPine 2019-0 Yes 10mg Take 10 mg U nivers 10 mg 9-25 by mouth ity of tablet 23:13: daily. [place] [address] Medical Branch hydralAZINE 2018-0 Yes 25mg Take 25 mg Univers 25 mg 9-25 by mouth ity of tablet 23:13: every 6 [place] [address] (six) Medical hours. Branch calcitriol 2019-0 Yes .25ug Take 0.25 U nivers 0.25 mcg 9-25 mcg by ity of capsule 23:13: mouth [place] [address] daily. Medical Branch atorvastati 0 Yes 20mg Take 20 mg Univers n 20 mg 9-25 by mouth ity of tablet 23:13: at [place] [address] bedtime. Medical Branch amLODIPine 2018-0 Yes 10mg Take 10 mg U nivers 10 mg 9-25 by mouth ity of tablet 23:13: daily. [place] [address] Medical Branch hydralAZINE Yes 25mg Take 25 mg Univers 25 mg 9-25 by mouth ity of tablet 23:13: every 6 [place] [address] (six) Medical hours. Branch calcitriol 2018-0 Yes .25ug Take 0.25 U nivers 0.25 mcg 9-25 mcg by ity of capsule 23:13: mouth [place] [address] daily. Medical Branch atorvastati 2018-0 Yes 20mg Take 20 mg Univers n 20 mg 9-25 by mouth ity of tablet 23:13: at [place] [address] bedtime. Medical Branch amLODIPine 0 Yes 10mg Take 10 mg U nivers 10 mg 9-25 by mouth ity of tablet 23:13: daily. [place] [address] Medical Branch hydralAZINE 0 Yes 25mg Take 25 mg Univers 25 mg 9-25 by mouth ity of tablet 23:13: every 6 [place] [address] (six) Medical hours. Branch calcitriol 2019-0 Yes .25ug Take 0.25 U nivers 0.25 mcg 9-25 mcg by ity of capsule 23:13: mouth [place] [address] daily. Medical Branch atorvastati 2018-0 Yes 20mg Take 20 mg Univers n 20 mg 9-25 by mouth ity of tablet 23:13: at [place] [address] bedtime. Medical Branch amLODIPine 2018-0 Yes 10mg Take 10 mg U nivers 10 mg 9-25 by mouth ity of tablet 23:13: daily. [place] [address] Medical Branch hydralAZINE 2018-0 Yes 25mg Take 25 mg Univers 25 mg 9-25 by mouth ity of tablet 23:13: every 6 [place] [address] (six) Medical hours. Branch calcitriol 2018-0 Yes .25ug Take 0.25 U nivers 0.25 mcg 9-25 mcg by ity of capsule 23:13: mouth [place] [address] daily. Medical Branch atorvastati 2018-0 Yes 20mg Take 20 mg Univers n 20 mg 9-25 by mouth ity of tablet 23:13: at [place] [address] bedtime. Medical Branch amLODIPine 2018-0 Yes 10mg Take 10 mg U nivers 10 mg 9-25 by mouth ity of tablet 23:13: daily. [place] [address] Medical Branch hydralAZINE 2018-0 Yes 25mg Take 25 mg Univers 25 mg 9-25 by mouth ity of tablet 23:13: every 6 [place] [address] (six) Medical hours. Branch calcitriol 2018- Yes .25ug Take 0.25 U nivers 0.25 mcg 9-25 mcg by ity of capsule 23:13: mouth [place] [address] daily. Medical Branch atorvastati 2018-0 Yes 20mg Take 20 mg Univers n 20 mg 9-25 by mouth ity of tablet 23:13: at [place] [address] bedtime. Medical Branch amLODIPine 2018-0 Yes 10mg Take 10 mg U nivers 10 mg 9-25 by mouth ity of tablet 23:13: daily. [place] [address] Medical Branch hydralAZINE 0 Yes 25mg Take 25 mg Univers 25 mg 9-25 by mouth ity of tablet 23:13: every 6 [place] [address] (six) Medical hours. Branch calcitriol 2018-0 Yes .25ug Take 0.25 U nivers 0.25 mcg 9-25 mcg by ity of capsule 23:13: mouth [place] [address] daily. Medical Branch atorvastati 2019-0 Yes 20mg Take 20 mg Univers n 20 mg 9-25 by mouth ity of tablet 23:13: at [place] [address] bedtime. Medical Branch amLODIPine 2019-0 Yes 10mg Take 10 mg U nivers 10 mg 9-25 by mouth ity of tablet 23:13: daily. [place] [address] Medical Branch hydralAZINE 2018-0 Yes 25mg Take 25 mg Univers 25 mg 9-25 by mouth ity of tablet 23:13: every 6 [place] 34 (six) Medical hours. Branch calcitriol 2018-0 Yes .25ug Take 0.25 U nivers 0.25 mcg 9-25 mcg by ity of capsule 23:13: mouth [place] [address] daily. Medical Branch atorvastati 2018-0 Yes 20mg Take 20 mg Univers n 20 mg 9-25 by mouth ity of tablet 23:13: at [place] [address] bedtime. Medical Branch amLODIPine 2018-0 Yes 10mg Take 10 mg U nivers 10 mg 9-25 by mouth ity of tablet 23:13: daily. [place] [address] Medical Branch hydralAZINE 2018-0 Yes 25mg Take 25 mg Univers 25 mg 9-25 by mouth ity of tablet 23:13: every 6 [place] [address] (six) Medical hours. Branch calcitriol 2018-0 Yes .25ug Take 0.25 U nivers 0.25 mcg 9-25 mcg by ity of capsule 23:13: mouth [place] [address] daily. Medical Branch atorvastati Yes 20mg Take 20 mg Univers n 20 mg 9-25 by mouth ity of tablet 23:13: at [place] [address] bedtime. Medical Branch amLODIPine 2018-0 Yes 10mg Take 10 mg U nivers 10 mg 9-25 by mouth ity of tablet 23:13: daily. [place] [address] Medical Branch hydralAZINE 0 Yes 25mg Take 25 mg Univers 25 mg 9-25 by mouth ity of tablet 23:13: every 6 [place] [address] (six) Medical hours. Branch calcitriol 2018-0 Yes .25ug Take 0.25 U nivers 0.25 mcg 9-25 mcg by ity of capsule 23:13: mouth [place] [address] daily. Medical Branch atorvastati 2018-0 Yes 20mg Take 20 mg Univers n 20 mg 9-25 by mouth ity of tablet 23:13: at [place] [address] bedtime. Medical Branch amLODIPine 2018-0 Yes 10mg Take 10 mg U nivers 10 mg 9-25 by mouth ity of tablet 23:13: daily. [place] [address] Medical Branch hydralAZINE 2018-0 Yes 25mg Take 25 mg Univers 25 mg 9-25 by mouth ity of tablet 23:13: every 6 [place] [address] (six) Medical hours. Branch calcitriol 2018-0 Yes .25ug Take 0.25 U nivers 0.25 mcg 9-25 mcg by ity of capsule 23:13: mouth [place] [address] daily. Medical Branch atorvastati Yes 20mg Take 20 mg Univers n 20 mg 9-25 by mouth ity of tablet 23:13: at [place] [address] bedtime. Medical Branch amLODIPine Yes 10mg Take 10 mg U nivers 10 mg 9-25 by mouth ity of tablet 23:13: daily. [place] [address] Medical Branch hydralAZINE Yes 25mg Take 25 mg Univers 25 mg 9-25 by mouth ity of tablet 23:13: every 6 [place] [address] (six) Medical hours. Branch calcitriol Yes .25ug Take 0.25 U nivers 0.25 mcg 9-25 mcg by ity of capsule 23:13: mouth [place] [address] daily. Medical Branch atorvastati Yes 20mg Take 20 mg Univers n 20 mg 9-25 by mouth ity of tablet 23:13: at [place] [address] bedtime. Medical Branch amLODIPine Yes 10mg Take 10 mg U nivers 10 mg 9-25 by mouth ity of tablet 23:13: daily. [place] [address] Medical Branch hydralAZINE Yes 25mg Take 25 mg Univers 25 mg 9-25 by mouth ity of tablet 23:13: every 6 [place] [address] (six) Medical hours. Branch calcitriol Yes .25ug Take 0.25 U nivers 0.25 mcg 9-25 mcg by ity of capsule 23:13: mouth [place] [address] daily. Medical Branch atorvastati Yes 20mg Take 20 mg Univers n 20 mg 9-25 by mouth ity of tablet 23:13: at [place] [address] bedtime. Medical Branch amLODIPine Yes 10mg Take 10 mg U nivers 10 mg 9-25 by mouth ity of tablet 23:13: daily. [place] [address] Medical Branch hydralAZINE Yes 25mg Take 25 mg Univers 25 mg 9-25 by mouth ity of tablet 23:13: every 6 [place] [address] (six) Medical hours. Branch calcitriol Yes .25ug Take 0.25 U nivers 0.25 mcg 9-25 mcg by ity of capsule 23:13: mouth [place] [address] daily. Medical Branch atorvastati Yes 20mg Take 20 mg Univers n 20 mg 9-25 by mouth ity of tablet 23:13: at [place] [address] bedtime. Medical Branch amLODIPine Yes 10mg Take 10 mg U nivers 10 mg 9-25 by mouth ity of tablet 23:13: daily. [place] [address] Medical Branch hydralAZINE Yes 25mg Take 25 mg Univers 25 mg 9-25 by mouth ity of tablet 23:13: every 6 [place] [address] (six) Medical hours. Branch calcitriol Yes .25ug Take 0.25 U nivers 0.25 mcg 9-25 mcg by ity of capsule 23:13: mouth [place] [address] daily. Medical Branch atorvastati Yes 20mg Take 20 mg Univers n 20 mg 9-25 by mouth ity of tablet 23:13: at [place] [address] bedtime. Medical Branch amLODIPine Yes 10mg Take 10 mg U nivers 10 mg 9-25 by mouth ity of tablet 23:13: daily. [place] [address] Medical Branch hydralAZINE Yes 25mg Take 25 mg Univers 25 mg 9-25 by mouth ity of tablet 23:13: every 6 [place] [address] (six) Medical hours. Branch calcitriol Yes .25ug Take 0.25 U nivers 0.25 mcg 9-25 mcg by ity of capsule 23:13: mouth [place] [address] daily. Medical Branch diphenhydrA Yes [id number] 25mg Take 1 Univers MINE 25 mg 9-25 [id number] tablet by it y of tablet 00:00: mouth [place] 00 every 6 Medical (six) Branch hours as needed for Itching. Polyethylen 2018- Yes [id number] 17g Take 1 Univers e Glycol 9-25 [id number] Packet by ity of 3350 17 00:00: mouth [place] gram powder 00 daily as Medi erika needed for Branch Constipati on. diphenhydrA Yes [id number] 25mg Take 1 Univers MINE 25 mg 9-25 [id number] tablet by it y of tablet 00:00: mouth [place] 00 every 6 Medical (six) Branch hours as needed for Itching. Polyethylen 2019-0 Yes [id number] 17g Take 1 Univers e Glycol 9-25 [id number] Packet by ity of 3350 17 00:00: mouth [place] gram powder 00 daily as Medi erika needed for Branch Constipati on. diphenhydrA 2018- Yes [id number] 25mg Take 1 Univers MINE 25 mg 9-25 [id number] tablet by it y of tablet 00:00: mouth [place] 00 every 6 Medical (six) Branch hours as needed for Itching. Polyethylen 2018-0 Yes [id number] 17g Take 1 Univers e Glycol 9-25 [id number] Packet by ity of 3350 17 00:00: mouth [place] gram powder 00 daily as Medi erika needed for Branch Constipati on. diphenhydrA 0 Yes [id number] 25mg Take 1 Univers MINE 25 mg 9-25 [id number] tablet by it y of tablet 00:00: mouth [place] 00 every 6 Medical (six) Branch hours as needed for Itching. Polyethylen 2018-0 Yes [id number] 17g Take 1 Univers e Glycol 9-25 [id number] Packet by ity of 3350 17 00:00: mouth [place] gram powder 00 daily as Medi erika needed for Branch Constipati on. diphenhydrA 2018- Yes [id number] 25mg Take 1 Univers MINE 25 mg 9-25 [id number] tablet by it y of tablet 00:00: mouth [place] 00 every 6 Medical (six) Branch hours as needed for Itching. Polyethylen 0 Yes [id number] 17g Take 1 Univers e Glycol 9-25 [id number] Packet by ity of 3350 17 00:00: mouth [place] gram powder 00 daily as Medi erika needed for Branch Constipati on. diphenhydrA 2018-0 Yes [id number] 25mg Take 1 Univers MINE 25 mg 9-25 [id number] tablet by it y of tablet 00:00: mouth [place] 00 every 6 Medical (six) Branch hours as needed for Itching. Polyethylen 2018-0 Yes [id number] 17g Take 1 Univers e Glycol 9-25 [id number] Packet by ity of 3350 17 00:00: mouth [place] gram powder 00 daily as Medi erika needed for Branch Constipati on. diphenhydrA 2018-0 Yes [id number] 25mg Take 1 Univers MINE 25 mg 9-25 [id number] tablet by it y of tablet 00:00: mouth [place] 00 every 6 Medical (six) Branch hours as needed for Itching. Polyethylen 2018-0 Yes [id number] 17g Take 1 Univers e Glycol 9-25 [id number] Packet by ity of 3350 17 00:00: mouth [place] gram powder 00 daily as Medi erika needed for Branch Constipati on. diphenhydrA 2018-0 Yes [id number] 25mg Take 1 Univers MINE 25 mg 9-25 [id number] tablet by it y of tablet 00:00: mouth [place] 00 every 6 Medical (six) Branch hours as needed for Itching. Polyethylen 2018-0 Yes [id number] 17g Take 1 Univers e Glycol 9-25 [id number] Packet by ity of 3350 17 00:00: mouth [place] gram powder 00 daily as Medi erika needed for Branch Constipati on. diphenhydrA 2018-0 Yes [id number] 25mg Take 1 Univers MINE 25 mg 9-25 [id number] tablet by it y of tablet 00:00: mouth [place] 00 every 6 Medical (six) Branch hours as needed for Itching. Polyethylen 2018-0 Yes [id number] 17g Take 1 Univers e Glycol 9-25 [id number] Packet by ity of 3350 17 00:00: mouth [place] gram powder 00 daily as Medi erika needed for Branch Constipati on. diphenhydrA 2018-0 Yes [id number] 25mg Take 1 Univers MINE 25 mg 9-25 [id number] tablet by it y of tablet 00:00: mouth [place] 00 every 6 Medical (six) Branch hours as needed for Itching. Polyethylen 2018-0 Yes [id number] 17g Take 1 Univers e Glycol 9-25 [id number] Packet by ity of 3350 17 00:00: mouth [place] gram powder 00 daily as Medi erika needed for Branch Constipati on. diphenhydrA 2018-0 Yes [id number] 25mg Take 1 [facility] MINE 25 mg 9-25 [id number] tablet by it y of tablet 00:00: mouth [place] 00 every 6 Medical (six) Branch hours as needed for Itching. Polyethylen 2018-0 Yes [id number] 17g Take 1 Univers e Glycol 9-25 [id number] Packet by ity of 3350 17 00:00: mouth [place] gram powder 00 daily as Medi erika needed for Branch Constipati on. diphenhydrA 2018-0 Yes [id number] 25mg Take 1 [facility] MINE 25 mg 9-25 [id number] tablet by it y of tablet 00:00: mouth [place] 00 every 6 Medical (six) Branch hours as needed for Itching. Polyethylen 2019-0 Yes [id number] 17g Take 1 Univers e Glycol 9-25 006974 Packet by ity of 3350 17 00:00: mouth [place] gram powder 00 daily as Medi erika needed for Branch Constipati on. diphenhydrA Yes [id number] 25mg Take 1 [facility] MINE 25 mg 9-25 [id number] tablet by it y of tablet 00:00: mouth [place] 00 every 6 Medical (six) Branch hours as needed for Itching. Polyethylen Yes [id number] 17g Take 1 [facility] e Glycol 9-25 [id number] Packet by ity of 3350 17 00:00: mouth [place] gram powder 00 daily as Medi erika needed for Branch Constipati on. diphenhydrA Yes [id number] 25mg Take 1 [facility] MINE 25 mg 9-25 [id number] tablet by it y of tablet 00:00: mouth [place] 00 every 6 Medical (six) Branch hours as needed for Itching. Polyethylen Yes [id number] 17g Take 1 [facility] e Glycol 9-25 [id number] Packet by ity of 3350 17 00:00: mouth [place] gram powder 00 daily as Medi erika needed for Branch Constipati on. diphenhydrA Yes [id number] 25mg Take 1 [facility] MINE 25 mg 9-25 [id number] tablet by it y of tablet 00:00: mouth [place] 00 every 6 Medical (six) Branch hours as needed for Itching. Polyethylen Yes [id number] 17g Take 1 [facility] e Glycol 9-25 195828 Packet by ity of 3350 17 00:00: mouth [place] gram powder 00 daily as Medi erika needed for Branch Constipati on. diphenhydrA Yes [id number] 25mg Take 1 [facility] MINE 25 mg 9-25 [id number] tablet by it y of tablet 00:00: mouth [place] 00 every 6 Medical (six) Branch hours as needed for Itching. Polyethylen Yes [id number] 17g Take 1 [facility] e Glycol 9-25 [id number] Packet by ity of 3350 17 00:00: mouth [place] gram powder 00 daily as Medi erika needed for Branch Constipati on. insulin 2018- Yes [id number] 4U inject 4-9 [facility] lispro 8-05 Units ity of (HUMALOG 00:00: [place] 00 skin 3 Medical INSULIN) (three) Branch 100 unit/mL times pen daily injector before meals. insulin 2018- Yes [id number] 4U inject 4-9 [facility] lispro 8-05 Units ity of (HUMALOG 00:00: [place] 00 skin 3 Medical INSULIN) (three) Branch 100 unit/mL times pen daily injector before meals. insulin 2018- Yes [id number] 4U inject 4-9 [facility] lispro 8-05 Units ity of (HUMALOG 00:00: [place] 00 skin 3 Medical INSULIN) (three) Branch 100 unit/mL times pen daily injector before meals. insulin Yes [id number] 4U inject 4-9 [facility] lispro 8-05 Units ity of (HUMALOG 00:00: under [place] 00 skin 3 Medical INSULIN) (three) Branch 100 unit/mL times pen daily injector before meals. insulin Yes [id number] 4U inject 4-9 [facility] lispro 8-05 Units ity of (HUMALOG 00:00: under [place] 00 skin 3 Medical INSULIN) (three) Branch 100 unit/mL times pen daily injector before meals. insulin Yes [id number] 4U inject 4-9 [facility] lispro 8-05 Units ity of (HUMALOG 00:00: under [place] 00 skin 3 Medical INSULIN) (three) Branch 100 unit/mL times pen daily injector before meals. insulin Yes [id number] 4U inject 4-9 [facility] lispro 8-05 Units ity of (HUMALOG 00:00: [place] 00 skin 3 Medical INSULIN) (three) Branch 100 unit/mL times pen daily injector before meals. insulin 2018- Yes [id number] 4U inject 4-9 [facility] lispro 8-05 Units ity of (HUMALOG 00:00: under [place] 00 skin 3 Medical INSULIN) (three) Branch 100 unit/mL times pen daily injector before meals. insulin 2018- Yes [id number] 4U inject 4-9 [facility] lispro 8-05 Units ity of (HUMALOG 00:00: under [place] 00 skin 3 Medical INSULIN) (three) Branch 100 unit/mL times pen daily injector before meals. insulin 2019-0 Yes [id number] 4U inject 4-9 [facility] lispro 8-05 Units ity of (HUMALOG 00:00: under [place] 00 skin 3 Medical INSULIN) (three) Branch 100 unit/mL times pen daily injector before meals. insulin 2019-0 Yes [id number] 4U inject 4-9 [facility] lispro 8-05 Units ity of (HUMALOG 00:00: [place] 00 skin 3 Medical INSULIN) (three) Branch 100 unit/mL times pen daily injector before meals. insulin 2018- Yes [id number] 4U inject 4-9 [facility] lispro 8-05 Units ity of (HUMALOG 00:00: under [place] 00 skin 3 Medical INSULIN) (three) Branch 100 unit/mL times pen daily injector before meals. insulin 2018- Yes [id number] 4U inject 4-9 [facility] lispro 8-05 Units ity of (HUMALOG 00:00: under [place] 00 skin 3 Medical INSULIN) (three) Branch 100 unit/mL times pen daily injector before meals. insulin 2018- Yes [id number] 4U inject 4-9 [facility] lispro 8-05 Units ity of (HUMALOG 00:00: [place] 00 skin 3 Medical INSULIN) (three) Branch 100 unit/mL times pen daily injector before meals. insulin 2018-0 Yes [id number] 4U inject 4-9 [facility] lispro 8-05 Units ity of (HUMALOG 00:00: [place] 00 skin 3 Medical INSULIN) (three) Branch 100 unit/mL times pen daily injector before meals. insulin 2018-0 Yes [id number] 4U inject 4-9 [facility] lispro 8-05 Units ity of (HUMALOG 00:00: [place] 00 skin 3 Medical INSULIN) (three) Branch 100 unit/mL times pen daily injector before meals. insulin 2018-0 Yes [id number] 4U inject 4-9 [facility] lispro 8-05 Units ity of (HUMALOG 00:00: [place] 00 skin 3 Medical INSULIN) (three) Branch 100 unit/mL times pen daily injector before meals. LEVOTHYROXI 2019 Yes [id number] TAKE 1 Univers NE 88 mcg 7-08 TABLET BY ity o f tablet 00:00: MOUTH [place] 00 EVERY DAY Medical IN THE [facility] LEVOTHYROXI Yes [id number] TAKE 1 [facility] NE 88 mcg 7-08 TABLET BY ity o f tablet 00:00: MOUTH [place] 00 EVERY DAY Medical IN THE [facility] LEVOTHYROXI Yes [id number] TAKE 1 Univers NE 88 mcg 7-08 TABLET BY ity o f tablet 00:00: MOUTH [place] 00 EVERY DAY Medical IN THE [facility] LEVOTHYROXI Yes [id number] TAKE 1 Univers NE 88 mcg 7-08 TABLET BY ity o f tablet 00:00: MOUTH [place] 00 EVERY DAY Medical IN THE [facility] LEVOTHYROXI Yes [id number] TAKE 1 [facility] NE 88 mcg 7-08 TABLET BY ity o f tablet 00:00: MOUTH [place] 00 EVERY DAY Medical IN THE [facility] LEVOTHYROXI Yes [id number] TAKE 1 [facility] NE 88 mcg 7-08 TABLET BY ity o f tablet 00:00: MOUTH [place] 00 EVERY DAY Medical IN THE [facility] LEVOTHYROXI Yes [id number] TAKE 1 [facility] NE 88 mcg 7-08 TABLET BY ity o f tablet 00:00: MOUTH [place] 00 EVERY DAY Medical IN THE [facility] LEVOTHYROXI Yes [id number] TAKE 1 [facility] NE 88 mcg 7-08 TABLET BY ity o f tablet 00:00: MOUTH [place] 00 EVERY DAY Medical IN THE [facility] LEVOTHYROXI Yes [id number] TAKE 1 [facility] NE 88 mcg 7-08 TABLET BY ity o f tablet 00:00: MOUTH [place] 00 EVERY DAY Medical IN THE [facility] LEVOTHYROXI Yes [id number] TAKE 1 [facility] NE 88 mcg 7-08 TABLET BY ity o f tablet 00:00: MOUTH [place] 00 EVERY DAY Medical IN THE [facility] LEVOTHYROXI 2019 Yes [id number] TAKE 1 [facility] NE 88 mcg 7-08 TABLET BY ity o f tablet 00:00: MOUTH [place] 00 EVERY DAY Medical IN THE [facility] LEVOTHYROXI Yes [id number] TAKE 1 [facility] NE 88 mcg 7-08 TABLET BY ity o f tablet 00:00: MOUTH [place] 00 EVERY DAY Medical IN THE [facility] LEVOTHYROXI Yes [id number] TAKE 1 [facility] NE 88 mcg 7-08 TABLET BY ity o f tablet 00:00: MOUTH [place] 00 EVERY DAY Medical IN THE [place] MORNING LEVOTHYROXI Yes [id number] TAKE 1 [facility] NE 88 mcg 7-08 TABLET BY ity o f tablet 00:00: MOUTH [place] 00 EVERY DAY Medical IN THE [place] MORNING LEVOTHYROXI Yes [id number] TAKE 1 [facility] NE 88 mcg 7-08 TABLET BY ity o f tablet 00:00: MOUTH [place] 00 EVERY DAY Medical IN THE [place] MORNING LEVOTHYROXI Yes [id number] TAKE 1 [facility] NE 88 mcg 7-08 TABLET BY ity o f tablet 00:00: MOUTH [place] 00 EVERY DAY Medical IN THE [place] MORNING LEVOTHYROXI Yes [id number] TAKE 1 [facility] NE 88 mcg 7-08 TABLET BY ity o f tablet 00:00: MOUTH [place] 00 EVERY DAY Medical IN THE [place] MORNING atorvastati Yes 20mg Take 20 mg Univers n 20 mg 5-28 by mouth ity of tablet 17:18: at [place] [address] bedtime. Medical Branch amLODIPine Yes 10mg Take 10 mg U nivers 10 mg 5-28 by mouth ity of tablet 17:18: daily. [place] [address] Medical Branch hydralAZINE Yes 25mg Take 25 mg Univers 25 mg 5-28 by mouth ity of tablet 17:18: every 6 [place] [address] (six) Medical hours. Branch calcitriol Yes .25ug Take 0.25 U nivers 0.25 mcg 5-28 mcg by ity of capsule 17:18: mouth [place] [address] daily. Medical Branch ACCU-CHEK Yes Use as Univer s ARELY strip 5-10 directed, ity of 00:00: TID, [place] 00 DX:E11.9 Medical Branch ACCU-CHEK 0 Yes Use as Univer s ARELY strip 5-10 directed, ity of 00:00: TID, [place] 00 DX:E11.9 Medical Branch ACCU-CHEK 0 Yes Use as Univer s ARELY strip 5-10 directed, ity of 00:00: TID, [place] 00 DX:E11.9 Medical Branch ACCU-CHEK Yes Use as Univer s ARELY strip 5-10 directed, ity of 00:00: TID, [place] 00 DX:E11.9 Medical Branch ACCU-CHEK 2019-0 Yes Use as Univer s ARELY strip 5-10 directed, ity of 00:00: TID, [place] 00 DX:E11.9 Medical Branch ACCU-CHEK 2019-0 Yes Use as Univer s ARELY strip 5-10 directed, ity of 00:00: TID, [place] 00 DX:E11.9 Medical Branch ACCU-CHEK 2019-0 Yes Use as Univer s ARELY strip 5-10 directed, ity of 00:00: TID, [place] 00 DX:E11.9 Medical Branch ACCU-CHEK 2019-0 Yes Use as Univer s ARELY strip 5-10 directed, ity of 00:00: TID, [place] 00 DX:E11.9 Medical Branch ACCU-CHEK 2019-0 Yes Use as Univer s ARELY strip 5-10 directed, ity of 00:00: TID, 00 DX:E11.9 Medical Branch ACCU-CHEK 2019-0 Yes Use as Univer s ARELY strip 5-10 directed, ity of 00:00: TID, [place] 00 DX:E11.9 Medical Branch ACCU-CHEK 2019-0 Yes Use as Univer s ARELY strip 5-10 directed, ity of 00:00: TID, [place] 00 DX:E11.9 Medical Branch ACCU-CHEK 2019-0 Yes Use as Univer s ARELY strip 5-10 directed, ity of 00:00: TID, [place] 00 DX:E11.9 Medical Branch ACCU-CHEK 2019-0 Yes Use as Univer s ARELY strip 5-10 directed, ity of 00:00: TID, [place] 00 DX:E11.9 Medical Branch ACCU-CHEK 2019-0 Yes Use as Univer s ARELY strip 5-10 directed, ity of 00:00: TID, [place] 00 DX:E11.9 Medical Branch ACCU-CHEK 2019-0 Yes Use as Univer s ARELY strip 5-10 directed, ity of 00:00: TID, [place] 00 DX:E11.9 Medical Branch ACCU-CHEK 2019-0 Yes Use as Univer s ARELY strip 5-10 directed, ity of 00:00: TID, [place] 00 DX:E11.9 Medical Branch ACCU-CHEK 2019-0 Yes Use as Univer s ARELY strip 5-10 directed, ity of 00:00: [place] 00 DX:E11.9 Medical Branch Insulin 2019-0 Yes [id number] Use as Univ ers [place], 5-06 directed, ity of Disposable, 00:00: [facility] [place] (PEN 00 DX:E11.9 Medical NEEDLE) 32 Branch gauge x 5/32" Ndle Insulin 2019-0 Yes [id number] Use as Univ ers [place], 5-06 directed, ity of Disposable, 00:00: [facility] [place] (PEN 00 DX:E11.9 Medical NEEDLE) 32 Branch gauge x 5/32" Ndle Insulin 2019-0 Yes [id number] Use as Univ ers [place], 5-06 directed, ity of Disposable, 00:00: [place] (PEN 00 DX:E11.9 Medical NEEDLE) 32 Branch gauge x 5/32" Ndle Insulin 2019-0 Yes [id number] Use as Univ ers [place], 5-06 directed, ity of Disposable, 00:00: [place] (PEN 00 DX:E11.9 Medical NEEDLE) 32 Branch gauge x 5/32" Ndle Insulin 2019-0 Yes [id number] Use as Univ ers [place], 5-06 directed, ity of Disposable, 00:00: [place] (PEN 00 DX:E11.9 Medical NEEDLE) 32 Branch gauge x 5/32" Ndle Insulin 2019-0 Yes [id number] Use as Univ ers [place], 5-06 directed, ity of Disposable, 00:00: [facility] [place] (PEN 00 DX:E11.9 Medical NEEDLE) 32 Branch gauge x 5/32" Ndle Insulin 2019-0 Yes [id number] Use as Univ ers [place], 5-06 directed, ity of Disposable, 00:00: [facility] [place] (PEN 00 DX:E11.9 Medical NEEDLE) 32 Branch gauge x 5/32" Ndle Insulin 2019-0 Yes [id number] Use as Univ ers [place], 5-06 directed, ity of Disposable, 00:00: [facility] [place] (PEN 00 DX:E11.9 Medical NEEDLE) 32 Branch gauge x 5/32" Ndle Insulin 2019-0 Yes [id number] Use as Univ ers [place], 5-06 directed, ity of Disposable, 00:00: [facility] [place] (PEN 00 DX:E11.9 Medical NEEDLE) 32 Branch gauge x 5/32" Ndle Insulin 2019-0 Yes [id number] Use as Univ ers [place], 5-06 directed, ity of Disposable, 00:00: [facility] [place] (PEN 00 DX:E11.9 Medical NEEDLE) 32 Branch gauge x 5/32" Ndle Insulin 2019-0 Yes [id number] Use as Univ ers [place], 5-06 directed, ity of Disposable, 00:00: [facility] [place] (PEN 00 DX:E11.9 Medical NEEDLE) 32 Branch gauge x 5/32" Ndle Insulin 2019-0 Yes [id number] Use as Univ ers [place], 5-06 directed, ity of Disposable, 00:00: [place] (PEN 00 DX:E11.9 Medical NEEDLE) 32 Branch gauge x 5/32" Ndle Insulin 2019-0 Yes [id number] Use as Univ ers [place], 5-06 directed, ity of Disposable, 00:00: [facility] [place] (PEN 00 DX:E11.9 Medical NEEDLE) 32 Branch gauge x 5/32" Ndle Insulin 2019-0 Yes [id number] Use as Univ ers [place], 5-06 directed, ity of Disposable, 00:00: [facility] [place] (PEN 00 DX:E11.9 Medical NEEDLE) 32 Branch gauge x 5/32" Ndle Insulin 2019-0 Yes [id number] Use as Univ ers [place], 5-06 directed, ity of Disposable, 00:00: [facility] [place] (PEN 00 DX:E11.9 Medical NEEDLE) 32 Branch gauge x 5/32" Ndle Insulin 2019-0 Yes [id number] Use as Univ ers [place], 5-06 directed, ity of Disposable, 00:00: [facility] [place] (PEN 00 DX:E11.9 Medical NEEDLE) 32 Branch gauge x 5/32" Ndle Insulin 2019-0 Yes [id number] Use as Univ ers [place], 5-06 directed, ity of Disposable, 00:00: [facility] [place] (PEN 00 DX:E11.9 Medical NEEDLE) 32 Branch gauge x 5/32" Ndle insulin 2019-0 Yes 15U inject 15 Unive rs glargine 4-23 Units ity of U-300 conc 00:00: under the [place] ([place] 00 skin Medical SOLOSTAR daily. Branch U-300 INSULIN) 300 unit/mL (1.5 mL) InPn insulin Yes 15U inject 15 Unive rs glargine 4-23 Units ity of U-300 conc 00:00: under the [place] ( skin Medical SOLOSTAR daily. Branch U-300 INSULIN) 300 unit/mL (1.5 mL) InPn insulin Yes 15U inject 15 Unive rs glargine 4-23 Units ity of U-300 conc 00:00: under the [place] ( skin Medical SOLOSTAR daily. Branch U-300 INSULIN) 300 unit/mL (1.5 mL) InPn insulin Yes 15U inject 15 Unive rs glargine 4-23 Units ity of U-300 conc 00:00: under the [place] ( skin Medical SOLOSTAR daily. Branch U-300 INSULIN) 300 unit/mL (1.5 mL) InPn insulin Yes 15U inject 15 Unive rs glargine 4-23 Units ity of U-300 conc 00:00: under the [place] ( skin Medical SOLOSTAR daily. Branch U-300 INSULIN) 300 unit/mL (1.5 mL) InPn insulin Yes 15U inject 15 Unive rs glargine 4-23 Units ity of U-300 conc 00:00: under the [place] ( skin Medical SOLOSTAR daily. Branch U-300 INSULIN) 300 unit/mL (1.5 mL) InPn insulin Yes 15U inject 15 Unive rs glargine 4-23 Units ity of U-300 conc 00:00: under the [place] ( skin Medical SOLOSTAR daily. Branch U-300 INSULIN) 300 unit/mL (1.5 mL) InPn insulin 2018- Yes 15U inject 15 Unive rs glargine 4-23 Units ity of U-300 conc 00:00: under the [place] ( skin Medical SOLOSTAR daily. Branch U-300 INSULIN) 300 unit/mL (1.5 mL) InPn insulin Yes 15U inject 15 Unive rs glargine 4-23 Units ity of U-300 conc 00:00: under the [place] ( skin Medical SOLOSTAR daily. Branch U-300 INSULIN) 300 unit/mL (1.5 mL) InPn insulin 2018- Yes 15U inject 15 Unive rs glargine 4-23 Units ity of U-300 conc 00:00: under the [place] ( skin Medical SOLOSTAR daily. Branch U-300 INSULIN) 300 unit/mL (1.5 mL) InPn insulin Yes 15U inject 15 Unive rs glargine 4-23 Units ity of U-300 conc 00:00: under the [place] ( skin Medical SOLOSTAR daily. Branch U-300 INSULIN) 300 unit/mL (1.5 mL) InPn insulin 2018- Yes 15U inject 15 Unive rs glargine 4-23 Units ity of U-300 conc 00:00: under the [place] ( skin Medical SOLOSTAR daily. Branch U-300 INSULIN) 300 unit/mL (1.5 mL) InPn insulin Yes 15U inject 15 Unive rs glargine 4-23 Units ity of U-300 conc 00:00: under the [place] ( skin Medical SOLOSTAR daily. Branch U-300 INSULIN) 300 unit/mL (1.5 mL) InPn insulin Yes 15U inject 15 Unive rs glargine 4-23 Units ity of U-300 conc 00:00: under the [place] ( skin Medical SOLOSTAR daily. Branch U-300 INSULIN) 300 unit/mL (1.5 mL) InPn insulin Yes 15U inject 15 Unive rs glargine 4-23 Units ity of U-300 conc 00:00: under the [place] ( skin Medical SOLOSTAR daily. Branch U-300 INSULIN) 300 unit/mL (1.5 mL) InPn insulin Yes 15U inject 15 Unive rs glargine 4-23 Units ity of U-300 conc 00:00: under the [place] ( skin Medical SOLOSTAR daily. Branch U-300 INSULIN) 300 unit/mL (1.5 mL) InPn insulin Yes 15U inject 15 Unive rs glargine 4-23 Units ity of U-300 conc 00:00: under the [place] ([place] 00 skin Medical SOLOSTAR daily. Branch U-300 INSULIN) 300 unit/mL (1.5 mL) InPn glucagon Yes [id number] 1mg inject 1 Univers (GLUCAGON 2-26 mg under ity of EMERGENCY 00:00: [place] KIT, 00 as needed Medical HUMAN,) 1 (Low sugar Bran ch mg and injection unconsciou s). glucagon Yes [id number] 1mg inject 1 [facility] (GLUCAGON 2-26 mg under ity of EMERGENCY 00:00: the [place] KIT, 00 as needed Medical HUMAN,) 1 (Low sugar Bran ch mg and injection unconsciou s). glucagon Yes [id number] 1mg inject 1 [facility] (GLUCAGON 2-26 mg under ity of EMERGENCY 00:00: the [place] KIT, 00 as needed Medical HUMAN,) 1 (Low sugar Bran ch mg and injection unconsciou s). glucagon Yes [id number] 1mg inject 1 [facility] (GLUCAGON 2-26 mg under ity of EMERGENCY 00:00: the [place] KIT, 00 as needed Medical HUMAN,) 1 (Low sugar Bran ch mg and injection unconsciou s). glucagon Yes [id number] 1mg inject 1 [facility] (GLUCAGON 2-26 mg under ity of EMERGENCY 00:00: the [place] KIT, 00 as needed Medical HUMAN,) 1 (Low sugar Bran ch mg and injection unconsciou s). glucagon Yes [id number] 1mg inject 1 [facility] (GLUCAGON 2-26 mg under ity of EMERGENCY 00:00: the [place] KIT, 00 as needed Medical HUMAN,) 1 (Low sugar Bran ch mg and injection unconsciou s). glucagon Yes [id number] 1mg inject 1 [facility] (GLUCAGON 2-26 mg under ity of EMERGENCY 00:00: the [place] KIT, 00 as needed Medical HUMAN,) 1 (Low sugar Bran ch mg and injection unconsciou s). glucagon 2019-0 Yes [id number] 1mg inject 1 [facility] (GLUCAGON 2-26 mg under ity of EMERGENCY 00:00: the [place] KIT, 00 as needed Medical HUMAN,) 1 (Low sugar Bran ch mg and injection unconsciou s). glucagon 2018-0 Yes [id number] 1mg inject 1 [facility] (GLUCAGON 2-26 mg under ity of EMERGENCY 00:00: the [place] KIT, 00 as needed Medical HUMAN,) 1 (Low sugar Bran ch mg and injection unconsciou s). glucagon 2018-0 Yes [id number] 1mg inject 1 [facility] (GLUCAGON 2-26 mg under ity of EMERGENCY 00:00: the [place] KIT, 00 as needed Medical HUMAN,) 1 (Low sugar Bran ch mg and injection unconsciou s). glucagon 2018-0 Yes [id number] 1mg inject 1 [facility] (GLUCAGON 2-26 mg under ity of EMERGENCY 00:00: the [place] KIT, 00 as needed Medical HUMAN,) 1 (Low sugar Bran ch mg and injection unconsciou s). glucagon 0 Yes [id number] 1mg inject 1 [facility] (GLUCAGON 2-26 mg under ity of EMERGENCY 00:00: the [place] KIT, 00 as needed Medical HUMAN,) 1 (Low sugar Bran ch mg and injection unconsciou s). glucagon 2018-0 Yes [id number] 1mg inject 1 [facility] (GLUCAGON 2-26 mg under ity of EMERGENCY 00:00: the [place] KIT, 00 as needed Medical HUMAN,) 1 (Low sugar Bran ch mg and injection unconsciou s). glucagon 2018-0 Yes [id number] 1mg inject 1 [facility] (GLUCAGON 2-26 mg under ity of EMERGENCY 00:00: the [place] KIT, 00 as needed Medical HUMAN,) 1 (Low sugar Bran ch mg and injection unconsciou s). glucagon 2018-0 Yes [id number] 1mg inject 1 [facility] (GLUCAGON 2-26 mg under ity of EMERGENCY 00:00: the [place] KIT, 00 as needed Medical HUMAN,) 1 (Low sugar Bran ch mg and injection unconsciou s). glucagon 2018-0 Yes [id number] 1mg inject 1 [facility] (GLUCAGON 2-26 mg under ity of EMERGENCY 00:00: the [place] KIT, 00 as needed Medical HUMAN,) 1 (Low sugar Bran ch mg and injection unconsciou s). glucagon 2018- Yes [id number] 1mg inject 1 [facility] (GLUCAGON 2-26 mg under ity of EMERGENCY 00:00: the [place] KIT, 00 as needed Medical HUMAN,) 1 (Low sugar Bran ch mg and injection unconsciou s). insulin 2019- No [id number] 12U inject 12 [facility] lispro 2-26 08-05 Units ity of (HUMALOG 00:00: 00:00 under the [place] KWIKPEN 00 :00 skin 3 Medical INSULIN) (three) Branch 100 unit/mL times pen daily injector before meals. divalproex Yes TAKE 1 Unive rs 500 mg EC 3-08 TABLET BY ity o f tablet 00:00: [facility]TH [facility] [place] [facility] divalproex 0 Yes TAKE 1 Unive rs 500 mg EC 3-08 TABLET BY ity o f tablet 00:00: MOUTH AT [place] [facility] divalproex 0 Yes TAKE 1 Unive rs 500 mg EC 3-08 TABLET BY ity o f tablet 00:00: MOUTH AT [place] [facility] Medical Branch divalproex 0 Yes TAKE 1 Unive rs 500 mg EC 3-08 TABLET BY ity o f tablet 00:00: MOUTH AT [place] [facility] Medical Branch divalproex 2017-0 Yes TAKE 1 Unive rs 500 mg EC 3-08 TABLET BY ity o f tablet 00:00: MOUTH AT [place] [facility] Medical Branch divalproex 2017-0 Yes TAKE 1 Unive rs 500 mg EC 3-08 TABLET BY ity o f tablet 00:00: MOUTH AT [place] [facility] Medical Branch divalproex 2017-0 Yes TAKE 1 Unive rs 500 mg EC 3-08 TABLET BY ity o f tablet 00:00: MOUTH AT [place] [facility] Medical Branch divalproex 2017-0 Yes TAKE 1 Unive rs 500 mg EC 3-08 TABLET BY ity o f tablet 00:00: [facility]TH AT [place] [facility] divalproex 2017-0 Yes TAKE 1 Unive rs 500 mg EC 3-08 TABLET BY ity o f tablet 00:00: M[facility]TH AT [place] [facility] divalproex 2017-0 Yes TAKE 1 Unive rs 500 mg EC 3-08 TABLET BY ity o f tablet 00:00: MOUTH AT [place] BEDTIME Medical Branch divalproex 2018-0 Yes TAKE 1 Unive rs 500 mg EC 3-08 TABLET BY ity o f tablet 00:00: MOUTH AT [place] BEDTIME Medical Branch divalproex 2018-0 Yes TAKE 1 Unive rs 500 mg EC 3-08 TABLET BY ity o f tablet 00:00: MOUTH AT [place] BEDTIME Medical Branch divalproex [id number] Yes TAKE 1 Unive rs 500 mg EC 3-08 TABLET BY ity o f tablet 00:00: MOUTH AT [place] BEDTIME Medical Branch divalproex [id number] Yes TAKE 1 Unive rs 500 mg EC 3-08 TABLET BY ity o f tablet 00:00: MOUTH AT [place] BEDTIME Medical Branch divalproex 2018 Yes TAKE 1 Unive rs 500 mg EC 3-08 TABLET BY ity o f tablet 00:00: MOUTH AT [place] BEDTIME Medical Branch divalproex 2018 Yes TAKE 1 Unive rs 500 mg EC 3-08 TABLET BY ity o f tablet 00:00: [facility]TH AT [place] [facility] divalproex 2018 Yes TAKE 1 Unive rs 500 mg EC 3-08 TABLET BY ity o f tablet 00:00: MOUTH AT [place] [facility] Medical Branch Humalog Humalog Yes Panda 6 Units Comm on KwikPen KwikPen [facility] Toujeo [place] Yes Panda 15 units Commo n SoloStar SoloStar [facility] Vital Signs Vital Name Observation Time Observation Value Comments Source Body temperature 2019-11-18 19:31:00 [facility].61 [facility] 2019-11-18 19:31:00 [facility] BMI 2019-11-18 19:31:00 39.06 kg/m2 [facility] Body height 2019-08-12 18:17:00 152.4 cm [facility] Body weight 2019-08-12 18:17:00 84.823 kg [facility] BMI 2019-08-12 18:17:00 36.52 kg/m2 [facility] Body height 2019-07-01 20:25:00 152.4 cm [facility] Body weight 2019-07-01 20:25:00 84.823 kg [facility] BMI 2019-07-01 20:25:00 36.52 kg/m2 [facility] Procedures Procedure Date / Time Performed Performing Clinician Cecilia e XR FEMUR 2 VW LEFT 2019-11-18 19:29:47 Gautam Cunningham [facility] NOTICE OF PRIVACY 2019-11-18 19:11:56 Doctor Unassigned, No [facility] CONSENT/REFUSAL FOR 2019-11-18 19:11:35 Doctor Unassigned, No [facility] DIAGNOSIS AND [facility] TREATMENT ASSIGNMENT OF BENEFITS 2019-11-18 19:11:14 Doctor Unassigned, No [facility] XR FEMUR 2 LEFT 2019-08-12 18:51:43 Luis Cole [facility] XR FEMUR 2 LEFT 2019-07-01 20:29:28 Gautam Cunningham [facility] Encounters Start End Encounter Admission Attending Care Care Encounter Source Date/Time Date/Time Type Type Clinicians Facility Department ID 2021-06-29 Outpatient Henry, STLMLC STLMLC [id number] Common 13:33:19 Panda [id number] [facility] 2021-06-29 Outpatient Henry, STLMLC STLMLC [id number] Common 12:43:59 Panda [id number] [facility] 2021-06-29 Outpatient Henry, STLMLC STLMLC [id number] Common 12:26:33 Panda [id number] [facility] 2021-06-29 Outpatient Henry, STLMLC STLMLC [id number] Common 11:32:25 Panda [id number] [facility] 2021-06-29 Outpatient Henry, STLMLC STLMLC [id number] Common 11:19:43 Panda [id number] [facility] 2021-06-29 Outpatient Henry, STLMLC STLMLC [id number] Common 11:18:30 Panda [id number] [facility] 2021-06-29 Outpatient Henry, STLMLC STLMLC [id number] Common 11:02:00 [facility] [id number] [facility] 2022-01-09 2022-01-09 ambulatory STLMLC STLMLC [id number] Common 00:00:00 00:00:00 [facility] 2021-12-20 2021-12-20 ambulatory STLMLC STLMLC [id number] Common 00:00:00 00:00:00 [facility] 2021-12-15 2021-12-15 ambulatory STLMLC STLMLC [id number] Common 00:00:00 00:00:00 [facility] 2021-12-15 2021-12-15 ambulatory STLMLC STLMLC [id number] Common 00:00:00 00:00:00 [facility] 2021-10-13 2021-10-13 ambulatory STLMLC STLMLC [id number] Common 00:00:00 00:00:00 [facility] 2021-08-24 2021-08-24 ambulatory STLMLC STLMLC [id number] Common 00:00:00 00:00:00 [facility] 2021-08-24 2021-08-24 ambulatory STLMLC STLMLC [id number] Common 00:00:00 00:00:00 [facility] 2021-08-15 2021-08-15 ambulatory STLMLC STLMLC [id number] Common 00:00:00 00:00:00 [facility] 2021-04-07 2021-04-07 ambulatory STLMLC STLMLC [id number] Common 00:00:00 00:00:00 [facility] 2021-01-04 2021-01-04 Outpatient STLMLC STLMLC [id number] Common 00:00:00 00:00:00 [facility] 2020-12-23 2020-12-23 Outpatient STLMLC STLMLC [id number] Common 00:00:00 00:00:00 [facility] 2020-12-13 2020-12-13 Outpatient STLMLC STLMLC [id number] Common 00:00:00 00:00:00 [facility] 2020-12-09 2020-12-09 Outpatient STLMLC STLMLC [id number] Common 00:00:00 00:00:00 [facility] 2020-10-22 2020-10-22 Outpatient STLMLC STLMLC [id number] Common 00:00:00 00:00:00 [facility] 2020-10-05 2020-10-05 Outpatient STLMLC STLMLC [id number] Common 00:00:00 00:00:00 [facility] 2020-09-01 2020-09-01 Outpatient STLMLC STLMLC [id number] Common 00:00:00 00:00:00 [facility] 2020-08-25 2020-08-25 Outpatient STLMLC STLMLC [id number] Common 00:00:00 00:00:00 [facility] 2020-08-25 2020-08-25 Outpatient STLMLC STLMLC [id number] Common 00:00:00 00:00:00 [facility] 2020-07-05 2020-07-05 Telephone [facility] [id number] 00:00:00 00:00:00 Gautam A HEALTH [id number] [place] [id number] [facility] [phone] Primary & 198 [facility] 2020-07-05 2020-07-05 Outpatient STLMLC STLMLC [id number] Common 00:00:00 00:00:00 [facility] 2020-07-05 2020-07-05 Telephone [facility] [id number] Univers 00:00:00 00:00:00 Gautam A HEALTH [id number] [facility] [id number] [facility] [id number] [facility] Primary & [address] [facility] 2020-05-14 2020-05-14 Outpatient STLMLC STLMLC [id number] Common 00:00:00 00:00:00 [facility] 2020-05-12 2020-05-12 Outpatient STLMLC STLMLC [id number] Common 00:00:00 00:00:00 [facility] 2020-05-11 2020-05-11 Outpatient STLMLC STLMLC [id number] Common 00:00:00 00:00:00 [facility] 2020-04-16 2020-04-16 Outpatient STLMLC STLMLC [id number] Common 00:00:00 00:00:00 [facility] 2020-04-02 2020-04-02 Outpatient STLMLC STLMLC [id number] Common 00:00:00 00:00:00 [facility] 2020-01-15 2020-01-15 [facility] [id number] Common 16:05:00 16:05:[address] [facility] 2019-12-25 2019-12-25 [facility] [id number] Common 13:00:00 13:00:[address] [facility] 2019-12-25 2019-12-25 [facility] [id number] Common 13:00:00 13:00:[address] [facility] 2019-11-18 2019-11-18 Outpatient R [facility] [id number] Univers 14:18:44 23:59:00 GAUTAM ity of [facility] 2019-11-18 2019-11-18 [facility] [id number] Univers 14:18:00 23:59:00 Encounter Gautam A PRIMARY [id number] ity of CARE [id number] Mireya DE JESUS [id number] [address] 2019-11-18 2019-11-18 Office [facility] [id number] Univers 14:10:02 14:52:12 Visit Gautam A PRIMARY [id number] it y of CARE [id number] Mireya DE JESUS [id number] Ct dical [address] 2019-11-18 2019-11-18 Outpatient R SAUMYA [facility] [id number] Univers 13:30:00 13:30:00 GAUTAM [id number] ity of [facility] 2019-11-18 2019-11-18 Orders Doctor FREDDIE [id number] Univers 00:00:00 00:00:00 Only Unassigned, RAMANA [id number] ity of [facility] [id number] Swapnil deshawn [id number] [address] 2019-10-15 2019-10-15 [facility] [id number] Common 09:49:00 09:49:[address] [facility] [address] [facility] 2019-10-14 2019-10-14 [facility] [id number] Common 08:00:00 08:00:[address] [facility] 2019-10-13 2019-10-13 [facility] [id number] Common 08:38:00 08:38:[address] [facility] 2019-09-30 2019-09-30 [facility] [id number] Common 10:12:00 10:12:00 [address] [facility] [address] [facility] 2019-09-29 2019-09-29 [facility] [id number] Common 09:40:00 09:40:[address] [facility] 2019-09-26 2019-09-26 [facility] [id number] Common 13:00:00 13:00:00 [address] [facility] [address] [facility] 2019-09-26 2019-09-26 [facility] [id number] Common 10:03:00 10:03:[address] [facility] 2019-09-23 2019-09-23 Outpatient Tristan ANGEL [facility] [id number] Univers 15:00:00 15:00:00 WENTONG ity of [facility] 2019-09-23 2019-09-23 Out[facility] [id number] Common 11:15:00 11:15:[address] [facility] 2019-09-12 2019-09-12 Out[facility] [id number] Common 15:20:00 15:20:[address] [facility] 2019-08-12 2019-08-12 Hospital [facility] [id number] Univers 10:00:00 23:59:00 Encounter Gautam Gamboa [id number] [facility] [id number] [facility] [id number] [facility] Primary & 809 [facility] 2019-08-12 2019-08-12 Outpatient R [facility] [id number] Univers 10:00:00 23:59:00 [facility] 2019-08-12 Office [facility] [id number] Univers 13:13:27 14:07:39 Visit Gautam Gamboa HEALTH [id number] it [facility] [id number] [facility] [id number] [facility] Primary & [facility] 2019-08-12 2019-08-12 Outpatient R [facility] [id number] Univers 10:00:00 10:00:00 GAUTAM [id number] ity of [facility] 2019-08-10 2019-08-10 [facility] [id number] Univers 00:00:00 00:00:00 [place] PRIMARY [id number] i ty of [facility] [id number] [facility] [id number] dical [address] 2019-07-14 2019-07-14 Out[facility] [id number] Common 15:39:00 15:39:[address] [facility] 2019-07-07 2019-07-07 Out[facility] [id number] Common 08:21:00 08:21:[address] [facility] 2019-07-01 2019-07-01 Hospital [facility] [id number] Univers 11:45:00 23:59:00 Encounter Gautam A HEALTH [id number] [id number] [place] [id number] [facility] Primary & 809 [facility] 2019-07-01 2019-07-01 Office [facility] [id number] Univers 14:09:18 15:29:59 Visit Gautam A HEALTH [id number] [id number] [place] [id number] [facility] Primary & 198 [facility] 2019-07-01 2019-07-01 Telephone [facility] [id number] Univers 00:00:00 00:00:00 Gautam A PRIMARY [id number] [id number] [place] [facility] [id number] dical [address] 2019-06-27 2019-06-27 Out[facility] [id number] Common 08:21:00 08:21:[address] [facility] 2019-06-27 2019-06-27 Abstract [facility] [id number] Univers 00:00:00 00:00:00 Gautam A HEALTH [id number] [id number] [place] [id number] [facility] Primary & 198 [facility] 2019-06-24 2019-06-24 Out[facility] [id number] Common 10:15:00 10:15:[address] [facility] 2019-06-16 2019-06-16 Out[facility] [id number] Common 13:10:00 13:10:[address] [facility] 2019-06-03 2019-06-03 Outpatient R [place], [facility] [id number] Univers 11:00:00 23:59:[address] [facility] 2019-05-06 2019-05-06 Outpatient R SAUMYA [facility] [id number] Univers 10:00:00 23:59:[address] [facility] 2019-05-01 2019-05-01 Outpatient [place], [facility] [id number] M-[id number] Univers 13:05:00 13:05:00 GAUTAM [id number] ity [facility] 2019-04-08 2019-04-08 Outpatient R SAUMYA [facility] [id number] Univers 10:45:00 23:59:[address] [facility] 2019-04-05 2019-04-05 Outpatient SAUMYA [facility] [id number] Univers 19:40:00 19:40:[id number] [facility] 2019-03-11 2019-03-11 Out[facility] [id number] Common 15:35:00 15:35:00 [place] [facility] 2019-03-11 2019-03-11 Out[facility] [id number] Common 09:38:00 09:38:00 [facility] [place] [facility] 2019-03-10 2019-03-10 [facility] [id number] Common 13:35:00 13:35:00 t [facility] 2019-03-03 2019-03-03 Out[facility] [id number] Common 16:50:00 16:50:[address] [facility] 2019-02-27 2019-02-27 Out[facility] [id number] Common 13:16:00 13:16:00 [place] [facility] 2019-02-17 2019-02-17 Outpatient [facility] [id number] Common 16:40:00 16:40:00 t [place] [facility] [facility] 2019-01-06 2019-01-06 Bhargavi Angel [facility] [id number] Univers 00:00:00 00:00:00 Eliana Valdes [id number] i ty navdeep Dickerson [id number] Mireya Houghio [id number] Me dical nal [address] 2018-12-30 2018-12-30 Out[facility] [id number] Common 10:27:00 10:27:[address] [facility] 2018-09-05 2018-09-05 Out[facility] [id number] Common 11:20:00 11:20:00 t [place] [facility] [facility] 2018-07-18 2018-07-18 Out[facility] [id number] Common 18:30:00 18:30:00 t [place] [facility] [facility] 2018-07-16 2018-07-16 Out[facility] [id number] Common 16:40:00 16:40:00 t [place] [facility] [facility] 2018-06-17 2018-06-17 Out[facility] [id number] Common 12:24:00 12:24:00 t [place] [facility] [facility] 2018-06-06 2018-06-06 Out[facility] [id number] Common 11:40:00 11:40:00 t [place] Sp[facility] Results Test Test Test Results Result Source Description Time Comments Comments XR FEMUR 2 VW 2019-11- Healing distal femoral [facility] LEFT 16 periprosthetic fracture [facility] 20:35:13 with no Branch hardwarecomplication. EXAM: XR FEMUR 2 VW LEFT HISTORY: L femur ORIF COMPARISON: August 2019 FINDINGS: Imaging of the left femur demonstrates osteoarthritic change at the levelof left hip joint. Crystalline deposition is seen within the commonhamstring tendon complex. Chondrocalcinosis is seen about the symphysispubis and left hip joint. Pelvic phleboliths are seen. Diffuse enthesophyteformation is present. Screw and plate fixation hardware secure a stable,healing distal femoral diaphyseal fracture with progressive partiallybridging callus and no hardware complication. Left knee arthroplastychanges are unremarkable. [facility], Radiant Results Inft User - 11/18/2019 3:36 PM CDTEXAM:XR FEMUR 2 VW LEFTHISTORY:L femur ORIF COMPARISON:August 2019FINDINGS: Imaging of the left femur demonstrates osteoarthritic change at the levelof left hip joint. Crystalline deposition is seen within the commonhamstring tendon complex. Chondrocalcinosis is seen about the symphysispubis and left hip joint. Pelvic phleboliths are seen. Diffuse enthesophyteformation is present. Screw and plate fixation hardware secure a stable,healing distal femoral diaphyseal fracture with progressive partiallybridging callus and no hardware complication. Left knee arthroplastychanges are unremarkable.IMPRESSIONHe aling distal femoral periprosthetic fracture with no hardwarecomplication. XR FEMUR 2 VW 2019-08- FINDINGS/IMPRESSION: No [facility] 10 ?acute fracture or [facility] 19:26:01 dislocation. Hardware Bra okh fixation of a healing distal femur fracture is stable with mildbacking out of the distal fixation screw. Increased callus formation at thefracture represent interval healing. EXAM: XR FEMUR 2 VW LEFT HISTORY: 73 years-old Female post op eval COMPARISON: 07/01/2019. [facility], Radiant Results Inft User - 08/12/2019 2:27 PM CDTEXAM: XR FEMUR 2 VW LEFTHISTORY: 73 years-old Female post op eval COMPARISON: 07/01/2019.IMPRESSIONFINDI NGS/IMPRESSION:No acute fracture or dislocation. Hardware fixation of a healing distal femur fracture is stable with mildbacking out of the distal fixation screw. Increased callus formation at thefracture represent interval healing. XR FEMUR 2 2019-06- Stable hardware fixation [facility] 28 of a healing distal [facility] 22:49:45 femoral fracture in Branc h goodalignment and without complications. EXAM: XR FEMUR 2 VW LEFT HISTORY: 73 years-old Female f/u left distal femur ppffx F/u fx COMPARISON: 06/03/2019. FINDINGS: Stable hardware fixation of a healing distal femoral fracture in goodalignment and without complications. Progressive callus formation at thefracture is noted. Total knee arthroplasty is stable without complications. [facility], Radiant Results Inft User - 07/01/2019 4:50 PM CSTEXAM: XR FEMUR 2 VW LEFTHISTORY: 73 years-old Female f/u left distal femur ppffx F/u fxCOMPARISON: 06/03/2019.FINDINGS: Stable hardware fixation of a healing distal femoral fracture in goodalignment and without complications. Progressive callus formation at thefracture is noted. Total knee arthroplasty is stable without complications.IMPRESSIONS table hardware fixation of a healing distal femoral fracture in goodalignment and without complications.
[2022-03-04 01:14] LABS: Absolute Lymphocytes (CBC) 1.4 K/uL (0.7-4.9); Hematocrit 38.5 % (36.0-45.0); Lymphocytes % 17.3 % (15.3-44.8); MCV 91.2 fL (80-100); MPV 8.9 fL (7.6-11.3); RBC Red Blood Cell Count 4.22 M/uL (3.86-4.86)
[2022-03-04 01:15] LABS: Protime INR 0.95
[2022-03-04 01:28] LABS: Potassium 4.3 mmol/L (3.5-5.1); Troponin High Sensitivity 7.2 pg/mL (<58.9)
--- NOTE | 2022-03-04 02:17 | EDPHYS ---
Physician Documentation [facility] Name: Amy Connor Age: 76 yrs Sex: Female : 1945 Arrival Date: 03/03/2022 Time: 23:45 Bed 3 Private MD: ED Physician Parveen Rush HPI: 03/04 00:28 This 76 yrs old Female presents to ER via EMS with complaints of ams and néstor hypoglycemia. 00:28 The patient presents with confusion, decreased mental status. Onset: The néstor symptoms/episode began/occurred just prior to arrival. Possible causes: low blood sugar. Associated signs and symptoms: The patient has no apparent associated signs or symptoms. Current symptoms: In the emergency department the patient's symptoms have improved, markedly, is more alert. Patient's baseline: Neuro: alert and fully oriented. The patient has experienced similar episodes in the past, a few times. Historical: - Allergies: 03/03 23:48 axetil; as6 23:48 Cefuroxime; as6 23:48 Clindamycin; as6 23:48 Codeine; as6 23:48 Demerol; as6 23:48 hydrocodone bitartrate; as6 23:48 hydrocodone bitartrate (bulk); as6 23:48 Iodine; as6 23:48 Keflex; as6 23:48 Levaquin; as6 23:48 meperidine HCl; as6 23:48 naprosen; as6 23:48 Naproxen; as6 23:48 nitro; as6 23:48 Nitrofuran Analogues; as6 23:48 PENICILLINS; as6 23:48 pentazocine lactate; as6 23:48 promethazine HCl; as6 23:48 Sulfa (Sulfonamide Antibiotics); as6 23:48 Talwin; as6 23:48 Vicodin; as6 - PMHx: 23:48 CKD; Diabetes - IDDM; Hypertension; history of nicotine dependence; Hyperlipidemia; as6 first degree AV block; Hypothyroidism; - Immunization history:: Adult Immunizations unknown. - Social history:: Smoking status: unknown. ROS: 03/04 00:29 Constitutional: Negative for fever, chills, and weight loss, Eyes: Negative for injury, néstor pain, redness, and discharge, ENT: Negative for injury, pain, and discharge, Neck: Negative for injury, pain, and swelling, Cardiovascular: Negative for chest pain, palpitations, and edema, Respiratory: Negative for shortness of breath, cough, wheezing, and pleuritic chest pain, Abdomen/GI: Negative for abdominal pain, nausea, vomiting, diarrhea, and constipation, Back: Negative for injury and pain, : Negative for injury, bleeding, discharge, and swelling, MS/Extremity: Negative for injury and deformity, Skin: Negative for injury, rash, and discoloration, Psych: Negative for depression, anxiety, suicide ideation, homicidal ideation, and hallucinations, Allergy/Immunology: Negative for hives, rash, and allergies, Endocrine: Negative for neck swelling, polydipsia, polyuria, polyphagia, and marked weight changes, Hematologic/Lymphatic: Negative for swollen nodes, abnormal bleeding, and unusual bruising. Neuro: Positive for altered mental status, weakness. 02:18 : Negative for urinary symptoms, urinary frequency, hematuria, burning with néstor urination, bladder incontinence, foul smelling urine. Exam: 00:29 Constitutional: This is a well developed, well nourished patient who is awake, alert, néstor and in no acute distress. Head/Face: Normocephalic, atraumatic. Eyes: Pupils equal round and reactive to light, extra-ocular motions intact. Lids and lashes normal. Conjunctiva and sclera are non-icteric and not injected. Cornea within normal limits. Periorbital areas with no swelling, redness, or edema. ENT: Nares patent. No nasal discharge, no septal abnormalities noted. Tympanic membranes are normal and external auditory canals are clear. Oropharynx with no redness, swelling, or masses, exudates, or evidence of obstruction, uvula midline. Mucous membranes moist. Neck: Trachea midline, no thyromegaly or masses palpated, and no cervical lymphadenopathy. Supple, full range of motion without nuchal rigidity, or vertebral point tenderness. No Meningismus. Chest/axilla: Normal chest wall appearance and motion. Nontender with no deformity. No lesions are appreciated. Cardiovascular: Regular rate and rhythm with a normal S1 and S2. No gallops, murmurs, or rubs. Normal PMI, no JVD. No pulse deficits. Respiratory: Lungs have equal breath sounds bilaterally, clear to auscultation and percussion. No rales, rhonchi or wheezes noted. No increased work of breathing, no retractions or nasal flaring. Abdomen/GI: Soft, non-tender, with normal bowel sounds. No distension or tympany. No guarding or rebound. No evidence of tenderness throughout. Back: No spinal tenderness. No costovertebral tenderness. Full range of motion. Female : Normal external genitalia. Skin: Warm, dry with normal turgor. Normal color with no rashes, no lesions, and no evidence of cellulitis. MS/ Extremity: Pulses equal, no cyanosis. Neurovascular intact. Full, normal range of motion. Neuro: Awake and alert, GCS 15, oriented to person, place, time, and situation. Cranial nerves II-XII grossly intact. Motor strength 5/5 in all extremities. Sensory grossly intact. Cerebellar exam normal. Normal gait. Psych: Awake, alert, with orientation to person, place and time. Behavior, mood, and affect are within normal limits. 00:34 Radiologist reports: nad néstor Vital Signs: 03/03 23:36 BP 130 / 60; Pulse 54; Resp 18 S; Pulse Ox 100% on R/A; aa9 23:45 BP 112 / 65; Pulse 52; Resp 16 S; Pulse Ox 100% on R/A; aa9 23:46 BP 130 / 60; Pulse 56; Resp 16 S; Temp 97.6(O); Pulse Ox 98% on R/A; Weight 77.11 kg; as6 Height 5 ft. 2 in. (157.48 cm); Pain 0/10; 03/04 00:16 BP 111 / 51; Pulse 53; Resp 19 S; Pulse Ox 100% on R/A; aa9 00:45 BP 102 / 51; Pulse 55; Resp 16 S; Pulse Ox 97% on R/A; aa9 01:30 BP 112 / 49; Pulse 56; Resp 16 S; Pulse Ox 100% on R/A; aa9 01:45 BP 120 / 53; Pulse 59; Resp 16 S; Pulse Ox 96% ; aa9 02:00 BP 135 / 82; Pulse 57; Resp 16 S; Pulse Ox 97% on R/A; aa9 02:45 BP 124 / 75; Pulse 61; Resp 18 S; Pulse Ox 100% on R/A; Pain 0/10; aa9 04:16 BP 131 / 65; Pulse 65; Resp 16 S; Pulse Ox 100% on R/A; aa9 03/03 23:46 Body Mass Index 31.09 (77.11 kg, 157.48 cm) as6 MDM: 03/03 23:45 Patient medically screened. [facility] [place] 03/04 00:32 Differential diagnosis: CVA, TIA, Dementia, metabolic disorder, drug effects. [facility] [place] Differential Diagnosis: CVA, electrolyte abnormality, hypoglycemia, overdose, seizure, sepsis, UTI, volume depletion. Data reviewed: vital signs, nurses notes, lab test result(s), EKG, radiologic studies, plain films. Data interpreted: cardiac monitor technician: rate is 56 beats/min, rhythm is regular. Test interpretation: by ED physician or midlevel provider: ECG, plain radiologic studies. 03/04 00:22 Order name: Basic Metabolic Panel as6 03/04 00:22 Order name: CBC with Diff as6 03/04 00:22 Order name: PT-INR as6 03/04 00:22 Order name: Troponin HS as6 03/04 00:37 Order name: Valproic Acid (depakote) [facility] [place] 03/04 01:14 Order name: CBC with Automated Diff; Complete Time: 02:13 EDMS 03/04 01:15 Order name: Protime (+INR); Complete Time: 02:13 EDMS 03/04 01:28 Order name: Basic Metabolic Panel; Complete Time: 01:34 EDMS 03/04 01:28 Order name: Troponin High Sensitivity; Complete Time: 02:13 EDMS 03/04 01:30 Order name: Valproic Acid (Depakene) Level; Complete Time: 02:13 EDMS 03/04 02:21 Order name: SARS-COV-2 Antigen Rapid; Complete Time: 02:44 EDMS 03/04 02:40 Order name: Urine Dipstick-Ancillary; Complete Time: 02:44 EDMS 03/04 00:22 Order name: XRAY Chest (1 view) as6 03/04 00:22 Order name: EKG; Complete Time: 00:23 as6 03/04 00:22 Order name: Cardiac monitoring; Complete Time: 00:22 as6 03/04 00:22 Order name: EKG - Nurse/Tech; Complete Time: 01:55 as6 03/04 00:22 Order name: IV Saline Lock; Complete Time: 00:22 as6 03/04 00:22 Order name: Labs collected and sent; Complete Time: 01:01 as6 03/04 00:22 Order name: O2 Per Protocol; Complete Time: 00:22 as6 03/04 00:22 Order name: O2 Sat Monitoring; Complete Time: 00:22 as6 03/04 00:27 Order name: Diet Regular; Complete Time: 00:28 néstor 03/04 00:35 Order name: CT Head Brain wo Cont néstor 03/04 02:42 Order name: Urine Microscopic Only; Complete Time: 02:44 EDMS 03/04 03:15 Order name: Urine Dipstick-Ancillary; Complete Time: 03:45 EDMS 03/04 03:21 Order name: Urine Culture as6 03/04 03:21 Order name: Urine Microscopic Only as6 03/04 03:50 Order name: Urine Microscopic Only; Complete Time: 03:51 EDMS 03/04 00:22 Order name: Urine Dipstick-Ancillary (obtain specimen); Complete Time: 02:49 as6 Administered Medications: 03:46 CANCELLED (Duplicate Order): Fosfomycin 3 grams PO once néstor Disposition Summary: 03/04/22 02:16 Discharge Ordered Location: Home [facility] [place] Problem: new néstor Symptoms: have improved néstor Condition: Stable néstor Diagnosis - Hypoglycemia, unspecified - IDDM néstor - Bradycardia, unspecified néstor - UTI/ Urinary tract infection, site not specified néstor Followup: néstor - With: Private Physician - When: 2 - 3 days - Reason: Recheck today's complaints, Re-evaluation by your physician Followup: néstor - With: Panda Henry, DO - When: 2 - 3 days - Reason: Recheck today's complaints, Re-evaluation by your physician Discharge Instructions: - Discharge Summary Sheet néstor - Bradycardia, Adult néstor - Hypoglycemia néstor - Blood Glucose Monitoring, Adult néstor - Urinary Tract Infection, Adult néstor - Urinary Tract Infection, Adult, [id number] néstor - Diabetes Mellitus and Nutrition, Adult néstor - Hypoglycemia, [id number] néstor Forms: - Medication Reconciliation Form néstor - Thank You Letter néstor - Antibiotic Education néstor - Prescription Opioid Use néstor Prescriptions: - fosfomycin tromethamine 3 gram Oral packet - take 3 gram by ORAL route one time; 3 gram; Refills: 0, Product Selection néstor Permitted Signatures: Dispatcher [employer] Parveen Rivas MD MD cha Attema, Lee, CANCELING MACHINE OPERATOR-C CANCELING MACHINE OPERATOR-Cla1 Al Aguilar, RN RN as6 Corrections: (The following items were deleted from the chart) 01:16 00:22 UA MICROSCOPIC+U.LAB.BRZ ordered. EDMS EDMS 01:16 00:36 SARS-COV-2 Antigen Rapid+I.LAB.BRZ ordered. EDMS EDMS 03:46 03:45 Fosfomycin 3 grams PO once ordered. néstor palm
--- NOTE | 2022-03-04 02:17 | ER ---
Nurse's Notes [facility] Name: Amy Connor Age: 76 yrs Sex: Female : 1945 Arrival Date: 03/03/2022 Time: 23:45 Bed 3 Private MD: Diagnosis: Hypoglycemia, unspecified-IDDM;Bradycardia, unspecified;UTI/ Urinary tract infection, site not specified Presentation: 03/03 23:46 Chief complaint: EMS states: called out for hypoglycemia. on scene pt BGL was 30. 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 Coronavirus screen: At this time, the client does not indicate any symptoms associated with coronavirus-19. Ebola Screen: No symptoms or risks identified at this time. Initial Sepsis Screen: Does the patient meet any 2 criteria? No. Patient's initial sepsis screen is negative. Does the patient have a suspected source of infection? No. Patient's initial sepsis screen is negative. Risk Assessment: Do you want to hurt yourself or someone else? Patient reports no desire to harm self or others. Onset of symptoms was March 03, 2022. 23:46 Method Of Arrival: EMS: [facility] as6 23:49 Acuity: SIGIFREDO 3 as6 03/04 00:22 Care prior to arrival: IV initiated. 20 GA, in the right antecubital area. as6 Historical: - Allergies: 03/03 23:48 axetil; as6 23:48 Cefuroxime; as6 23:48 Clindamycin; as6 23:48 Codeine; as6 23:48 Demerol; as6 23:48 hydrocodone bitartrate; as6 23:48 hydrocodone bitartrate (bulk); as6 23:48 Iodine; as6 23:48 Keflex; as6 23:48 Levaquin; as6 23:48 meperidine HCl; as6 23:48 naprosen; as6 23:48 Naproxen; as6 23:48 nitro; as6 23:48 Nitrofuran Analogues; as6 23:48 PENICILLINS; as6 23:48 pentazocine lactate; as6 23:48 promethazine HCl; as6 23:48 Sulfa (Sulfonamide Antibiotics); as6 23:48 Talwin; as6 23:48 Vicodin; as6 - PMHx: 23:48 CKD; Diabetes - IDDM; Hypertension; history of nicotine dependence; Hyperlipidemia; as6 first degree AV block; Hypothyroidism; - Immunization history:: Adult Immunizations unknown. - Social history:: Smoking status: unknown. Screenin/01 02:16 Abuse screen: Denies threats or abuse. Denies injuries from another. Nutritional aa9 screening: No deficits noted. Tuberculosis screening: No symptoms or risk factors identified. Fall Risk None identified. Assessment: 01:00 General: Appears comfortable, obese, Behavior is calm, cooperative. Pain: Denies pain. aa9 Neuro: Level of Consciousness is awake, alert, obeys commands, Oriented to person, place, time, situation. 01:00 Respiratory: Airway is patent Respiratory effort is even, unlabored. aa9 03:21 General: discharge pending urine . as6 Vital Signs: 03/03 23:36 BP 130 / 60; Pulse 54; Resp 18 S; Pulse Ox 100% on R/A; aa9 23:45 BP 112 / 65; Pulse 52; Resp 16 S; Pulse Ox 100% on R/A; aa9 23:46 BP 130 / 60; Pulse 56; Resp 16 S; Temp 97.6(O); Pulse Ox 98% on R/A; Weight 77.11 kg; as6 Height 5 ft. 2 in. (157.48 cm); Pain 0/10; 03/04 00:16 BP 111 / 51; Pulse 53; Resp 19 S; Pulse Ox 100% on R/A; aa9 00:45 BP 102 / 51; Pulse 55; Resp 16 S; Pulse Ox 97% on R/A; aa9 01:30 BP 112 / 49; Pulse 56; Resp 16 S; Pulse Ox 100% on R/A; aa9 01:45 BP 120 / 53; Pulse 59; Resp 16 S; Pulse Ox 96% ; aa9 02:00 BP 135 / 82; Pulse 57; Resp 16 S; Pulse Ox 97% on R/A; aa9 02:45 BP 124 / 75; Pulse 61; Resp 18 S; Pulse Ox 100% on R/A; Pain 0/10; aa9 04:16 BP 131 / 65; Pulse 65; Resp 16 S; Pulse Ox 100% on R/A; aa9 03/03 23:46 Body Mass Index 31.09 (77.11 kg, 157.48 cm) as6 ED Course: 03/03 23:45 Patient arrived in ED. 23:45 Parveen Rush MD is Attending Physician. [facility] 23:46 Al Aguilar, RN is Primary Nurse. as 23:48 Triage completed. 23:49 Arm band placed on. as 23:49 Patient has correct armband on for positive identification. Bed in low position. Side aa9 rails up X2. Warm blanket given. 03/04 01:01 Basic Metabolic Panel Sent. aa9 01:01 CBC with Diff Sent. aa9 01:01 PT-INR Sent. aa9 01:01 Troponin HS Sent. aa9 01:15 Valproic Acid (depakote) Sent. aa9 02:15 Panda Henry DO is Referral Physician. néstor 02:36 Assisted with bedpan. aa9 02:51 No provider procedures requiring assistance completed. aa9 04:25 IV discontinued, intact, bleeding controlled, No redness/swelling at site. Pressure aa9 dressing applied. Administered Medications: 03:46 CANCELLED (Duplicate Order): Fosfomycin 3 grams PO once [facility] Medication: 02:51 VIS not applicable for this client. aa9 Outcome: 02:16 Discharge ordered by . néstor 02:51 Condition: stable aa9 04:25 Discharged to home via wheelchair, with significant other. aa9 04:25 Discharge instructions given to patient, significant other, Instructed on discharge instructions, follow up and referral plans. medication usage, Demonstrated understanding of instructions, follow-up care, medications, Prescriptions given X 1. 04:25 Patient left the ED. aa9 Addendum: 03/07/2022 08:33 Addendum: Culture Results: Positive urine culture. No further action required. Bacteria s s sensitive to prescribed antibiotic. Signatures: Parveen Rush MD MD cha Smirch, Shelby, TEJINDER RN Niyah Miranda Al Aguilar, TEJINDER RN as6 Lisa Galvez RN RN aa9 Corrections: (The following items were deleted from the chart) 03/03 23:49 23:46 Acuity: SIGIFREDO 2 as6 as6
[2022-03-04 02:21] LABS: SARS-CoV-2 Antigen Rapid Res Negative (Negative)
[2022-03-04 02:39] LABS: Urine Blood Trace-lysed (Negative); Urine Glucose Negative (Negative); Urine Specific Gravity 1.015 (1.005-1.030)
[2022-03-04 02:40] LABS: Urine Protein Negative (Negative)
[2022-03-04 02:42] LABS: Urine Bacteria <20 /HPF (<20); Urine Mucus Slight /HPF (None Seen); Urine RBC <5 /HPF (None Seen); Urine WBC Clump Rare /HPF (None Seen)
[2022-03-04 03:15] LABS: Urine Blood Negative (Negative); Urine Glucose Negative (Negative); Urine Protein Negative (Negative); Urine Specific Gravity 1.015 (1.005-1.030)
[2022-03-04 03:50] LABS: Urine Bacteria <20 /HPF (<20); Urine Mucus Slight /HPF (None Seen); Urine RBC <5 /HPF (None Seen)
[2022-03-04 12:49] VITALS: TEMP 97.6
[2022-03-04 12:57] VITALS: O2SAT 100
[2022-03-04 12:58] VITALS: BP 131/65
--- NOTE | 2022-03-04 20:00 | RAD REPORT ---
EXAM DESCRIPTION: RAD - Chest Single View - 03/04/2022 1:04 am CLINICAL HISTORY: 6 years Female, shortness of breath COMPARISON: Chest radiograph dated 12/15/2021 IMPRESSION: Chronic lung changes. No focal consolidation. No pleural effusion. No pneumothorax. Cardiomediastinal silhouette is within normal limits. No acute osseous abnormality. Electronically signed by: Vladimir Llanes DO 03/04/2022 1:19 AM CDT Due to temporary technical issues with the PACS/Fluency reporting system, reports are being signed by the in house radiologists without review as a courtesy to insure prompt reporting. The interpreting radiologist is fully responsible for the content of the report.
--- NOTE | 2022-03-04 20:39 | RAD REPORT ---
EXAM DESCRIPTION: CT - Head Brain Wo Cont - 03/04/2022 1:28 am CLINICAL HISTORY: 76 years, Female, Mental status change, persistent or worsening COMPARISON: None. FINDINGS: Multiple transaxial tomograms of the brain were obtained from the base of the skull to the vertex without contrast. 2-D multiplanar reformats and the coronal and sagittal plane were performed and reviewed. This exam was performed according to our departmental dose-optimization protocol, which includes auto mated exposure control, adjustment of the mA and/or kV according to patient size and/or use of iterat katharina reconstruction technique. Brain parenchyma demonstrate mild prominence of the sulci and gyri are corresponding to mild cerebral and cerebellar atrophy. There is no midline shift and/or mass effect. There is no evidence for acute intracranial hemorrhage. Lateral ventricles and cisterns displace normal appearance. No intra or extra axial fluid collections were seen. The calvarium is intact with no evidence for fracture. The visualized portions of the paranasal sinuses and orbits demonstrate to be clear. IMPRESSION: No acute intracranial hemorrhage identified. Mild brain atrophy. Electronically signed by: Venkat Melissa MD 03/04/2022 1:46 AM CDT Due to temporary technical issues with the PACS/Fluency reporting system, reports are being signed by the in house radiologists without review as a courtesy to insure prompt reporting. The interpreting radiologist is fully responsible for the content of the report.
--- NOTE | 2022-03-06 14:16 | EKG ---
Test Date: 2022-03-04 Test Time: 01:42:07 Service Officer: EVARISTO MEASUREMENT RESULTS: Intervals: Rate: 54 CO: 244 QRSD: 100 QT: 450 QTc: 426 [place]: P: 57 CO: 244 QRS: 27 T: 31 INTERPRETIVE STATEMENTS: Sinus bradycardia with 1st degree AV block Otherwise normal ECG Compared to ECG 12/10/2020 23:54:51 First degree AV block now present Sinus rhythm no longer present Electronically Signed On 03-06-22 14:13:57 CDT by Daniel Dorsey
== END 2022-03-04 04:25 | disposition home or self-care (01) ==
LOC: ER 23:41
DX: E11.649 Type 2 diabetes mellitus with hypoglycemia without coma (principal); N39.0 Urinary tract infection, site not specified; R00.1 Bradycardia, unspecified; Z20.822 Contact with and (suspected) exposure to COVID-19; Z88.0 Allergy status to penicillin; Z88.1 Allergy status to other antibiotic agents; Z88.2 Allergy status to sulfonamides; Z88.3 Allergy status to other anti-infective agents; Z88.5 Allergy status to narcotic agent; Z88.8 Allergy status to other drugs, medicaments and biological substances; Z91.048 Other nonmedicinal substance allergy status
CPT/HCPCS: 36415; 70450; 71045; 80048; 80164; 81003; 81015; 84484; 85025; 85610; 87077; 87086; 87088; 87186; 87811; 93005; 99283